=== PATIENT | male | born 1955 | race Caucasian/White ===

== ENCOUNTER 2017-07-19 10:11 | Inpatient (IN) | payer MEDICARE, SELFPAY ==
[2017-07-19] VITALS (19 sets, daily range): BP systolic 100–152; BP diastolic 58–98; PULSE 56–123; RESP 14–21; TEMP 36.7–37.7; O2SAT 82–99; BMI 34.6; BMI 34.5
--- NOTE | 2017-07-19 10:32 | RAD_ITS ---
STUDY: X-RAY CHEST REASON FOR EXAM: Male, 61 years old. Shortness of breath. TECHNIQUE: Single AP portable view of the chest. COMPARISON: Comparison is made with prior study dated January 08, 2018. FINDINGS: EKG electrodes are seen. There is now evidence of a [id number] right pleural effusion with underlying infiltration and/or atelectasis. This is superimposed on mild degree of CHF. Mild increased markings are also seen at the left lung base. There is moderate cardiac enlargement. Normal mediastinum and barry. Normal visualized pulmonary arteries. There is atherosclerotic calcification of the aortic arch with tortuosity. There are diffuse degenerative changes of the visualized thoracic spine. Cartilaginous type of calcification in the proximal left humerus. This is unchanged and most likely represents either chondroid calcification or healed bone infarct. There is no demonstrated abnormality of the visualized soft tissue structures of the upper abdomen. RAD/Chest 1 View (Portable) IMPRESSION: Findings in keeping with CHF with bibasilar infiltration and/or atelectasis and right pleural effusion. Electronically Signed: Hernan Lundberg MD at 11:38 EST Tel [phone], Service support ,
--- NOTE | 2017-07-19 10:32 | EKG12_ITS ---
Test Reason : SOB Blood Pressure : / mmHG Vent. Rate : 124 BPM Atrial Rate : 117 BPM P-R Int : 000 ms QRS Dur : 152 ms QT Int : 368 ms P-R-T Axes : 000 103 -28 degrees QTc Int : 528 ms Atrial fibrillation Right bundle branch block Septal infarct , age undetermined T wave abnormality, consider inferolateral ischemia Abnormal ECG Confirmed by ROSALIO ARIZA ([id number]), pictures editor LILLIAN HOUGH ([id number]) on 07/22/2017 1:18:08 PM Referred By: ELLIE Confirmed By:ROSALIO ARIZA
--- NOTE | 2017-07-19 10:43 | ED.DCSUM_ITS ---
- ER Visit Summary Date of Service: 07/19/17 Chief Complaint: Shortness of breath History of Present Illness: The patient is a 61 M with known history of atrial fibrillation, pulmonary hypertension, CHF, COPD, non-small cell lung cancer. He is currently on home oxygen at 6 L. Patient presents with a one-week history of progressive shortness of breath. He was admitted July 07 for COPD/CHF exacerbations. He states since his discharge has been progressively worsening. He reports a 20 pound weight gain in the past 1 week. He is currently on Lasix 40 mg twice a day but reports has not been any increased output of urine. Patient denies pain. Physical Examination: Blood pressure is 152/98, temperature 99.9, heart rate 56 , respiratory rate 17, pulse ox 82% on 6 L nasal cannula. The heart rate reading was obtained from the pulse ox meter. When hooked up to bus driver/monitor patient is tachycardic at 113 and has an oxygen saturation 91% on a nonrebreather. Head and neck examination is grossly unremarkable. Heart is irregular and tachycardic. Lung sounds are diminished throughout. Abdomen is soft nontender. She does have 3+ bilateral lower extremity edema that is symmetric. Test Results: CBC reveals a platelet count of 136,000, otherwise values normal. Chemistry studies normal. INR therapeutic at 2.0. Troponin 0 0.02. BNP is 531. EKG is atrial fibrillation at 124. Right bundle branch block is noted. Portable chest x-ray reveals CHF with bibasilar infiltrate and/or atelectasis and a right pleural effusion. Emergency Department Course and Treatment: Patient was started on BiPAP shortly after his arrival. He is on 55% with O2 sats in the low 90s. He is breathing comfortably at 18 times a minute. He does feel his breathing is improved. He was given 40 mg of IV Lasix. At this time patient will be admitted for further treatment and evaluation. Treatment Plan: [] Disposition: Admit Impression: 1. CHF 2. Respiratory failure This note was generated with [employer] dictation software. It may contain incorrect words, spelling, and punctuation that were not noted in review of the chart prior to signing ED Disposition - Plan for ED Patient: Chief Complaint: Shortness of Breath Referrals: Steven Brownlee MD [Primary Care Provider] -
[2017-07-19 11:03] LABS: Prothrombin Time (Protime)PT. 22.2 SECONDS (11.7-14.9)
[2017-07-19] MEDS: Furosemide 40 MG/4 ML Vial IV ×3 (11:03→22:31)
[2017-07-19 11:21] LABS: Anion Gap 5 (5-15); BUN 13 mg/dL (7-18); BUN/Creat Ratio 13.9 RATIO (10-20); Calcium,Total 8.8 mg/dL (8.5-10.1); Chloride 93 mmol/L (98-107); Creatinine, Serum 0.93 mg/dL (0.70-1.30); EST Glomerular Filtration Rate 87 mL/min (>60); Est Glom Filt Rate - Afr Amer 105 mL/min (>60); Estimated Creatinine Clearance 97.17 ml/min; Glucose 124 mg/dL (70-110); Potassium 4.1 mmol/L (3.5-5.1); Sodium Level 137 mmol/L (136-145)
[2017-07-19 11:34] LABS: Absolute Lymphocyte Count 0.87 X10^3/ul (0.83-4.51); Absolute Neutrophil Count 5.7 X10^3/uL (2.0-7.7); Basophil# 0.01 X10^3/uL; Basophil% 0.1 % (0-1); Eosinophil# 0.11 X10^3/uL; Eosinophils% 1.5 % (0-5); Hematocrit 44.7 % (40-54); Hemoglobin 13.5 g/dl (13.0-16.5); Lymphocyte # 0.87 X10^3/ul (4.0); Lymphocyte % 11.9 % (19-41); Mean Corp Hgb Conc 30.2 g/gl (32-36); Mean Corpuscular Hgb 28.7 pg (27.0-32.0); Mean Corpuscular Volume 95.1 fL (80-94); Mean Platelet Vol. 10.4 fl (6.2-12.0); Monocyte# 0.65 X10^3/uL; Monocyte% 8.9 % (0-10); Neutrophil # 5.67 X10^3/uL (2.7-7.7); Neutrophil % 77.6 % (47-70); Platelet Count 136 K/mm3 (150-450); RBC Distribution Width CV 19.5 % (11.6-14.6); RBC Distribution Width SD 66.1 fl (35.1-43.9); White Blood Count 7.3 K/mm3 (4.4-11.0)
[2017-07-19 11:36] LABS: Differential Indicated SCAN CRITERIA MET; POSITIVE COUNT NO; POSITIVE DIFFERENTIAL NO; POSITIVE MORPHOLOGY YES
[2017-07-19 12:02] LABS: BNP,B-Type NATRIURETIC PEPTIDE 531.2 pg/mL (0-100)
--- NOTE | 2017-07-19 12:51 | HP.PCM_ITS ---
Problem List (1) Hyperlipidemia Status: Chronic Qualifiers: Hyperlipidemia type: unspecified Qualified Code(s): E78.5 - Hyperlipidemia , unspecified (2) Hypertension Status: Chronic Qualifiers: Hypertension type: essential hypertension Qualified Code(s): I10 - Essential (primary) hypertension (3) Chronic airway obstruction Status: Chronic Qualifiers: Emphysema type: unspecified (4) Obstructive sleep apnea Status: Chronic (5) Acute on chronic diastolic (congestive) heart failure Status: Acute History of Present Illness Date of Admission: 07/19/17 Chief Complaint: Shortness of breath The patient is a 61 year old M who was recently discharged 1 week ago after being the hospital with acute on chronic diastolic heart failure, patient sees the patient had gained 20 pounds since discharge. Denies noncompliance with medication or salt or fluid restriction. Patient has been progressively short of breath, very sleepy, and complained of chest discomfort this morning with worsening shortness of breath and that prompted admission to the ED. In the ED, SPo2 was 82% and improved on Bipap. BNPep was >530. CXR showed vascular congestion Past Medical History Past Medical History (Chronic Problems): Chronic Problems Hyperlipidemia (Chronic) Hypertension (Chronic) Tobacco use disorder (Chronic) Chronic airway obstruction (Chronic) Obstructive sleep apnea (Chronic) Chronic pulmonary heart disease (Chronic) Allergies bee venom protein (honey bee) Allergy (Verified 07/19/17 10:12) Anaphylaxis latex Allergy (Verified 07/19/17 10:12) Rash Home Medications: Ambulatory Orders Medication Instructions Recorded Finasteride [Proscar] 5 mg PO DAILY 08/01/13 Metoprolol Tartrate [Lopressor 12.5 mg PO BID 08/01/13 (beta fito)] Pravastatin Sodium [Pravachol] 10 mg PO QHS 08/01/13 Gabapentin [Neurontin] 600 mg PO TID 01/31/17 Lorazepam [Ativan] 1 mg PO BID PRN PRN 01/31/17 Mirtazapine [Remeron] 30 mg PO QHS 01/31/17 Morphine Sulfate [Morphine Sulfate 30 mg PO BID PRN PRN 01/31/17 ER] Omeprazole 1 tab PO DAILY 01/31/17 Ondansetron [Zofran] 8 mg PO Q8H PRN PRN 01/31/17 Epinephrine [Epipen] 0.3 mg IM PRN PRN 07/07/17 Nitroglycerin [Nitrostat] 0.4 mg SL PRN PRN 07/07/17 Tamsulosin HCl [Flomax] 0.4 mg PO DAILY 07/07/17 Budesonide/Formoterol 80-4.5 2 puff INHALATION BID 07/09/17 [Symbicort 80-4.5 Mcg Inhaler] Albuterol IH (ProAir) [Proair Hfa] 2 puff INHALATION 4X/DAY #1 inhaler 07/12/17 Potassium Chloride 20 meq PO BID #120 tablet.er 07/12/17 Warfarin [Coumadin] 6 mg PO SuMoWeThFrSa@1700 tablet 07/12/17 Warfarin [Coumadin] 9 mg PO Tu@1700 tablet 07/12/17 Furosemide [Lasix] 40 mg PO BIDLX 07/19/17 Surgical History: noncontributory Psychiatric History: No pertinent psych hx Lives: Spouse/ Significant Other Smoking Status: Former smoker Tobacco Use: Non-smoker Alcohol: None Drugs: None - *Family History Maternal History Items: No pertinent history Paternal History Items: No pertinent history Review of Systems Constitutional: Reports: Weakness, Weight Change. Denies: Anorexia, Chills, Fever Eyes: Denies: Blurred vision, Cataracts, Conjunctivae Inflammation, Pain, Redness HEENT: Denies: Head Aches, Sinus Congestion, Sinus Drainage Cardiovascular: Reports: Chest Pain, Edema, Orthopnea, Paroxysmal Noc. Dyspnea. Denies: Claudication, Light Headedness, Palpitations Respiratory: Reports: Shortness of Breath, Shortness of breath at rest, Shortness of breath upon exertion. Denies: Cough, Hemoptysis, Pleuritic Pain, Sputum production Gastrointestinal: Reports: Constipation. Denies: Abdominal Pain, Hematemesis, Hematochezia, Nausea, Vomiting Genitourinary: Denies: Dysuria, Frequency, Hematuria, Incontinence Musculoskeletal: Denies: Joint Pain, Joint stiffness, Joint swelling, Joint Tenderness Skin: Denies: Dryness, Pruritis, Rash, Wounds Neurological: Denies: Difficulty swallowing, Focal weakness, Numbness, Tingling Psychiatric: Denies: Anxiety, Depression, Homicidal Ideations, Suicidal Ideations Endocrine: Denies: Change in Body Habitus Hematologic/ Lymphatic: Denies: Adenopathy, Easy Bruising, Easy Bleeding, Petechiae VTE Information - Inpt Only VTE Present on Admission: No VTE Pharm Prophylaxis ordered?: Yes - Physical Exam General: Alert, Oriented x3, Cooperative HEENT: Atraumatic, PERRLA, EOMI, Normocephalic Neck: Supple, No JVD, Negative Carotid Bruits Lungs: Clear to auscultation, Normal air movement Cardiovascular: Regular rate, No murmurs Abdomen: Bowel Sounds Present, Soft, Non Tender Extremities: No edema, Capillary Refill Less than 3 Seconds Skin: No rashes, No breakdown Musculoskeletal: No Tenderness to Palpation of Joints or Extremities Neurological: Cranial nerves II-XII grossly intact Psych/Mental Status: Normal Affect, Appropriate Vital Signs Temp Pulse Resp BP Pulse Ox 99.9 F H 59 L 18 100/70 94 07/19/17 10:12 07/19/17 12:09 07/19/17 12:09 07/19/17 12:09 07/19/17 12:09 Oxygen Flow Rate 6 Oxygen Delivery Method Bi-pap Weight: 125.736 kg Body Mass Index (BMI) 34.6 Laboratory Tests Past 24 Hrs 07/19/17 07/19/17 07/19/17 10:46 10:46 10:46 WBC 7.3 RBC 4.70 Hgb 13.5 Hct 44.7 MCV 95.1 H MCH 28.7 MCHC 30.2 L RDW 19.5 H RDW Differential 66.1 H Plt Count 136 L MPV 10.4 Immature Gran % (Auto) 0.000 Neut % (Auto) 77.6 H Lymph % (Auto) 11.9 L Briscoe % (Auto) 8.9 Eos % (Auto) 1.5 Baso % (Auto) 0.1 Absolute Neuts (auto) 5.7 Absolute Lymphs (auto) 0.87 Total Counted Not Reportable Differential Comment PT 22.2 H INR 2.0 Sodium 137 Potassium 4.1 Chloride 93 L Carbon Dioxide 39.0 H Anion Gap 5 BUN 13 Creatinine 0.93 Estim Creat Clear Calc 97.17 Est GFR (MDRD) Af Amer 105 Est GFR (MDRD) Non-Af 87 BUN/Creatinine Ratio 13.9 Glucose 124 H Calcium 8.8 Troponin I 0.02 B-Natriuretic Peptide 07/19/17 10:46 WBC RBC Hgb Hct MCV MCH MCHC RDW RDW Differential Plt Count MPV Immature Gran % (Auto) Neut % (Auto) Lymph % (Auto) Briscoe % (Auto) Eos % (Auto) Baso % (Auto) Absolute Neuts (auto) Absolute Lymphs (auto) Total Counted Differential Comment PT INR Sodium Potassium Chloride Carbon Dioxide Anion Gap BUN Creatinine Estim Creat Clear Calc Est GFR (MDRD) Af Amer Est GFR (MDRD) Non-Af BUN/Creatinine Ratio Glucose Calcium Troponin I B-Natriuretic Peptide 531.2 H
--- NOTE | 2017-07-19 13:16 | NURSING ---
127 ACUTE HYPOXIC RESP FAILURE PAINTSIL
[2017-07-19] MEDS: Albuterol 2.5 MG/3 ML VIAL.NEB. INHALATION ×2 (15:20→19:39)
[2017-07-19] MEDS: Budesonide Respules 0.5 MG/2 ML AMPUL.NEB. INHALATION (19:39)
--- NOTE | 2017-07-19 21:05 | NURSING ---
Spoke with at home. Updated on patient status.
[2017-07-19] MEDS: Metoprolol Tartrate 25 MG Tablet 12.5 MG PO (22:31)
[2017-07-19 22:34] LABS: Magnesium 2.1 mg/dL (1.6-2.6)
[2017-07-19] MEDS: Zolpidem Tartrate 5 MG Tablet PO (22:34)
[2017-07-19] MEDS: Pravastatin 20 MG Tablet 10 MG PO (22:34)
[2017-07-19] MEDS: Mirtazapine 30 MG Tablet PO (22:35)
[2017-07-20] VITALS (29 sets, daily range): BP systolic 85–112; BP diastolic 50–68; PULSE 60–152; RESP 14–20; TEMP 36.1–37.2; O2SAT 85–93
[2017-07-20 06:26] LABS: Hematocrit 40.6 % (40-54); Hemoglobin 12.4 g/dl (13.0-16.5); Mean Corp Hgb Conc 30.5 g/gl (32-36); Mean Corpuscular Hgb 29.1 pg (27.0-32.0); Mean Corpuscular Volume 95.3 fL (80-94); Mean Platelet Vol. 9.8 fl (6.2-12.0); Platelet Count 105 K/mm3 (150-450); RBC Distribution Width CV 19.2 % (11.6-14.6); RBC Distribution Width SD 65.1 fl (35.1-43.9); Red Blood Count 4.26 M/mm3 (4.6-6.2); White Blood Count 5.8 K/mm3 (4.4-11.0)
[2017-07-20 06:32] LABS: Scan Indicated on CBC? Y/N YES- FLAGS NOTED
[2017-07-20 06:33] LABS: International Normalized Ratio 2.4; Prothrombin Time (Protime)PT. 24.8 SECONDS (11.7-14.9)
[2017-07-20 06:36] LABS: Anion Gap 4 (5-15); BUN 12 mg/dL (7-18); BUN/Creat Ratio 14.7 RATIO (10-20); Calcium,Total 8.2 mg/dL (8.5-10.1); Chloride 94 mmol/L (98-107); Creatinine, Serum 0.82 mg/dL (0.70-1.30); EST Glomerular Filtration Rate 101 mL/min (>60); Est Glom Filt Rate - Afr Amer 122 mL/min (>60); Glucose 90 mg/dL (70-110); Potassium 3.4 mmol/L (3.5-5.1); Sodium Level 139 mmol/L (136-145)
[2017-07-20 06:42] LABS: Differential Comment SCANNED
[2017-07-20] MEDS: Albuterol 2.5 MG/3 ML VIAL.NEB. INHALATION ×3 (08:06→19:26)
[2017-07-20] MEDS: Budesonide Respules 0.5 MG/2 ML AMPUL.NEB. INHALATION ×2 (08:06→19:26)
--- NOTE | 2017-07-20 09:32 | EKG12_ITS ---
Test Reason : TACHYCARDIA Blood Pressure : / mmHG Vent. Rate : 112 BPM Atrial Rate : 119 BPM P-R Int : 000 ms QRS Dur : 150 ms QT Int : 316 ms P-R-T Axes : 000 127 -30 degrees QTc Int : 431 ms Atrial fibrillation Right bundle branch block Septal infarct , age undetermined T wave abnormality, consider inferolateral ischemia Abnormal ECG When compared with ECG of 19-JUL-2017 10:37, MANUAL COMPARISON REQUIRED, DATA IS UNCONFIRMED Confirmed by ROSALIO ARIZA ([id number]), avid editor LILLIAN HOUGH ([id number]) on 07/22/2017 2:13:14 PM Referred By: ARI Confirmed By:ROSALIO ARIZA
[2017-07-20] MEDS: Tamsulosin HCl 0.4 MG Capsule PO (10:00)
[2017-07-20] MEDS: Finasteride 5 MG Tablet PO (10:01)
[2017-07-20] MEDS: Pantoprazole Sodium 20 MG Tablet PO (10:02)
[2017-07-20] MEDS: Metoprolol Tartrate 25 MG Tablet 12.5 MG PO (10:18)
--- NOTE | 2017-07-20 12:18 | PN_ITS ---
Subjective: Current was seen and examined. No new complaints. Been diuresing adequately. Noted heart rate to be high, blood pressure remains relatively stable in the low 100s Objective: Physical Exam General: Alert, Oriented x3, Cooperative, on Ventimask 50%, saturating well HEENT: Atraumatic, PERRLA, EOMI, Normocephalic Neck: Supple, No JVD, Negative Carotid Bruits Lungs: Decreased air entry at the lung bases with coarse crackles heard Cardiovascular: Regular rate, No murmurs Abdomen: Bowel Sounds Present, Soft, Non Tender Extremities: Lateral leg edema, +2 with scattered petechiae on the lower extremity Skin: Petechiae of the lower extremities present since admission Musculoskeletal: No Tenderness to Palpation of Joints or Extremities Neurological: Cranial nerves II-XII grossly intact Psych/Mental Status: Normal Affect, Appropriate Vitals/I&O's: Vital Signs Temp Pulse Resp BP Pulse Ox 99 F 116 H 20 H 100/63 90 07/20/17 10:45 07/20/17 12:03 07/20/17 10:45 07/20/17 10:18 07/20/17 10:45 Oxygen Flow Rate 6 Oxygen Delivery Method Venturi Mask Weight: 124.8 kg Body Mass Index (BMI) 34.5 Intake and Output for Last 24 Hours 07/18/17 07/19/17 07/20/17 23:59 23:59 23:59 Intake Total 480 / 480 590 / 590 Output Total 1050 / 1050 Balance -570 / -570 590 / 590 Laboratory Results 07/19/17 15:10: Troponin I < 0.02 07/19/17 18:59: Troponin I < 0.02 07/19/17 18:59: Magnesium 2.1 07/20/17 01:10: Troponin I < 0.02 07/20/17 05:50: WBC 5.8, RBC 4.26 L, Hgb 12.4 L, Hct 40.6, MCV 95.3 H, MCH 29.1 , MCHC 30.5 L, RDW 19.2 H, RDW Differential 65.1 H, Plt Count 105 L, MPV 9.8, Differential Comment SCANNED 07/20/17 05:50: Sodium 139, Potassium 3.4 L, Chloride 94 L, Carbon Dioxide 41.0 H, Anion Gap 4 L, BUN 12, Creatinine 0.82, Estim Creat Clear Calc 110.20, Est GFR (MDRD) Af Amer 122, Est GFR (MDRD) Non-Af 101, BUN/Creatinine Ratio 14.7, Glucose 90, Calcium 8.2 L 07/20/17 05:50: PT 24.8 H, INR 2.4 Current Medications Albuterol Sulfate (Ventolin Aerosols) 2.5 mg INHALATION Q6HWA.RT [facility] Last Admin: 07/20/17 08:06 Dose: 2.5 mg Budesonide (Pulmicort Aerosol) 0.5 mg INHALATION Q12H.RT [facility] Last Admin: 07/20/17 08:06 Dose: 0.5 mg Finasteride (Proscar) 5 mg PO DAILY [facility] Last Admin: 07/20/17 10:01 Dose: 5 mg Furosemide (Lasix) 40 mg IV Q8 [facility] Last Admin: 07/20/17 05:10 Dose: Not Given Lorazepam (Ativan) 1 mg PO BID PRN PRN PRN Reason: ANXIETY Magnesium Hydroxide (Milk Of Magnesia) 30 ml PO DAILY PRN PRN Reason: Constipation Metoprolol Tartrate (Lopressor (Beta Shelly)) 12.5 mg PO BID [facility] Last Admin: 07/20/17 10:18 Dose: 12.5 mg Mirtazapine (Remeron) 30 mg PO QHS [facility] Last Admin: 07/19/17 22:35 Dose: 30 mg Morphine Sulfate (Ms Contin) 15 mg PO BID [facility] Nitroglycerin (Nitrostat) 0.4 mg SUBLINGUAL PRN PRN PRN Reason: CHEST PAIN Ondansetron HCl (Zofran) 8 mg PO Q8H PRN PRN PRN Reason: NAUSEA Pantoprazole Sodium (Protonix) 20 mg PO DAILY [facility] Last Admin: 07/20/17 10:02 Dose: 20 mg Potassium Chloride (K-Dur) 20 meq PO BID [facility] Last Admin: 07/20/17 10:00 Dose: 20 meq Pravastatin Sodium (Pravachol) 10 mg PO QHS [facility] Last Admin: 07/19/17 22:34 Dose: 10 mg Psyllium Hydrophilic Mucilloid (Metamucil) 1 packet PO DAILY PRN PRN PRN Reason: CONSTIPATION Senna/Docusate Sodium (Senokot-S, Irma-Colace) 2 tablet PO BID PRN PRN Reason: Constipation Sodium Chloride () 5 - 30 ml IV UD PRN PRN Reason: SALINE FLUSH Tamsulosin HCl (Flomax) 0.4 mg PO DAILY [facility] Last Admin: 07/20/17 10:00 Dose: 0.4 mg Warfarin Sodium (Coumadin (Pbkc)) 9 mg PO Tu@1700 D[place] Warfarin Sodium (Coumadin (Pbkc)) 6 mg PO SuMoWeThFrSa@1700 [facility] Last Admin: 07/19/17 18:54 Dose: 6 mg Zolpidem Tartrate (Ambien (Generic)) 5 mg PO QHS PRN PRN PRN Reason: INSOMNIA Last Admin: 07/19/17 22:34 Dose: 5 mg Assessment/Plan 61-year-old male recently discharged with acute hypoxic failure secondary to acute CHF exacerbation comes back with shortness of breath and chest discomfort 1. Acute on chronic hypoxic respiratory failure due to acute diastolic CHF, improved, off BiPAP, currently on Ventimask, patient is chronically on 6 L of oxygen, will continue to diurese and monitor for SPO2 more than 92% 2. acute on chronic diastolic congestive heart failure, likely secondary to dietary indiscretion and fluid restriction noncompliance, improved on Lasix IV, adequately diuresing, lost about 1 kg gram of fluid 3. Pulmonary hypertension/OPAL 4. A. fib with RVR, heart rate is fluctuating but goes up to 150s on exertion, would increase metoprolol to 25 mg p.o. twice daily, and give 1 dose of IV metoprolol, will continue to monitor blood pressures closely 5. non-small cell lung cancer 6. Hypertension, controlled, continue home meds 7. dementia 8. DVT PPx - on coumadin -INR is therapeutic at 2.4 Code Visit Inpatient E&M: 24152 Subs Hosp L2
[2017-07-20] MEDS: Furosemide 40 MG/4 ML Vial IV ×2 (14:38→21:22)
--- NOTE | 2017-07-20 14:58 | CASEMGMT ---
Chart review completed at this time. Please see CM assessment from 07/09/17 completed by this RN CM. Pt states no changes. Pt A/O x4 at this time and answers all questions appropriately at this time. Pt voices frustration over recent illness and hospital stays. Pt states has lung CA but is unsure of what next treatment options are. Pt provided brochure for palliative care at this time for symptom management as he is currently on 6 liters oxygen 18/01. Pt states has sleep study scheduled in August to get cpap set up at home. PLAN: Home [place] RN CM
--- NOTE | 2017-07-20 20:27 | NURSING ---
concerned about medication interactions/side effects. Gave me papers of written internet research and instructed to give to MD. Verbalized to her beneficial of speaking with MD when rounding in am but she stated she would not be able to. Will pass along to dayshift RN and place papers in chart.
[2017-07-20] MEDS: Metoprolol Tartrate 25 MG Tablet PO (21:22)
[2017-07-20] MEDS: Mirtazapine 30 MG Tablet PO (21:23)
[2017-07-20] MEDS: Pravastatin 20 MG Tablet 10 MG PO (21:23)
[2017-07-20] MEDS: 0.9% NaCl Peripheral Flush Adult/Peds IV (21:24)
[2017-07-20] MEDS: Magnesium Hydroxide 30 ML UDC PO (21:24)
[2017-07-20] MEDS: Zolpidem Tartrate 5 MG Tablet PO (21:24)
[2017-07-21] VITALS (22 sets, daily range): BP systolic 94–112; BP diastolic 57–72; PULSE 69–150; RESP 14–20; TEMP 36.1–36.9; O2SAT 91–96
[2017-07-21] MEDS: Albuterol 2.5 MG/3 ML VIAL.NEB. INHALATION ×4 (03:03→18:50)
[2017-07-21] MEDS: Furosemide 40 MG/4 ML Vial IV ×3 (05:08→21:31)
[2017-07-21] MEDS: 0.9% NaCl Peripheral Flush Adult/Peds IV (05:08)
[2017-07-21] MEDS: Budesonide Respules 0.5 MG/2 ML AMPUL.NEB. INHALATION ×2 (07:31→18:50)
[2017-07-21 08:28] LABS: International Normalized Ratio 2.1; Prothrombin Time (Protime)PT. 22.6 SECONDS (11.7-14.9)
[2017-07-21] MEDS: Finasteride 5 MG Tablet PO (09:31)
[2017-07-21] MEDS: Tamsulosin HCl 0.4 MG Capsule PO (09:31)
[2017-07-21] MEDS: Pantoprazole Sodium 20 MG Tablet PO (09:31)
[2017-07-21 11:58] LABS: Anion Gap 6 (5-15); BUN 12 mg/dL (7-18); BUN/Creat Ratio 13.8 RATIO (10-20); Calcium,Total 8.3 mg/dL (8.5-10.1); Chloride 93 mmol/L (98-107); Creatinine, Serum 0.87 mg/dL (0.70-1.30); EST Glomerular Filtration Rate 94 mL/min (>60); Est Glom Filt Rate - Afr Amer 114 mL/min (>60); Estimated Creatinine Clearance 103.87 ml/min; Glucose 136 mg/dL (70-110); Potassium 3.5 mmol/L (3.5-5.1); Sodium Level 140 mmol/L (136-145)
--- NOTE | 2017-07-21 18:51 | CPS ---
pt stated he does not want to wear bipap tonight but will call if he feels short of breath and needs it. pt is currently wearing 50% venti mask and comfortable.
[2017-07-21] MEDS: Metoprolol Tartrate 25 MG Tablet PO (21:31)
[2017-07-21] MEDS: Pravastatin 20 MG Tablet 10 MG PO (21:36)
[2017-07-21] MEDS: Mirtazapine 30 MG Tablet PO (21:36)
[2017-07-21] MEDS: Magnesium Hydroxide 30 ML UDC PO (21:37)
--- NOTE | 2017-07-21 23:33 | PN_ITS ---
Subjective: Patient seen and examined. Denies any new complaints. Diuresing very well. Denies shortness of breath. Complains of some mild sore throat and congestion, fever or chills. Objective: Physical Exam General: Alert, Oriented x3, Cooperative, on Ventimask 50%, saturating well HEENT: Atraumatic, PERRLA, EOMI, Normocephalic Neck: Supple, No JVD, Negative Carotid Bruits Lungs: Decreased air entry at the lung bases with coarse crackles heard Cardiovascular: Regular rate, No murmurs Abdomen: Bowel Sounds Present, Soft, Non Tender Extremities: Lateral leg edema, +2 with scattered petechiae on the lower extremity Skin: Petechiae of the lower extremities present since admission Musculoskeletal: No Tenderness to Palpation of Joints or Extremities Neurological: Cranial nerves II-XII grossly intact Psych/Mental Status: Normal Affect, Appropriate Vitals/I&O's: Vital Signs Temp Pulse Resp BP Pulse Ox 98.5 F 105 H 18 101/66 93 07/21/17 20:16 07/21/17 21:31 07/21/17 20:16 07/21/17 20:16 07/21/17 20:16 Oxygen Flow Rate 6 Oxygen Delivery Method Venturi Mask Weight: 123.4 kg Body Mass Index (BMI) 34.5 Intake and Output for Last 24 Hours 07/19/17 07/20/17 07/21/17 23:59 23:59 23:59 Intake Total 480 / 480 830 / 830 540 / 540 Output Total 1050 / 1050 Balance -570 / -570 830 / 830 540 / 540 Microbiology Past 72 Hours 07/21/17 13:10 Mucosa - Nose Respiratory Panel (PCR) - Final 07/21/17 13:10 Mucosa - Nose Influenza Types A,B Direct FA ([facility]) - Final Laboratory Results 07/21/17 06:10: PT 22.6 H, INR 2.1 07/21/17 11:32: Sodium 140, Potassium 3.5, Chloride 93 L, Carbon Dioxide 41.0 H , Anion Gap 6, BUN 12, Creatinine 0.87, Estim Creat Clear Calc 103.87, Est GFR ( MDRD) Af Amer 114, Est GFR (MDRD) Non-Af 94, BUN/Creatinine Ratio 13.8, Glucose 136 H, Calcium 8.3 L Current Medications Albuterol Sulfate (Ventolin Aerosols) 2.5 mg INHALATION Q6HWA.RT [facility] Last Admin: 07/21/17 18:50 Dose: 2.5 mg Budesonide (Pulmicort Aerosol) 0.5 mg INHALATION Q12H.RT [facility] Last Admin: 07/21/17 18:50 Dose: 0.5 mg Finasteride (Proscar) 5 mg PO DAILY [facility] Last Admin: 07/21/17 09:31 Dose: 5 mg Furosemide (Lasix) 40 mg IV Q8 [facility] Last Admin: 07/21/17 21:31 Dose: 40 mg Lorazepam (Ativan) 1 mg PO BID PRN PRN PRN Reason: ANXIETY Magnesium Hydroxide (Milk Of Magnesia) 30 ml PO DAILY PRN PRN Reason: Constipation Last Admin: 07/21/17 21:37 Dose: 30 ml Metoprolol Tartrate (Lopressor (Beta Shelly)) 25 mg PO BID [facility] Last Admin: 07/21/17 21:31 Dose: 25 mg Mirtazapine (Remeron) 30 mg PO QHS [facility] Last Admin: 07/21/17 21:36 Dose: 30 mg Morphine Sulfate (Ms Contin) 15 mg PO BID [facility] Last Admin: 07/21/17 21:36 Dose: 15 mg Nitroglycerin (Nitrostat) 0.4 mg SUBLINGUAL PRN PRN PRN Reason: CHEST PAIN Ondansetron HCl (Zofran) 8 mg PO Q8H PRN PRN PRN Reason: NAUSEA Pantoprazole Sodium (Protonix) 20 mg PO DAILY [facility] Last Admin: 07/21/17 09:31 Dose: 20 mg Potassium Chloride (K-Dur) 20 meq PO BID [facility] Last Admin: 07/21/17 21:31 Dose: 20 meq Pravastatin Sodium (Pravachol) 10 mg PO QHS [facility] Last Admin: 07/21/17 21:36 Dose: 10 mg Psyllium Hydrophilic Mucilloid (Metamucil) 1 packet PO DAILY PRN PRN PRN Reason: CONSTIPATION Senna/Docusate Sodium (Senokot-S, Irma-Colace) 2 tablet PO BID PRN PRN Reason: Constipation Sodium Chloride () 5 - 30 ml IV UD PRN PRN Reason: SALINE FLUSH Last Admin: 07/21/17 05:08 Dose: 5 ml Tamsulosin HCl (Flomax) 0.4 mg PO DAILY [facility] Last Admin: 07/21/17 09:31 Dose: 0.4 mg Warfarin Sodium (Coumadin (Pbkc)) 9 mg PO Tu@1700 [facility] Last Admin: 07/20/17 17:13 Dose: 9 mg Warfarin Sodium (Coumadin (Pbkc)) 6 mg PO SuMoWeThFrSa@1700 [facility] Last Admin: 07/21/17 18:23 Dose: 6 mg Zolpidem Tartrate (Ambien (Generic)) 5 mg PO QHS PRN PRN PRN Reason: INSOMNIA Last Admin: 07/20/17 21:24 Dose: 5 mg Assessment/Plan 61-year-old male recently discharged with acute hypoxic failure secondary to acute CHF exacerbation comes back with shortness of breath and chest discomfort 1. Acute on chronic hypoxic respiratory failure due to acute diastolic CHF, improved, off BiPAP, currently on Ventimask, patient is chronically on 6 L of oxygen, will continue to diurese and monitor for SPO2 more than 92%, will continue to monitor 2. acute on chronic diastolic congestive heart failure, likely secondary to dietary indiscretion and fluid restriction noncompliance, improved on Lasix IV, adequately diuresing, continue same 3. Pulmonary hypertension/OPAL 4. A. fib with RVR, heart rate is fluctuating but goes up to 150s on exertion, would increase metoprolol to 25 mg p.o. twice daily, and give 1 dose of IV metoprolol, will continue to monitor blood pressures closely 5. non-small cell lung cancer 6. Hypertension, controlled, continue home meds 7. dementia 8. DVT PPx - on coumadin -INR is therapeutic at 2.4 Code Visit Inpatient E&M: 48332 Subs Hosp L2
[2017-07-22] VITALS (19 sets, daily range): BP systolic 94–108; BP diastolic 56–71; PULSE 83–115; RESP 14–29; TEMP 36.4–37.1; O2SAT 87–95
[2017-07-22] MEDS: Furosemide 40 MG/4 ML Vial IV ×2 (06:18→14:53)
[2017-07-22 07:52] LABS: Anion Gap 5 (5-15); BUN 10 mg/dL (7-18); Calcium,Total 8.7 mg/dL (8.5-10.1); Chloride 95 mmol/L (98-107); Creatinine, Serum 0.83 mg/dL (0.70-1.30); EST Glomerular Filtration Rate 99 mL/min (>60); Est Glom Filt Rate - Afr Amer 119 mL/min (>60); Estimated Creatinine Clearance 108.88 ml/min; Glucose 103 mg/dL (70-110); Potassium 3.2 mmol/L (3.5-5.1); Sodium Level 140 mmol/L (136-145)
[2017-07-22] MEDS: Budesonide Respules 0.5 MG/2 ML AMPUL.NEB. INHALATION ×2 (07:53→21:32)
[2017-07-22] MEDS: Albuterol 2.5 MG/3 ML VIAL.NEB. INHALATION ×3 (07:53→21:32)
[2017-07-22 09:24] LABS: International Normalized Ratio 2.2; Prothrombin Time (Protime)PT. 23.4 SECONDS (11.7-14.9)
[2017-07-22] MEDS: Metoprolol Tartrate 25 MG Tablet PO ×2 (10:07→22:01)
[2017-07-22] MEDS: Tamsulosin HCl 0.4 MG Capsule PO (10:07)
[2017-07-22] MEDS: Finasteride 5 MG Tablet PO (10:09)
[2017-07-22] MEDS: Pantoprazole Sodium 20 MG Tablet PO (10:11)
[2017-07-22] MEDS: 0.9% NaCl Peripheral Flush Adult/Peds IV (14:54)
--- NOTE | 2017-07-22 18:03 | PCM.PN.HOSP ---
Subjective: Patient was seen and examined, much improved, able to tolerate his meals without oxygen, being on Ventimask for the most part except yesterday he was on a slightly liters of oxygen. Denies any chest pain or shortness of breath Objective: Physical Exam General: Alert, Oriented x3, Cooperative, on Ventimask 50%, saturating well HEENT: Atraumatic, PERRLA, EOMI, Normocephalic Neck: Supple, No JVD, Negative Carotid Bruits Lungs: Decreased air entry at the lung bases with no crackles heard today Cardiovascular: Regular rate, No murmurs Abdomen: Bowel Sounds Present, Soft, Non Tender Extremities: Lateral leg edema, +2 with scattered petechiae on the lower extremity Skin: Petechiae of the lower extremities present since admission Musculoskeletal: No Tenderness to Palpation of Joints or Extremities Neurological: Cranial nerves II-XII grossly intact Psych/Mental Status: Normal Affect, Appropriate Vitals/I&O's: Vital Signs Temp Pulse Resp BP Pulse Ox 98.2 F 95 18 102/69 93 07/22/17 16:20 07/22/17 16:20 07/22/17 16:20 07/22/17 16:20 07/22/17 16:20 Oxygen Flow Rate 6 Oxygen Delivery Method Nasal Cannula Weight: 121.7 kg Body Mass Index (BMI) 34.5 Intake and Output for Last 24 Hours 07/20/17 07/21/17 07/22/17 23:59 23:59 23:59 Intake Total 830 / 830 540 / 540 800 / 800 Output Total 875 / 875 950 / 950 Balance 830 / 830 -335 / -335 -150 / -150 Microbiology Past 72 Hours 07/21/17 13:10 Mucosa - Nose Respiratory Panel (PCR) - Final 07/21/17 13:10 Mucosa - Nose Influenza Types A,B Direct FA ([facility]) - Final Laboratory Results 07/22/17 07:10: PT 23.4 H, INR 2.2 07/22/17 07:10: Sodium 140, Potassium 3.2 L, Chloride 95 L, Carbon Dioxide 40.0 H, Anion Gap 5, BUN 10, Creatinine 0.83, Estim Creat Clear Calc 108.88, Est GFR (MDRD) Af Amer 119, Est GFR (MDRD) Non-Af 99, BUN/Creatinine Ratio 12.0, Glucose 103, Calcium 8.7 Current Medications Albuterol Sulfate (Ventolin Aerosols) 2.5 mg INHALATION Q6HWA.RT [facility] Last Admin: 07/22/17 13:41 Dose: 2.5 mg Budesonide (Pulmicort Aerosol) 0.5 mg INHALATION Q12H.RT [facility] Last Admin: 07/22/17 07:53 Dose: 0.5 mg Finasteride (Proscar) 5 mg PO DAILY [facility] Last Admin: 07/22/17 10:09 Dose: 5 mg Furosemide (Lasix) 40 mg IV Q8 [facility] Last Admin: 07/22/17 14:53 Dose: 40 mg Lorazepam (Ativan) 1 mg PO BID PRN PRN PRN Reason: ANXIETY Magnesium Hydroxide (Milk Of Magnesia) 30 ml PO DAILY PRN PRN Reason: Constipation Last Admin: 07/21/17 21:37 Dose: 30 ml Metoprolol Tartrate (Lopressor (Beta Shelly)) 25 mg PO BID [facility] Last Admin: 07/22/17 10:07 Dose: 25 mg Mirtazapine (Remeron) 30 mg PO QHS [facility] Last Admin: 07/21/17 21:36 Dose: 30 mg Morphine Sulfate (Ms Contin) 15 mg PO BID [facility] Last Admin: 07/22/17 10:08 Dose: 15 mg Nitroglycerin (Nitrostat) 0.4 mg SUBLINGUAL PRN PRN PRN Reason: CHEST PAIN Ondansetron HCl (Zofran) 8 mg PO Q8H PRN PRN PRN Reason: NAUSEA Pantoprazole Sodium (Protonix) 20 mg PO DAILY [facility] Last Admin: 07/22/17 10:11 Dose: 20 mg Potassium Chloride (K-Dur) 20 meq PO BID [facility] Last Admin: 07/22/17 10:07 Dose: Not Given Pravastatin Sodium (Pravachol) 10 mg PO QHS [facility] Last Admin: 07/21/17 21:36 Dose: 10 mg Psyllium Hydrophilic Mucilloid (Metamucil) 1 packet PO DAILY PRN PRN PRN Reason: CONSTIPATION Senna/Docusate Sodium (Senokot-S, Irma-Colace) 2 tablet PO BID PRN PRN Reason: Constipation Sodium Chloride () 5 - 30 ml IV UD PRN PRN Reason: SALINE FLUSH Last Admin: 01/25/18 14:54 Dose: 5 ml Tamsulosin HCl (Flomax) 0.4 mg PO DAILY [facility] Last Admin: 07/22/17 10:07 Dose: 0.4 mg Warfarin Sodium (Coumadin (Pbkc)) 9 mg PO Tu@1700 [facility] Last Admin: 07/20/17 17:13 Dose: 9 mg Warfarin Sodium (Coumadin (Pbkc)) 6 mg PO SuMoWeThFrSa@1700 [facility] Last Admin: 07/22/17 16:25 Dose: 6 mg Zolpidem Tartrate (Ambien (Generic)) 5 mg PO QHS PRN PRN PRN Reason: INSOMNIA Last Admin: 07/20/17 21:24 Dose: 5 mg Assessment/Plan 61-year-old male recently discharged with acute hypoxic failure secondary to acute CHF exacerbation comes back with shortness of breath and chest discomfort 1. Acute on chronic hypoxic respiratory failure due to acute diastolic CHF, improved, off BiPAP, currently on Ventimask, patient is chronically on 6 L of oxygen, will continue to diurese and monitor for SPO2 more than 92%, will continue to monitor 2. acute on chronic diastolic congestive heart failure, likely secondary to dietary indiscretion and fluid restriction noncompliance, improved on Lasix IV, adequately diuresing, continue same 3. Pulmonary hypertension/OPAL 4. A. fib with RVR, heart rate is fluctuating but goes up to 150s on exertion, would increase metoprolol to 25 mg p.o. twice daily, and give 1 dose of IV metoprolol, will continue to monitor blood pressures closely 5. non-small cell lung cancer 6. Hypertension, controlled, continue home meds 7. dementia 8. DVT PPx - on coumadin -INR is therapeutic at 2.2 Code Visit Inpatient E&M: 57103 Subs Hosp L2
[2017-07-22] MEDS: Pravastatin 20 MG Tablet 10 MG PO (22:02)
[2017-07-22] MEDS: Mirtazapine 30 MG Tablet PO (22:03)
[2017-07-23] VITALS (11 sets, daily range): BP systolic 93–99; BP diastolic 59–63; PULSE 65–94; RESP 14–27; TEMP 36.2–37.1; O2SAT 92–97
[2017-07-23] MEDS: Furosemide 40 MG/4 ML Vial IV (05:56)
[2017-07-23] MEDS: Budesonide Respules 0.5 MG/2 ML AMPUL.NEB. INHALATION (07:38)
[2017-07-23] MEDS: Albuterol 2.5 MG/3 ML VIAL.NEB. INHALATION (07:38)
[2017-07-23 08:33] LABS: Anion Gap 5 (5-15); BUN 10 mg/dL (7-18); BUN/Creat Ratio 12.5 RATIO (10-20); Calcium,Total 8.5 mg/dL (8.5-10.1); Chloride 98 mmol/L (98-107); EST Glomerular Filtration Rate 104 mL/min (>60); Est Glom Filt Rate - Afr Amer 126 mL/min (>60); Estimated Creatinine Clearance 112.96 ml/min; Glucose 85 mg/dL (70-110); Potassium 3.3 mmol/L (3.5-5.1); Sodium Level 142 mmol/L (136-145)
[2017-07-23 08:57] LABS: International Normalized Ratio 2.4; Prothrombin Time (Protime)PT. 24.8 SECONDS (11.7-14.9)
[2017-07-23] MEDS: Tamsulosin HCl 0.4 MG Capsule PO (09:43)
[2017-07-23] MEDS: Metoprolol Tartrate 25 MG Tablet PO (09:43)
[2017-07-23] MEDS: Pantoprazole Sodium 20 MG Tablet PO (09:44)
[2017-07-23] MEDS: Finasteride 5 MG Tablet PO (09:44)
--- NOTE | 2017-07-23 11:35 | PCM.DC ---
- Discharge Diagnoses Reason(s) for Visit for Discharge Instructions: Shortness of breath You will use the following diet at home:: Cardiac, Fluid restricted (specify 2000 mls, 1500 mls) - 1500 Your food should be the consistency of: Regular Your liquids should be the consistency of: Regular/Thin Discharge Activity: Return to Normal Activity Allergies/Adverse Reactions: Allergies bee venom protein (honey bee) Allergy (Verified 07/19/17 10:12) Anaphylaxis latex Allergy (Verified 07/19/17 10:12) Rash Medications to take at Discharge Finasteride [Proscar] 5 mg PO DAILY 08/01/13 Metoprolol Tartrate [Lopressor (beta fito)] 12.5 mg PO BID 08/01/13 Pravastatin Sodium [Pravachol] 10 mg PO QHS 08/01/13 Gabapentin [Neurontin] 600 mg PO TID 01/31/17 Lorazepam [Ativan] 1 mg PO BID PRN PRN 01/31/17 Mirtazapine [Remeron] 30 mg PO QHS 01/31/17 Morphine Sulfate [Morphine Sulfate ER] 30 mg PO BID PRN PRN 01/31/17 Omeprazole 1 tab PO DAILY 01/31/17 Ondansetron [Zofran] 8 mg PO Q8H PRN PRN 01/31/17 Epinephrine [Epipen] 0.3 mg IM PRN PRN 07/07/17 Nitroglycerin [Nitrostat] 0.4 mg SL PRN PRN 07/07/17 Tamsulosin HCl [Flomax] 0.4 mg PO DAILY 07/07/17 Budesonide/Formoterol 80-4.5 [Symbicort 80-4.5 Mcg Inhaler] 2 puff INHALATION BID 07/09/17 Albuterol IH (ProAir) [Proair Hfa] 2 puff INHALATION 4X/DAY #1 inhaler 07/12/17 Warfarin [Coumadin] 6 mg PO SuMoWeThFrSa@1700 tablet 07/12/17 Warfarin [Coumadin] 9 mg PO Tu@1700 tablet 07/12/17 Furosemide [Lasix] 80 mg PO BIDLX #100 tab 07/23/17 Potassium Chloride 20 meq PO BID #30 tablet.er 07/23/17 The following prescriptions were given: Furosemide [Lasix] 80 mg PO BIDLX #100 tab Orders to be completed after discharge: Basic Metabolic Profile (BMP) Time Frame: 3 Days, Location: Laboratory Primary Care Physician: Steven Brownlee MD [Primary Care Provider] - Please follow up with your Primary Care Physician in: within 2 weeks Please Follow Up With: Ebenezer Jin MD When: within 2 weeks Proposed Discharge Date: 07/23/17
--- NOTE | 2017-07-23 11:39 | PCM.DC.SUM ---
Discharge Date and Diagnosis Date of Admission: 07/19/17 Date of Discharge: 07/23/17 - Primary Discharge Diagnosis Acute on chronic hypoxic resp failure Acute on chronic CHF exacerbation - Secondary Discharge Diagnosis Chronic Problems Hyperlipidemia (Chronic) Hypertension (Chronic) Tobacco use disorder (Chronic) Chronic airway obstruction (Chronic) Obstructive sleep apnea (Chronic) Chronic pulmonary heart disease (Chronic) Hospital Course and Treatment Imaging Results: Clinical Impression(s) from Imaging Studies Chest X-Ray 07/19/17 10:32 IMPRESSION: Findings in keeping with CHF with bibasilar infiltration and/or atelectasis and right pleural effusion. Electronically Signed: Hernan Lundberg MD at 11:38 EST Tel [phone], Service support , None Operations: None Procedures: None Summary of Care Provided: 61-year-old male recently discharged with acute hypoxic failure secondary to acute CHF exacerbation comes back with shortness of breath and chest discomfort 1. Acute on chronic hypoxic respiratory failure due to acute diastolic CHF, improved, initially on BiPAP, maintained mainly on Ventimask during this admission, patient is chronically on 6 L of oxygen, improved and discharged home on home 6L oxygen. 2. acute on chronic diastolic congestive heart failure, likely secondary to dietary indiscretion and fluid restriction noncompliance, improved on Lasix IV, adequately diuresed, discharged on lasix 80mg po bid, educated on fluid restriction, low salt diet, will be followed by community care nurses with the hopes of preventing readmission. 3. Pulmonary hypertension/OPAL 4. A. fib with RVR, adjustments made to metoprolol; now 25 mg p.o. twice daily 5. non-small cell lung cancer 6. Hypertension, controlled, continue home meds 7. dementia Discharge Diet: No Restrictions Discharge Activity: Return to Normal Activity Home Medications: Medications to take at Discharge Finasteride [Proscar] 5 mg PO DAILY 08/01/13 Metoprolol Tartrate [Lopressor (beta fito)] 12.5 mg PO BID 08/01/13 Pravastatin Sodium [Pravachol] 10 mg PO QHS 08/01/13 Gabapentin [Neurontin] 600 mg PO TID 01/31/17 Lorazepam [Ativan] 1 mg PO BID PRN PRN 01/31/17 Mirtazapine [Remeron] 30 mg PO QHS 01/31/17 Morphine Sulfate [Morphine Sulfate ER] 30 mg PO BID PRN PRN 01/31/17 Omeprazole 1 tab PO DAILY 01/31/17 Ondansetron [Zofran] 8 mg PO Q8H PRN PRN 01/31/17 Epinephrine [Epipen] 0.3 mg IM PRN PRN 07/07/17 Nitroglycerin [Nitrostat] 0.4 mg SL PRN PRN 07/07/17 Tamsulosin HCl [Flomax] 0.4 mg PO DAILY 07/07/17 Budesonide/Formoterol 80-4.5 [Symbicort 80-4.5 Mcg Inhaler] 2 puff INHALATION BID 07/09/17 Albuterol IH (ProAir) [Proair Hfa] 2 puff INHALATION 4X/DAY #1 inhaler 07/12/17 Warfarin [Coumadin] 6 mg PO SuMoWeThFrSa@1700 tablet 07/12/17 Warfarin [Coumadin] 9 mg PO Tu@1700 tablet 07/12/17 Furosemide [Lasix] 80 mg PO BIDLX #100 tab 07/23/17 Potassium Chloride 20 meq PO BID #30 tablet.er 07/23/17 Following Prescrptions Were Given to Patient: Furosemide [Lasix] 80 mg PO BIDLX #100 tab Potassium Chloride 20 meq PO BID #30 tablet.er Primary Care Physician: Steven Brownlee MD [Primary Care Provider] - Please follow up with your Primary Care Physician in: within 2 weeks Please Follow Up With: Ebenezer Jin MD When: within 2 weeks Disposition: Home Minutes spent on discharge:: 25 Patient Condition:: Stable Meaningful Use Info Meaningful Use Diagnoses (Choose all that apply): CHF - CHF DEYANIRA/ARB ordered at discharge?: No Reason DEYANIRA/ARB not ordered?: Drug Interaction - not indicated Documented LVEF (%): 65 Code Visit Inpatient E&M: 17043 Disch Hosp
== END 2017-07-23 16:43 | disposition home or self-care (01) | DRG 291 ==
LOC: ED 12:48 → PCU 13:31
PROVIDERS: Family Medicine; Admitting Provider Internal Medicine; Emergency Provider Emergency Medicine; Family Provider Family Medicine; PCP Family Medicine; Visit Provider Internal Medicine
DX: I11.0 Hypertensive heart disease with heart failure (principal); J96.21 Acute and chronic respiratory failure with hypoxia; C34.90 Malignant neoplasm of unspecified part of unspecified bronchus or lung; I27.20 Pulmonary hypertension, unspecified; Z99.81 Dependence on supplemental oxygen; J43.9 Emphysema, unspecified; F03.90 Unspecified dementia, unspecified severity, without behavioral disturbance, psychotic disturbance, mood disturbance, and anxiety; I50.33 Acute on chronic diastolic (congestive) heart failure; G47.33 Obstructive sleep apnea (adult) (pediatric); E78.5 Hyperlipidemia, unspecified; I48.91 Unspecified atrial fibrillation; Z87.891 Personal history of nicotine dependence; Z79.01 Long term (current) use of anticoagulants
CPT/HCPCS: 36415; 71045; 80048; 83735; 83880; 84484; 85025; 85027; 85610; 87633; 87804; 93005; 94002; 94003; 94640; 97116; 97166; 97535; 97802; 99285; A4216; J1940

== ENCOUNTER 2017-07-28 16:40 | Inpatient (IN) | payer MEDICARE, SELFPAY ==
[2017-07-28] VITALS (17 sets, daily range): BP systolic 94–113; BP diastolic 68–88; PULSE 75–109; RESP 14–25; TEMP 36.6–36.8; O2SAT 78–100; BMI 34.1; BMI 34.2; BMI 32.7
--- NOTE | 2017-07-28 16:50 | RAD_ITS ---
STUDY: X-RAY CHEST REASON FOR EXAM: Male, 61 years old. Shortness of breath TECHNIQUE: Single AP portable view of the chest. COMPARISON: Prior portable chest radiograph of July 19, 2017, July 11, 2017 and March 06, 2015 FINDINGS: Persistent right pleural effusion not substantially changed from the prior exam. Underlying infiltrate versus compressive atelectasis of the right mid and lower lung zone. Stable chronic changes at the left lung base. Cardiomegaly Prominence of the right hilum. Normal visualized pulmonary arteries. There is atherosclerotic calcification of the aortic arch with tortuosity. Normal visualized ribs, clavicles, and shoulders. There is no demonstrated abnormality of the visualized soft tissue structures of the upper abdomen. RAD/Chest 1 View (Portable) IMPRESSION: No substantial changes from the prior exam of JuneJuly 19, 2017. Continued cardiomegaly, moderate-sized right pleural effusion with underlying compressive atelectasis/infiltrate of the right lung. Prominent right hilum. More recent films demonstrate enlargement of the cardiac silhouette since an earlier exam of 2014. Electronically Signed: Cande Shah MD at 17:14 EST , Service support ,
--- NOTE | 2017-07-28 16:52 | EKG12_ITS ---
Test Reason : SOB Blood Pressure : / mmHG Vent. Rate : 099 BPM Atrial Rate : 129 BPM P-R Int : 000 ms QRS Dur : 160 ms QT Int : 406 ms P-R-T Axes : 000 092 -53 degrees QTc Int : 521 ms Atrial fibrillation Right bundle branch block Septal infarct , age undetermined T wave abnormality, consider lateral ischemia Abnormal ECG Confirmed by NAKUL GREER, BHAVESH ([id number]), editor school photograph LILLIAN HOUGH ([id number]) on 08/02/2017 4:09:48 PM Referred By: JEN Confirmed By:BHAVESH MOTA MD
[2017-07-28 17:16] LABS: Allen Test POS; Base Excess 18 mmol/L (-2 to +2); Bicarbonate 42.2 mmol/L (22-26); Blood Gas Specimen Type ART; FI02 50; PO2 66 mmHG (75-100); SITE R Radial; SO2 93 % (95-99); Time Given 1705; Total Carbon Dioxide 44 mmol/L; pH 7.46 (7.35-7.45)
[2017-07-28] MEDS: Ipratropium/Albuterol Sulfate 3 ML AMPUL.NEB INHALATION ×2 (17:17→22:00)
--- NOTE | 2017-07-28 17:31 | ED.RN ---
PT PLACED ON BI-PAP. O2 SAT UP TO 94
[2017-07-28 17:55] LABS: Absolute Lymphocyte Count 1.22 X10^3/ul (0.83-4.51); Basophil# 0.02 X10^3/uL; Basophil% 0.3 % (0-1); Eosinophil# 0.12 X10^3/uL; Eosinophils% 1.7 % (0-5); Hematocrit 44.6 % (40-54); Hemoglobin 13.6 g/dl (13.0-16.5); Lymphocyte # 1.22 X10^3/ul (4.0); Lymphocyte % 17.5 % (19-41); Mean Corp Hgb Conc 30.5 g/gl (32-36); Mean Corpuscular Hgb 28.8 pg (27.0-32.0); Mean Corpuscular Volume 94.5 fL (80-94); Mean Platelet Vol. 11.3 fl (6.2-12.0); Monocyte# 0.63 X10^3/uL; Monocyte% 9.1 % (0-10); Neutrophil # 4.97 X10^3/uL (2.7-7.7); Neutrophil % 71.4 % (47-70); Platelet Count 155 K/mm3 (150-450); RBC Distribution Width CV 19.3 % (11.6-14.6); RBC Distribution Width SD 66.9 fl (35.1-43.9); Red Blood Count 4.72 M/mm3 (4.6-6.2)
[2017-07-28] MEDS: MethylPREDNISolone 125 MG/2 ML Vial 80 MG IV (17:58)
[2017-07-28 17:59] LABS: Differential Indicated SCAN CRITERIA MET; POSITIVE COUNT NO; POSITIVE DIFFERENTIAL NO; POSITIVE MORPHOLOGY YES
[2017-07-28 18:09] LABS: Prothrombin Time (Protime)PT. 50.5 SECONDS (11.7-14.9)
[2017-07-28 18:15] LABS: International Normalized Ratio 5.9
[2017-07-28 18:23] LABS: Platelet Estimate ADEQUATE (ADEQ)
[2017-07-28 18:24] LABS: Anisocytosis 3+; Differential Comment SCANNED
[2017-07-28 18:26] LABS: Anion Gap 9 (5-15); BUN 19 mg/dL (7-18); BUN/Creat Ratio 11.2 RATIO (10-20); Chloride 90 mmol/L (98-107); Creatinine, Serum 1.69 mg/dL (0.70-1.30); EST Glomerular Filtration Rate 44 mL/min (>60); Est Glom Filt Rate - Afr Amer 53 mL/min (>60); Estimated Creatinine Clearance 53.47 ml/min; Glucose 82 mg/dL (70-110); Potassium 4.3 mmol/L (3.5-5.1); Sodium Level 134 mmol/L (136-145)
--- NOTE | 2017-07-28 19:18 | ED.VISSUMM ---
- ER Visit Summary Date of Service: 07/28/17 Chief Complaint: [Shortness of breath] History of Present Illness: The patient is a 61 M [resents to the emergency department with increasing shortness of breath over last several days. Patient states that he has been short of breath for several weeks and is had at least 3 visits for admission within the last couple of weeks. Patient has a history of COPD, CHF, history of lung cancer, pulmonary hypertension, A. fib, coronary artery disease, cerebrovascular accident. Patient was seen in Dr. Brownlee's office today and referred to the emergency department. Patient's oxygen saturation on a 6 L has been in the 80s. Patient has been coughing however denies any fever. Denies any chest pain. Patient's been sleeping more.] Physical Examination: [HEENT-PERRLA, EOMI. Cranial nerves II through XII grossly intact. TMs clear. Mucous membranes moist. No adenopathy. Cardiovascular-irregularly irregular with a 2 out of 6 systolic ejection murmur noted Lungs-breath sounds in the bases. Patient has Rales in the right base and diffuse expiratory wheezes. Mild tachypnea. No accessory muscle use or retractions. Abdomen-normoactive bowel sounds, soft, nontender, no rebound or rigidity, no peritoneal signs. Extremities-intact ?4, normal range of motion, normal pulses, atraumatic]. Patient has +2 edema both lower extremities and symmetric. Test Results: [EKG obtained showed A. fib with a ventricular rate of [address] changes noted. Compared with prior EKG from July 20, 2017 no significant changes noted. CBC with differential obtained showed a white count of 7.0, hemoglobin 13.6, hematocrit 46, platelets 155. Chemistries unremarkable. BUN was 19 and creatinine was 1.69. INR was 5.9. Troponin was 0.65. Chest x-ray showed right-sided effusion is moderate no significant change from prior x-ray.] ABG obtained showed pH of 7.45 CO2 of 60 bicarb 42 PaO2 of 66 and O2 saturation of 93% on a 50% FiO2. Emergency Department Course and Treatment: [Patient was given a DuoNeb aerosol and was started on BiPAP. Was started on Solu-Medrol.] Treatment Plan: [Patient will be admitted for further workup and evaluation of his hypoxemia. And non-ST elevation CO.] Disposition: [Admit] Impression: [Hypoxia COPD exacerbation Non-ST elevation CO Coumadin coagulopathy] This note was generated with [employer] dictation software. It may contain incorrect words, spelling, and punctuation that were not noted in review of the chart prior to signing ED Disposition - Plan for ED Patient: Chief Complaint: Shortness of Breath Referrals: Steven Brownlee MD [Primary Care Provider] -
--- NOTE | 2017-07-28 19:23 | ED.DCSUM_ITS ---
- ER Visit Summary Date of Service: 07/28/17 Chief Complaint: [Shortness of breath] History of Present Illness: The patient is a 61 M [resents to the emergency department with increasing shortness of breath over last several days. Patient states that he has been short of breath for several weeks and is had at least 3 visits for admission within the last couple of weeks. Patient has a history of COPD, CHF, history of lung cancer, pulmonary hypertension, A. fib, coronary artery disease, cerebrovascular accident. Patient was seen in Dr. Brownlee's office today and referred to the emergency department. Patient's oxygen saturation on a 6 L has been in the 80s. Patient has been coughing however denies any fever. Denies any chest pain. Patient's been sleeping more.] Physical Examination: [HEENT-PERRLA, EOMI. Cranial nerves II through XII grossly intact. TMs clear. Mucous membranes moist. No adenopathy. Cardiovascular-irregularly irregular with a 2 out of 6 systolic ejection murmur noted Lungs-breath sounds in the bases. Patient has Rales in the right base and diffuse expiratory wheezes. Mild tachypnea. No accessory muscle use or retractions. Abdomen-normoactive bowel sounds, soft, nontender, no rebound or rigidity, no peritoneal signs. Extremities-intact ?4, normal range of motion, normal pulses, atraumatic]. Patient has +2 edema both lower extremities and symmetric. Test Results: [EKG obtained showed A. fib with a ventricular rate of [address] changes noted. Compared with prior EKG from July 20, 2017 no significant changes noted. CBC with differential obtained showed a white count of 7.0, hemoglobin 13.6, hematocrit 46, platelets 155. Chemistries unremarkable. BUN was 19 and creatinine was 1.69. INR was 5.9. Troponin was 0.65. Chest x-ray showed right-sided effusion is moderate no significant change from prior x-ray.] ABG obtained showed pH of 7.45 CO2 of 60 bicarb 42 PaO2 of 66 and O2 saturation of 93% on a 50% FiO2. Emergency Department Course and Treatment: [Patient was given a DuoNeb aerosol and was started on BiPAP. Was started on Solu-Medrol.] Treatment Plan: [Patient will be admitted for further workup and evaluation of his hypoxemia. And non-ST elevation OR.] Disposition: [Admit] Impression: [Hypoxia COPD exacerbation Non-ST elevation OR Coumadin coagulopathy] This note was generated with [employer] dictation software. It may contain incorrect words, spelling, and punctuation that were not noted in review of the chart prior to signing ED Disposition - Plan for ED Patient: Chief Complaint: Shortness of Breath Referrals: Steven Brownlee MD [Primary Care Provider] -
[2017-07-28 20:33] LABS: BNP,B-Type NATRIURETIC PEPTIDE 225.8 pg/mL (0-100)
--- NOTE | 2017-07-28 21:03 | CPS ---
pt transferred to pcu on 100% nrb-sat 90%-bipap in room on -
--- NOTE | 2017-07-28 21:05 | ECHOCS_ITS ---
Reason For Study: CAD/ASHD Procedure This was a 2D Doppler, Color Flow transthoracic echocardiogram. The study was technically difficult. Contrast injection was performed. Exam performed portable in patient room. Left Ventricle Moderately dilated left ventricle. D shaped septum in diastole. The estimated ejection fraction is 35 %. Septal motion consistent with IVCD. There is moderate to severe global hypokinesis of the left ventricle. Right Ventricle Severely dilated right ventricle. A moderator band is seen in the right ventricle. Moderately severe global right ventricular systolic dysfunction. Atria The left atrium is mildly enlarged. The right atrium is severely enlarged. Normal atrial septum. Mitral Valve The mitral valve is structurally normal. No prolapse or stenosis seen. Trivial mitral valve insufficiency. Tricuspid Valve Normal tricuspid valve. Mild to moderate (1-2+) tricuspid valve insufficiency. Right ventricular systolic pressure estimated to be 46 mmHg. Moderate pulmonary hypertension. Aortic Valve Normal aortic valve. Trisinus/trileaflet aortic valve. Pulmonic Valve Normal pulmonic valve. Great Vessels Normal aortic root. Normal arch. The inferior vena cava is dilated. No collapse of the inferior vena cava. Pericardium/Pleural No pericardial effusion. Medication Diluted definity 4.0ml given slow IV push to enhance endocardial definition. MMode/2D Measurements & Calculations LVIDd: 5.4 cm IVSd: 1.4 cm Ao root diam: 3.7 cm LVIDs: 4.7 cm LVPWd: 1.2 cm LA dimension: 4.6 cm RVDd: 7.2 cm FS: 14.4 % LAV(MOD-bp): 62.4 ml LAV(MOD-bp) Indexed: 25.3 ml/m2 LA A4 area: 20.3 cm2 RA A4 area: 30.2 cm2 LAV(MOD-sp2): 59.6 ml LAV(MOD-sp4): 58.9 ml Doppler Measurements & Calculations MV E max cristofer: 54.4 cm/sec Lat Peak E' Cristofer: 14.3 cm/sec Med Peak E' Cristofer: 13.4 cm/sec E/E' lat: 3.8 E/E' med: 4.1 Ao V2 max: 74.7 cm/sec LV V1 max: 60.9 cm/sec PA V2 max: 52.5 cm/sec Ao max P.2 mmHg LV V1 max P.5 mmHg PI end-d cristofer: 139.6 cm/sec TR max cristofer: 264.0 cm/sec PI dec slope: 130.2 cm/sec2 TR max P.9 mmHg Interpretation Summary Moderately dilated left ventricle. The estimated ejection fraction is 35 %. D shaped septum in diastole. There is moderate to severe global hypokinesis of the left ventricle. Severely dilated right ventricle. Moderately severe global right ventricular systolic dysfunction. The left atrium is mildly enlarged. The right atrium is severely enlarged. Mild to moderate (1-2+) tricuspid valve insufficiency. Right ventricular systolic pressure estimated to be 46 mmHg, but may be underestimated due to severe RVE and D shaped LV during diastole. Moderate pulmonary hypertension. The inferior vena cava is dilated Pt appears to be in atrial fibrillation. There is no comparison study available. The study was technically difficult. Contrast injection was performed. Ordering Physician: Bishnu Zhang Referring Physician: Steven Brownlee Performed By: Pilar Wisdom, MARY, RVT
--- NOTE | 2017-07-28 21:08 | HP.PCM_ITS ---
Problem List (1) Shortness of breath Status: Acute History of Present Illness Date of Admission: 07/28/17 Chief Complaint: SHORTNESS OF BREATH The patient is a 61 year old M who was seen in the emergency room at [facility] after being seen in his PCPs office and it was noticed to be short of breath and had a low pulse ox. Patient was discharged from the hospital last Wednesday for respiratory failure. Patient has had a long history of combined respiratory failure, pulmonary hypertension, atrial fibrillation, dementia, and small cell lung cancer. Review of systems was unable to be obtained from the patient due to dementia, patient's was here at the time of my examination. Workup in the emergency room included a chest x-ray which was not appreciably changed from his last admission a week ago, it showed a right pleural effusion with atelectasis or infiltrate of the right lung base. Patient's labs were remarkable for an INR of 5.9, troponin was elevated at 0.65, beta natruretic peptide was elevated at 225, creatinine was 1.69 and BUN was 19. Patient's white blood cell count was 7, blood gases were obtained on a Ventimask at 50%, pH was 7.46, PCO2 was 60 and PO2 was 66. Patient was given IV Solu-Medrol in the emergency room and aerosol treatments, I had a discussion with his concerning his medical care due to the fact that he has dementia. Patient is being treated for small cell lung cancer and is going to be receiving immunotherapy, I talked to the about how aggressive she wanted to get with his care, she wants him to continue to be treated for the lung cancer but she agrees that placing the patient on ventilator would be risky and that it would be hard to get him off the vent. She is agreed to a DNR comfort care arrest status for the patient. On examination in the ER, patient was alert, he was confused, did follow commands. Lung sounds were distant bilaterally particularly over the right lower lung, heart rate and rhythm is irregular, there was +2 mm pretibial and pedal edema noted. Patient will be admitted for combined respiratory failure, pulmonary medicine will be consulted, it may be possible for him to get a trilogy device at the time of discharge from the hospital. I will keep the patient on Bumex, patient's creatinine has risen over his baseline but I do not feel he needs fluid administration. Patient will be given vitamin K due to his elevated INR, it may be possible to perform a thoracentesis to remove some right pleural fluid and this may help his breathing, I discussed this with pulmonary medicine and they will evaluate the patient tomorrow. Patient will be admitted to PCU for combined respiratory failure, [id number] type II , and excessive coagulopathy secondary to Coumadin administration Past Medical History Past Medical History (Chronic Problems): Chronic Problems Hyperlipidemia (Chronic) Hypertension (Chronic) Tobacco use disorder (Chronic) Chronic airway obstruction (Chronic) Obstructive sleep apnea (Chronic) Chronic pulmonary heart disease (Chronic) Allergies bee venom protein (honey bee) Allergy (Verified 07/28/17 16:41) Anaphylaxis latex Allergy (Verified 07/28/17 16:41) Rash Home Medications: Ambulatory Orders Medication Instructions Recorded Finasteride [Proscar] 5 mg PO DAILY 08/01/13 Metoprolol Tartrate [Lopressor 12.5 mg PO BID 08/01/13 (beta fito)] Pravastatin Sodium [Pravachol] 10 mg PO QHS 08/01/13 Gabapentin [Neurontin] 600 mg PO QHS 01/31/17 Lorazepam [Ativan] 1 mg PO BID PRN PRN 01/31/17 Mirtazapine [Remeron] 30 mg PO QHS PRN 01/31/17 Morphine Sulfate [Morphine Sulfate 30 mg PO BID PRN PRN 01/31/17 ER] Omeprazole 1 tab PO DAILY 01/31/17 Ondansetron [Zofran] 8 mg PO Q8H PRN PRN 01/31/17 Epinephrine [Epipen] 0.3 mg IM PRN PRN 07/07/17 Nitroglycerin [Nitrostat] 0.4 mg SL PRN PRN 07/07/17 Tamsulosin HCl [Flomax] 0.4 mg PO DAILY 07/07/17 Budesonide/Formoterol 80-4.5 2 puff INHALATION BID 07/09/17 [Symbicort 80-4.5 Mcg Inhaler] Acetaminophen 1,000 mg PO Q8H PRN 07/28/17 Albuterol IH (ProAir) [Proair Hfa] 2 puff INHALATION 4X/DAY 07/28/17 Calcium Carbonate [Calcium] 500 mg PO DAILY 07/28/17 Fexofenadine HCl [Aller-Ease] 180 mg PO DAILY 07/28/17 Furosemide [Lasix] 80 mg PO BIDLX 07/28/17 Guaifenesin [Mucinex] 1,200 mg PO BID 07/28/17 Potassium Chloride 20 meq PO BID 07/28/17 Prochlorperazine Maleate 10 mg PO Q6H PRN 07/28/17 [Compazine] Warfarin [Coumadin] 6 mg PO SuMoWeThFrSa@1700 07/28/17 Warfarin [Coumadin] 9 mg PO Tu@1700 07/28/17 Surgical History: noncontributory Psychiatric History: - - Dementia Lives: Spouse/ Significant Other Smoking Status: Former smoker Tobacco Use: Non-smoker Alcohol: None - *Family History Maternal History Items: No pertinent history Paternal History Items: No pertinent history Review of Systems Comment: Review of systems was not able be obtained from the patient due to his dementia, information was obtained from the patient's VTE Information - Inpt Only VTE Present on Admission: No VTE Mechan Device Prophylaxis: None VTE Pharm Prophylaxis ordered?: No Reason prophylaxis not ordered:: Medical Contraindication - Elevated INR - Physical Exam General: Alert, Cooperative, No apparent distress, Well developed, Well nourished, Confused HEENT: Atraumatic, PERRLA, EOMI Oral: Moist Mucosa Neck: Supple, No JVD, Negative Carotid Bruits, No Nuchal Rigidity, Trachea Midline, Thyroid Normal Size and Texture Lungs: No rhonchi, No wheeze, No rales, Diminished Cardiovascular: PMI Normal, Irregular Rate, No rub noted Abdomen: Bowel Sounds Present, Soft, Non Tender, Non-Distended, Obese Extremities: No clubbing, No cyanosis, No edema, Capillary Refill Less than 3 Seconds Skin: No rashes, No breakdown Musculoskeletal: No Tenderness to Palpation of Joints or Extremities Neurological: Cranial nerves II-XII grossly intact, Neuro grossly intact, Sensory exam intact to light touch and pain, Coordination normal Psych/Mental Status: - - Patient is alert but confused Vital Signs Temp Pulse Resp BP Pulse Ox 97.8 F 102 H 22 H 100/88 H 94 07/28/17 16:43 07/28/17 20:46 07/28/17 20:46 07/28/17 20:46 07/28/17 20:46 Oxygen Delivery Method Bi-pap Laboratory Tests Past 24 Hrs 07/28/17 Unknown PT 50.5 H INR 5.9 H* Assessment/Plan #1 acute on chronic combined respiratory failure-patient will be admitted to PCU , he will require BiPAP, he will be monitored closely, pulmonary medicine will see the patient, patient will need BiPAP at home or a trilogy device if it is possible. #2 chronic obstructive pulmonary disease-I do not feel the patient has an exacerbation at this time, I will keep him on oral prednisone 40 mg daily and DuoNeb aerosol treatments #3 supratherapeutic INR-patient will be given vitamin K, INR will be monitored, if patient needs thoracentesis his INR will have to be below 1.8. 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 Adkins, patient has never had a positive stress test, his last stress test was 2 years ago and this was negative, he has no history of coronary artery disease. Patient's last echocardiogram was April 2017 and it showed a preserved EF at 65% with moderate pulmonary hypertension in the mid 60s range, echocardiogram will be repeated #6 chronic diastolic congestive heart failure-I placed the patient on Bumex, BMP will have to be monitored #7 elevated creatinine-patient's creatinine is currently higher than his usual reading, due to his chronic diastolic congestive heart failure, I am reluctant to keep him off diuretics at this time, his BMP will need to be followed carefully. #8 chronic atrial fibrillation-rate control will be the treatment #9 dementia-patient's states that she feels he is taking too many medicines that cause sedation, I have decreased the Neurontin that he is on at bedtime, I also took him off his MS Contin and placed him on immediate release morphine for pain #10 small cell lung cancer- states that oncology is considering immunotherapy but has not started it yet. #11 right pleural effusion-I suspect this is probably malignant in nature, I could not locate any thoracentesis done on the patient in this hospital, his small cell cancer was diagnosed on a CT-guided lung biopsy. Again, it is possible that this needs to be drained to help the patient's respiratory status. Pulmonary medicine will be seeing the patient and will make a determination concerning this. Code Visit Inpatient E&M: 91968 Init Hosp L3
[2017-07-28] MEDS: Gabapentin 300 MG Capsule PO (22:50)
[2017-07-28] MEDS: Pravastatin 20 MG Tablet 10 MG PO (22:50)
[2017-07-28] MEDS: Phytonadione (Vit K) 10 MG/ML Ampul PO (22:52)
[2017-07-28] MEDS: Bumetanide 2 MG Tablet PO (22:52)
[2017-07-28] MEDS: guaiFENesin 1,200 MG Tablet 1200 MG PO (22:52)
[2017-07-28] MEDS: Bumetanide 0.5 MG Tablet 1 MG PO (22:52)
[2017-07-28] MEDS: Metoprolol Tartrate 25 MG Tablet 12.5 MG PO (22:53)
[2017-07-28] MEDS: Magnesium Hydroxide 30 ML UDC PO (23:21)
[2017-07-28] MEDS: Mirtazapine 30 MG Tablet PO (23:23)
--- NOTE | 2017-07-28 23:53 | CPS ---
pt finished eating with nasal cannula in. Now being placed on Bipap
[2017-07-29] VITALS (26 sets, daily range): BP systolic 91–112; BP diastolic 56–77; PULSE 57–104; RESP 14–26; TEMP 36.1–36.8; O2SAT 84–96
--- NOTE | 2017-07-29 04:13 | CPS ---
Increased Bipap Pressures for pt's low saturations while sleeping
[2017-07-29] MEDS: Ipratropium/Albuterol Sulfate 3 ML AMPUL.NEB INHALATION ×4 (07:15→18:50)
[2017-07-29 07:22] LABS: Hematocrit 42.6 % (40-54); Hemoglobin 13.4 g/dl (13.0-16.5); Mean Corp Hgb Conc 31.5 g/gl (32-36); Mean Corpuscular Hgb 29.2 pg (27.0-32.0); Mean Corpuscular Volume 92.8 fL (80-94); Mean Platelet Vol. 10.7 fl (6.2-12.0); Platelet Count 142 K/mm3 (150-450); RBC Distribution Width CV 19.3 % (11.6-14.6); RBC Distribution Width SD 64.4 fl (35.1-43.9); Red Blood Count 4.59 M/mm3 (4.6-6.2); White Blood Count 4.4 K/mm3 (4.4-11.0)
[2017-07-29 07:23] LABS: Scan Indicated on CBC? Y/N NO
[2017-07-29 07:35] LABS: International Normalized Ratio 2.9; Prothrombin Time (Protime)PT. 29.3 SECONDS (11.7-14.9)
[2017-07-29 07:39] LABS: Anion Gap 5 (5-15); BUN 22 mg/dL (7-18); BUN/Creat Ratio 18.5 RATIO (10-20); Calcium,Total 8.5 mg/dL (8.5-10.1); Chloride 91 mmol/L (98-107); Creatinine, Serum 1.19 mg/dL (0.70-1.30); EST Glomerular Filtration Rate 66 mL/min (>60); Est Glom Filt Rate - Afr Amer 79 mL/min (>60); Estimated Creatinine Clearance 75.94 ml/min; Glucose 143 mg/dL (70-110); Potassium 4.3 mmol/L (3.5-5.1); Sodium Level 135 mmol/L (136-145)
--- NOTE | 2017-07-29 08:25 | PCM.CONS.GEN ---
Problem List (1) Acute and chronic respiratory failure with hypoxia Status: Acute (2) Acute on chronic diastolic (congestive) heart failure Status: Acute (3) Obstructive sleep apnea Status: Chronic (4) Chronic pulmonary heart disease Status: Chronic (5) Hyperlipidemia Status: Chronic Qualifiers: Hyperlipidemia type: unspecified Qualified Code(s): E78.5 - Hyperlipidemia, unspecified (6) Hypertension Status: Chronic Qualifiers: Hypertension type: essential hypertension Qualified Code(s): I10 - Essential (primary) hypertension (7) Tobacco use disorder Status: Chronic Reason for Consult Date of Consultation: 07/29/17 Reason for Consultation: respiratory failure, need for trilogy History of Present Illness: The patient is a 61 year old M with a past medical history as below who presented to the emergency room after going to his primary care physician's office secondary to shortness of breath and hypoxia. Patient has had multiple admissions, he was at [facility] from 07/07 through 07/12, then again 07/19 to 07/23/17 for shortness of breath and CHF exacerbation. He was discharged on Lasix 80 mg twice daily. He did not require any steroids at discharged. Patient has a history of non-small cell lung cancer and is on immunotherapy. He also has a history of pulmonary hypertension and chronic respiratory failure on 4 L of supplemental oxygen and follows with Dr. Crook at the [facility]. He has an extensive smoking history with [id number], he quit smoking in 2017. Patient also has a history of atrial fibrillation and is anticoagulated on Coumadin. He follows with Dr. Calvin Adkins, cardiology. His is his caregiver, as he has dementia. Blood work on arrival showed no leukocytosis with stable hemoglobin. INR elevated at 5.9. Chemistry remarkable for sodium of 134, chloride low at 90, serum bicarb at 35. This is chronically elevated. Patient also with acute kidney injury with a BUN of 19 and creatinine 1.69, which has improved today. Troponin elevated at 0.57, likely type II demand ischemia. BNP somewhat elevated at 225. Chest X ray showed no substantial changes from prior exam of 07/19/17. There is cardiomegaly, a moderate sized right pleural effusion with underlying compressive atelectasis/infiltrate of the right lung. Also prominent right hilum. EKG showed atrial fibrillation. Patient was given 10 mg of Aqua [place]phy[place] in the ER for reversal of INR, 80 mg ?1 of IV Solu-Medrol, 1 mg of Bumex p.o., and a DuoNeb aerosol. The patient was admitted to the progressive care unit for further management. His home dose of Bumex was continued, diuretics have not been escalated at this time. A repeat echocardiogram has been ordered. Last echo was done at [facility] in April 2017 which showed an EF 60%, moderate pulmonary hypertension, no valvular disease noted. It is unclear if the patient has been taking his increased dose of Lasix 80 mg twice daily at home that he was prescribed on the . The patient has responded well to BiPAP therapy and reports subjective improvement. Pressures had to be increased overnight secondary to hypoxia, current settings 08/02 with FiO2 of 60%. He does not like wearing the mask but is tolerating well at this time. He does have a history of obstructive sleep apnea but has been unable to tolerate Pap therapy in the past. Patient takes MS Contin at home for chronic pain and benzodiazepines, which clearly contributes to his hypoxia given already established sleep apnea. He currently complains of a cough, mainly nonproductive. Denies any fever or chills. No hemoptysis or purulent sputum production. States his does not really let him have salt anymore, however last admit he had a high salt diet. Patient notes that his lower extremity edema is chronic. He is unsure about some of his history as he has dementia. He would like to wait until his gets here. Past Medical History Past Medical History (Chronic Problems): Chronic Problems Hyperlipidemia (Chronic) Hypertension (Chronic) Tobacco use disorder (Chronic) Chronic airway obstruction (Chronic) Obstructive sleep apnea (Chronic) Chronic pulmonary heart disease (Chronic) Allergies bee venom protein (honey bee) Allergy (Verified 07/28/17 16:41) Anaphylaxis latex Allergy (Verified 07/28/17 16:41) Rash Home Medications: Ambulatory Orders Medication Instructions Recorded Finasteride [Proscar] 5 mg PO DAILY 08/01/13 Metoprolol Tartrate [Lopressor 12.5 mg PO BID 08/01/13 (beta fito)] Pravastatin Sodium [Pravachol] 10 mg PO QHS 08/01/13 Gabapentin [Neurontin] 600 mg PO QHS 01/31/17 Lorazepam [Ativan] 1 mg PO BID PRN PRN 01/31/17 Mirtazapine [Remeron] 30 mg PO QHS PRN 01/31/17 Morphine Sulfate [Morphine Sulfate 30 mg PO BID PRN PRN 01/31/17 ER] Omeprazole 1 tab PO DAILY 01/31/17 Ondansetron [Zofran] 8 mg PO Q8H PRN PRN 01/31/17 Epinephrine [Epipen] 0.3 mg IM PRN PRN 07/07/17 Nitroglycerin [Nitrostat] 0.4 mg SL PRN PRN 07/07/17 Tamsulosin HCl [Flomax] 0.4 mg PO DAILY 07/07/17 Budesonide/Formoterol 80-4.5 2 puff INHALATION BID 07/09/17 [Symbicort 80-4.5 Mcg Inhaler] Acetaminophen 1,000 mg PO Q8H PRN 07/28/17 Albuterol IH (ProAir) [Proair Hfa] 2 puff INHALATION 4X/DAY 07/28/17 Calcium Carbonate [Calcium] 500 mg PO DAILY 07/28/17 Fexofenadine HCl [Aller-Ease] 180 mg PO DAILY 07/28/17 Furosemide [Lasix] 80 mg PO BID 07/28/17 Guaifenesin [Mucinex] 1,200 mg PO BID 07/28/17 Potassium Chloride 20 meq PO BID 07/28/17 Prochlorperazine Maleate 10 mg PO Q6H PRN 07/28/17 [Compazine] Warfarin [Coumadin] 6 mg PO SuMoWeThFrSa@1700 07/28/17 Warfarin [Coumadin] 9 mg PO Tu@1700 07/28/17 Surgical History: noncontributory Psychiatric History: - - Dementia Lives: Spouse/ Significant Other Smoking Status: Former smoker Tobacco Use: Non-smoker Alcohol: None - *Family History Maternal History Items: No pertinent history Paternal History Items: No pertinent history Review of Systems Constitutional: Reports: Weakness, Fatigue. Denies: Anorexia, Chills, Fever, Night Sweats Eyes: Denies: Vision Change HEENT: Reports: Hard of Hearing - ., Post Nasal Drip. Denies: Difficulty Swallowing, Nasal Congestion, Sinus Congestion, Sinus Drainage, Sore Throat Cardiovascular: Reports: Orthopnea. Denies: Chest Pain, Chest Tightness, Light Headedness, Palpitations, Paroxysmal Noc. Dyspnea, Syncope Respiratory: Reports: Cough, Shortness of Breath, Sputum production, Wheezing. Denies: Hemoptysis Gastrointestinal: Denies: Abdominal Pain, Constipation, Diarrhea, Dyspepsia, Hematemesis, Hematochezia, Nausea, Melena, Vomiting Genitourinary: Reports: Frequency, Nocturia. Denies: Dysuria, Hematuria, Retention Musculoskeletal: Reports: Back Pain. Denies: Muscle pain Skin: Reports: Dryness. Denies: Rash, Wounds Neurological: Reports: Balance problems, Numbness, Tingling, - - forgetful. Denies: Change in Speech, Confusion, Focal weakness, Tremor, Seizures Psychiatric: Reports: Anxiety, Depression Endocrine: Denies: Change in Body Habitus, Polydipsia, Polyuria Hematologic/ Lymphatic: Reports: Easy Bruising, Easy Bleeding, Hx of blood clot. Denies: Adenopathy, Anemia Subjective: The patient was seen and examined. He is currently wearing BiPAP mask and [facility] here to perform echocardiogram at bedside. He is alert and able to answer some questions. He notes he is very forgetful and would like us to speak with his about his past medical history. Reports he course, occasionally productive cough. Complains of shortness of breath when the mask is off. Denies any chest pain, palpitations, or hemoptysis. Objective: Clinical Impression(s) from Imaging Studies Chest X-Ray 07/28/17 16:50 IMPRESSION: No substantial changes from the prior exam of JuneJuly 19, 2017. Continued cardiomegaly, moderate-sized right pleural effusion with underlying compressive atelectasis/infiltrate of the right lung. Prominent right hilum. More recent films demonstrate enlargement of the cardiac silhouette since an earlier exam of 2014. Electronically Signed: Cande Shah MD at 17:14 EST , Service support , - Physical Exam General: Alert, Cooperative, No apparent distress, - - oriented to self and place. forgetful. Wearing BiPAP HEENT: Atraumatic, Normocephalic Oral: - - BiPAP in place, did not remove Neck: Supple, No Nodes, Trachea Midline Lungs: Diminished, - - Rales throughout Cardiovascular: Normal S1, Normal S2, Murmur - ESAU, No rub noted, No Gallop, - - irregular rate and rhythm Abdomen: Bowel Sounds Present, Soft, Non Tender, Non-Distended, Obese Extremities: No clubbing, No cyanosis, Diminished Peripheral Pulses, Edema - 2-3+ bilat pitting Skin: No rashes, No breakdown Musculoskeletal: No Tenderness to Palpation of Joints or Extremities Lymphatic: No Cervical, Supraclavicular, or Inguinal Adenopathy Neurological: Cranial nerves II-XII grossly intact, Neuro grossly intact - strength equal t/o, - - currently nonambulatory Psych/Mental Status: Alert and oriented to time, place, person, mood and affect Vital Signs Temp Pulse Resp BP Pulse Ox 97.9 F 96 18 96/66 95 07/29/17 08:11 07/29/17 08:11 07/29/17 08:11 07/29/17 08:11 07/29/17 08:11 Oxygen Flow Rate 6 Oxygen Delivery Method Bi-pap Weight: 263 lb 3.711 oz Body Mass Index (BMI) 32.7 Intake and Output for Last 24 Hours 07/27/17 07/28/17 07/29/17 23:59 23:59 23:59 Intake Total 400 / 400 0 / 0 Output Total 150 / 150 0 / 0 Balance 250 / 250 0 / 0 Laboratory Tests Past 24 Hrs 07/28/17 07/28/17 07/29/17 21:23 Unknown 01:30 WBC RBC Hgb Hct MCV MCH MCHC RDW RDW Differential Plt Count MPV PT 50.5 H INR 5.9 H* Sodium Potassium Chloride Carbon Dioxide Anion Gap BUN Creatinine Estim Creat Clear Calc Est GFR (MDRD) Af Amer Est GFR (MDRD) Non-Af BUN/Creatinine Ratio Glucose Calcium Troponin I 0.57 H 0.39 H 07/29/17 07/29/17 07/29/17 07:05 07:05 07:05 WBC 4.4 RBC 4.59 L Hgb 13.4 Hct 42.6 MCV 92.8 MCH 29.2 MCHC 31.5 L RDW 19.3 H RDW Differential 64.4 H Plt Count 142 L MPV 10.7 PT 29.3 H INR 2.9 Sodium 135 L Potassium 4.3 Chloride 91 L Carbon Dioxide 39.0 H Anion Gap 5 BUN 22 H Creatinine 1.19 Estim Creat Clear Calc 75.94 Est GFR (MDRD) Af Amer 79 Est GFR (MDRD) Non-Af 66 BUN/Creatinine Ratio 18.5 Glucose 143 H Calcium 8.5 Troponin I 0.33 H Assessment/Plan RECOMMENDATIONS 1. Wean oxygen supplementation to keep saturations 88-92%. 2. Encourage incentive spirometer when off of BiPAP 3. Increase activity as tolerated 4. Continue aerosols 5. Continuous BiPAP for now, may have breaks 6. Would likely benefit from escalation of diuretics 7. Hold anticoagulation 8. Okay to discontinue steroids 9. Consider hospice/palliative care consult 10. Patient should follow-up closely with his primary forensic examiner upon discharge IMPRESSIONS 1. Acute on chronic hypoxic respiratory failure secondary to acute diastolic CHF exacerbation Chronic 4 L at home, currently requiring continuous BiPAP with occasional breaks on [address] Crook at [facility]. Patient DNR CCA with no intubation. Patient was discharged on 07/23 on 80 mg of p.o. Lasix twice daily. Unsure if this was continued as last admit he decreased the diuretics on his own secondary to going to the bathroom too much. There is a moderate pleural effusion on chest x-ray. Escalating diuresis will likely be helpful, but patient may require thoracentesis if does not improve. Contraindicated currently secondary to supratherapeutic INR. 2. History of COPD Does not appear to be having an acute exacerbation. There is no wheezing on exam. Sputum production is at baseline. Hypoxia likely secondary to fluid volume overload. He was placed on 20 mg of prednisone twice daily on admission, this is likely okay to discontinue. No indication for antibiotics, there is no leukocytosis or fevers. Increase activity as tolerated, consult PT. He should be encouraged to use incentive spirometer once off BiPAP. Patient should follow-up with his primary forensic examiner upon discharge. 3. Obstructive sleep apnea, untreated Patient intolerant to noninvasive positive pressure therapy in the past. Did stress to the patient that initiation of BiPAP at home would be beneficial, especially with concomitant heart failure. 4. Non-small cell lung cancer Currently undergoing immunotherapy at [facility]. Patient with right pleural effusion, likely related to malignancy and/or CHF. Chest x-ray on admission showed no substantial changes from the prior exam of 07/19/17. There was a moderate sized right pleural effusion with underlying compressive atelectasis/infiltrate in the right lung. There is a prominent right hilum. Atelectasis likely secondary to poor inspiratory effort, sedentary lifestyle. He is obese. Patient has multiple comorbidities with multiple readmissions recently. Would consider discussing with for potential hospice/palliative care consultation, as I feel he is appropriate. 5. Hypertension/hyperlipidemia/history of tobacco abuse/pulmonary fibrosis Complicates care, management, recovery, and prognosis. Management per Hospitalist. Thank you for this opportunity to participate in this patient's care, please do not hesitate to contact us with any further questions or concerns. This note was generated with [employer] dictation software. It may contain incorrect words, spelling, and punctuation that were not noted in checking the note before signing.
--- NOTE | 2017-07-29 08:29 | CON.PCM_ITS ---
Problem List (1) Acute and chronic respiratory failure with hypoxia Status: Acute (2) Acute on chronic diastolic (congestive) heart failure Status: Acute (3) Obstructive sleep apnea Status: Chronic (4) Chronic pulmonary heart disease Status: Chronic (5) Hyperlipidemia Status: Chronic Qualifiers: Hyperlipidemia type: unspecified Qualified Code(s): E78.5 - Hyperlipidemia , unspecified (6) Hypertension Status: Chronic Qualifiers: Hypertension type: essential hypertension Qualified Code(s): I10 - Essential (primary) hypertension (7) Tobacco use disorder Status: Chronic Reason for Consult Date of Consultation: 07/29/17 Reason for Consultation: respiratory failure, need for trilogy History of Present Illness: The patient is a 61 year old M with a past medical history as below who presented to the emergency room after going to his primary care physician's office secondary to shortness of breath and hypoxia. Patient has had multiple admissions, he was at [facility] from 07/07 through 07/12, then again 07/19 to 07/23/17 for shortness of breath and CHF exacerbation. He was discharged on Lasix 80 mg twice daily. He did not require any steroids at discharged. Patient has a history of non-small cell lung cancer and is on immunotherapy. He also has a history of pulmonary hypertension and chronic respiratory failure on 4 L of supplemental oxygen and follows with Dr. Crook at the [facility]. He has an extensive smoking history with [id number], he quit smoking in 2017. Patient also has a history of atrial fibrillation and is anticoagulated on Coumadin. He follows with Dr. Calvin Adkins, cardiology. His is his caregiver, as he has dementia. Blood work on arrival showed no leukocytosis with stable hemoglobin. INR elevated at 5.9. Chemistry remarkable for sodium of 134, chloride low at 90, serum bicarb at 35. This is chronically elevated. Patient also with acute kidney injury with a BUN of 19 and creatinine 1.69, which has improved today. Troponin elevated at 0.57, likely type II demand ischemia. BNP somewhat elevated at 225. Chest X ray showed no substantial changes from prior exam of . There is cardiomegaly, a moderate sized right pleural effusion with underlying compressive atelectasis/infiltrate of the right lung. Also prominent right hilum. EKG showed atrial fibrillation. Patient was given 10 mg of Aqua [place]phy[place] in the ER for reversal of INR, 80 mg ?1 of IV Solu-Medrol, 1 mg of Bumex p.o., and a DuoNeb aerosol. The patient was admitted to the progressive care unit for further management. His home dose of Bumex was continued, diuretics have not been escalated at this time. A repeat echocardiogram has been ordered. Last echo was done at [facility] in April 2017 which showed an EF 60%, moderate pulmonary hypertension, no valvular disease noted. It is unclear if the patient has been taking his increased dose of Lasix 80 mg twice daily at home that he was prescribed on the . The patient has responded well to BiPAP therapy and reports subjective improvement. Pressures had to be increased overnight secondary to hypoxia, current settings 08/02 with FiO2 of 60%. He does not like wearing the mask but is tolerating well at this time. He does have a history of obstructive sleep apnea but has been unable to tolerate Pap therapy in the past. Patient takes MS Contin at home for chronic pain and benzodiazepines, which clearly contributes to his hypoxia given already established sleep apnea. He currently complains of a cough, mainly nonproductive. Denies any fever or chills. No hemoptysis or purulent sputum production. States his does not really let him have salt anymore, however last admit he had a high salt diet. Patient notes that his lower extremity edema is chronic. He is unsure about some of his history as he has dementia. He would like to wait until his gets here. Past Medical History Past Medical History (Chronic Problems): Chronic Problems Hyperlipidemia (Chronic) Hypertension (Chronic) Tobacco use disorder (Chronic) Chronic airway obstruction (Chronic) Obstructive sleep apnea (Chronic) Chronic pulmonary heart disease (Chronic) Allergies bee venom protein (honey bee) Allergy (Verified 07/28/17 16:41) Anaphylaxis latex Allergy (Verified 07/28/17 16:41) Rash Home Medications: Ambulatory Orders Medication Instructions Recorded Finasteride [Proscar] 5 mg PO DAILY 08/01/13 Metoprolol Tartrate [Lopressor 12.5 mg PO BID 08/01/13 (beta fito)] Pravastatin Sodium [Pravachol] 10 mg PO QHS 08/01/13 Gabapentin [Neurontin] 600 mg PO QHS 01/31/17 Lorazepam [Ativan] 1 mg PO BID PRN PRN 01/31/17 Mirtazapine [Remeron] 30 mg PO QHS PRN 01/31/17 Morphine Sulfate [Morphine Sulfate 30 mg PO BID PRN PRN 01/31/17 ER] Omeprazole 1 tab PO DAILY 01/31/17 Ondansetron [Zofran] 8 mg PO Q8H PRN PRN 01/31/17 Epinephrine [Epipen] 0.3 mg IM PRN PRN 07/07/17 Nitroglycerin [Nitrostat] 0.4 mg SL PRN PRN 07/07/17 Tamsulosin HCl [Flomax] 0.4 mg PO DAILY 07/07/17 Budesonide/Formoterol 80-4.5 2 puff INHALATION BID 07/09/17 [Symbicort 80-4.5 Mcg Inhaler] Acetaminophen 1,000 mg PO Q8H PRN 07/28/17 Albuterol IH (ProAir) [Proair Hfa] 2 puff INHALATION 4X/DAY 07/28/17 Calcium Carbonate [Calcium] 500 mg PO DAILY 07/28/17 Fexofenadine HCl [Aller-Ease] 180 mg PO DAILY 07/28/17 Furosemide [Lasix] 80 mg PO BID 07/28/17 Guaifenesin [Mucinex] 1,200 mg PO BID 07/28/17 Potassium Chloride 20 meq PO BID 07/28/17 Prochlorperazine Maleate 10 mg PO Q6H PRN 07/28/17 [Compazine] Warfarin [Coumadin] 6 mg PO SuMoWeThFrSa@1700 07/28/17 Warfarin [Coumadin] 9 mg PO Tu@1700 07/28/17 Surgical History: noncontributory Psychiatric History: - - Dementia Lives: Spouse/ Significant Other Smoking Status: Former smoker Tobacco Use: Non-smoker Alcohol: None - *Family History Maternal History Items: No pertinent history Paternal History Items: No pertinent history Review of Systems Constitutional: Reports: Weakness, Fatigue. Denies: Anorexia, Chills, Fever, Night Sweats Eyes: Denies: Vision Change HEENT: Reports: Hard of Hearing - ., Post Nasal Drip. Denies: Difficulty Swallowing, Nasal Congestion, Sinus Congestion, Sinus Drainage, Sore Throat Cardiovascular: Reports: Orthopnea. Denies: Chest Pain, Chest Tightness, Light Headedness, Palpitations, Paroxysmal Noc. Dyspnea, Syncope Respiratory: Reports: Cough, Shortness of Breath, Sputum production, Wheezing. Denies: Hemoptysis Gastrointestinal: Denies: Abdominal Pain, Constipation, Diarrhea, Dyspepsia, Hematemesis, Hematochezia, Nausea, Melena, Vomiting Genitourinary: Reports: Frequency, Nocturia. Denies: Dysuria, Hematuria, Retention Musculoskeletal: Reports: Back Pain. Denies: Muscle pain Skin: Reports: Dryness. Denies: Rash, Wounds Neurological: Reports: Balance problems, Numbness, Tingling, - - forgetful. Denies: Change in Speech, Confusion, Focal weakness, Tremor, Seizures Psychiatric: Reports: Anxiety, Depression Endocrine: Denies: Change in Body Habitus, Polydipsia, Polyuria Hematologic/ Lymphatic: Reports: Easy Bruising, Easy Bleeding, Hx of blood clot. Denies: Adenopathy, Anemia Subjective: The patient was seen and examined. He is currently wearing BiPAP mask and [facility] here to perform echocardiogram at bedside. He is alert and able to answer some questions. He notes he is very forgetful and would like us to speak with his about his past medical history. Reports he course, occasionally productive cough. Complains of shortness of breath when the mask is off. Denies any chest pain, palpitations, or hemoptysis. Objective: Clinical Impression(s) from Imaging Studies Chest X-Ray 07/28/17 16:50 IMPRESSION: No substantial changes from the prior exam of JuneJuly 19, 2017. Continued cardiomegaly, moderate-sized right pleural effusion with underlying compressive atelectasis/infiltrate of the right lung. Prominent right hilum. More recent films demonstrate enlargement of the cardiac silhouette since an earlier exam of 2014. Electronically Signed: Cande Shah MD at 17:14 EST , Service support , - Physical Exam General: Alert, Cooperative, No apparent distress, - - oriented to self and place. forgetful. Wearing BiPAP HEENT: Atraumatic, Normocephalic Oral: - - BiPAP in place, did not remove Neck: Supple, No Nodes, Trachea Midline Lungs: Diminished, - - Rales throughout Cardiovascular: Normal S1, Normal S2, Murmur - ESAU, No rub noted, No Gallop, - - irregular rate and rhythm Abdomen: Bowel Sounds Present, Soft, Non Tender, Non-Distended, Obese Extremities: No clubbing, No cyanosis, Diminished Peripheral Pulses, Edema - 2-3 + bilat pitting Skin: No rashes, No breakdown Musculoskeletal: No Tenderness to Palpation of Joints or Extremities Lymphatic: No Cervical, Supraclavicular, or Inguinal Adenopathy Neurological: Cranial nerves II-XII grossly intact, Neuro grossly intact - strength equal t/o, - - currently nonambulatory Psych/Mental Status: Alert and oriented to time, place, person, mood and affect Vital Signs Temp Pulse Resp BP Pulse Ox 97.9 F 96 18 96/66 95 07/29/17 08:11 07/29/17 08:11 07/29/17 08:11 07/29/17 08:11 07/29/17 08:11 Oxygen Flow Rate 6 Oxygen Delivery Method Bi-pap Weight: 263 lb 3.711 oz Body Mass Index (BMI) 32.7 Intake and Output for Last 24 Hours 07/27/17 07/28/17 07/29/17 23:59 23:59 23:59 Intake Total 400 / 400 0 / 0 Output Total 150 / 150 0 / 0 Balance 250 / 250 0 / 0 Laboratory Tests Past 24 Hrs 07/28/17 07/28/17 07/29/17 21:23 Unknown 01:30 WBC RBC Hgb Hct MCV MCH MCHC RDW RDW Differential Plt Count MPV PT 50.5 H INR 5.9 H* Sodium Potassium Chloride Carbon Dioxide Anion Gap BUN Creatinine Estim Creat Clear Calc Est GFR (MDRD) Af Amer Est GFR (MDRD) Non-Af BUN/Creatinine Ratio Glucose Calcium Troponin I 0.57 H 0.39 H 07/29/17 07/29/17 07/29/17 07:05 07:05 07:05 WBC 4.4 RBC 4.59 L Hgb 13.4 Hct 42.6 MCV 92.8 MCH 29.2 MCHC 31.5 L RDW 19.3 H RDW Differential 64.4 H Plt Count 142 L MPV 10.7 PT 29.3 H INR 2.9 Sodium 135 L Potassium 4.3 Chloride 91 L Carbon Dioxide 39.0 H Anion Gap 5 BUN 22 H Creatinine 1.19 Estim Creat Clear Calc 75.94 Est GFR (MDRD) Af Amer 79 Est GFR (MDRD) Non-Af 66 BUN/Creatinine Ratio 18.5 Glucose 143 H Calcium 8.5 Troponin I 0.33 H Assessment/Plan RECOMMENDATIONS 1. Wean oxygen supplementation to keep saturations 88-92%. 2. Encourage incentive spirometer when off of BiPAP 3. Increase activity as tolerated 4. Continue aerosols 5. Continuous BiPAP for now, may have breaks 6. Would likely benefit from escalation of diuretics 7. Hold anticoagulation 8. Okay to discontinue steroids 9. Consider hospice/palliative care consult 10. 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 Acute on chronic hypoxic respiratory failure secondary to acute diastolic CHF exacerbation Chronic 4 L at home, currently requiring continuous BiPAP with occasional breaks on [address] Crook at [facility]. Patient DNR CCA with no intubation. Patient was discharged on 07/23 on 80 mg of p.o. Lasix twice daily. Unsure if this was continued as last admit he decreased the diuretics on his own secondary to going to the bathroom too much. There is a moderate pleural effusion on chest x-ray. Escalating diuresis will likely be helpful, but patient may require thoracentesis if does not improve. Contraindicated currently secondary to supratherapeutic INR. 2. History of COPD Does not appear to be having an acute exacerbation. There is no wheezing on exam. Sputum production is at baseline. Hypoxia likely secondary to fluid volume overload. He was placed on 20 mg of prednisone twice daily on admission , this is likely okay to discontinue. No indication for antibiotics, there is no leukocytosis or fevers. Increase activity as tolerated, consult PT. He should be encouraged to use incentive spirometer once off BiPAP. Patient should follow-up with his primary sheriff detective upon discharge. 3. Obstructive sleep apnea, untreated Patient intolerant to noninvasive positive pressure therapy in the past. Did stress to the patient that initiation of BiPAP at home would be beneficial, especially with concomitant heart failure. 4. Non-small cell lung cancer Currently undergoing immunotherapy at [facility]. Patient with right pleural effusion, likely related to malignancy and/or CHF. Chest x-ray on admission showed no substantial changes from the prior exam of 07/19/17. There was a moderate sized right pleural effusion with underlying compressive atelectasis/infiltrate in the right lung. There is a prominent right hilum. Atelectasis likely secondary to poor inspiratory effort, sedentary lifestyle. He is obese. Patient has multiple comorbidities with multiple readmissions recently. Would consider discussing with for potential hospice/palliative care consultation, as I feel he is appropriate. 5. Hypertension/hyperlipidemia/history of tobacco abuse/pulmonary fibrosis Complicates care, management, recovery, and prognosis. Management per Hospitalist. Thank you for this opportunity to participate in this patient's care, please do not hesitate to contact us with any further questions or concerns. This note was generated with App[employer] dictation software. It may contain incorrect words, spelling, and punctuation that were not noted in checking the note before signing.
[2017-07-29] MEDS: Finasteride 5 MG Tablet PO (10:00)
[2017-07-29] MEDS: Bumetanide 2 MG Tablet PO (10:00)
[2017-07-29] MEDS: guaiFENesin 1,200 MG Tablet 1200 MG PO ×2 (10:01→21:04)
[2017-07-29] MEDS: Metoprolol Tartrate 25 MG Tablet 12.5 MG PO (10:01)
[2017-07-29] MEDS: Pantoprazole Sodium 20 MG Tablet PO (10:01)
[2017-07-29] MEDS: Tamsulosin HCl 0.4 MG Capsule PO (10:03)
--- NOTE | 2017-07-29 11:18 | CASEMGMT ---
Chart review completed at this time. Please see CM assessment from 07/09/17 completed by this RN CM. Pt states no changes at this time. Per Naty MATTHEW, pt would be candidate for palliative care and advised her that this RN CM did speak with him regarding this last visit but pt does have hx of some dementia. This RN CM will speak with [facility]
--- NOTE | 2017-07-29 14:13 | PCM.PROGNOTE ---
Subjective: Patient seen and examined. Resting in bed in no acute distress, BiPAP in place. Patient denies fever, chills. Complains of nonproductive cough. Denies significant shortness of breath. Denies chest pain. Denies other complaints. - Physical Exam General: Alert, Oriented x3, Cooperative, No apparent distress HEENT: Atraumatic, PERRLA, EOMI, Normocephalic Oral: Dry Mucosa Neck: Supple, No JVD, Negative Carotid Bruits Lungs: Diminished, Rales Cardiovascular: Normal S1, Normal S2, Murmur, Tachycardic Abdomen: Bowel Sounds Present, Soft, Non Tender, Non-Distended, Obese Extremities: No clubbing, No cyanosis, Edema - BLLE Skin: No rashes, No breakdown Musculoskeletal: No Tenderness to Palpation of Joints or Extremities Neurological: Cranial nerves II-XII grossly intact, Neuro grossly intact Psych/Mental Status: Normal Affect, Appropriate Vital Signs Temp Pulse Resp BP Pulse Ox 98.1 F 57 L 20 H 101/77 93 07/29/17 10:07 07/29/17 13:05 07/29/17 13:05 07/29/17 10:07 07/29/17 13:05 Oxygen Flow Rate 6 Oxygen Delivery Method Nasal Cannula Weight: 119.4 kg Body Mass Index (BMI) 32.7 Intake and Output for Last 24 Hours 07/27/17 07/28/17 07/29/17 23:59 23:59 23:59 Intake Total 400 / 400 360 / 360 Output Total 150 / 150 600 / 600 Balance 250 / 250 -240 / -240 Laboratory Tests Past 24 Hrs 07/28/17 07/28/17 07/29/17 21:23 Unknown 01:30 WBC RBC Hgb Hct MCV MCH MCHC RDW RDW Differential Plt Count MPV PT 50.5 H INR 5.9 H* Sodium Potassium Chloride Carbon Dioxide Anion Gap BUN Creatinine Estim Creat Clear Calc Est GFR (MDRD) Af Amer Est GFR (MDRD) Non-Af BUN/Creatinine Ratio Glucose Calcium Troponin I 0.57 H 0.39 H 07/29/17 07/29/17 07/29/17 07:05 07:05 07:05 WBC 4.4 RBC 4.59 L Hgb 13.4 Hct 42.6 MCV 92.8 MCH 29.2 MCHC 31.5 L RDW 19.3 H RDW Differential 64.4 H Plt Count 142 L MPV 10.7 PT 29.3 H INR 2.9 Sodium 135 L Potassium 4.3 Chloride 91 L Carbon Dioxide 39.0 H Anion Gap 5 BUN 22 H Creatinine 1.19 Estim Creat Clear Calc 75.94 Est GFR (MDRD) Af Amer 79 Est GFR (MDRD) Non-Af 66 BUN/Creatinine Ratio 18.5 Glucose 143 H Calcium 8.5 Troponin I 0.33 H Assessment/Plan Patient is a 61-year-old male admitted 07/28/2017 due to shortness of breath. Patient has had 3 recent admissions in June 2017 due to shortness of breath as well. He has a past medical history of hypertension, hyperlipidemia, obstructive sleep apnea, chronic diastolic CHF, tobacco use, COPD, chronic respiratory failure, history of non-small cell lung cancer currently receiving immunotherapy, dementia. 1. Acute on chronic diastolic CHF-BNP on admission 225. Patient has symptoms of fluid overload. Patient takes Lasix 80 mg p.o. twice daily. He was started on Bumex on admission. Will discontinue Bumex and begin IV Lasix 40 mg q. 8. Chest x-ray shows moderate sized right pleural effusion with underlying compressive atelectasis/infiltrates of the right lung. Pulmonary consulted, patient may require thoracentesis if pleural effusion does not improve with diuresis. Cardiology consulted. Continue beta-fito. 2. Acute on chronic hypoxic respiratory failure- #1. Monitor for improvement with diuresis. Continue BiPAP. Wean as tolerated to maintain O2 at or above 90%. 3. Supratherapeutic INR-INR 5.9 on admission. Patient received vitamin K. INR today 2.9. Continue to hold Coumadin given possibility of thoracentesis. 4. NSTEMI II-suspect secondary to #1/#2. Denies chest pain. Patient follows with Dr. Adkins, [facility]. No history of coronary artery disease. Echocardiogram April 2017 showed an estimated ejection fraction of 65%. Repeat echocardiogram pending. No EKG changes. Consult cardiology given recurrent admissions for acute on chronic diastolic CHF as well as current Non-STEMI type II. 5. Chronic COPD-no acute exacerbation. Continue albuterol DuoNeb aerosols. Discontinue prednisone. No indication for antibiotics. Encourage IS. Follows with Dr. Crook at [facility]. Continue oxygen supplementation to maintain O2 at or above 90%. Patient wears 6 L nasal cannula at baseline. 6. Obstructive sleep apnea-patient noncompliant with BiPAP in the past. Encouraged compliance. 7. Non-small cell lung cancer-undergoing immunotherapy at [facility]. 8. Hypertension-stable, continue home regimen. 9. Hyperlipidemia-continue statin. 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 Does not appear to be on home medication regimen. 11. Chronic atrial fibrillation-rate controlled. Home Coumadin regimen on hold. Discharge planning-Meeting with family at 5pm to discuss palliative/hospice services. DVT prophylaxis-Coumadin held on admission given supratherapeutic INR. This patient was seen by IVANA Lopez under the supervision of Dr. Mancuso.
--- NOTE | 2017-07-29 14:45 | PN_ITS ---
Subjective: Patient seen and examined. Resting in bed in no acute distress, BiPAP in place. Patient denies fever, chills. Complains of nonproductive cough. Denies significant shortness of breath. Denies chest pain. Denies other complaints. - Physical Exam General: Alert, Oriented x3, Cooperative, No apparent distress HEENT: Atraumatic, PERRLA, EOMI, Normocephalic Oral: Dry Mucosa Neck: Supple, No JVD, Negative Carotid Bruits Lungs: Diminished, Rales Cardiovascular: Normal S1, Normal S2, Murmur, Tachycardic Abdomen: Bowel Sounds Present, Soft, Non Tender, Non-Distended, Obese Extremities: No clubbing, No cyanosis, Edema - BLLE Skin: No rashes, No breakdown Musculoskeletal: No Tenderness to Palpation of Joints or Extremities Neurological: Cranial nerves II-XII grossly intact, Neuro grossly intact Psych/Mental Status: Normal Affect, Appropriate Vital Signs Temp Pulse Resp BP Pulse Ox 98.1 F 57 L 20 H 101/77 93 07/29/17 10:07 07/29/17 13:05 07/29/17 13:05 07/29/17 10:07 07/29/17 13:05 Oxygen Flow Rate 6 Oxygen Delivery Method Nasal Cannula Weight: 119.4 kg Body Mass Index (BMI) 32.7 Intake and Output for Last 24 Hours 07/27/17 07/28/17 07/29/17 23:59 23:59 23:59 Intake Total 400 / 400 360 / 360 Output Total 150 / 150 600 / 600 Balance 250 / 250 -240 / -240 Laboratory Tests Past 24 Hrs 07/28/17 07/28/17 07/29/17 21:23 Unknown 01:30 WBC RBC Hgb Hct MCV MCH MCHC RDW RDW Differential Plt Count MPV PT 50.5 H INR 5.9 H* Sodium Potassium Chloride Carbon Dioxide Anion Gap BUN Creatinine Estim Creat Clear Calc Est GFR (MDRD) Af Amer Est GFR (MDRD) Non-Af BUN/Creatinine Ratio Glucose Calcium Troponin I 0.57 H 0.39 H 07/29/17 07/29/17 07/29/17 07:05 07:05 07:05 WBC 4.4 RBC 4.59 L Hgb 13.4 Hct 42.6 MCV 92.8 MCH 29.2 MCHC 31.5 L RDW 19.3 H RDW Differential 64.4 H Plt Count 142 L MPV 10.7 PT 29.3 H INR 2.9 Sodium 135 L Potassium 4.3 Chloride 91 L Carbon Dioxide 39.0 H Anion Gap 5 BUN 22 H Creatinine 1.19 Estim Creat Clear Calc 75.94 Est GFR (MDRD) Af Amer 79 Est GFR (MDRD) Non-Af 66 BUN/Creatinine Ratio 18.5 Glucose 143 H Calcium 8.5 Troponin I 0.33 H Assessment/Plan Patient is a 61-year-old male admitted 07/28/2017 due to shortness of breath. Patient has had 3 recent admissions in June 2017 due to shortness of breath as well. He has a past medical history of hypertension, hyperlipidemia, obstructive sleep apnea, chronic diastolic CHF, tobacco use, COPD, chronic respiratory failure, history of non-small cell lung cancer currently receiving immunotherapy, dementia. 1. Acute on chronic diastolic CHF-BNP on admission 225. Patient has symptoms of fluid overload. Patient takes Lasix 80 mg p.o. twice daily. He was started on Bumex on admission. Will discontinue Bumex and begin IV Lasix 40 mg q. 8. Chest x-ray shows moderate sized right pleural effusion with underlying compressive atelectasis/infiltrates of the right lung. Pulmonary consulted, patient may require thoracentesis if pleural effusion does not improve with diuresis. Cardiology consulted. Continue beta-fito. 2. Acute on chronic hypoxic respiratory failure- #1. Monitor for improvement with diuresis. Continue BiPAP. Wean as tolerated to maintain O2 at or above 90 %. 3. Supratherapeutic INR-INR 5.9 on admission. Patient received vitamin K. INR today 2.9. Continue to hold Coumadin given possibility of thoracentesis. 4. NSTEMI II-suspect secondary to #1/#2. Denies chest pain. Patient follows with Dr. Adkins, [facility]. No history of coronary artery disease. Echocardiogram April 2017 showed an estimated ejection fraction of 65%. Repeat echocardiogram pending. No EKG changes. Consult cardiology given recurrent admissions for acute on chronic diastolic CHF as well as current Non-STEMI type II. 5. Chronic COPD-no acute exacerbation. Continue albuterol DuoNeb aerosols. Discontinue prednisone. No indication for antibiotics. Encourage IS. Follows with Dr. Crook at [facility]. Continue oxygen supplementation to maintain O2 at or above 90%. Patient wears 6 L nasal cannula at baseline. 6. Obstructive sleep apnea-patient noncompliant with BiPAP in the past. Encouraged compliance. 7. Non-small cell lung cancer-undergoing immunotherapy at [facility]. 8. Hypertension-stable, continue home regimen. 9. Hyperlipidemia-continue statin. 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 Does not appear to be on home medication regimen. 11. Chronic atrial fibrillation-rate controlled. Home Coumadin regimen on hold. Discharge planning-Meeting with family at 5pm to discuss palliative/hospice services. DVT prophylaxis-Coumadin held on admission given supratherapeutic INR. This patient was seen by IVANA Lopez under the supervision of Dr. Mancuso.
--- NOTE | 2017-07-29 20:50 | PCM.CONS.C ---
Problem List (1) Systolic CHF, acute on chronic Status: Acute (2) Atrial fibrillation Status: Acute Qualifiers: Atrial fibrillation type: permanent Qualified Code(s): I48.2 - Chronic atrial fibrillation (3) Right heart failure Status: Chronic (4) Pulmonary hypertension Status: Chronic (5) Hyperlipidemia Status: Chronic Qualifiers: Hyperlipidemia type: unspecified Qualified Code(s): E78.5 - Hyperlipidemia, unspecified (6) Hypertension Status: Chronic Qualifiers: Hypertension type: essential hypertension Qualified Code(s): I10 - Essential (primary) hypertension (7) Carcinoma, lung Status: Chronic Reason for Consult Date of Consultation: 07/29/17 History of Present Illness: The patient is a 61 year old male who is previously followed with [facility] cardiology for concerns of underlying congestive heart failure thought to be non-CAD related, atrial fibrillation, hyperlipidemia, and hypertension superimposed upon a history of lung carcinoma. He states he is undergone evaluation in the past noninvasively and invasively and told that he had no underlying CAD. He has had multiple hospitalizations for recurrent concerns of shortness of breath/dyspnea and peripheral pitting edema. He states he has been compliant with his medications and his diet at home, however, based on the [facility] medical staff, there are concerns that he may not be as compliant as he should be with his medications and his diet at home. He states his main reason for his third return thus far this year is based upon recurrent shortness of breath and peripheral pitting edema. He has not been complaining of ongoing chest discomfort. He does not seem to sense his underlying atrial dysrhythmia. He denies any near-syncope or syncope. He has been evaluated. He has had indeterminate troponin I levels. His ECG is demonstrated atrial fibrillation with an underlying right bundle branch block pattern and a septal CA pattern of indeterminate age cannot be excluded. He has had a repeat transthoracic echocardiogram performed earlier this day. He had mildly dilated left ventricle with global hypokinesis of the left ventricle with an estimated LVEF of 35%; severely dilated right ventricle with moderate to severe global right ventricular systolic dysfunction; mild left atrial enlargement with severe right atrial enlargement; trivial MR; mild to moderate TR; and an estimated RV systolic pressure 46 mmHg. His other [facility] medical records, which she states has included stress test and diagnostic cardiac catheterizations, are unavailable for review. However he states his cardiac catheterization demonstrated no blockages . [] Past Medical History Allergies/Adverse Reactions: Allergies bee venom protein (honey bee) Allergy (Verified 07/28/17 16:41) Anaphylaxis latex Allergy (Verified 07/28/17 16:41) Rash Home Medications: Ambulatory Orders Medication Instructions Recorded Finasteride [Proscar] 5 mg PO DAILY 08/01/13 Metoprolol Tartrate [Lopressor 12.5 mg PO BID 08/01/13 (beta fito)] Pravastatin Sodium [Pravachol] 10 mg PO QHS 08/01/13 Gabapentin [Neurontin] 600 mg PO QHS 01/31/17 Lorazepam [Ativan] 1 mg PO BID PRN PRN 01/31/17 Mirtazapine [Remeron] 30 mg PO QHS PRN 01/31/17 Morphine Sulfate [Morphine Sulfate 30 mg PO BID PRN PRN 01/31/17 ER] Omeprazole 1 tab PO DAILY 01/31/17 Ondansetron [Zofran] 8 mg PO Q8H PRN PRN 01/31/17 Epinephrine [Epipen] 0.3 mg IM PRN PRN 07/07/17 Nitroglycerin [Nitrostat] 0.4 mg SL PRN PRN 07/07/17 Tamsulosin HCl [Flomax] 0.4 mg PO DAILY 07/07/17 Budesonide/Formoterol 80-4.5 2 puff INHALATION BID 07/09/17 [Symbicort 80-4.5 Mcg Inhaler] Acetaminophen 1,000 mg PO Q8H PRN 07/28/17 Albuterol IH (ProAir) [Proair Hfa] 2 puff INHALATION 4X/DAY 07/28/17 Calcium Carbonate [Calcium] 500 mg PO DAILY 07/28/17 Fexofenadine HCl [Aller-Ease] 180 mg PO DAILY 07/28/17 Furosemide [Lasix] 80 mg PO BID 07/28/17 Guaifenesin [Mucinex] 1,200 mg PO BID 07/28/17 Potassium Chloride 20 meq PO BID 07/28/17 Prochlorperazine Maleate 10 mg PO Q6H PRN 07/28/17 [Compazine] Warfarin [Coumadin] 6 mg PO SuMoWeThFrSa@1700 07/28/17 Warfarin [Coumadin] 9 mg PO Tu@0 07/28/17 Past Medical History (Chronic Problems): Chronic Problems Hyperlipidemia (Chronic) Hypertension (Chronic) Tobacco use disorder (Chronic) Chronic airway obstruction (Chronic) Obstructive sleep apnea (Chronic) Chronic pulmonary heart disease (Chronic) Atrial fibrillation (Chronic) Carcinoma, lung (Chronic) Right heart failure (Chronic) Pulmonary hypertension (Chronic) Surgical History: noncontributory Psychiatric History: - - Dementia - *Family History Maternal History Items: No pertinent history Paternal History Items: No pertinent history Lives: Spouse/ Significant Other Smoking Status: Former smoker Tobacco Use: Non-smoker Alcohol: None Drugs: None Review of Systems - Review of Systems General: Denies: Fever, Night Sweats, Fatigue Cardiovascular: Reports: Shortness of Breath, Shortness of Breath at Rest, Orthopnea, Peripheral Edema. Denies: Chest Discomfort, PND, Palpitations, Lightheadedness, Dizziness, Near Syncope, Syncope Respiratory: Reports: Shortness of Breath. Denies: Sputum Production, Hemoptysis Gastrointestinal: Denies: Hematemesis, Hematochezia, Melena Genitourinary: Denies: Dysuria, Hematuria Skin: Denies: Rash Subjectve: This is a 61-year-old white male who appears to be resting reasonably comfortably at the moment in no acute distress. Objective: Vital Signs Temp Pulse Resp BP Pulse Ox 97.8 F 83 18 112/69 94 07/29/17 16:07 07/29/17 16:07 07/29/17 16:07 07/29/17 16:07 07/29/17 16:07 Oxygen Flow Rate 6 Oxygen Delivery Method Bi-pap Weight: 263 lb 3.711 oz Body Mass Index (BMI) 32.7 Intake and Output for Last 24 Hours 07/27/17 07/28/17 07/29/17 23:59 23:59 23:59 Intake Total 400 / 400 600 / 600 Output Total 150 / 150 900 / 900 Balance 250 / 250 -300 / -300 General: Awake, Alert, Oriented x 3, Cooperative, No Acute Distress Neck: No JVD Lungs: Diminished Sekou Bases Cardiovascular: Irregular Rhythm, Normal S1, Normal S2 Vascular: No Carotid Bruits Abdomen: Bowel Sounds Present, Soft, Non Tender Extremities: Moderate RLE Edema, Moderate LLE Edema 07/28/17 21:23: Troponin I 0.57 H 07/29/17 01:30: Troponin I 0.39 H 07/29/17 07:05: WBC 4.4, RBC 4.59 L, Hgb 13.4, Hct 42.6, MCV 92.8, MCH 29.2, MCHC 31.5 L, RDW 19.3 H, RDW Differential 64.4 H, Plt Count 142 L, MPV 10.7 07/29/17 07:05: PT 29.3 H, INR 2.9 07/29/17 07:05: Sodium 135 L, Potassium 4.3, Chloride 91 L, Carbon Dioxide 39.0 H, Anion Gap 5, BUN 22 H, Creatinine 1.19, Est GFR (MDRD) Af Amer 79, Est GFR (MDRD) Non-Af 66, BUN/Creatinine Ratio 18.5, Glucose 143 H, Calcium 8.5, Troponin I 0.33 H Rhythm: Atrial fibrillation EKG: As noted above ECHO: As noted above CXR: Preliminary evaluation: Portable chest x-ray: Positive bilateral pleural effusions: Right greater than left; positive increased pulmonary vascularity; please see official report Assessment/Plan 1. Congestive heart failure: Acute on chronic systolic The patient presents back with his third episode this year appearing compatible with acute on chronic systolic mediated CHF. He is undergone noninvasive evaluation as noted above. His estimated LVEF was 35%. In the past he states this is been considered noncoronary related as his previous cardiac catheterization demonstrated no blockages . At the present time he will need continued medical management. This will include a combination, depending upon his blood pressure response and renal function response, of agents such as nitrates, beta-blockers, diuretics, and afterload reducing agents. Depending upon his overall LV systolic function, and whether or not it demonstrates any improvement over time, he may need to be considered for a future primary prevention ICD as well. In the interim an attempt will be made to locate his previous [facility] medical records for continuity of care purposes. 2. Atrial fibrillation The patient does have a history of atrial fibrillation. He will need continued rate control therapy. He has been on anticoagulant therapy. It is unclear whether he has ever had an attempt at antiarrhythmic therapy or DC cardioversion therapy. These therapies may need to be considered over time depending upon his clinical course and findings. 3. Right heart failure The patient is also noted to have a markedly dilated and dysfunctional right ventricle. This may be secondary to a combination of his left ventricular issues as well as his underlying primary pulmonary issues. This could lead to cor pulmonale and right heart failure. At the present time he will need continued treatment for his underlying LV systolic dysfunction. He will need continued treatment for his underlying pulmonary disease process. He will need continued medical management to support his right sided symptoms and objective findings, such as edema, with medical management. 4. Pulmonary hypertension He does have pulmonary hypertension. Again this may be a combination of his left ventricular systolic dysfunction as well as his underlying pulmonary disease process. He will need to continue cardiovascular evaluation care as well as pulmonary evaluation and care. 5. Hyperlipidemia He will continue medical management as deemed appropriate. 6. Hypertension He will need to continue evaluation of his blood pressure with adjustment of medications as tolerated. 7. Lung carcinoma He will need continued evaluation care by her pulmonology and oncology. This may impact his future cardiovascular evaluation and care as well. Comment: The above was discussed and reviewed with the patient and the [facility] staff. This note was generated with [employer]ict[employer] software. Every effort was made to ensure accuracy, however, computerized machine operator packaging mistakes may persist.
--- NOTE | 2017-07-29 21:02 | CON.PCM_ITS ---
Problem List (1) Systolic CHF, acute on chronic Status: Acute (2) Atrial fibrillation Status: Acute Qualifiers: Atrial fibrillation type: permanent Qualified Code(s): I48.2 - Chronic atrial fibrillation (3) Right heart failure Status: Chronic (4) Pulmonary hypertension Status: Chronic (5) Hyperlipidemia Status: Chronic Qualifiers: Hyperlipidemia type: unspecified Qualified Code(s): E78.5 - Hyperlipidemia , unspecified (6) Hypertension Status: Chronic Qualifiers: Hypertension type: essential hypertension Qualified Code(s): I10 - Essential (primary) hypertension (7) Carcinoma, lung Status: Chronic Reason for Consult Date of Consultation: 07/29/17 History of Present Illness: The patient is a 61 year old male who is previously followed with [facility] cardiology for concerns of underlying congestive heart failure thought to be non -CAD related, atrial fibrillation, hyperlipidemia, and hypertension superimposed upon a history of lung carcinoma. He states he is undergone evaluation in the past noninvasively and invasively and told that he had no underlying CAD. He has had multiple hospitalizations for recurrent concerns of shortness of breath/dyspnea and peripheral pitting edema. He states he has been compliant with his medications and his diet at home, however, based on the [facility] medical staff, there are concerns that he may not be as compliant as he should be with his medications and his diet at home. He states his main reason for his third return thus far this year is based upon recurrent shortness of breath and peripheral pitting edema. He has not been complaining of ongoing chest discomfort. He does not seem to sense his underlying atrial dysrhythmia. He denies any near-syncope or syncope. He has been evaluated. He has had indeterminate troponin I levels. His ECG is demonstrated atrial fibrillation with an underlying right bundle branch block pattern and a septal HI pattern of indeterminate age cannot be excluded. He has had a repeat transthoracic echocardiogram performed earlier this day. He had mildly dilated left ventricle with global hypokinesis of the left ventricle with an estimated LVEF of 35%; severely dilated right ventricle with moderate to severe global right ventricular systolic dysfunction; mild left atrial enlargement with severe right atrial enlargement; trivial MR; mild to moderate TR; and an estimated RV systolic pressure 46 mmHg. His other [facility] medical records, which she states has included stress test and diagnostic cardiac catheterizations, are unavailable for review. However he states his cardiac catheterization demonstrated no blockages . [] Past Medical History Allergies/Adverse Reactions: Allergies bee venom protein (honey bee) Allergy (Verified 07/28/17 16:41) Anaphylaxis latex Allergy (Verified 07/28/17 16:41) Rash Home Medications: Ambulatory Orders Medication Instructions Recorded Finasteride [Proscar] 5 mg PO DAILY 08/01/13 Metoprolol Tartrate [Lopressor 12.5 mg PO BID 08/01/13 (beta fito)] Pravastatin Sodium [Pravachol] 10 mg PO QHS 08/01/13 Gabapentin [Neurontin] 600 mg PO QHS 01/31/17 Lorazepam [Ativan] 1 mg PO BID PRN PRN 01/31/17 Mirtazapine [Remeron] 30 mg PO QHS PRN 01/31/17 Morphine Sulfate [Morphine Sulfate 30 mg PO BID PRN PRN 01/31/17 ER] Omeprazole 1 tab PO DAILY 01/31/17 Ondansetron [Zofran] 8 mg PO Q8H PRN PRN 01/31/17 Epinephrine [Epipen] 0.3 mg IM PRN PRN 07/07/17 Nitroglycerin [Nitrostat] 0.4 mg SL PRN PRN 07/07/17 Tamsulosin HCl [Flomax] 0.4 mg PO DAILY 07/07/17 Budesonide/Formoterol 80-4.5 2 puff INHALATION BID 07/09/17 [Symbicort 80-4.5 Mcg Inhaler] Acetaminophen 1,000 mg PO Q8H PRN 07/28/17 Albuterol IH (ProAir) [Proair Hfa] 2 puff INHALATION 4X/DAY 07/28/17 Calcium Carbonate [Calcium] 500 mg PO DAILY 07/28/17 Fexofenadine HCl [Aller-Ease] 180 mg PO DAILY 07/28/17 Furosemide [Lasix] 80 mg PO BID 07/28/17 Guaifenesin [Mucinex] 1,200 mg PO BID 07/28/17 Potassium Chloride 20 meq PO BID 07/28/17 Prochlorperazine Maleate 10 mg PO Q6H PRN 07/28/17 [Compazine] Warfarin [Coumadin] 6 mg PO SuMoWeThFrSa@1700 07/28/17 Warfarin [Coumadin] 9 mg PO Tu@0 07/28/17 Past Medical History (Chronic Problems): Chronic Problems Hyperlipidemia (Chronic) Hypertension (Chronic) Tobacco use disorder (Chronic) Chronic airway obstruction (Chronic) Obstructive sleep apnea (Chronic) Chronic pulmonary heart disease (Chronic) Atrial fibrillation (Chronic) Carcinoma, lung (Chronic) Right heart failure (Chronic) Pulmonary hypertension (Chronic) Surgical History: noncontributory Psychiatric History: - - Dementia - *Family History Maternal History Items: No pertinent history Paternal History Items: No pertinent history Lives: Spouse/ Significant Other Smoking Status: Former smoker Tobacco Use: Non-smoker Alcohol: None Drugs: None Review of Systems - Review of Systems General: Denies: Fever, Night Sweats, Fatigue Cardiovascular: Reports: Shortness of Breath, Shortness of Breath at Rest, Orthopnea, Peripheral Edema. Denies: Chest Discomfort, PND, Palpitations, Lightheadedness, Dizziness, Near Syncope, Syncope Respiratory: Reports: Shortness of Breath. Denies: Sputum Production, Hemoptysis Gastrointestinal: Denies: Hematemesis, Hematochezia, Melena Genitourinary: Denies: Dysuria, Hematuria Skin: Denies: Rash Subjectve: This is a 61-year-old white male who appears to be resting reasonably comfortably at the moment in no acute distress. Objective: Vital Signs Temp Pulse Resp BP Pulse Ox 97.8 F 83 18 112/69 94 07/29/17 16:07 07/29/17 16:07 07/29/17 16:07 07/29/17 16:07 07/29/17 16:07 Oxygen Flow Rate 6 Oxygen Delivery Method Bi-pap Weight: 263 lb 3.711 oz Body Mass Index (BMI) 32.7 Intake and Output for Last 24 Hours 07/27/17 07/28/17 07/29/17 23:59 23:59 23:59 Intake Total 400 / 400 600 / 600 Output Total 150 / 150 900 / 900 Balance 250 / 250 -300 / -300 General: Awake, Alert, Oriented x 3, Cooperative, No Acute Distress Neck: No JVD Lungs: Diminished Sekou Bases Cardiovascular: Irregular Rhythm, Normal S1, Normal S2 Vascular: No Carotid Bruits Abdomen: Bowel Sounds Present, Soft, Non Tender Extremities: Moderate RLE Edema, Moderate LLE Edema 07/28/17 21:23: Troponin I 0.57 H 07/29/17 01:30: Troponin I 0.39 H 07/29/17 07:05: WBC 4.4, RBC 4.59 L, Hgb 13.4, Hct 42.6, MCV 92.8, MCH 29.2, MCHC 31.5 L, RDW 19.3 H, RDW Differential 64.4 H, Plt Count 142 L, MPV 10.7 07/29/17 07:05: PT 29.3 H, INR 2.9 07/29/17 07:05: Sodium 135 L, Potassium 4.3, Chloride 91 L, Carbon Dioxide 39.0 H, Anion Gap 5, BUN 22 H, Creatinine 1.19, Est GFR (MDRD) Af Amer 79, Est GFR ( MDRD) Non-Af 66, BUN/Creatinine Ratio 18.5, Glucose 143 H, Calcium 8.5, Troponin I 0.33 H Rhythm: Atrial fibrillation EKG: As noted above ECHO: As noted above CXR: Preliminary evaluation: Portable chest x-ray: Positive bilateral pleural effusions: Right greater than left; positive increased pulmonary vascularity; please see official report Assessment/Plan 1. Congestive heart failure: Acute on chronic systolic The patient presents back with his third episode this year appearing compatible with acute on chronic systolic mediated CHF. He is undergone noninvasive evaluation as noted above. His estimated LVEF was 35%. In the past he states this is been considered noncoronary related as his previous cardiac catheterization demonstrated no blockages . At the present time he will need continued medical management. This will include a combination, depending upon his blood pressure response and renal function response, of agents such as nitrates, beta-blockers, diuretics, and afterload reducing agents. Depending upon his overall LV systolic function, and whether or not it demonstrates any improvement over time, he may need to be considered for a future primary prevention ICD as well. In the interim an attempt will be made to locate his previous [facility] medical records for continuity of care purposes. 2. Atrial fibrillation The patient does have a history of atrial fibrillation. He will need continued rate control therapy. He has been on anticoagulant therapy. It is unclear whether he has ever had an attempt at antiarrhythmic therapy or DC cardioversion therapy. These therapies may need to be considered over time depending upon his clinical course and findings. 3. Right heart failure The patient is also noted to have a markedly dilated and dysfunctional right ventricle. This may be secondary to a combination of his left ventricular issues as well as his underlying primary pulmonary issues. This could lead to cor pulmonale and right heart failure. At the present time he will need continued treatment for his underlying LV systolic dysfunction. He will need continued treatment for his underlying pulmonary disease process. He will need continued medical management to support his right sided symptoms and objective findings, such as edema, with medical management. 4. Pulmonary hypertension He does have pulmonary hypertension. Again this may be a combination of his left ventricular systolic dysfunction as well as his underlying pulmonary disease process. He will need to continue cardiovascular evaluation care as well as pulmonary evaluation and care. 5. Hyperlipidemia He will continue medical management as deemed appropriate. 6. Hypertension He will need to continue evaluation of his blood pressure with adjustment of medications as tolerated. 7. Lung carcinoma He will need continued evaluation care by her pulmonology and oncology. This may impact his future cardiovascular evaluation and care as well. Comment: The above was discussed and reviewed with the patient and the [facility] staff. This note was generated with [employer] Dictation software. Every effort was made to ensure accuracy, however, computerized direct care professional mistakes may persist.
[2017-07-29] MEDS: Metoprolol Tartrate 25 MG Tablet PO (21:04)
[2017-07-29] MEDS: Pravastatin 20 MG Tablet 10 MG PO (21:04)
[2017-07-29] MEDS: Gabapentin 300 MG Capsule PO (21:04)
[2017-07-29] MEDS: Furosemide 40 MG/4 ML Vial IV (21:05)
[2017-07-29] MEDS: 0.9% NaCl Peripheral Flush Adult/Peds IV (21:11)
--- NOTE | 2017-07-29 21:22 | CPS ---
pt placed on bipap
[2017-07-30] VITALS (26 sets, daily range): BP systolic 87–119; BP diastolic 57–73; PULSE 70–167; RESP 14–26; TEMP 36.4–36.7; O2SAT 89–96
[2017-07-30] MEDS: Magnesium Hydroxide 30 ML UDC PO (01:08)
[2017-07-30] MEDS: Furosemide 40 MG/4 ML Vial IV ×3 (05:20→21:14)
[2017-07-30] MEDS: 0.9% NaCl Peripheral Flush Adult/Peds IV ×4 (05:20→22:27)
[2017-07-30 06:13] LABS: Hematocrit 43.7 % (40-54); Hemoglobin 13.3 g/dl (13.0-16.5); International Normalized Ratio 1.4; Mean Corp Hgb Conc 30.4 g/gl (32-36); Mean Corpuscular Hgb 28.6 pg (27.0-32.0); Mean Platelet Vol. 10.9 fl (6.2-12.0); Platelet Count 160 K/mm3 (150-450); RBC Distribution Width CV 19.2 % (11.6-14.6); RBC Distribution Width SD 65.3 fl (35.1-43.9); Red Blood Count 4.65 M/mm3 (4.6-6.2); White Blood Count 10.1 K/mm3 (4.4-11.0)
[2017-07-30 06:15] LABS: Scan Indicated on CBC? Y/N YES- FLAGS NOTED
[2017-07-30 06:26] LABS: Anion Gap 7 (5-15); BUN 23 mg/dL (7-18); BUN/Creat Ratio 21.1 RATIO (10-20); Calcium,Total 8.7 mg/dL (8.5-10.1); Chloride 94 mmol/L (98-107); Creatinine, Serum 1.09 mg/dL (0.70-1.30); EST Glomerular Filtration Rate 73 mL/min (>60); Est Glom Filt Rate - Afr Amer 88 mL/min (>60); Estimated Creatinine Clearance 82.91 ml/min; Glucose 99 mg/dL (70-110); Potassium 4.2 mmol/L (3.5-5.1); Sodium Level 136 mmol/L (136-145)
[2017-07-30 06:54] LABS: Differential Comment SCAN
[2017-07-30] MEDS: Ipratropium/Albuterol Sulfate 3 ML AMPUL.NEB INHALATION ×4 (07:04→19:44)
--- NOTE | 2017-07-30 08:30 | PCM.PN.CARD ---
Subjectve: The patient continues with cough and shortness of breath. He denies ongoing chest discomfort at this time. Objective: Vital Signs Temp Pulse Resp BP Pulse Ox 79.9 F L 81 18 101/63 94 07/30/17 08:10 07/30/17 08:10 07/30/17 08:10 07/30/17 08:10 07/30/17 08:10 Oxygen Flow Rate 6 Oxygen Delivery Method Nasal Cannula Weight: 262 lb 5.601 oz Body Mass Index (BMI) 32.7 Intake and Output for Last 24 Hours 07/28/17 07/29/17 07/30/17 23:59 23:59 23:59 Intake Total 400 / 400 600 / 600 360 / 360 Output Total 150 / 150 900 / 900 575 / 575 Balance 250 / 250 -300 / -300 -215 / -215 General: Awake, Alert, Oriented x 3, Cooperative, No Acute Distress, Obese Neck: No JVD Lungs: Diminished [place] Bases Cardiovascular: Irregular Rhythm, Normal S1, Normal S2 Abdomen: Bowel Sounds Present, Soft, Non Tender Extremities: Moderate RLE Edema, Moderate LLE Edema 07/30/17 05:50: WBC 10.1, RBC 4.65, Hgb 13.3, Hct 43.7, MCV 94.0, MCH 28.6, MCHC 30.4 L, RDW 19.2 H, RDW Differential 65.3 H, Plt Count 160, MPV 10.9 07/30/17 05:50: PT 17.0 H, INR 1.4 07/30/17 05:50: Sodium 136, Potassium 4.2, Chloride 94 L, Carbon Dioxide 35.0 H, Anion Gap 7, BUN 23 H, Creatinine 1.09, Est GFR (MDRD) Af Amer 88, Est GFR (MDRD) Non-Af 73, BUN/Creatinine Ratio 21.1 H, Glucose 99, Calcium 8.7 Rhythm: Atrial fibrillation ECHO: [facility]: 05/24/2017: Left ventricle: Normal systolic function with reported LVEF of 62%; right ventricle dilated and mildly dysfunctional; right atrium dilated; mild TR; mild dilatation of the ascending aorta at 4.5 cm and descending aorta 4.5 cm; trivial pericardial effusion; estimated RV systolic pressure of 61 mmHg Stress Test: [facility]: 05/09/2015: Pharmacologic stress nuclear imaging study: Observation: Normal ST segment response to stress; no arrhythmias noted at rest or during stress; nuclear imaging portion unavailable for review Assessment/Plan 1. Congestive heart failure: Acute on chronic systolic The patient presents back with his third episode this year appearing compatible with acute on chronic systolic mediated CHF. He is undergone noninvasive evaluation as noted above. His estimated LVEF was 35%. According to his [facility] records, in April 2017, his overall LV wall motion and systolic function appeared to be normal. In the past he states this is been considered noncoronary related as his previous cardiac catheterization demonstrated no blockages . Based upon the above there appears to be a change in his overall LV systolic function from April 2017 to July 2017. This does raise a concern as to whether this could be related to underlying CAD with an ischemic mediated cardiomyopathy or based upon the global nature of his left ventricular systolic function a non-CAD related cardiomyopathy possibly related to concerns of hypoxemia, as the patient has been reported as being hypoxic in the past without his O2 support, etc. As his course of proceeds he may need to be considered for a repeat diagnostic cardiac catheterization in the future. At the present time he will need continued medical management. This will include a combination, depending upon his blood pressure response and renal function response, of agents such as nitrates, beta-blockers, diuretics, and afterload reducing agents. Depending upon his overall LV systolic function, and whether or not it demonstrates any improvement over time, he may need to be considered for a future primary prevention ICD as well. 2. Atrial fibrillation The patient does have a history of atrial fibrillation. He will need continued rate control therapy. He has been on anticoagulant therapy. It is unclear whether he has ever had an attempt at antiarrhythmic therapy or DC cardioversion therapy. These therapies may need to be considered over time depending upon his clinical course and findings. 3. Right heart failure The patient is also noted to have a markedly dilated and dysfunctional right ventricle. This may be secondary to a combination of his left ventricular issues as well as his underlying primary pulmonary issues, which according to conversation with his oncologist, Dr. Dobbins, includes his underlying pulmonary disease process of lung carcinoma as well as pulmonary fibrosis.. This could lead to cor pulmonale and right heart failure. At the present time he will need continued treatment for his underlying LV systolic dysfunction. He will need continued treatment for his underlying pulmonary disease process. He will need continued medical management to support his right sided symptoms and objective findings, such as edema, with medical management. 4. Pulmonary hypertension He does have pulmonary hypertension. Again this may be a combination of his left ventricular systolic dysfunction as well as his underlying pulmonary disease process. He will need to continue cardiovascular evaluation care as well as pulmonary evaluation and care. 5. Hyperlipidemia He will continue medical management as deemed appropriate. 6. Hypertension He will need to continue evaluation of his blood pressure with adjustment of medications as tolerated. 7. Lung carcinoma He will need continued evaluation care by her pulmonology and oncology. Again, his case was discussed with Dr. Dobbins. He believes the patient, status post chemotherapy, radiation care therapy, and immunotherapy, has demonstrated remission. However this could change depending upon his ongoing radiologic findings and his upcoming thoracentesis as to whether or not it demonstrates any evidence of malignancy. Comment: The above was discussed and reviewed with the patient and the [facility] staff. This note was generated with [employer]craft Dictation software. Every effort was made to ensure accuracy, however, computerized uniformer mistakes may persist.
--- NOTE | 2017-07-30 08:40 | PN.CARD_ITS ---
Subjectve: The patient continues with cough and shortness of breath. He denies ongoing chest discomfort at this time. Objective: Vital Signs Temp Pulse Resp BP Pulse Ox 79.9 F L 81 18 101/63 94 07/30/17 08:10 07/30/17 08:10 07/30/17 08:10 07/30/17 08:10 07/30/17 08:10 Oxygen Flow Rate 6 Oxygen Delivery Method Nasal Cannula Weight: 262 lb 5.601 oz Body Mass Index (BMI) 32.7 Intake and Output for Last 24 Hours 07/28/17 07/29/17 07/30/17 23:59 23:59 23:59 Intake Total 400 / 400 600 / 600 360 / 360 Output Total 150 / 150 900 / 900 575 / 575 Balance 250 / 250 -300 / -300 -215 / -215 General: Awake, Alert, Oriented x 3, Cooperative, No Acute Distress, Obese Neck: No JVD Lungs: Diminished [place] Bases Cardiovascular: Irregular Rhythm, Normal S1, Normal S2 Abdomen: Bowel Sounds Present, Soft, Non Tender Extremities: Moderate RLE Edema, Moderate LLE Edema 07/30/17 05:50: WBC 10.1, RBC 4.65, Hgb 13.3, Hct 43.7, MCV 94.0, MCH 28.6, MCHC 30.4 L, RDW 19.2 H, RDW Differential 65.3 H, Plt Count 160, MPV 10.9 07/30/17 05:50: PT 17.0 H, INR 1.4 07/30/17 05:50: Sodium 136, Potassium 4.2, Chloride 94 L, Carbon Dioxide 35.0 H , Anion Gap 7, BUN 23 H, Creatinine 1.09, Est GFR (MDRD) Af Amer 88, Est GFR ( MDRD) Non-Af 73, BUN/Creatinine Ratio 21.1 H, Glucose 99, Calcium 8.7 Rhythm: Atrial fibrillation ECHO: [facility]: 05/24/2017: Left ventricle: Normal systolic function with reported LVEF of 62%; right ventricle dilated and mildly dysfunctional; right atrium dilated; mild TR; mild dilatation of the ascending aorta at 4.5 cm and descending aorta 4.5 cm; trivial pericardial effusion; estimated RV systolic pressure of 61 mmHg Stress Test: [facility]: 05/09/2015: Pharmacologic stress nuclear imaging study: Observation: Normal ST segment response to stress; no arrhythmias noted at rest or during stress; nuclear imaging portion unavailable for review Assessment/Plan 1. Congestive heart failure: Acute on chronic systolic The patient presents back with his third episode this year appearing compatible with acute on chronic systolic mediated CHF. He is undergone noninvasive evaluation as noted above. His estimated LVEF was 35%. According to his [facility] records, in April 2017, his overall LV wall motion and systolic function appeared to be normal. In the past he states this is been considered noncoronary related as his previous cardiac catheterization demonstrated no blockages . Based upon the above there appears to be a change in his overall LV systolic function from April 2017 to July 2017. This does raise a concern as to whether this could be related to underlying CAD with an ischemic mediated cardiomyopathy or based upon the global nature of his left ventricular systolic function a non-CAD related cardiomyopathy possibly related to concerns of hypoxemia, as the patient has been reported as being hypoxic in the past without his O2 support, etc. As his course of proceeds he may need to be considered for a repeat diagnostic cardiac catheterization in the future. At the present time he will need continued medical management. This will include a combination, depending upon his blood pressure response and renal function response, of agents such as nitrates, beta-blockers, diuretics, and afterload reducing agents. Depending upon his overall LV systolic function, and whether or not it demonstrates any improvement over time, he may need to be considered for a future primary prevention ICD as well. 2. Atrial fibrillation The patient does have a history of atrial fibrillation. He will need continued rate control therapy. He has been on anticoagulant therapy. It is unclear whether he has ever had an attempt at antiarrhythmic therapy or DC cardioversion therapy. These therapies may need to be considered over time depending upon his clinical course and findings. 3. Right heart failure The patient is also noted to have a markedly dilated and dysfunctional right ventricle. This may be secondary to a combination of his left ventricular issues as well as his underlying primary pulmonary issues, which according to conversation with his oncologist, Dr. Dobbins, includes his underlying pulmonary disease process of lung carcinoma as well as pulmonary fibrosis.. This could lead to cor pulmonale and right heart failure. At the present time he will need continued treatment for his underlying LV systolic dysfunction. He will need continued treatment for his underlying pulmonary disease process. He will need continued medical management to support his right sided symptoms and objective findings, such as edema, with medical management. 4. Pulmonary hypertension He does have pulmonary hypertension. Again this may be a combination of his left ventricular systolic dysfunction as well as his underlying pulmonary disease process. He will need to continue cardiovascular evaluation care as well as pulmonary evaluation and care. 5. Hyperlipidemia He will continue medical management as deemed appropriate. 6. Hypertension He will need to continue evaluation of his blood pressure with adjustment of medications as tolerated. 7. Lung carcinoma He will need continued evaluation care by her pulmonology and oncology. Again, his case was discussed with Dr. Dobbins. He believes the patient, status post chemotherapy, radiation care therapy, and immunotherapy, has demonstrated remission. However this could change depending upon his ongoing radiologic findings and his upcoming thoracentesis as to whether or not it demonstrates any evidence of malignancy. Comment: The above was discussed and reviewed with the patient and the [facility] staff. This note was generated with [employer] Dictation software. Every effort was made to ensure accuracy, however, computerized manual control auger press operator mistakes may persist.
--- NOTE | 2017-07-30 08:57 | PCM.PROGNOTE ---
Patient Problems: Active and Suspected Problems Systolic CHF, acute on chronic (Acute) Subjective: Patient was seen and examined. He is sitting up in bed and saturating 90% on 6 L of oxygen. Wore BiPAP overnight, FiO2 was decreased to 35%. Reports he feels a little better. Patient remains afebrile and hemodynamically stable. He continues with a coarse cough and occasional sputum production. Objective: No new lab data to review. Patient remains hemodynamically stable. INR this morning is now subtherapeutic at 1.4. Chloride remains low at 94 and serum bicarb minimally improved to 35. Renal function remains stable. Blood cultures are pending. Patient is being diuresed with IV Lasix and Bumex was discontinued. Echocardiogram 07/29/17 showed an estimated EF of 35% with a moderately dilated left ventricle, D-shaped septum in diastole, moderate to severe global hypokinesis of left ventricle, severely dilated right ventricle, moderately severe global right ventricular systolic dysfunction, mildly enlarged left atrium, severely enlarged right atrium, mild to moderate TVI, RVSP estimated 46 mmHg but may be underestimated due to severe RV and D-shaped LV during diastole. Inferior vena cava is dilated, patient appears to be in atrial fibrillation. According to outside facility records scanned into the patient's medical record, his echo in April 2017 at [facility] showed normal left ventricular function, no gross wall motion abnormality, right ventricle was grossly dilated and hypokinetic, estimated RVSP was at 60 mmHg which had worsened from previous echo of 2014. There was mild tricuspid insufficiency. Patient appeared to be in atrial fibrillation. At that time, his atrial flutter/fibrillation was a new finding. - Physical Exam General: Alert, Cooperative, - - Oriented to self and place. Mild conversational dyspnea HEENT: Atraumatic, Normocephalic Oral: Moist Mucosa, No Gingival or Mucosal Lesions/ Ulcerations Neck: Supple, No Nodes, Trachea Midline Lungs: - - Diminished throughout with coarse rhonchi, no appreciable wheeze Cardiovascular: Normal S1, Normal S2, Irregular Rate, Murmur, No rub noted, No Gallop Abdomen: Bowel Sounds Present, Soft, Non Tender, Passing Flatus, Obese Extremities: No clubbing, No cyanosis, Edema - improved, still 2+ pitting Skin: No rashes, No breakdown Musculoskeletal: No Tenderness to Palpation of Joints or Extremities Lymphatic: No Cervical, Supraclavicular, or Inguinal Adenopathy Neurological: Neuro grossly intact Psych/Mental Status: Normal Affect, Appropriate Vital Signs Temp Pulse Resp BP Pulse Ox 79.9 F L 81 18 101/63 94 07/30/17 08:10 07/30/17 08:10 07/30/17 08:10 07/30/17 08:10 07/30/17 08:10 Oxygen Flow Rate 6 Oxygen Delivery Method Nasal Cannula Weight: 262 lb 5.601 oz Body Mass Index (BMI) 32.7 Intake and Output for Last 24 Hours 07/28/17 07/29/17 07/30/17 23:59 23:59 23:59 Intake Total 400 / 400 600 / 600 360 / 360 Output Total 150 / 150 900 / 900 575 / 575 Balance 250 / 250 -300 / -300 -215 / -215 Laboratory Tests Past 24 Hrs 07/30/17 07/30/17 07/30/17 05:50 05:50 05:50 WBC 10.1 RBC 4.65 Hgb 13.3 Hct 43.7 MCV 94.0 MCH 28.6 MCHC 30.4 L RDW 19.2 H RDW Differential 65.3 H Plt Count 160 MPV 10.9 Differential Comment SCAN PT 17.0 H INR 1.4 Sodium 136 Potassium 4.2 Chloride 94 L Carbon Dioxide 35.0 H Anion Gap 7 BUN 23 H Creatinine 1.09 Estim Creat Clear Calc 82.91 Est GFR (MDRD) Af Amer 88 Est GFR (MDRD) Non-Af 73 BUN/Creatinine Ratio 21.1 H Glucose 99 Calcium 8.7 Assessment/Plan Active and Suspected Problems Systolic CHF, acute on chronic (Acute) RECOMMENDATIONS 1. Wean oxygen supplementation to keep saturations 88-92%. 2. Encourage incentive spirometer when off of BiPAP 3. Increase activity as tolerated 4. Continue aerosols 5. Continue BiPAP at night and with naps, and rescue during the day 6. No indication for antibiotics or steroids 7. Palliative care consult 07/30/17 8. Restart anticoagulation 7. Patient should follow-up closely with his primary hadoop analyst upon discharge, if does not follow with hospice/palliative care IMPRESSIONS 1. Acute on chronic hypoxic respiratory failure secondary to acute diastolic CHF exacerbation Chronic 4 L at home, currently on 6 L and using BiPAP rescue. Follows with Dr. Crook at [facility]. Patient DNR CCA with no intubation. Patient was discharged on 07/23 on 80 mg of p.o. Lasix twice daily. Unsure if this was continued as last admit he decreased the diuretics on his own secondary to going to the bathroom too much. There is a moderate pleural effusion on chest x-ray. Echocardiogram shows worsening of ejection fraction to 35%, his records were obtained his last admission and his EF at that time from April 2017 was 65%. Escalation of diuretics have improved lower extremity edema and oxygen requirements, but patient may require thoracentesis if does not continue to improve. INR now subtherapeutic, would restart anticoagulation. 2. History of COPD, self-reported Does not appear to be having an acute exacerbation. There is no wheezing on exam. Sputum production is at baseline. Hypoxia likely secondary to fluid volume overload. No indication for steroids or antibiotics, there is no leukocytosis or fevers. Increase activity as tolerated, consult PT. He should be encouraged to use incentive spirometer once off BiPAP. Patient should follow-up with his primary hadoop analyst upon discharge. 3. Self-reported obstructive sleep apnea, untreated Patient intolerant to noninvasive positive pressure therapy in the past. Did stress to the patient that initiation of BiPAP at home would be beneficial, especially with concomitant heart failure. He does not utilize secondary to claustrophobia. Therefore, patient would not be a candidate for trilogy machine. While in the hospital, continue BiPAP at night and as rescue during the day. 4. Non-small cell lung cancer Currently undergoing immunotherapy at [facility]. Patient with right pleural effusion, likely related to malignancy and/or CHF. Chest x-ray on admission showed no substantial changes from the prior exam of 07/19/17. There was a moderate sized right pleural effusion with underlying compressive atelectasis/infiltrate in the right lung. There is a prominent right hilum. Atelectasis likely secondary to poor inspiratory effort, sedentary lifestyle, fluid accumulation. He is obese. Patient has multiple comorbidities with multiple readmissions recently. considering Palliative per Denise Felton NP and voiced not interested in Hospice, but willing to meet with them today. 5. Hypertension/hyperlipidemia/history of tobacco abuse/pulmonary fibrosis/atrial fibrillation Complicates care, management, recovery, and prognosis. His arrhythmia is likely complicating his heart function, he has a severely dilated right ventricle and right atrium is severely enlarged. He has a moderately dilated left ventricle as well. This note was generated with [employer] software. It may contain incorrect words, spelling, and punctuation that were not noted in checking the note before signing.
--- NOTE | 2017-07-30 09:06 | PN_ITS ---
Patient Problems: Active and Suspected Problems Systolic CHF, acute on chronic (Acute) Subjective: Patient was seen and examined. He is sitting up in bed and saturating 90% on 6 L of oxygen. Wore BiPAP overnight, FiO2 was decreased to 35%. Reports he feels a little better. Patient remains afebrile and hemodynamically stable. He continues with a coarse cough and occasional sputum production. Objective: No new lab data to review. Patient remains hemodynamically stable. INR this morning is now subtherapeutic at 1.4. Chloride remains low at 94 and serum bicarb minimally improved to 35. Renal function remains stable. Blood cultures are pending. Patient is being diuresed with IV Lasix and Bumex was discontinued. Echocardiogram 07/29/17 showed an estimated EF of 35% with a moderately dilated left ventricle, D-shaped septum in diastole, moderate to severe global hypokinesis of left ventricle, severely dilated right ventricle, moderately severe global right ventricular systolic dysfunction, mildly enlarged left atrium, severely enlarged right atrium, mild to moderate TVI, RVSP estimated 46 mmHg but may be underestimated due to severe RV and D-shaped LV during diastole. Inferior vena cava is dilated, patient appears to be in atrial fibrillation. According to outside facility records scanned into the patient's medical record , his echo in April 2017 at [facility] showed normal left ventricular function, no gross wall motion abnormality, right ventricle was grossly dilated and hypokinetic, estimated RVSP was at 60 mmHg which had worsened from previous echo of 2014. There was mild tricuspid insufficiency. Patient appeared to be in atrial fibrillation. At that time, his atrial flutter/fibrillation was a new finding. - Physical Exam General: Alert, Cooperative, - - Oriented to self and place. Mild conversational dyspnea HEENT: Atraumatic, Normocephalic Oral: Moist Mucosa, No Gingival or Mucosal Lesions/ Ulcerations Neck: Supple, No Nodes, Trachea Midline Lungs: - - Diminished throughout with coarse rhonchi, no appreciable wheeze Cardiovascular: Normal S1, Normal S2, Irregular Rate, Murmur, No rub noted, No Gallop Abdomen: Bowel Sounds Present, Soft, Non Tender, Passing Flatus, Obese Extremities: No clubbing, No cyanosis, Edema - improved, still 2+ pitting Skin: No rashes, No breakdown Musculoskeletal: No Tenderness to Palpation of Joints or Extremities Lymphatic: No Cervical, Supraclavicular, or Inguinal Adenopathy Neurological: Neuro grossly intact Psych/Mental Status: Normal Affect, Appropriate Vital Signs Temp Pulse Resp BP Pulse Ox 79.9 F L 81 18 101/63 94 07/30/17 08:10 07/30/17 08:10 07/30/17 08:10 07/30/17 08:10 07/30/17 08:10 Oxygen Flow Rate 6 Oxygen Delivery Method Nasal Cannula Weight: 262 lb 5.601 oz Body Mass Index (BMI) 32.7 Intake and Output for Last 24 Hours 07/28/17 07/29/17 07/30/17 23:59 23:59 23:59 Intake Total 400 / 400 600 / 600 360 / 360 Output Total 150 / 150 900 / 900 575 / 575 Balance 250 / 250 -300 / -300 -215 / -215 Laboratory Tests Past 24 Hrs 07/30/17 07/30/17 07/30/17 05:50 05:50 05:50 WBC 10.1 RBC 4.65 Hgb 13.3 Hct 43.7 MCV 94.0 MCH 28.6 MCHC 30.4 L RDW 19.2 H RDW Differential 65.3 H Plt Count 160 MPV 10.9 Differential Comment SCAN PT 17.0 H INR 1.4 Sodium 136 Potassium 4.2 Chloride 94 L Carbon Dioxide 35.0 H Anion Gap 7 BUN 23 H Creatinine 1.09 Estim Creat Clear Calc 82.91 Est GFR (MDRD) Af Amer 88 Est GFR (MDRD) Non-Af 73 BUN/Creatinine Ratio 21.1 H Glucose 99 Calcium 8.7 Assessment/Plan Active and Suspected Problems Systolic CHF, acute on chronic (Acute) RECOMMENDATIONS 1. Wean oxygen supplementation to keep saturations 88-92%. 2. Encourage incentive spirometer when off of BiPAP 3. Increase activity as tolerated 4. Continue aerosols 5. Continue BiPAP at night and with naps, and rescue during the day 6. No indication for antibiotics or steroids 7. Palliative care consult 07/30/17 8. Restart anticoagulation 7. Patient should follow-up closely with his primary animal control officer upon discharge, if does not follow with hospice/palliative care IMPRESSIONS 1. Acute on chronic hypoxic respiratory failure secondary to acute diastolic CHF exacerbation Chronic 4 L at home, currently on 6 L and using BiPAP rescue. Follows with Dr. Crook at [facility]. Patient DNR CCA with no intubation. Patient was discharged on 07/23 on 80 mg of p.o. Lasix twice daily. Unsure if this was continued as last admit he decreased the diuretics on his own secondary to going to the bathroom too much. There is a moderate pleural effusion on chest x-ray. Echocardiogram shows worsening of ejection fraction to 35%, his records were obtained his last admission and his EF at that time from April 2017 was 65%. Escalation of diuretics have improved lower extremity edema and oxygen requirements, but patient may require thoracentesis if does not continue to improve. INR now subtherapeutic, would restart anticoagulation. 2. History of COPD, self-reported Does not appear to be having an acute exacerbation. There is no wheezing on exam. Sputum production is at baseline. Hypoxia likely secondary to fluid volume overload. No indication for steroids or antibiotics, there is no leukocytosis or fevers. Increase activity as tolerated, consult PT. He should be encouraged to use incentive spirometer once off BiPAP. Patient should follow -up with his primary animal control officer upon discharge. 3. Self-reported obstructive sleep apnea, untreated Patient intolerant to noninvasive positive pressure therapy in the past. Did stress to the patient that initiation of BiPAP at home would be beneficial, especially with concomitant heart failure. He does not utilize secondary to claustrophobia. Therefore, patient would not be a candidate for trilogy machine. While in the hospital, continue BiPAP at night and as rescue during the day. 4. Non-small cell lung cancer Currently undergoing immunotherapy at [facility]. Patient with right pleural effusion, likely related to malignancy and/or CHF. Chest x-ray on admission showed no substantial changes from the prior exam of 07/19/17. There was a moderate sized right pleural effusion with underlying compressive atelectasis/infiltrate in the right lung. There is a prominent right hilum. Atelectasis likely secondary to poor inspiratory effort, sedentary lifestyle, fluid accumulation. He is obese. Patient has multiple comorbidities with multiple readmissions recently. considering Palliative per Denise Felton NP and voiced not interested in Hospice, but willing to meet with them today. 5. Hypertension/hyperlipidemia/history of tobacco abuse/pulmonary fibrosis/ atrial fibrillation Complicates care, management, recovery, and prognosis. His arrhythmia is likely complicating his heart function, he has a severely dilated right ventricle and right atrium is severely enlarged. He has a moderately dilated left ventricle as well. This note was generated with [employer] software. It may contain incorrect words, spelling, and punctuation that were not noted in checking the note before signing.
[2017-07-30] MEDS: Metoprolol Tartrate 25 MG Tablet PO ×2 (09:35→21:13)
[2017-07-30] MEDS: Finasteride 5 MG Tablet PO (09:35)
[2017-07-30] MEDS: Tamsulosin HCl 0.4 MG Capsule PO (09:35)
[2017-07-30] MEDS: guaiFENesin 1,200 MG Tablet 1200 MG PO ×2 (09:36→21:13)
[2017-07-30] MEDS: Pantoprazole Sodium 20 MG Tablet PO (09:36)
--- NOTE | 2017-07-30 09:55 | CASEMGMT ---
NAHED spoke with PHYSICIAN Dominique and she spoke with patient and family about Palliative Care yesterday and they agreed to talk with them. NAHED faxed referral and called Lelia at [facility] with referral. Jamila BRIGGS
--- NOTE | 2017-07-30 10:56 | US_ITS ---
STUDY: SUPERFICIAL ULTRASOUND - RIGHT PLEURAL SPACE. REASON FOR EXAM: Male, 61 years old. Assessment for possible right thoracentesis. TECHNIQUE: A superficial ultrasound was performed with real-time and static vega-scale imaging. COMPARISON: None. FINDINGS: The right pleural cavity was examined by ultrasound. There is a minimal right pleural effusion. This is too small for a safe thoracentesis. US/Chest IMPRESSION: Minimal right pleural effusion. Electronically Signed: Hernan Lundberg MD at 15:10 EST Tel [phone], Service support ,
--- NOTE | 2017-07-30 11:00 | NURSING ---
Left message on wifes cell phone to bring a few pairs of underwear per pt request.
--- NOTE | 2017-07-30 11:02 | NURSING ---
Spoke with Mirian in [place]- patient will have thoracentesis approx 1230. Will call back will definite time.
--- NOTE | 2017-07-30 12:13 | PCM.PROGNOTE ---
Patient Problems: Active and Suspected Problems Systolic CHF, acute on chronic (Acute) Subjective: Patient seen and examined. States his breathing has improved. Currently resting in bed in no acute distress. Tolerated BiPAP overnight without difficulty. Currently oxygen is 94% on 6 L nasal cannula. Cough is improved. Denies other complaints. - Physical Exam General: Alert, Oriented x3, Cooperative, No apparent distress HEENT: Atraumatic, PERRLA, EOMI, Normocephalic Oral: Dry Mucosa Neck: Supple, No JVD, Negative Carotid Bruits Lungs: Diminished, Rhonchi Cardiovascular: Regular rate, Regular Rhythm, Normal S1, Normal S2, No murmurs Abdomen: Bowel Sounds Present, Soft, Non Tender, Non-Distended, Obese Extremities: No clubbing, No cyanosis, Capillary Refill Less than 3 Seconds, Edema - +2 BLLE Skin: No rashes, No breakdown Musculoskeletal: No Tenderness to Palpation of Joints or Extremities Neurological: Cranial nerves II-XII grossly intact, Neuro grossly intact Psych/Mental Status: Normal Affect, Appropriate Vital Signs Temp Pulse Resp BP Pulse Ox 97.9 F 106 H 20 H 101/63 94 07/30/17 08:10 07/30/17 11:15 07/30/17 11:02 07/30/17 08:10 07/30/17 08:10 Oxygen Flow Rate 6 Oxygen Delivery Method Nasal Cannula Weight: 119 kg Body Mass Index (BMI) 32.7 Intake and Output for Last 24 Hours 07/28/17 07/29/17 07/30/17 23:59 23:59 23:59 Intake Total 400 / 400 600 / 600 720 / 720 Output Total 150 / 150 900 / 900 975 / 975 Balance 250 / 250 -300 / -300 -255 / -255 Laboratory Tests Past 24 Hrs 07/30/17 07/30/17 07/30/17 05:50 05:50 05:50 WBC 10.1 RBC 4.65 Hgb 13.3 Hct 43.7 MCV 94.0 MCH 28.6 MCHC 30.4 L RDW 19.2 H RDW Differential 65.3 H Plt Count 160 MPV 10.9 Differential Comment SCAN PT 17.0 H INR 1.4 Sodium 136 Potassium 4.2 Chloride 94 L Carbon Dioxide 35.0 H Anion Gap 7 BUN 23 H Creatinine 1.09 Estim Creat Clear Calc 82.91 Est GFR (MDRD) Af Amer 88 Est GFR (MDRD) Non-Af 73 BUN/Creatinine Ratio 21.1 H Glucose 99 Calcium 8.7 Lactate Dehydrogenase Total Protein Globulin Albumin/Globulin Ratio 07/30/17 05:50 WBC RBC Hgb Hct MCV MCH MCHC RDW RDW Differential Plt Count MPV Differential Comment PT INR Sodium Potassium Chloride Carbon Dioxide Anion Gap BUN Creatinine Estim Creat Clear Calc Est GFR (MDRD) Af Amer Est GFR (MDRD) Non-Af BUN/Creatinine Ratio Glucose Calcium Lactate Dehydrogenase 412 H Total Protein 7.1 Globulin 3.7 Albumin/Globulin Ratio 0.9 Assessment/Plan Active and Suspected Problems Systolic CHF, acute on chronic (Acute) Patient is a 61-year-old male admitted 07/28/2017 due to shortness of breath. Patient has had 3 recent admissions in June 2017 due to shortness of breath as well. He has a past medical history of hypertension, hyperlipidemia, obstructive sleep apnea, chronic diastolic CHF, tobacco use, COPD, chronic respiratory failure, history of non-small cell lung cancer currently receiving immunotherapy, dementia. 1. Acute on chronic combined systolic/diastolic CHF-BNP on admission 225. Patient has symptoms of fluid overload. Patient takes Lasix 80 mg p.o. twice daily. He was started on Bumex on admission. Continue IV Lasix 40 mg q. 8hr. Chest x-ray shows moderate sized right pleural effusion with underlying compressive atelectasis/infiltrates of the right lung. Pulmonary consulted, to undergo therapeutic and diagnostic thoracentesis today. Cardiology also consulted. Echocardiogram April 2017 showed an estimated ejection fraction of 65%. Repeat echo 07/29/17 shows an estimated ejection fraction of 35%, D-shaped septum and diastolic, moderate to severe global hypokinesis of the left ventricle, severely dilated right ventricle, moderately severe right ventricular systolic dysfunction, severely enlarged right atrium, mild to moderate tricuspid valve insufficiency, RVSP estimated to be 46. There is concern for underlying CAD. Patient may be considered for diagnostic cardiac catheterization in the future when pulmonary status stabilizes. 2. Acute on chronic hypoxic respiratory failure- #1. Mild improvement with diuresis. Continue BiPAP. Wean as tolerated to maintain O2 at or above 90%. 3. Supratherapeutic INR-INR 5.9 on admission. Patient received vitamin K. INR today 1.4. Resume Coumadin following thoracentesis. 4. NSTEMI II-suspect secondary to #1/#2. Denies chest pain. Patient follows with Dr. Adkins, [facility]. No history of coronary artery disease. Echocardiogram was significant changes from previous as noted above. No EKG changes. Cardiology following. 5. Chronic COPD-no acute exacerbation. Continue albuterol DuoNeb aerosols. Discontinue prednisone. No indication for antibiotics. Encourage IS. Follows with Dr. Crook at [facility]. Continue oxygen supplementation to maintain O2 at or above 90%. Patient wears 6 L nasal cannula at baseline. Patient wishes to switch to Dr. Geiger/ Dr. Jin as outpatient at [place]. 6. Obstructive sleep apnea-patient noncompliant with BiPAP in the past. Encouraged compliance. 7. Non-small cell lung cancer-undergoing immunotherapy at [facility]. Follows with Dr. Dobbins. Spoke with Dr. Dobbins this morning, states he would like to be notified if thoracentesis shows malignancy and pleural effusion. Otherwise, he is going to hold off on further immunotherapy at this time. 8. Hypertension-stable, continue home regimen. 9. Hyperlipidemia-continue statin. 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 Does not appear to be on home medication regimen. 11. Chronic atrial fibrillation-rate controlled. Resume home Coumadin regimen following thoracentesis. Cardioversion may be considered in the future per cardiology. Discharge planning-social work involved, palliative care to meet with family. Discussing home health. DVT prophylaxis-Continue coumadin. This patient was seen by IVANA Lopez under the supervision of Dr. Mancuso.
--- NOTE | 2017-07-30 12:23 | CASEMGMT ---
Per Dr. Mancuso and Amaury CITY DIRECTOR, they spoke with pt and last evening and they would like referral to palliative care and would like HHC at discharge for pt. Call placed to , Jesenia, at this time d/t pt hx of dementia. Per , she does not want HHC set up at this time but she states that they may need it in near future and would like to be able to call this RN CM to set it up at that time. Advised pt that this RN CM can set up HHC for pt for this disposition but if not done here and needed in the future, they would have to f/u with PCP to set up HHC. states that 'I just can't make any more decisions at this time.' When this RN CM tried to see who pt may want if they decide in the future, refused to answer or accept any information at this time. states that she has 'too much going on right now' and does not want to make any more decisions. Advised that there is a CM here tomorrow and that she can speak with her if needed, voices understanding. states she will not be in until after 5p today. Pallavi BARRIOS CM aware of pt at this time, voices understanding. Dr. Mancuso aware of all at this time and states that she will attempt to speak with pt/ again regarding resources/care. Roosevelt BARRIOS CM
--- NOTE | 2017-07-30 12:39 | PN_ITS ---
Patient Problems: Active and Suspected Problems Systolic CHF, acute on chronic (Acute) Subjective: Patient seen and examined. States his breathing has improved. Currently resting in bed in no acute distress. Tolerated BiPAP overnight without difficulty. Currently oxygen is 94% on 6 L nasal cannula. Cough is improved. Denies other complaints. - Physical Exam General: Alert, Oriented x3, Cooperative, No apparent distress HEENT: Atraumatic, PERRLA, EOMI, Normocephalic Oral: Dry Mucosa Neck: Supple, No JVD, Negative Carotid Bruits Lungs: Diminished, Rhonchi Cardiovascular: Regular rate, Regular Rhythm, Normal S1, Normal S2, No murmurs Abdomen: Bowel Sounds Present, Soft, Non Tender, Non-Distended, Obese Extremities: No clubbing, No cyanosis, Capillary Refill Less than 3 Seconds, Edema - +2 BLLE Skin: No rashes, No breakdown Musculoskeletal: No Tenderness to Palpation of Joints or Extremities Neurological: Cranial nerves II-XII grossly intact, Neuro grossly intact Psych/Mental Status: Normal Affect, Appropriate Vital Signs Temp Pulse Resp BP Pulse Ox 97.9 F 106 H 20 H 101/63 94 07/30/17 08:10 07/30/17 11:15 07/30/17 11:02 07/30/17 08:10 07/30/17 08:10 Oxygen Flow Rate 6 Oxygen Delivery Method Nasal Cannula Weight: 119 kg Body Mass Index (BMI) 32.7 Intake and Output for Last 24 Hours 07/28/17 07/29/17 07/30/17 23:59 23:59 23:59 Intake Total 400 / 400 600 / 600 720 / 720 Output Total 150 / 150 900 / 900 975 / 975 Balance 250 / 250 -300 / -300 -255 / -255 Laboratory Tests Past 24 Hrs 07/30/17 07/30/17 07/30/17 05:50 05:50 05:50 WBC 10.1 RBC 4.65 Hgb 13.3 Hct 43.7 MCV 94.0 MCH 28.6 MCHC 30.4 L RDW 19.2 H RDW Differential 65.3 H Plt Count 160 MPV 10.9 Differential Comment SCAN PT 17.0 H INR 1.4 Sodium 136 Potassium 4.2 Chloride 94 L Carbon Dioxide 35.0 H Anion Gap 7 BUN 23 H Creatinine 1.09 Estim Creat Clear Calc 82.91 Est GFR (MDRD) Af Amer 88 Est GFR (MDRD) Non-Af 73 BUN/Creatinine Ratio 21.1 H Glucose 99 Calcium 8.7 Lactate Dehydrogenase Total Protein Globulin Albumin/Globulin Ratio 07/30/17 05:50 WBC RBC Hgb Hct MCV MCH MCHC RDW RDW Differential Plt Count MPV Differential Comment PT INR Sodium Potassium Chloride Carbon Dioxide Anion Gap BUN Creatinine Estim Creat Clear Calc Est GFR (MDRD) Af Amer Est GFR (MDRD) Non-Af BUN/Creatinine Ratio Glucose Calcium Lactate Dehydrogenase 412 H Total Protein 7.1 Globulin 3.7 Albumin/Globulin Ratio 0.9 Assessment/Plan Active and Suspected Problems Systolic CHF, acute on chronic (Acute) Patient is a 61-year-old male admitted 07/28/2017 due to shortness of breath. Patient has had 3 recent admissions in June 2017 due to shortness of breath as well. He has a past medical history of hypertension, hyperlipidemia, obstructive sleep apnea, chronic diastolic CHF, tobacco use, COPD, chronic respiratory failure, history of non-small cell lung cancer currently receiving immunotherapy, dementia. 1. Acute on chronic combined systolic/diastolic CHF-BNP on admission 225. Patient has symptoms of fluid overload. Patient takes Lasix 80 mg p.o. twice daily. He was started on Bumex on admission. Continue IV Lasix 40 mg q. 8hr. Chest x-ray shows moderate sized right pleural effusion with underlying compressive atelectasis/infiltrates of the right lung. Pulmonary consulted, to undergo therapeutic and diagnostic thoracentesis today. Cardiology also consulted. Echocardiogram April 2017 showed an estimated ejection fraction of 65%. Repeat echo 07/29/17 shows an estimated ejection fraction of 35%, D- shaped septum and diastolic, moderate to severe global hypokinesis of the left ventricle, severely dilated right ventricle, moderately severe right ventricular systolic dysfunction, severely enlarged right atrium, mild to moderate tricuspid valve insufficiency, RVSP estimated to be 46. There is concern for underlying CAD. Patient may be considered for diagnostic cardiac catheterization in the future when pulmonary status stabilizes. 2. Acute on chronic hypoxic respiratory failure- #1. Mild improvement with diuresis. Continue BiPAP. Wean as tolerated to maintain O2 at or above 90%. 3. Supratherapeutic INR-INR 5.9 on admission. Patient received vitamin K. INR today 1.4. Resume Coumadin following thoracentesis. 4. NSTEMI II-suspect secondary to #1/#2. Denies chest pain. Patient follows with Dr. Adkins, [facility]. No history of coronary artery disease. Echocardiogram was significant changes from previous as noted above. No EKG changes. Cardiology following. 5. Chronic COPD-no acute exacerbation. Continue albuterol DuoNeb aerosols. Discontinue prednisone. No indication for antibiotics. Encourage IS. Follows with Dr. Crook at [facility]. Continue oxygen supplementation to maintain O2 at or above 90%. Patient wears 6 L nasal cannula at baseline. Patient wishes to switch to Dr. Geiger/ Dr. Jin as outpatient at [place]. 6. Obstructive sleep apnea-patient noncompliant with BiPAP in the past. Encouraged compliance. 7. Non-small cell lung cancer-undergoing immunotherapy at [facility]. Follows with Dr. Dobbins. Spoke with Dr. Dobbins this morning, states he would like to be notified if thoracentesis shows malignancy and pleural effusion. Otherwise, he is going to hold off on further immunotherapy at this time. 8. Hypertension-stable, continue home regimen. 9. Hyperlipidemia-continue statin. 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 Does not appear to be on home medication regimen. 11. Chronic atrial fibrillation-rate controlled. Resume home Coumadin regimen following thoracentesis. Cardioversion may be considered in the future per cardiology. Discharge planning-social work involved, palliative care to meet with family. Discussing home health. DVT prophylaxis-Continue coumadin. This patient was seen by IVANA Lopez under the supervision of Dr. Manucso.
--- NOTE | 2017-07-30 14:06 | CASEMGMT ---
Dr. Geiger put order in for pt to have outpt sleep study set up. Call to Shelly in Sleep lab and she is checking pt chart, order, and sleep study schedule at this time. Rooseevlt BARRIOS CM
--- NOTE | 2017-07-30 15:57 | CASEMGMT ---
Per Dr. Geiger, he would like pt set up with auto bipap to go home on. Pt has not had recent sleep study and is new pt with Dr. Geiger. Call placed to Shelly in Sleep Center after order placed by Dr. Geiger for sleep study. Per Shelly, pt has sleep study here in 2008 and at [facility] in 2011. Shelly was able to schedule pt for sleep study at [facility] Sleep center 08/03/17 at 2000. Amaury MATTHEW aware of all at this time and voices understanding. Appointment placed in pt's chart to appear on discharge instructions and copy of instructions for sleep study left on chart with note to give to pt's . Dr. Geiger updated on all at this time and voices understanding. Roosevelt BARRIOS CM
[2017-07-30] MEDS: Pravastatin 20 MG Tablet 10 MG PO (21:14)
[2017-07-30] MEDS: Gabapentin 300 MG Capsule PO (21:15)
[2017-07-30] MEDS: dilTIAZem 25 MG/5 ML Vial 20 MG IV BOLUS (22:27)
[2017-07-31] VITALS (24 sets, daily range): BP systolic 94–115; BP diastolic 52–77; PULSE 77–107; RESP 14–24; TEMP 35.9–36.9; O2SAT 92–99
[2017-07-31] MEDS: 0.9% NaCl Peripheral Flush Adult/Peds IV (05:38)
[2017-07-31] MEDS: Furosemide 40 MG/4 ML Vial IV (05:38)
[2017-07-31 06:38] LABS: International Normalized Ratio 1.3; Prothrombin Time (Protime)PT. 15.6 SECONDS (11.7-14.9)
[2017-07-31 06:48] LABS: Hematocrit 42.4 % (40-54); Hemoglobin 13.1 g/dl (13.0-16.5); Mean Corp Hgb Conc 30.9 g/gl (32-36); Mean Corpuscular Hgb 29.4 pg (27.0-32.0); Mean Corpuscular Volume 95.1 fL (80-94); Mean Platelet Vol. 11.2 fl (6.2-12.0); Platelet Count 169 K/mm3 (150-450); RBC Distribution Width CV 19.9 % (11.6-14.6); Red Blood Count 4.46 M/mm3 (4.6-6.2)
[2017-07-31 06:49] LABS: Scan Indicated on CBC? Y/N YES- FLAGS NOTED
[2017-07-31] MEDS: Ipratropium/Albuterol Sulfate 3 ML AMPUL.NEB INHALATION ×4 (06:50→18:50)
[2017-07-31 07:01] LABS: Anion Gap 8 (5-15); BUN 22 mg/dL (7-18); BUN/Creat Ratio 22.9 RATIO (10-20); Calcium,Total 8.3 mg/dL (8.5-10.1); Chloride 92 mmol/L (98-107); Creatinine, Serum 0.96 mg/dL (0.70-1.30); EST Glomerular Filtration Rate 84 mL/min (>60); Est Glom Filt Rate - Afr Amer 101 mL/min (>60); Estimated Creatinine Clearance 94.13 ml/min; Glucose 90 mg/dL (74-106); Potassium 3.5 mmol/L (3.5-5.1); Sodium Level 136 mmol/L (136-145)
[2017-07-31 07:15] LABS: Differential Comment SCAN
--- NOTE | 2017-07-31 07:27 | PCM.PROGNOTE ---
Patient Problems: Active and Suspected Problems Systolic CHF, acute on chronic (Acute) Subjective: The patient was seen and examined at the bedside this morning. Events from the last 24 hours have been reviewed. The patient is currently afebrile, hemodynamically stable and maintaining appropriate oxygen saturations on BiPAP. He has been maintained on bilevel therapy with a pressure setting of 14/18 cm of water with humidification. The patient intends to transfer his pulmonary care over to [facility] upon discharge. He was previously being seen by Dr. Crook at [facility]. The patient was previously prescribed a CPAP but was unable to tolerate the therapy and subsequently discontinued its use. He was reportedly scheduled to undergo a repeat polysomnogram at the beginning of August. He has been tolerant of noninvasive positive pressure ventilation to this point during his hospitalization. Orders were placed yesterday for a repeat polysomnogram. He is currently scheduled in our sleep lab for Wednesday evening, August 03. The patient denies shortness of breath and states that he is willing to wear nocturnal PAP therapy in his home environment. Thoracentesis was unable to be performed yesterday by radiology, as they reported that there was not enough fluid to be tapped. Objective: The patient's most recent lab work, culture data and imaging studies have all been personally reviewed. Blood cultures are currently pending. The patient was overall net -300 mL's yesterday. INR was noted to be 1.4 this morning. Bedside echocardiogram completed July 29 revealed a moderately dilated LV with an ejection fraction of 35%. There is also evidence of severe dilation of the RV with moderate to severe global RV systolic dysfunction. Pulmonary artery systolic pressure was estimated to be 46 mmHg. - Physical Exam General: Alert, Cooperative, No apparent distress HEENT: Atraumatic, PERRLA, Normocephalic Oral: Moist Mucosa, No Gingival or Mucosal Lesions/ Ulcerations Neck: Supple, No Nodes, Trachea Midline Lungs: No rhonchi, No wheeze, No rales, Diminished Cardiovascular: Normal S1, Normal S2, No murmurs, Irregular Rate Abdomen: Bowel Sounds Present, Soft, Non Tender Extremities: No clubbing, No cyanosis, Edema Skin: - - No significant change from previous Musculoskeletal: No Tenderness to Palpation of Joints or Extremities, No Muscle Wasting Lymphatic: No Cervical, Supraclavicular, or Inguinal Adenopathy Neurological: Neuro grossly intact Psych/Mental Status: Normal Affect, Appropriate Vital Signs Temp Pulse Resp BP Pulse Ox 96.7 F L 84 20 H 115/77 97 07/31/17 05:43 07/31/17 05:43 07/31/17 05:43 07/31/17 05:43 07/31/17 05:43 Oxygen Flow Rate 6 Oxygen Delivery Method Bi-pap Weight: 264 lb 8.875 oz Body Mass Index (BMI) 32.7 Intake and Output for Last 24 Hours 07/29/17 07/30/17 07/31/17 23:59 23:59 23:59 Intake Total 600 / 600 1200 / 1200 745 / 745 Output Total 900 / 900 1425 / 1425 250 / 250 Balance -300 / -300 -225 / -225 495 / 495 Laboratory Tests Past 24 Hrs 07/30/17 07/31/17 07/31/17 05:50 05:50 05:50 WBC 7.0 RBC 4.46 L Hgb 13.1 Hct 42.4 MCV 95.1 H MCH 29.4 MCHC 30.9 L RDW 19.9 H RDW Differential 68.0 H Plt Count 169 MPV 11.2 Differential Comment SCAN PT 15.6 H INR 1.3 Sodium Potassium Chloride Carbon Dioxide Anion Gap BUN Creatinine Estim Creat Clear Calc Est GFR (MDRD) Af Amer Est GFR (MDRD) Non-Af BUN/Creatinine Ratio Glucose Calcium Lactate Dehydrogenase 412 H Total Protein 7.1 Globulin 3.7 Albumin/Globulin Ratio 0.9 07/31/17 05:50 WBC RBC Hgb Hct MCV MCH MCHC RDW RDW Differential Plt Count MPV Differential Comment PT INR Sodium 136 Potassium 3.5 Chloride 92 L Carbon Dioxide 36.0 H Anion Gap 8 BUN 22 H Creatinine 0.96 Estim Creat Clear Calc 94.13 Est GFR (MDRD) Af Amer 101 Est GFR (MDRD) Non-Af 84 BUN/Creatinine Ratio 22.9 H Glucose 90 Calcium 8.3 L Lactate Dehydrogenase Total Protein Globulin Albumin/Globulin Ratio Clinical Impression(s) from Imaging Studies Chest X-Ray 07/28/17 16:50 IMPRESSION: No substantial changes from the prior exam of JuneJuly 19, 2017. Continued cardiomegaly, moderate-sized right pleural effusion with underlying compressive atelectasis/infiltrate of the right lung. Prominent right hilum. More recent films demonstrate enlargement of the cardiac silhouette since an earlier exam of 2014. Electronically Signed: Cande Shah MD at 17:14 EST , Service support , Chest Ultrasound 07/30/17 10:56 IMPRESSION: Minimal right pleural effusion. Electronically Signed: Hernan Lundberg MD at 15:10 EST Tel [phone], Service support , Assessment/Plan Active and Suspected Problems Systolic CHF, acute on chronic (Acute) RECOMMENDATIONS: 1. Continued attempts at volume optimization. Thoracentesis was unsuccessful yesterday as there was not enough fluid noted to be tapped. 2. Continue nocturnal PAP therapy as ordered. 3. The patient needs to undergo a repeat polysomnogram, which is currently scheduled in our sleep lab on the evening of August 03. 4. Wean supplemental oxygen as tolerated. The patient does have a baseline 6 L/min requirement. 5. Encourage incentive spirometer use and mobilize patient as tolerated. 6. The patient already has a scheduled follow-up appointment with me in the pulmonary medicine clinic later in July. IMPRESSIONS: 1. Acute on chronic respiratory failure due to decompensated heart failure and undifferentiated pleural effusion The patient was being followed by Dr. Crook at [facility]. However, there are plans for his care to be transition to our office. Surface echocardiogram revealed biventricular heart failure and pulmonary hypertension. Cardiology is following to assist with medical management. The patient does have a history of dietary indiscretions and does not routinely restrict sodium in his diet. Dietary counseling is to be undertaken. In addition to the aforementioned, the patient has a moderate-sized right-sided pleural effusion, for which thoracentesis was unsuccessful by radiology, as there was not enough fluid noted to be tapped. Would plan to continue volume optimization as tolerated along with the use of noninvasive positive pressure ventilation. The patient has a baseline 6 L/min supplemental oxygen requirement. Recommend physical therapy evaluation 2. Self-reported history of COPD of unknown severity/pulmonary hypertension Low suspicion for COPD exacerbation. Unfortunately, we do not have records from [facility] regarding the patient's underlying lung pathology and severity of his obstructive lung disease. Repeat PFTs can be obtained upon his follow-up with us in the pulmonary medicine clinic. 3. Self-reported OPAL, currently untreated The patient was previously prescribed CPAP but became noncompliant with its use due to intolerance. He was initially scheduled to undergo a repeat sleep study at the beginning of August. Given his frequent readmissions and plans to transition his care here to [facility], he has been tentatively set up for a repeat polysomnogram on the evening of August 03. 4. History of non-small cell lung cancer The patient was previously receiving immunotherapy at the [facility]. 5. Congestive heart failure/atrial fibrillation/hypertension/hyperlipidemia Cardiology is following to assist with medical management. This note was generated with [email or web address] dictation software. It may contain incorrect words, spelling, and punctuation that were not noted in checking the note before signing. Code Visit Inpatient E&M: 54622 Subs Hosp L2
--- NOTE | 2017-07-31 07:31 | PN_ITS ---
Patient Problems: Active and Suspected Problems Systolic CHF, acute on chronic (Acute) Subjective: The patient was seen and examined at the bedside this morning. Events from the last 24 hours have been reviewed. The patient is currently afebrile, hemodynamically stable and maintaining appropriate oxygen saturations on BiPAP. He has been maintained on bilevel therapy with a pressure setting of 14/18 cm of water with humidification. The patient intends to transfer his pulmonary care over to [place] upon discharge. He was previously being seen by Dr. Crook at [facility]. The patient was previously prescribed a CPAP but was unable to tolerate the therapy and subsequently discontinued its use. He was reportedly scheduled to undergo a repeat polysomnogram at the beginning of August. He has been tolerant of noninvasive positive pressure ventilation to this point during his hospitalization. Orders were placed yesterday for a repeat polysomnogram. He is currently scheduled in our sleep lab for Wednesday evening, August 03. The patient denies shortness of breath and states that he is willing to wear nocturnal PAP therapy in his home environment. Thoracentesis was unable to be performed yesterday by radiology, as they reported that there was not enough fluid to be tapped. Objective: The patient's most recent lab work, culture data and imaging studies have all been personally reviewed. Blood cultures are currently pending. The patient was overall net -300 mL's yesterday. INR was noted to be 1.4 this morning. Bedside echocardiogram completed July 29 revealed a moderately dilated LV with an ejection fraction of 35%. There is also evidence of severe dilation of the RV with moderate to severe global RV systolic dysfunction. Pulmonary artery systolic pressure was estimated to be 46 mmHg. - Physical Exam General: Alert, Cooperative, No apparent distress HEENT: Atraumatic, PERRLA, Normocephalic Oral: Moist Mucosa, No Gingival or Mucosal Lesions/ Ulcerations Neck: Supple, No Nodes, Trachea Midline Lungs: No rhonchi, No wheeze, No rales, Diminished Cardiovascular: Normal S1, Normal S2, No murmurs, Irregular Rate Abdomen: Bowel Sounds Present, Soft, Non Tender Extremities: No clubbing, No cyanosis, Edema Skin: - - No significant change from previous Musculoskeletal: No Tenderness to Palpation of Joints or Extremities, No Muscle Wasting Lymphatic: No Cervical, Supraclavicular, or Inguinal Adenopathy Neurological: Neuro grossly intact Psych/Mental Status: Normal Affect, Appropriate Vital Signs Temp Pulse Resp BP Pulse Ox 96.7 F L 84 20 H 115/77 97 07/31/17 05:43 07/31/17 05:43 07/31/17 05:43 07/31/17 05:43 07/31/17 05:43 Oxygen Flow Rate 6 Oxygen Delivery Method Bi-pap Weight: 264 lb 8.875 oz Body Mass Index (BMI) 32.7 Intake and Output for Last 24 Hours 07/29/17 07/30/17 07/31/17 23:59 23:59 23:59 Intake Total 600 / 600 1200 / 1200 745 / 745 Output Total 900 / 900 1425 / 1425 250 / 250 Balance -300 / -300 -225 / -225 495 / 495 Laboratory Tests Past 24 Hrs 07/30/17 07/31/17 07/31/17 05:50 05:50 05:50 WBC 7.0 RBC 4.46 L Hgb 13.1 Hct 42.4 MCV 95.1 H MCH 29.4 MCHC 30.9 L RDW 19.9 H RDW Differential 68.0 H Plt Count 169 MPV 11.2 Differential Comment SCAN PT 15.6 H INR 1.3 Sodium Potassium Chloride Carbon Dioxide Anion Gap BUN Creatinine Estim Creat Clear Calc Est GFR (MDRD) Af Amer Est GFR (MDRD) Non-Af BUN/Creatinine Ratio Glucose Calcium Lactate Dehydrogenase 412 H Total Protein 7.1 Globulin 3.7 Albumin/Globulin Ratio 0.9 07/31/17 05:50 WBC RBC Hgb Hct MCV MCH MCHC RDW RDW Differential Plt Count MPV Differential Comment PT INR Sodium 136 Potassium 3.5 Chloride 92 L Carbon Dioxide 36.0 H Anion Gap 8 BUN 22 H Creatinine 0.96 Estim Creat Clear Calc 94.13 Est GFR (MDRD) Af Amer 101 Est GFR (MDRD) Non-Af 84 BUN/Creatinine Ratio 22.9 H Glucose 90 Calcium 8.3 L Lactate Dehydrogenase Total Protein Globulin Albumin/Globulin Ratio Clinical Impression(s) from Imaging Studies Chest X-Ray 07/28/17 16:50 IMPRESSION: No substantial changes from the prior exam of JuneJuly 19, 2017. Continued cardiomegaly, moderate-sized right pleural effusion with underlying compressive atelectasis/infiltrate of the right lung. Prominent right hilum. More recent films demonstrate enlargement of the cardiac silhouette since an earlier exam of 2014. Electronically Signed: Cande Shah MD at 17:14 EST , Service support , Chest Ultrasound 07/30/17 10:56 IMPRESSION: Minimal right pleural effusion. Electronically Signed: Hernan Lundberg MD at 15:10 EST Tel [phone], Service support , Assessment/Plan Active and Suspected Problems Systolic CHF, acute on chronic (Acute) RECOMMENDATIONS: 1. Continued attempts at volume optimization. Thoracentesis was unsuccessful yesterday as there was not enough fluid noted to be tapped. 2. Continue nocturnal PAP therapy as ordered. 3. The patient needs to undergo a repeat polysomnogram, which is currently scheduled in our sleep lab on the evening of August 03. 4. Wean supplemental oxygen as tolerated. The patient does have a baseline 6 L /min requirement. 5. Encourage incentive spirometer use and mobilize patient as tolerated. 6. The patient already has a scheduled follow-up appointment with me in the pulmonary medicine clinic later in July. IMPRESSIONS: 1. Acute on chronic respiratory failure due to decompensated heart failure and undifferentiated pleural effusion The patient was being followed by Dr. Crook at [facility]. However, there are plans for his care to be transition to our office. Surface echocardiogram revealed biventricular heart failure and pulmonary hypertension. Cardiology is following to assist with medical management. The patient does have a history of dietary indiscretions and does not routinely restrict sodium in his diet. Dietary counseling is to be undertaken. In addition to the aforementioned, the patient has a moderate-sized right-sided pleural effusion, for which thoracentesis was unsuccessful by radiology, as there was not enough fluid noted to be tapped. Would plan to continue volume optimization as tolerated along with the use of noninvasive positive pressure ventilation. The patient has a baseline 6 L/min supplemental oxygen requirement. Recommend physical therapy evaluation 2. Self-reported history of COPD of unknown severity/pulmonary hypertension Low suspicion for COPD exacerbation. Unfortunately, we do not have records from [facility] regarding the patient's underlying lung pathology and severity of his obstructive lung disease. Repeat PFTs can be obtained upon his follow-up with us in the pulmonary medicine clinic. 3. Self-reported OPAL, currently untreated The patient was previously prescribed CPAP but became noncompliant with its use due to intolerance. He was initially scheduled to undergo a repeat sleep study at the beginning of August. Given his frequent readmissions and plans to transition his care here to [facility], he has been tentatively set up for a repeat polysomnogram on the evening of August 03. 4. History of non-small cell lung cancer The patient was previously receiving immunotherapy at the [facility]. 5. Congestive heart failure/atrial fibrillation/hypertension/hyperlipidemia Cardiology is following to assist with medical management. This note was generated with [employer] dictation software. It may contain incorrect words, spelling, and punctuation that were not noted in checking the note before signing. Code Visit Inpatient E&M: 58647 Subs Hosp L2
[2017-07-31] MEDS: Tamsulosin HCl 0.4 MG Capsule PO (09:32)
[2017-07-31] MEDS: Pantoprazole Sodium 20 MG Tablet PO (09:32)
[2017-07-31] MEDS: Finasteride 5 MG Tablet PO (09:32)
[2017-07-31] MEDS: guaiFENesin 1,200 MG Tablet 1200 MG PO ×2 (09:34→22:34)
--- NOTE | 2017-07-31 09:35 | PN.CARD_ITS ---
Subjectve: Patient seen and evaluated and appears to be doing well this morning and stable Objective: Vital Signs Temp Pulse Resp BP Pulse Ox 96.7 F L 79 20 H 115/77 97 07/31/17 05:43 07/31/17 07:00 07/31/17 05:43 07/31/17 05:43 07/31/17 05:43 Oxygen Flow Rate 6 Oxygen Delivery Method Nasal Cannula Weight: 264 lb 8.875 oz Body Mass Index (BMI) 32.7 Intake and Output for Last 24 Hours 07/29/17 07/30/17 07/31/17 23:59 23:59 23:59 Intake Total 600 / 600 1200 / 1200 745 / 745 Output Total 900 / 900 1425 / 1425 250 / 250 Balance -300 / -300 -225 / -225 495 / 495 General: Awake, Alert, Oriented x 3 HEENT: PERRL, EOMI, Sclera Non Icteric Neck: Supple, Good ROM, No Lymph Node Enlargement Lungs: Diminished [place] Bases Cardiovascular: Irregular Rhythm Vascular: No Carotid Bruits, Normal Femoral Pulses, Normal Radial Pulses, Normal Dorsalis Pedal Pulse, Normal Posterior Tibial Pulses Abdomen: Bowel Sounds Present, Soft, Non Tender, No HSM, No Organomegaly Extremities: No Cyanosis, No Clubbing, No edema Neurological: No Focal Motor or Sensory Deficit 07/31/17 05:50: PT 15.6 H, INR 1.3 07/31/17 05:50: WBC 7.0, RBC 4.46 L, Hgb 13.1, Hct 42.4, MCV 95.1 H, MCH 29.4, MCHC 30.9 L, RDW 19.9 H, RDW Differential 68.0 H, Plt Count 169, MPV 11.2 07/31/17 05:50: Sodium 136, Potassium 3.5, Chloride 92 L, Carbon Dioxide 36.0 H , Anion Gap 8, BUN 22 H, Creatinine 0.96, Est GFR (MDRD) Af Amer 101, Est GFR ( MDRD) Non-Af 84, BUN/Creatinine Ratio 22.9 H, Glucose 90, Calcium 8.3 L Assessment/Plan 1. Congestive heart failure: Acute on chronic systolic The patient presents back with his third episode this year appearing compatible with acute on chronic systolic mediated CHF.He is undergone noninvasive evaluation as noted above. His estimated LVEF was 35%. According to his [facility] records, in April 2017, his overall LV wall motion and systolic function appeared to be normal.In the past he states this is been considered noncoronary related as his previous cardiac catheterization demonstrated no blockages . There has been a decline in his left ventricular function and this may need to be investigated with a repeat cardiac catheterization. 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 2. Atrial fibrillation The patient does have a history of atrial fibrillation. He will need continued rate control therapy. He has been on anticoagulant therapy. It is unclear whether he has ever had an attempt at antiarrhythmic therapy or DC cardioversion therapy. These therapies may need to be considered over time depending upon his clinical course and findings. We will optimize his rate control with appropriate medication 3. Right heart failure The patient is also noted to have a markedly dilated and dysfunctional right ventricle. This may be secondary to a combination of his left ventricular issues as well as his underlying primary pulmonary issues, which according to conversation with his oncologist, Dr. Dobbins, includes his underlying pulmonary disease process of lung carcinoma as well as pulmonary fibrosis.. This could lead to cor pulmonale and right heart failure. I will suggest oral diuretics at this time. 4. Pulmonary hypertension He does have pulmonary hypertension. Again this may be a combination of his left ventricular systolic dysfunction as well as his underlying pulmonary disease process. He will need to continue cardiovascular evaluation care as well as pulmonary evaluation and care. 5. Hyperlipidemia He will continue medical management as deemed appropriate. 6. Hypertension He will need to continue evaluation of his blood pressure with adjustment of medications as tolerated. My suspicion is that he can have further cardiac workup as an outpatient after his atrial fibrillation is better controlled.
[2017-07-31] MEDS: Metoprolol Tartrate 50 MG Tablet PO ×2 (11:49→22:35)
[2017-07-31] MEDS: Furosemide 40 MG Tablet PO ×2 (11:49→17:13)
--- NOTE | 2017-07-31 15:18 | PCM.PROGNOTE ---
Patient Problems: Active and Suspected Problems Systolic CHF, acute on chronic (Acute) Subjective: Patient seen and examined. Feels his breathing has significantly improved. Oxygen 92% on 6 L nasal cannula. Tolerated BiPAP overnight. Discussed with patient plans for sleep study this coming 08/03/2017. Patient denies fever, chills. Denies other complaints. - Physical Exam General: Alert, Oriented x3, Cooperative, No apparent distress HEENT: Atraumatic, PERRLA, EOMI, Normocephalic Neck: Supple, No JVD, Negative Carotid Bruits Lungs: Clear to auscultation, Diminished Cardiovascular: Regular rate, Regular Rhythm, Normal S1, Normal S2, No murmurs Abdomen: Bowel Sounds Present, Soft, Non Tender, Non-Distended, Obese Extremities: No clubbing, No cyanosis, No edema, Capillary Refill Less than 3 Seconds Skin: No rashes, No breakdown Musculoskeletal: No Tenderness to Palpation of Joints or Extremities Neurological: Cranial nerves II-XII grossly intact, Neuro grossly intact Psych/Mental Status: Normal Affect, Appropriate Vital Signs Temp Pulse Resp BP Pulse Ox 97.7 F L 87 20 H 97/52 L 92 07/31/17 12:00 07/31/17 15:00 07/31/17 12:00 07/31/17 12:00 07/31/17 12:00 Oxygen Flow Rate 6 Oxygen Delivery Method Nasal Cannula Weight: 120 kg Body Mass Index (BMI) 32.7 Intake and Output for Last 24 Hours 07/29/17 07/30/17 07/31/17 23:59 23:59 23:59 Intake Total 600 / 600 1200 / 1200 1265 / 1265 Output Total 900 / 900 1425 / 1425 250 / 250 Balance -300 / -300 -225 / -225 1015 / 1015 Laboratory Tests Past 24 Hrs 07/30/17 07/31/17 07/31/17 05:50 05:50 05:50 WBC 7.0 RBC 4.46 L Hgb 13.1 Hct 42.4 MCV 95.1 H MCH 29.4 MCHC 30.9 L RDW 19.9 H RDW Differential 68.0 H Plt Count 169 MPV 11.2 Differential Comment SCAN PT 15.6 H INR 1.3 Sodium Potassium Chloride Carbon Dioxide Anion Gap BUN Creatinine Estim Creat Clear Calc Est GFR (MDRD) Af Amer Est GFR (MDRD) Non-Af BUN/Creatinine Ratio Glucose Calcium Lactate Dehydrogenase Cancelled Total Protein Cancelled Globulin Cancelled Albumin/Globulin Ratio Cancelled 07/31/17 05:50 WBC RBC Hgb Hct MCV MCH MCHC RDW RDW Differential Plt Count MPV Differential Comment PT INR Sodium 136 Potassium 3.5 Chloride 92 L Carbon Dioxide 36.0 H Anion Gap 8 BUN 22 H Creatinine 0.96 Estim Creat Clear Calc 94.13 Est GFR (MDRD) Af Amer 101 Est GFR (MDRD) Non-Af 84 BUN/Creatinine Ratio 22.9 H Glucose 90 Calcium 8.3 L Lactate Dehydrogenase Total Protein Globulin Albumin/Globulin Ratio Assessment/Plan Active and Suspected Problems Systolic CHF, acute on chronic (Acute) Patient is a 61-year-old male admitted 07/28/2017 due to shortness of breath. Patient has had 3 recent admissions in June 2017 due to shortness of breath as well. He has a past medical history of hypertension, hyperlipidemia, obstructive sleep apnea, chronic diastolic CHF, tobacco use, COPD, chronic respiratory failure, history of non-small cell lung cancer currently receiving immunotherapy, dementia. 1. Acute on chronic combined systolic/diastolic CHF-BNP on admission 225. Patient has symptoms of fluid overload. Patient takes Lasix 80 mg p.o. twice daily. He received IV Lasix and was transitioned to Lasix 40 mg twice daily by cardiology. Chest x-ray showed moderate sized right pleural effusion with underlying compressive atelectasis/infiltrates of the right lung. Pulmonary consulted, thoracentesis was attempted but unable to be performed as there was not enough fluid to be tapped. Cardiology on board as well. Echocardiogram April 2017 showed an estimated ejection fraction of 65%. Repeat echo 07/29/17 shows an estimated ejection fraction of 35%, D-shaped septum and diastolic, moderate to severe global hypokinesis of the left ventricle, severely dilated right ventricle, moderately severe right ventricular systolic dysfunction, severely enlarged right atrium, mild to moderate tricuspid valve insufficiency, RVSP estimated to be 46. There is concern for underlying CAD. Patient may be considered for diagnostic cardiac catheterization in the future when pulmonary status stabilizes. 2. Acute on chronic hypoxic respiratory failure- #1. Improvement with diuresis. Continue BiPAP HS/PRN. Wean as tolerated to maintain O2 at or above 90%. 3. Supratherapeutic INR-INR 5.9 on admission. Patient received vitamin K. INR today 1.3. Home Coumadin regimen resumed. Trend INR. 4. NSTEMI II-suspect secondary to #1/#2. Denies chest pain. Patient follows with Dr. Adkins, [facility]. No history of coronary artery disease. Echocardiogram with significant changes from previous as noted above. No EKG changes. Cardiology following. Possible cath in the future. 5. Chronic COPD-no acute exacerbation. Continue albuterol DuoNeb aerosols. Discontinue prednisone. No indication for antibiotics. Encourage IS. Follows with Dr. Crook at [facility]. Continue oxygen supplementation to maintain O2 at or above 90%. Patient wears 6 L nasal cannula at baseline. Patient wishes to switch to Dr. Geiger/ Dr. Jin as outpatient at [facility]. 6. Obstructive sleep apnea-patient noncompliant with BiPAP in the past. Encouraged compliance. Patient scheduled for polysomnogram 08/03/17. 7. Non-small cell lung cancer-undergoing immunotherapy at [facility]. Follows with Dr. Dobbins. Spoke with Dr. Dobbins this morning, states he would like to be notified if thoracentesis shows malignancy and pleural effusion. Otherwise, he is going to hold off on further immunotherapy at this time. 8. Hypertension-stable, continue home regimen. 9. Hyperlipidemia-continue statin. 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 Does not appear to be on home medication regimen. 11. Chronic atrial fibrillation-rate controlled. Continue Coumadin. Cardioversion may be considered in the future per cardiology. Discharge planning-social work involved, palliative care to meet with family. Discussing home health. DVT prophylaxis-Continue coumadin, bridged with Lovenox given subtherapeutic INR. This patient was seen by IVANA Lopez under the supervision of Dr. Mancuso.
--- NOTE | 2017-07-31 15:22 | PN_ITS ---
Patient Problems: Active and Suspected Problems Systolic CHF, acute on chronic (Acute) Subjective: Patient seen and examined. Feels his breathing has significantly improved. Oxygen 92% on 6 L nasal cannula. Tolerated BiPAP overnight. Discussed with patient plans for sleep study this coming 08/03/2017. Patient denies fever, chills. Denies other complaints. - Physical Exam General: Alert, Oriented x3, Cooperative, No apparent distress HEENT: Atraumatic, PERRLA, EOMI, Normocephalic Neck: Supple, No JVD, Negative Carotid Bruits Lungs: Clear to auscultation, Diminished Cardiovascular: Regular rate, Regular Rhythm, Normal S1, Normal S2, No murmurs Abdomen: Bowel Sounds Present, Soft, Non Tender, Non-Distended, Obese Extremities: No clubbing, No cyanosis, No edema, Capillary Refill Less than 3 Seconds Skin: No rashes, No breakdown Musculoskeletal: No Tenderness to Palpation of Joints or Extremities Neurological: Cranial nerves II-XII grossly intact, Neuro grossly intact Psych/Mental Status: Normal Affect, Appropriate Vital Signs Temp Pulse Resp BP Pulse Ox 97.7 F L 87 20 H 97/52 L 92 07/31/17 12:00 07/31/17 15:00 07/31/17 12:00 07/31/17 12:00 07/31/17 12:00 Oxygen Flow Rate 6 Oxygen Delivery Method Nasal Cannula Weight: 120 kg Body Mass Index (BMI) 32.7 Intake and Output for Last 24 Hours 07/29/17 07/30/17 07/31/17 23:59 23:59 23:59 Intake Total 600 / 600 1200 / 1200 1265 / 1265 Output Total 900 / 900 1425 / 1425 250 / 250 Balance -300 / -300 -225 / -225 1015 / 1015 Laboratory Tests Past 24 Hrs 07/30/17 07/31/17 07/31/17 05:50 05:50 05:50 WBC 7.0 RBC 4.46 L Hgb 13.1 Hct 42.4 MCV 95.1 H MCH 29.4 MCHC 30.9 L RDW 19.9 H RDW Differential 68.0 H Plt Count 169 MPV 11.2 Differential Comment SCAN PT 15.6 H INR 1.3 Sodium Potassium Chloride Carbon Dioxide Anion Gap BUN Creatinine Estim Creat Clear Calc Est GFR (MDRD) Af Amer Est GFR (MDRD) Non-Af BUN/Creatinine Ratio Glucose Calcium Lactate Dehydrogenase Cancelled Total Protein Cancelled Globulin Cancelled Albumin/Globulin Ratio Cancelled 07/31/17 05:50 WBC RBC Hgb Hct MCV MCH MCHC RDW RDW Differential Plt Count MPV Differential Comment PT INR Sodium 136 Potassium 3.5 Chloride 92 L Carbon Dioxide 36.0 H Anion Gap 8 BUN 22 H Creatinine 0.96 Estim Creat Clear Calc 94.13 Est GFR (MDRD) Af Amer 101 Est GFR (MDRD) Non-Af 84 BUN/Creatinine Ratio 22.9 H Glucose 90 Calcium 8.3 L Lactate Dehydrogenase Total Protein Globulin Albumin/Globulin Ratio Assessment/Plan Active and Suspected Problems Systolic CHF, acute on chronic (Acute) Patient is a 61-year-old male admitted 07/28/2017 due to shortness of breath. Patient has had 3 recent admissions in June 2017 due to shortness of breath as well. He has a past medical history of hypertension, hyperlipidemia, obstructive sleep apnea, chronic diastolic CHF, tobacco use, COPD, chronic respiratory failure, history of non-small cell lung cancer currently receiving immunotherapy, dementia. 1. Acute on chronic combined systolic/diastolic CHF-BNP on admission 225. Patient has symptoms of fluid overload. Patient takes Lasix 80 mg p.o. twice daily. He received IV Lasix and was transitioned to Lasix 40 mg twice daily by cardiology. Chest x-ray showed moderate sized right pleural effusion with underlying compressive atelectasis/infiltrates of the right lung. Pulmonary consulted, thoracentesis was attempted but unable to be performed as there was not enough fluid to be tapped. Cardiology on board as well. Echocardiogram April 2017 showed an estimated ejection fraction of 65%. Repeat echo 07/29/17 shows an estimated ejection fraction of 35%, D-shaped septum and diastolic, moderate to severe global hypokinesis of the left ventricle, severely dilated right ventricle, moderately severe right ventricular systolic dysfunction, severely enlarged right atrium, mild to moderate tricuspid valve insufficiency, RVSP estimated to be 46. There is concern for underlying CAD. Patient may be considered for diagnostic cardiac catheterization in the future when pulmonary status stabilizes. 2. Acute on chronic hypoxic respiratory failure- #1. Improvement with diuresis. Continue BiPAP HS/PRN. Wean as tolerated to maintain O2 at or above 90%. 3. Supratherapeutic INR-INR 5.9 on admission. Patient received vitamin K. INR today 1.3. Home Coumadin regimen resumed. Trend INR. 4. NSTEMI II-suspect secondary to #1/#2. Denies chest pain. Patient follows with Dr. Adkins, [facility]. No history of coronary artery disease. Echocardiogram with significant changes from previous as noted above. No EKG changes. Cardiology following. Possible cath in the future. 5. Chronic COPD-no acute exacerbation. Continue albuterol DuoNeb aerosols. Discontinue prednisone. No indication for antibiotics. Encourage IS. Follows with Dr. Crook at [facility]. Continue oxygen supplementation to maintain O2 at or above 90%. Patient wears 6 L nasal cannula at baseline. Patient wishes to switch to Dr. Geiger/ Dr. Jin as outpatient at [place]. 6. Obstructive sleep apnea-patient noncompliant with BiPAP in the past. Encouraged compliance. Patient scheduled for polysomnogram 08/03/17. 7. Non-small cell lung cancer-undergoing immunotherapy at [facility]. Follows with Dr. Dobbins. Spoke with Dr. Dobbins this morning, states he would like to be notified if thoracentesis shows malignancy and pleural effusion. Otherwise, he is going to hold off on further immunotherapy at this time. 8. Hypertension-stable, continue home regimen. 9. Hyperlipidemia-continue statin. 10. 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 Does not appear to be on home medication regimen. 11. Chronic atrial fibrillation-rate controlled. Continue Coumadin. Cardioversion may be considered in the future per cardiology. Discharge planning-social work involved, palliative care to meet with family. Discussing home health. DVT prophylaxis-Continue coumadin, bridged with Lovenox given subtherapeutic INR. This patient was seen by IVANA Lopez under the supervision of Dr. Mancuso.
[2017-07-31] MEDS: Pravastatin 20 MG Tablet 10 MG PO (22:34)
[2017-07-31] MEDS: Gabapentin 300 MG Capsule PO (22:36)
[2017-08-01] VITALS (18 sets, daily range): BP systolic 97–103; BP diastolic 64–74; PULSE 72–103; RESP 14–21; TEMP 36.3–36.8; O2SAT 93–97
[2017-08-01 05:39] LABS: Anion Gap 5 (5-15); BUN 18 mg/dL (7-18); BUN/Creat Ratio 21.7 RATIO (10-20); Calcium,Total 8.4 mg/dL (8.5-10.1); Chloride 94 mmol/L (98-107); Creatinine, Serum 0.83 mg/dL (0.70-1.30); EST Glomerular Filtration Rate 99 mL/min (>60); Est Glom Filt Rate - Afr Amer 120 mL/min (>60); Estimated Creatinine Clearance 108.88 ml/min; Glucose 85 mg/dL (74-106); Potassium 3.6 mmol/L (3.5-5.1); Sodium Level 137 mmol/L (136-145)
[2017-08-01 05:44] LABS: Hematocrit 43.5 % (40-54); Hemoglobin 13.1 g/dl (13.0-16.5); Mean Corp Hgb Conc 30.1 g/gl (32-36); Mean Corpuscular Hgb 28.4 pg (27.0-32.0); Mean Corpuscular Volume 94.4 fL (80-94); Mean Platelet Vol. 10.5 fl (6.2-12.0); Platelet Count 143 K/mm3 (150-450); RBC Distribution Width CV 19.4 % (11.6-14.6); RBC Distribution Width SD 67.3 fl (35.1-43.9); Red Blood Count 4.61 M/mm3 (4.6-6.2); White Blood Count 6.1 K/mm3 (4.4-11.0)
[2017-08-01] MEDS: Enoxaparin 40 MG/0.4 ML Syringe SC (05:47)
[2017-08-01 06:10] LABS: Scan Indicated on CBC? Y/N YES- FLAGS NOTED
[2017-08-01 06:15] LABS: International Normalized Ratio 1.3; Prothrombin Time (Protime)PT. 15.5 SECONDS (11.7-14.9)
[2017-08-01] MEDS: Ipratropium/Albuterol Sulfate 3 ML AMPUL.NEB INHALATION ×4 (07:07→19:52)
--- NOTE | 2017-08-01 07:58 | PN_ITS ---
Patient Problems: Active and Suspected Problems Systolic CHF, acute on chronic (Acute) Subjective: The patient was seen and examined at the bedside this morning. Events from the last 24 hours have been reviewed. The patient is currently afebrile, hemodynamically stable and maintaining appropriate oxygen saturations on 6 L/ min via nasal cannula, which is his baseline requirement. He has been maintained on bilevel therapy with a pressure setting of 14/18 cm of water with humidification. The patient intends to transfer his pulmonary care over to co upon discharge. He was previously being seen by Dr. Crook at [facility]. The patient was previously prescribed a CPAP but was unable to tolerate the therapy and subsequently discontinued its use. He was reportedly scheduled to undergo a repeat polysomnogram at the beginning of August. He has been tolerant of noninvasive positive pressure ventilation to this point during his hospitalization. Orders were placed yesterday for a repeat polysomnogram. He is currently scheduled in our sleep lab for Wednesday evening, August 03. Objective: The patient's most recent lab work, culture data and imaging studies have all been personally reviewed. Blood cultures are currently pending. The patient was overall net -300 mL's yesterday. INR was noted to be 1.4 this morning. Bedside echocardiogram completed July 29 revealed a moderately dilated LV with an ejection fraction of 35%. There is also evidence of severe dilation of the RV with moderate to severe global RV systolic dysfunction. Pulmonary artery systolic pressure was estimated to be 46 mmHg. - Physical Exam General: Alert, Cooperative, No apparent distress HEENT: Atraumatic, PERRLA, Normocephalic Oral: Moist Mucosa, No Gingival or Mucosal Lesions/ Ulcerations Neck: Supple, No Nodes, Trachea Midline Lungs: No rhonchi, No wheeze, No rales, Diminished Cardiovascular: Normal S1, Normal S2, No murmurs, Irregular Rate Abdomen: Bowel Sounds Present, Soft, Non Tender Extremities: No clubbing, No cyanosis, Edema Skin: - - No significant change from previous Musculoskeletal: No Tenderness to Palpation of Joints or Extremities, No Muscle Wasting Lymphatic: No Cervical, Supraclavicular, or Inguinal Adenopathy Neurological: Neuro grossly intact Psych/Mental Status: Normal Affect, Appropriate Vital Signs Temp Pulse Resp BP Pulse Ox 97.4 F L 77 21 H 102/67 95 08/01/17 04:23 08/01/17 07:10 08/01/17 07:10 08/01/17 04:23 08/01/17 07:27 Oxygen Flow Rate 6 Oxygen Delivery Method Nasal Cannula Weight: 263 lb 3.711 oz Body Mass Index (BMI) 32.7 Intake and Output for Last 24 Hours 07/30/17 07/31/17 08/01/17 23:59 23:59 23:59 Intake Total 1200 / 1200 1845 / 1845 120 / 120 Output Total 1425 / 1425 1225 / 1225 300 / 300 Balance -225 / -225 620 / 620 -180 / -180 Laboratory Tests Past 24 Hrs 07/30/17 08/01/17 08/01/17 05:50 04:16 04:16 WBC 6.1 RBC 4.61 Hgb 13.1 Hct 43.5 MCV 94.4 H MCH 28.4 MCHC 30.1 L RDW 19.4 H RDW Differential 67.3 H Plt Count 143 L MPV 10.5 Differential Comment 1+ ANISO PT 15.5 H INR 1.3 Sodium Potassium Chloride Carbon Dioxide Anion Gap BUN Creatinine Estim Creat Clear Calc Est GFR (MDRD) Af Amer Est GFR (MDRD) Non-Af BUN/Creatinine Ratio Glucose Calcium Lactate Dehydrogenase Cancelled Total Protein Cancelled Globulin Cancelled Albumin/Globulin Ratio Cancelled 08/01/17 04:16 WBC RBC Hgb Hct MCV MCH MCHC RDW RDW Differential Plt Count MPV Differential Comment PT INR Sodium 137 Potassium 3.6 Chloride 94 L Carbon Dioxide 38.0 H Anion Gap 5 BUN 18 Creatinine 0.83 Estim Creat Clear Calc 108.88 Est GFR (MDRD) Af Amer 120 Est GFR (MDRD) Non-Af 99 BUN/Creatinine Ratio 21.7 H Glucose 85 Calcium 8.4 L Lactate Dehydrogenase Total Protein Globulin Albumin/Globulin Ratio Clinical Impression(s) from Imaging Studies Chest X-Ray 07/28/17 16:50 IMPRESSION: No substantial changes from the prior exam of JuneJuly 19, 2017. Continued cardiomegaly, moderate-sized right pleural effusion with underlying compressive atelectasis/infiltrate of the right lung. Prominent right hilum. More recent films demonstrate enlargement of the cardiac silhouette since an earlier exam of 2014. Electronically Signed: Cande Shah MD at 17:14 EST , Service support , Chest Ultrasound 07/30/17 10:56 IMPRESSION: Minimal right pleural effusion. Electronically Signed: Hernan Lundberg MD at 15:10 EST Tel [phone], Service support , Assessment/Plan Active and Suspected Problems Systolic CHF, acute on chronic (Acute) RECOMMENDATIONS: 1. Continued attempts at volume optimization. Thoracentesis was unsuccessful as there was not enough fluid noted to be tapped. 2. Continue nocturnal PAP therapy as ordered. 3. The patient needs to undergo a repeat polysomnogram, which is currently scheduled in our sleep lab on the evening of August 03. 4. Wean supplemental oxygen as tolerated. The patient does have a baseline 6 L /min requirement. 5. Encourage incentive spirometer use and mobilize patient as tolerated. 6. The patient already has a scheduled follow-up appointment with me in the pulmonary medicine clinic later in July. IMPRESSIONS: 1. Acute on chronic respiratory failure due to decompensated heart failure and undifferentiated pleural effusion The patient was being followed by Dr. Crook at [facility]. However, there are plans for his care to be transition to our office. Surface echocardiogram revealed biventricular heart failure and pulmonary hypertension. Cardiology is following to assist with medical management. The patient does have a history of dietary indiscretions and does not routinely restrict sodium in his diet. Dietary counseling is to be undertaken. In addition to the aforementioned, the patient has a moderate-sized right-sided pleural effusion, for which thoracentesis was unsuccessful by radiology, as there was not enough fluid noted to be tapped. Would plan to continue volume optimization as tolerated along with the use of noninvasive positive pressure ventilation. The patient has a baseline 6 L/min supplemental oxygen requirement. Recommend physical therapy evaluation 2. Self-reported history of COPD of unknown severity/pulmonary hypertension Low suspicion for COPD exacerbation. Unfortunately, we do not have records from [facility] regarding the patient's underlying lung pathology and severity of his obstructive lung disease. Repeat PFTs can be obtained upon his follow-up with us in the pulmonary medicine clinic. 3. Self-reported OPAL, currently untreated The patient was previously prescribed CPAP but became noncompliant with its use due to intolerance. He was initially scheduled to undergo a repeat sleep study at the beginning of August. Given his frequent readmissions and plans to transition his care here to [facility], he has been tentatively set up for a repeat polysomnogram on the evening of August 03. 4. History of non-small cell lung cancer The patient was previously receiving immunotherapy at the [facility]. 5. Congestive heart failure/atrial fibrillation/hypertension/hyperlipidemia Cardiology is following to assist with medical management. This note was generated with [employer] dictation software. It may contain incorrect words, spelling, and punctuation that were not noted in checking the note before signing. Code Visit Inpatient E&M: 76618 Subs Hosp L2
[2017-08-01] MEDS: Tamsulosin HCl 0.4 MG Capsule PO (09:47)
[2017-08-01] MEDS: Furosemide 40 MG Tablet PO ×2 (09:47→17:44)
[2017-08-01] MEDS: guaiFENesin 1,200 MG Tablet 1200 MG PO ×2 (09:48→21:21)
[2017-08-01] MEDS: Metoprolol Tartrate 50 MG Tablet PO ×2 (09:48→21:20)
[2017-08-01] MEDS: Finasteride 5 MG Tablet PO (09:49)
[2017-08-01] MEDS: Pantoprazole Sodium 20 MG Tablet PO (09:49)
--- NOTE | 2017-08-01 09:58 | PN.CARD_ITS ---
Subjectve: Seen and evaluated and appears to be doing quite well from the cardiovascular standpoint his heart rate is better controlled. Objective: Vital Signs Temp Pulse Resp BP Pulse Ox 97.8 F 74 14 101/64 95 08/01/17 09:45 08/01/17 09:48 08/01/17 09:45 08/01/17 09:45 08/01/17 09:45 Oxygen Flow Rate 6 Oxygen Delivery Method Nasal Cannula Weight: 263 lb 3.711 oz Body Mass Index (BMI) 32.7 Intake and Output for Last 24 Hours 07/30/17 07/31/17 08/01/17 23:59 23:59 23:59 Intake Total 1200 / 1200 1845 / 1845 120 / 120 Output Total 1425 / 1425 1225 / 1225 300 / 300 Balance -225 / -225 620 / 620 -180 / -180 General: Awake, Alert, Oriented x 3 HEENT: PERRL, EOMI, Sclera Non Icteric Neck: Supple, Good ROM, No Lymph Node Enlargement Lungs: Diminished [place] Bases Cardiovascular: Irregular Rhythm, Normal S1, Normal S2, No Murmurs, No Rubs, No Gallops Vascular: No Carotid Bruits, Normal Femoral Pulses, Normal Radial Pulses, Normal Dorsalis Pedal Pulse, Normal Posterior Tibial Pulses Abdomen: Bowel Sounds Present, Soft, Non Tender, No HSM, No Organomegaly Extremities: No Cyanosis, No Clubbing, No edema Neurological: No Focal Motor or Sensory Deficit 08/01/17 04:16: PT 15.5 H, INR 1.3 08/01/17 04:16: WBC 6.1, RBC 4.61, Hgb 13.1, Hct 43.5, MCV 94.4 H, MCH 28.4, MCHC 30.1 L, RDW 19.4 H, RDW Differential 67.3 H, Plt Count 143 L, MPV 10.5 08/01/17 04:16: Sodium 137, Potassium 3.6, Chloride 94 L, Carbon Dioxide 38.0 H , Anion Gap 5, BUN 18, Creatinine 0.83, Est GFR (MDRD) Af Amer 120, Est GFR ( MDRD) Non-Af 99, BUN/Creatinine Ratio 21.7 H, Glucose 85, Calcium 8.4 L Assessment/Plan 1. Congestive heart failure: Acute on chronic systolic The patient presents back with his third episode this year appearing compatible with acute on chronic systolic mediated CHF.He is undergone noninvasive evaluation as noted above. His estimated LVEF was 35%. According to his [facility] records, in April 2017, his overall LV wall motion and systolic function appeared to be normal.In the past he states this is been considered noncoronary related as his previous cardiac catheterization demonstrated no blockages . There has been a decline in his left ventricular function and this may need to be investigated with a repeat cardiac catheterization. 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 2. Atrial fibrillation The patient does have a history of atrial fibrillation. Ventricular response rate appears to be much better today. He will need continued rate control therapy. He has been on anticoagulant therapy. It is unclear whether he has ever had an attempt at antiarrhythmic therapy or DC cardioversion therapy. These therapies may need to be considered over time depending upon his clinical course and findings. We will optimize his rate control with appropriate medication 3. Right heart failure The patient is also noted to have a markedly dilated and dysfunctional right ventricle. This may be secondary to a combination of his left ventricular issues as well as his underlying primary pulmonary issues, which according to conversation with his oncologist, Dr. Dobbins, includes his underlying pulmonary disease process of lung carcinoma as well as pulmonary fibrosis.. This could lead to cor pulmonale and right heart failure. I will suggest oral diuretics at this time. 4. Pulmonary hypertension He does have pulmonary hypertension. Again this may be a combination of his left ventricular systolic dysfunction as well as his underlying pulmonary disease process. He will need to continue cardiovascular evaluation care as well as pulmonary evaluation and care. 5. Hyperlipidemia He will continue medical management as deemed appropriate. 6. Hypertension He will need to continue evaluation of his blood pressure with adjustment of medications as tolerated. My suspicion is that he can have further cardiac workup as an outpatient No new recommendations from the cardiac standpoint.
--- NOTE | 2017-08-01 11:52 | PCM.PROGNOTE ---
Patient Problems: Active and Suspected Problems Systolic CHF, acute on chronic (Acute) Subjective: Patient seen and examined. States he feels overall improved. Continues to tolerate BiPAP at night and with naps. Remains on 6 L nasal cannula, oxygen saturation 95%. Complains of hoarseness. Denies fever, chills. Denies productive cough. Denies other complaints. - Physical Exam General: Alert, Oriented x3, Cooperative, No apparent distress HEENT: Atraumatic, PERRLA, EOMI, Normocephalic Neck: Supple, No JVD, Negative Carotid Bruits Lungs: Clear to auscultation, Diminished Cardiovascular: Regular rate, Regular Rhythm, Normal S1, Normal S2, No murmurs Abdomen: Bowel Sounds Present, Soft, Non Tender, Non-Distended, Obese Extremities: No clubbing, No cyanosis, Capillary Refill Less than 3 Seconds, Edema - +2 bilateral lower extremities Skin: No rashes, No breakdown Musculoskeletal: No Tenderness to Palpation of Joints or Extremities Neurological: Cranial nerves II-XII grossly intact, Neuro grossly intact Psych/Mental Status: Normal Affect, Appropriate Vital Signs Temp Pulse Resp BP Pulse Ox 97.8 F 82 18 101/64 95 08/01/17 09:45 08/01/17 11:06 08/01/17 11:06 08/01/17 09:45 08/01/17 09:45 Oxygen Flow Rate 6 Oxygen Delivery Method Nasal Cannula Weight: 119.4 kg Body Mass Index (BMI) 32.7 Intake and Output for Last 24 Hours 07/30/17 07/31/17 08/01/17 23:59 23:59 23:59 Intake Total 1200 / 1200 1845 / 1845 120 / 120 Output Total 1425 / 1425 1225 / 1225 300 / 300 Balance -225 / -225 620 / 620 -180 / -180 Laboratory Tests Past 24 Hrs 07/30/17 08/01/17 08/01/17 05:50 04:16 04:16 WBC 6.1 RBC 4.61 Hgb 13.1 Hct 43.5 MCV 94.4 H MCH 28.4 MCHC 30.1 L RDW 19.4 H RDW Differential 67.3 H Plt Count 143 L MPV 10.5 Differential Comment 1+ ANISO PT 15.5 H INR 1.3 Sodium Potassium Chloride Carbon Dioxide Anion Gap BUN Creatinine Estim Creat Clear Calc Est GFR (MDRD) Af Amer Est GFR (MDRD) Non-Af BUN/Creatinine Ratio Glucose Calcium Lactate Dehydrogenase Cancelled Total Protein Cancelled Globulin Cancelled Albumin/Globulin Ratio Cancelled 08/01/17 04:16 WBC RBC Hgb Hct MCV MCH MCHC RDW RDW Differential Plt Count MPV Differential Comment PT INR Sodium 137 Potassium 3.6 Chloride 94 L Carbon Dioxide 38.0 H Anion Gap 5 BUN 18 Creatinine 0.83 Estim Creat Clear Calc 108.88 Est GFR (MDRD) Af Amer 120 Est GFR (MDRD) Non-Af 99 BUN/Creatinine Ratio 21.7 H Glucose 85 Calcium 8.4 L Lactate Dehydrogenase Total Protein Globulin Albumin/Globulin Ratio Assessment/Plan Active and Suspected Problems Systolic CHF, acute on chronic (Acute) Patient is a 61-year-old male admitted 07/28/2017 due to shortness of breath. Patient has had 3 recent admissions in June 2017 due to shortness of breath as well. He has a past medical history of hypertension, hyperlipidemia, obstructive sleep apnea, chronic diastolic CHF, tobacco use, COPD, chronic respiratory failure, history of non-small cell lung cancer currently receiving immunotherapy, dementia. 1. Acute on chronic combined systolic/diastolic CHF-BNP on admission 225. Patient has symptoms of fluid overload. Patient takes Lasix 80 mg p.o. twice daily. He received IV Lasix and was transitioned to Lasix 40 mg twice daily by cardiology. Chest x-ray showed moderate sized right pleural effusion with underlying compressive atelectasis/infiltrates of the right lung. Pulmonary consulted, thoracentesis was attempted but unable to be performed as there was not enough fluid to be tapped. Cardiology on board as well. Echocardiogram April 2017 showed an estimated ejection fraction of 65%. Repeat echo 07/29/17 shows an estimated ejection fraction of 35%, D-shaped septum and diastolic, moderate to severe global hypokinesis of the left ventricle, severely dilated right ventricle, moderately severe right ventricular systolic dysfunction, severely enlarged right atrium, mild to moderate tricuspid valve insufficiency, RVSP estimated to be 46. There is concern for underlying CAD. Patient may be considered for diagnostic cardiac catheterization in the future when pulmonary status stabilizes. 2. Acute on chronic hypoxic respiratory failure- #1. Improvement with diuresis. Continue BiPAP HS/PRN. Wean as tolerated to maintain O2 at or above 90%. 3. Supratherapeutic INR-INR 5.9 on admission. Patient received vitamin K. INR today 1.3. Home Coumadin regimen resumed. Trend INR. 4. NSTEMI II-suspect secondary to #1/#2. Denies chest pain. Patient follows with Dr. Adkins, [facility]. No history of coronary artery disease. Echocardiogram with significant changes from previous as noted above. No EKG changes. Cardiology following. Possible cath in the future. 5. Chronic COPD-no acute exacerbation. Continue albuterol DuoNeb aerosols. Discontinue prednisone. No indication for antibiotics. Encourage IS. Follows with Dr. Crook at [facility]. Continue oxygen supplementation to maintain O2 at or above 90%. Patient wears 6 L nasal cannula at baseline. Patient wishes to switch to Dr. Geiger/ Dr. Jin as outpatient at [place]. 6. Obstructive sleep apnea-patient noncompliant with BiPAP in the past. Encouraged compliance. Patient scheduled for polysomnogram 08/03/17. 7. Non-small cell lung cancer-undergoing immunotherapy at [facility]. Follows with Dr. Dobbins. Spoke with Dr. Dobbins this morning, states he would like to be notified if thoracentesis shows malignancy and pleural effusion. Otherwise, he is going to hold off on further immunotherapy at this time. 8. Hypertension-stable, continue home regimen. 9. Hyperlipidemia-continue statin. 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 Does not appear to be on home medication regimen. 11. Chronic atrial fibrillation-rate controlled. Continue Coumadin. Cardioversion may be considered in the future per cardiology. Discharge planning-social work involved, palliative care to meet with family. Plan for discharge to sleep study lab on 08/03/2017. DVT prophylaxis-Continue coumadin, bridged with Lovenox given subtherapeutic INR. This patient was seen by IVANA Lopez under the supervision of Dr. Mancuso.
--- NOTE | 2017-08-01 11:56 | PN_ITS ---
Patient Problems: Active and Suspected Problems Systolic CHF, acute on chronic (Acute) Subjective: Patient seen and examined. States he feels overall improved. Continues to tolerate BiPAP at night and with naps. Remains on 6 L nasal cannula, oxygen saturation 95%. Complains of hoarseness. Denies fever, chills. Denies productive cough. Denies other complaints. - Physical Exam General: Alert, Oriented x3, Cooperative, No apparent distress HEENT: Atraumatic, PERRLA, EOMI, Normocephalic Neck: Supple, No JVD, Negative Carotid Bruits Lungs: Clear to auscultation, Diminished Cardiovascular: Regular rate, Regular Rhythm, Normal S1, Normal S2, No murmurs Abdomen: Bowel Sounds Present, Soft, Non Tender, Non-Distended, Obese Extremities: No clubbing, No cyanosis, Capillary Refill Less than 3 Seconds, Edema - +2 bilateral lower extremities Skin: No rashes, No breakdown Musculoskeletal: No Tenderness to Palpation of Joints or Extremities Neurological: Cranial nerves II-XII grossly intact, Neuro grossly intact Psych/Mental Status: Normal Affect, Appropriate Vital Signs Temp Pulse Resp BP Pulse Ox 97.8 F 82 18 101/64 95 08/01/17 09:45 08/01/17 11:06 08/01/17 11:06 08/01/17 09:45 08/01/17 09:45 Oxygen Flow Rate 6 Oxygen Delivery Method Nasal Cannula Weight: 119.4 kg Body Mass Index (BMI) 32.7 Intake and Output for Last 24 Hours 07/30/17 07/31/17 08/01/17 23:59 23:59 23:59 Intake Total 1200 / 1200 1845 / 1845 120 / 120 Output Total 1425 / 1425 1225 / 1225 300 / 300 Balance -225 / -225 620 / 620 -180 / -180 Laboratory Tests Past 24 Hrs 07/30/17 08/01/17 08/01/17 05:50 04:16 04:16 WBC 6.1 RBC 4.61 Hgb 13.1 Hct 43.5 MCV 94.4 H MCH 28.4 MCHC 30.1 L RDW 19.4 H RDW Differential 67.3 H Plt Count 143 L MPV 10.5 Differential Comment 1+ ANISO PT 15.5 H INR 1.3 Sodium Potassium Chloride Carbon Dioxide Anion Gap BUN Creatinine Estim Creat Clear Calc Est GFR (MDRD) Af Amer Est GFR (MDRD) Non-Af BUN/Creatinine Ratio Glucose Calcium Lactate Dehydrogenase Cancelled Total Protein Cancelled Globulin Cancelled Albumin/Globulin Ratio Cancelled 08/01/17 04:16 WBC RBC Hgb Hct MCV MCH MCHC RDW RDW Differential Plt Count MPV Differential Comment PT INR Sodium 137 Potassium 3.6 Chloride 94 L Carbon Dioxide 38.0 H Anion Gap 5 BUN 18 Creatinine 0.83 Estim Creat Clear Calc 108.88 Est GFR (MDRD) Af Amer 120 Est GFR (MDRD) Non-Af 99 BUN/Creatinine Ratio 21.7 H Glucose 85 Calcium 8.4 L Lactate Dehydrogenase Total Protein Globulin Albumin/Globulin Ratio Assessment/Plan Active and Suspected Problems Systolic CHF, acute on chronic (Acute) Patient is a 61-year-old male admitted 07/28/2017 due to shortness of breath. Patient has had 3 recent admissions in June 2017 due to shortness of breath as well. He has a past medical history of hypertension, hyperlipidemia, obstructive sleep apnea, chronic diastolic CHF, tobacco use, COPD, chronic respiratory failure, history of non-small cell lung cancer currently receiving immunotherapy, dementia. 1. Acute on chronic combined systolic/diastolic CHF-BNP on admission 225. Patient has symptoms of fluid overload. Patient takes Lasix 80 mg p.o. twice daily. He received IV Lasix and was transitioned to Lasix 40 mg twice daily by cardiology. Chest x-ray showed moderate sized right pleural effusion with underlying compressive atelectasis/infiltrates of the right lung. Pulmonary consulted, thoracentesis was attempted but unable to be performed as there was not enough fluid to be tapped. Cardiology on board as well. Echocardiogram April 2017 showed an estimated ejection fraction of 65%. Repeat echo 07/29/17 shows an estimated ejection fraction of 35%, D-shaped septum and diastolic, moderate to severe global hypokinesis of the left ventricle, severely dilated right ventricle, moderately severe right ventricular systolic dysfunction, severely enlarged right atrium, mild to moderate tricuspid valve insufficiency, RVSP estimated to be 46. There is concern for underlying CAD. Patient may be considered for diagnostic cardiac catheterization in the future when pulmonary status stabilizes. 2. Acute on chronic hypoxic respiratory failure- #1. Improvement with diuresis. Continue BiPAP HS/PRN. Wean as tolerated to maintain O2 at or above 90%. 3. Supratherapeutic INR-INR 5.9 on admission. Patient received vitamin K. INR today 1.3. Home Coumadin regimen resumed. Trend INR. 4. NSTEMI II-suspect secondary to #1/#2. Denies chest pain. Patient follows with Dr. Adkins, [facility]. No history of coronary artery disease. Echocardiogram with significant changes from previous as noted above. No EKG changes. Cardiology following. Possible cath in the future. 5. Chronic COPD-no acute exacerbation. Continue albuterol DuoNeb aerosols. Discontinue prednisone. No indication for antibiotics. Encourage IS. Follows with Dr. Crook at [facility]. Continue oxygen supplementation to maintain O2 at or above 90%. Patient wears 6 L nasal cannula at baseline. Patient wishes to switch to Dr. Geiger/ Dr. Jin as outpatient at [place]. 6. Obstructive sleep apnea-patient noncompliant with BiPAP in the past. Encouraged compliance. Patient scheduled for polysomnogram 08/03/17. 7. Non-small cell lung cancer-undergoing immunotherapy at [facility]. Follows with Dr. Dobbins. Spoke with Dr. Dobbins this morning, states he would like to be notified if thoracentesis shows malignancy and pleural effusion. Otherwise, he is going to hold off on further immunotherapy at this time. 8. Hypertension-stable, continue home regimen. 9. Hyperlipidemia-continue statin. 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 Does not appear to be on home medication regimen. 11. Chronic atrial fibrillation-rate controlled. Continue Coumadin. Cardioversion may be considered in the future per cardiology. Discharge planning-social work involved, palliative care to meet with family. Plan for discharge to sleep study lab on 08/03/2017. DVT prophylaxis-Continue coumadin, bridged with Lovenox given subtherapeutic INR. This patient was seen by IVANA Lopez under the supervision of Dr. Mancuso.
[2017-08-01] MEDS: Gabapentin 300 MG Capsule PO (21:21)
[2017-08-01] MEDS: Pravastatin 20 MG Tablet 10 MG PO (21:21)
[2017-08-01] MEDS: Magnesium Hydroxide 30 ML UDC PO (21:24)
[2017-08-02] VITALS (25 sets, daily range): BP systolic 89–108; BP diastolic 53–75; PULSE 66–105; RESP 14–26; TEMP 36.2–36.8; O2SAT 92–100
[2017-08-02 05:41] LABS: Hematocrit 40.8 % (40-54); Hemoglobin 12.5 g/dl (13.0-16.5); Mean Corp Hgb Conc 30.6 g/gl (32-36); Mean Corpuscular Hgb 28.7 pg (27.0-32.0); Mean Corpuscular Volume 93.6 fL (80-94); Mean Platelet Vol. 10.1 fl (6.2-12.0); Platelet Count 125 K/mm3 (150-450); RBC Distribution Width CV 19.1 % (11.6-14.6); RBC Distribution Width SD 64.5 fl (35.1-43.9); Red Blood Count 4.36 M/mm3 (4.6-6.2); White Blood Count 6.1 K/mm3 (4.4-11.0)
[2017-08-02 05:49] LABS: International Normalized Ratio 1.6; Prothrombin Time (Protime)PT. 18.7 SECONDS (11.7-14.9)
[2017-08-02 05:58] LABS: Anion Gap 6 (5-15); BUN 13 mg/dL (7-18); BUN/Creat Ratio 19.1 RATIO (10-20); Calcium,Total 8.3 mg/dL (8.5-10.1); Chloride 96 mmol/L (98-107); Creatinine, Serum 0.68 mg/dL (0.70-1.30); EST Glomerular Filtration Rate 125 mL/min (>60); Est Glom Filt Rate - Afr Amer 151 mL/min (>60); Estimated Creatinine Clearance 132.89 ml/min; Glucose 81 mg/dL (74-106); Sodium Level 137 mmol/L (136-145)
[2017-08-02] MEDS: Enoxaparin 40 MG/0.4 ML Syringe SC (06:00)
[2017-08-02 06:07] LABS: Scan Indicated on CBC? Y/N NO
--- NOTE | 2017-08-02 08:26 | PCM.PN.CARD ---
Subjectve: The patient remains in at [facility]. He is awake and alert. He denies ongoing chest discomfort. He continues to have issues regarding his shortness of breath and dyspnea and undergoes evaluation by internal medicine and pulmonology. Objective: Vital Signs Temp Pulse Resp BP Pulse Ox 97.4 F L 91 18 92/70 95 08/02/17 05:50 08/02/17 07:21 08/02/17 05:50 08/02/17 05:50 08/02/17 07:48 Oxygen Flow Rate 6 Oxygen Delivery Method Nasal Cannula Weight: 264 lb 8.875 oz Body Mass Index (BMI) 32.7 Intake and Output for Last 24 Hours 07/31/17 08/01/17 08/02/17 23:59 23:59 23:59 Intake Total 1845 / 1845 960 / 960 Output Total 1225 / 1225 1820 / 1820 250 / 250 Balance 620 / 620 -860 / -860 -250 / -250 General: Awake, Alert, Oriented x 3, Cooperative, No Acute Distress Neck: No JVD Lungs: Diminished [place] Bases Cardiovascular: Irregular Rhythm, Normal S1, Normal S2 Abdomen: Bowel Sounds Present, Soft, Non Tender Extremities: Mild RLE Edema, Mild LLE Edema 08/02/17 05:25: WBC 6.1, RBC 4.36 L, Hgb 12.5 L, Hct 40.8, MCV 93.6, MCH 28.7, MCHC 30.6 L, RDW 19.1 H, RDW Differential 64.5 H, Plt Count 125 L, MPV 10.1 08/02/17 05:25: Sodium 137, Potassium 4.0, Chloride 96 L, Carbon Dioxide 35.0 H, Anion Gap 6, BUN 13, Creatinine 0.68 L, Est GFR (MDRD) Af Amer 151, Est GFR (MDRD) Non-Af 125, BUN/Creatinine Ratio 19.1, Glucose 81, Calcium 8.3 L 08/02/17 05:25: PT 18.7 H, INR 1.6 Rhythm: Atrial fibrillation Assessment/Plan 1. Congestive heart failure: Acute on chronic systolic The patient presents back with his third episode this year appearing compatible with acute on chronic systolic mediated CHF. He is undergone noninvasive evaluation as noted above. His estimated LVEF was 35%. According to his [facility] records, in April 2017, his overall LV wall motion and systolic function appeared to be normal. In the past he states this is been considered noncoronary related as his previous cardiac catheterization demonstrated no blockages . Based upon the above there appears to be a change in his overall LV systolic function from April 2017 to July 2017. This does raise a concern as to whether this could be related to underlying CAD with an ischemic mediated cardiomyopathy or based upon the global nature of his left ventricular systolic function a non-CAD related cardiomyopathy possibly related to concerns of hypoxemia, as the patient has been reported as being hypoxic in the past without his O2 support, a tachycardic induced cardiomyopathy, however, the development and/or progression of underlying CAD contributing to this has not yet been excluded etc. At the present time he will need continued medical management. This will include a combination, depending upon his blood pressure response and renal function response, of agents such as nitrates, beta-blockers, diuretics, and afterload reducing agents. The patient will be considered for further evaluation with diagnostic cardiac catheterization. This may depend upon his clinical status, vital signs, as well as his anticoagulation status. 2. Atrial fibrillation The patient does have a history of atrial fibrillation. He will need continued rate control therapy. He has been on anticoagulant therapy. It is unclear whether he has ever had an attempt at antiarrhythmic therapy or DC cardioversion therapy. These therapies may need to be considered over time depending upon his clinical course and findings. 3. Right heart failure The patient is also noted to have a markedly dilated and dysfunctional right ventricle. This may be secondary to a combination of his left ventricular issues as well as his underlying primary pulmonary issues, which according to conversation with his oncologist, Dr. Dobbins, includes his underlying pulmonary disease process of lung carcinoma as well as pulmonary fibrosis. This could lead to cor pulmonale and right heart failure. At the present time he will need continued treatment for his underlying LV systolic dysfunction. He will need continued treatment for his underlying pulmonary disease process. He will need continued medical management to support his right sided symptoms and objective findings, such as edema, with medical management. It may not be unreasonable, with respect to diagnostic cardiac catheterization, that the patient be considered for a right heart catheterization as well based upon his pulmonary issues and his echocardiographic findings. 4. Pulmonary hypertension He does have pulmonary hypertension. Again this may be a combination of his left ventricular systolic dysfunction as well as his underlying pulmonary disease process. He will need to continue cardiovascular evaluation care as well as pulmonary evaluation and care. 5. Hyperlipidemia He will continue medical management as deemed appropriate. 6. Hypertension He will need to continue evaluation of his blood pressure with adjustment of medications as tolerated. 7. Lung carcinoma He will need continued evaluation care by her pulmonology and oncology. Again, his case was discussed with Dr. Dobbins. He believes the patient, status post chemotherapy, radiation care therapy, and immunotherapy, has demonstrated remission. However this could change depending upon his ongoing radiologic findings and his upcoming thoracentesis as to whether or not it demonstrates any evidence of malignancy. Comment: The above was discussed and reviewed with the patient and the [facility] staff. This note was generated with [employer] Dictation software. Every effort was made to ensure accuracy, however, computerized clearing tub worker mistakes may persist.
--- NOTE | 2017-08-02 08:30 | PN.CARD_ITS ---
Subjectve: The patient remains in at [facility]. He is awake and alert. He denies ongoing chest discomfort. He continues to have issues regarding his shortness of breath and dyspnea and undergoes evaluation by internal medicine and pulmonology. Objective: Vital Signs Temp Pulse Resp BP Pulse Ox 97.4 F L 91 18 92/70 95 08/02/17 05:50 08/02/17 07:21 08/02/17 05:50 08/02/17 05:50 08/02/17 07:48 Oxygen Flow Rate 6 Oxygen Delivery Method Nasal Cannula Weight: 264 lb 8.875 oz Body Mass Index (BMI) 32.7 Intake and Output for Last 24 Hours 07/31/17 08/01/17 08/02/17 23:59 23:59 23:59 Intake Total 1845 / 1845 960 / 960 Output Total 1225 / 1225 1820 / 1820 250 / 250 Balance 620 / 620 -860 / -860 -250 / -250 General: Awake, Alert, Oriented x 3, Cooperative, No Acute Distress Neck: No JVD Lungs: Diminished Sekou Bases Cardiovascular: Irregular Rhythm, Normal S1, Normal S2 Abdomen: Bowel Sounds Present, Soft, Non Tender Extremities: Mild RLE Edema, Mild LLE Edema 08/02/17 05:25: WBC 6.1, RBC 4.36 L, Hgb 12.5 L, Hct 40.8, MCV 93.6, MCH 28.7, MCHC 30.6 L, RDW 19.1 H, RDW Differential 64.5 H, Plt Count 125 L, MPV 10.1 08/02/17 05:25: Sodium 137, Potassium 4.0, Chloride 96 L, Carbon Dioxide 35.0 H , Anion Gap 6, BUN 13, Creatinine 0.68 L, Est GFR (MDRD) Af Amer 151, Est GFR ( MDRD) Non-Af 125, BUN/Creatinine Ratio 19.1, Glucose 81, Calcium 8.3 L 08/02/17 05:25: PT 18.7 H, INR 1.6 Rhythm: Atrial fibrillation Assessment/Plan 1. Congestive heart failure: Acute on chronic systolic The patient presents back with his third episode this year appearing compatible with acute on chronic systolic mediated CHF. He is undergone noninvasive evaluation as noted above. His estimated LVEF was 35%. According to his [facility] records, in April 2017, his overall LV wall motion and systolic function appeared to be normal. In the past he states this is been considered noncoronary related as his previous cardiac catheterization demonstrated no blockages . Based upon the above there appears to be a change in his overall LV systolic function from April 2017 to July 2017. This does raise a concern as to whether this could be related to underlying CAD with an ischemic mediated cardiomyopathy or based upon the global nature of his left ventricular systolic function a non-CAD related cardiomyopathy possibly related to concerns of hypoxemia, as the patient has been reported as being hypoxic in the past without his O2 support, a tachycardic induced cardiomyopathy, however, the development and/or progression of underlying CAD contributing to this has not yet been excluded etc. At the present time he will need continued medical management. This will include a combination, depending upon his blood pressure response and renal function response, of agents such as nitrates, beta-blockers, diuretics, and afterload reducing agents. The patient will be considered for further evaluation with diagnostic cardiac catheterization. This may depend upon his clinical status, vital signs, as well as his anticoagulation status. 2. Atrial fibrillation The patient does have a history of atrial fibrillation. He will need continued rate control therapy. He has been on anticoagulant therapy. It is unclear whether he has ever had an attempt at antiarrhythmic therapy or DC cardioversion therapy. These therapies may need to be considered over time depending upon his clinical course and findings. 3. Right heart failure The patient is also noted to have a markedly dilated and dysfunctional right ventricle. This may be secondary to a combination of his left ventricular issues as well as his underlying primary pulmonary issues, which according to conversation with his oncologist, Dr. Dobbins, includes his underlying pulmonary disease process of lung carcinoma as well as pulmonary fibrosis. This could lead to cor pulmonale and right heart failure. At the present time he will need continued treatment for his underlying LV systolic dysfunction. He will need continued treatment for his underlying pulmonary disease process. He will need continued medical management to support his right sided symptoms and objective findings, such as edema, with medical management. It may not be unreasonable, with respect to diagnostic cardiac catheterization, that the patient be considered for a right heart catheterization as well based upon his pulmonary issues and his echocardiographic findings. 4. Pulmonary hypertension He does have pulmonary hypertension. Again this may be a combination of his left ventricular systolic dysfunction as well as his underlying pulmonary disease process. He will need to continue cardiovascular evaluation care as well as pulmonary evaluation and care. 5. Hyperlipidemia He will continue medical management as deemed appropriate. 6. Hypertension He will need to continue evaluation of his blood pressure with adjustment of medications as tolerated. 7. Lung carcinoma He will need continued evaluation care by her pulmonology and oncology. Again, his case was discussed with Dr. Dobbins. He believes the patient, status post chemotherapy, radiation care therapy, and immunotherapy, has demonstrated remission. However this could change depending upon his ongoing radiologic findings and his upcoming thoracentesis as to whether or not it demonstrates any evidence of malignancy. Comment: The above was discussed and reviewed with the patient and the [facility] staff. This note was generated with [employer] Dictation software. Every effort was made to ensure accuracy, however, computerized electrical electronics engineers mistakes may persist.
[2017-08-02] MEDS: Pantoprazole Sodium 20 MG Tablet PO (09:23)
[2017-08-02] MEDS: guaiFENesin 1,200 MG Tablet 1200 MG PO ×2 (09:23→20:59)
[2017-08-02] MEDS: Tamsulosin HCl 0.4 MG Capsule PO (09:23)
[2017-08-02] MEDS: Finasteride 5 MG Tablet PO (09:23)
[2017-08-02] MEDS: Furosemide 40 MG Tablet PO ×2 (09:23→18:32)
--- NOTE | 2017-08-02 09:51 | CASEMGMT ---
According to [facility] MyCare website, the following are in-network tertiary facilities: [place], [facility], [place], and . [facility]RI[facility]
--- NOTE | 2017-08-02 10:26 | PCM.PROGNOTE ---
Patient Problems: Active and Suspected Problems Systolic CHF, acute on chronic (Acute) Subjective: The patient was seen and examined. He remains afebrile and hemodynamically stable. Patient maintaining oxygen saturations on his baseline requirement of 6 L per nasal cannula. He is alert and oriented at this time, but does have history of dementia and forgetfulness. Denies any sputum production or wheezing. He does have a nonproductive cough. Denies any current shortness of breath or chest pain. Awaiting heart catheterization on 08/03/17. Patient has been volume optimized and his cumulative fluid balance is -765 mL. Objective: Clinical Impression(s) from Imaging Studies Chest X-Ray 07/28/17 16:50 IMPRESSION: No substantial changes from the prior exam of JuneJuly 19, 2017. Continued cardiomegaly, moderate-sized right pleural effusion with underlying compressive atelectasis/infiltrate of the right lung. Prominent right hilum. More recent films demonstrate enlargement of the cardiac silhouette since an earlier exam of 2014. Electronically Signed: Cande Shah MD at 17:14 EST , Service support , Chest Ultrasound 07/30/17 10:56 IMPRESSION: Minimal right pleural effusion. Electronically Signed: Hernan Lundberg MD at 15:10 EST Tel [phone], Service support , - Physical Exam General: Alert, Oriented x3, Cooperative, No apparent distress, Well developed, Well nourished HEENT: Atraumatic, Normocephalic Oral: Moist Mucosa, No Gingival or Mucosal Lesions/ Ulcerations Neck: Supple, No Nodes, Trachea Midline Lungs: No wheeze, No rales, Diminished, Rhonchi Cardiovascular: Normal S1, Normal S2, No murmurs Abdomen: Bowel Sounds Present, Soft, Non Tender, Non-Distended, Obese Extremities: No clubbing, No cyanosis, Edema Skin: No rashes Musculoskeletal: No Tenderness to Palpation of Joints or Extremities Lymphatic: No Cervical, Supraclavicular, or Inguinal Adenopathy Neurological: Cranial nerves II-XII grossly intact, Neuro grossly intact Psych/Mental Status: Alert and oriented to time, place, person, mood and affect Vital Signs Temp Pulse Resp BP Pulse Ox 97.5 F L 91 18 97/67 92 08/02/17 09:20 08/02/17 09:20 08/02/17 09:20 08/02/17 09:20 08/02/17 09:20 Oxygen Flow Rate 6 Oxygen Delivery Method Nasal Cannula Weight: 264 lb 8.875 oz Body Mass Index (BMI) 32.7 Intake and Output for Last 24 Hours 07/31/17 08/01/17 08/02/17 23:59 23:59 23:59 Intake Total 1845 / 1845 960 / 960 Output Total 1225 / 1225 1820 / 1820 250 / 250 Balance 620 / 620 -860 / -860 -250 / -250 Laboratory Tests Past 24 Hrs 08/02/17 08/02/17 08/02/17 05:25 05:25 05:25 WBC 6.1 RBC 4.36 L Hgb 12.5 L Hct 40.8 MCV 93.6 MCH 28.7 MCHC 30.6 L RDW 19.1 H RDW Differential 64.5 H Plt Count 125 L MPV 10.1 PT 18.7 H INR 1.6 Sodium 137 Potassium 4.0 Chloride 96 L Carbon Dioxide 35.0 H Anion Gap 6 BUN 13 Creatinine 0.68 L Estim Creat Clear Calc 132.89 Est GFR (MDRD) Af Amer 151 Est GFR (MDRD) Non-Af 125 BUN/Creatinine Ratio 19.1 Glucose 81 Calcium 8.3 L Assessment/Plan Active and Suspected Problems Systolic CHF, acute on chronic (Acute) RECOMMENDATIONS 1. Wean oxygen supplementation to keep saturations 88-92%, has baseline requirement of 6L. 2. Encourage incentive spirometer 3. Increase activity as tolerated 4. Continue aerosols 5. Continue BiPAP at night and with naps, rescue during the day as needed 6. PT/OT evaluation 7. Patient should follow-up closely with his primary office secretary upon discharge IMPRESSIONS 1. Acute on chronic hypoxic respiratory failure secondary to acute diastolic CHF exacerbation Chronic 4-6 L at home, currently on 6 L and using BiPAP rescue. Follows with Dr. Crook at [facility], but patient plans to transition to our office. There was a moderate pleural effusion on chest x-ray, for which thoracentesis was unsuccessful by radiology as there was not enough fluid noted to be tapped. Echocardiogram shows worsening of ejection fraction to 35%, his records were obtained his last admission and his EF at that time from April 2017 was 65%. Also showed pulmonary hypertension. Plan to continue volume optimization as tolerated and BiPAP at night and with naps. Cardiology is following. Patient has not yet had a physical therapy evaluation, recommended PT/OT to prevent deterioration in his functional status. 2. History of COPD, self-reported Does not appear to be having an acute exacerbation. There is no wheezing on exam. Sputum production is at baseline. Hypoxia likely secondary to fluid volume overload. Continue volume optimization. No indication for steroids or antibiotics, there is no leukocytosis or fevers. Increase activity as tolerated, consult PT. Encourage incentive spirometer. Patient will follow-up in pulmonary clinic upon discharge. 3. Self-reported obstructive sleep apnea, untreated Patient intolerant to noninvasive positive pressure therapy in the past. He does not utilize secondary to claustrophobia. Continue BiPAP at night while in the hospital. Patient has been set up for a repeat polysomnogram tentatively on August 03. He will follow up in the pulmonary clinic after discharge. 4. Non-small cell lung cancer Currently undergoing immunotherapy at [facility]. Patient with right pleural effusion, likely related to malignancy and/or CHF. Chest x-ray on admission showed no substantial changes from the prior exam of 07/19/17. There was a moderate sized right pleural effusion with underlying compressive atelectasis/infiltrate in the right lung. There is a prominent right hilum. Atelectasis likely secondary to poor inspiratory effort, sedentary lifestyle, fluid accumulation. He is obese. Patient has multiple comorbidities with multiple readmissions recently. Palliative care has been discussed with patient and his , however she reports she is very overwhelmed and does not wish to make any decisions right now. 5. Hypertension/hyperlipidemia/history of tobacco abuse/pulmonary fibrosis/atrial fibrillation Complicates care, management, recovery, and prognosis. Patient has a severely dilated right ventricle and right atrium is severely enlarged. He has a moderately dilated left ventricle as well. This note was generated with [employer] software. It may contain incorrect words, spelling, and punctuation that were not noted in checking the note before signing.
[2017-08-02] MEDS: Metoprolol Tartrate 50 MG Tablet PO (10:39)
--- NOTE | 2017-08-02 10:48 | PN_ITS ---
Patient Problems: Active and Suspected Problems Systolic CHF, acute on chronic (Acute) Subjective: The patient was seen and examined. He remains afebrile and hemodynamically stable. Patient maintaining oxygen saturations on his baseline requirement of 6 L per nasal cannula. He is alert and oriented at this time, but does have history of dementia and forgetfulness. Denies any sputum production or wheezing. He does have a nonproductive cough. Denies any current shortness of breath or chest pain. Awaiting heart catheterization on 08/03/17. Patient has been volume optimized and his cumulative fluid balance is -765 mL. Objective: Clinical Impression(s) from Imaging Studies Chest X-Ray 07/28/17 16:50 IMPRESSION: No substantial changes from the prior exam of JuneJuly 19, 2017. Continued cardiomegaly, moderate-sized right pleural effusion with underlying compressive atelectasis/infiltrate of the right lung. Prominent right hilum. More recent films demonstrate enlargement of the cardiac silhouette since an earlier exam of 2014. Electronically Signed: Cande Shah MD at 17:14 EST , Service support , Chest Ultrasound 07/30/17 10:56 IMPRESSION: Minimal right pleural effusion. Electronically Signed: Hernan Lundberg MD at 15:10 EST Tel [phone], Service support , - Physical Exam General: Alert, Oriented x3, Cooperative, No apparent distress, Well developed, Well nourished HEENT: Atraumatic, Normocephalic Oral: Moist Mucosa, No Gingival or Mucosal Lesions/ Ulcerations Neck: Supple, No Nodes, Trachea Midline Lungs: No wheeze, No rales, Diminished, Rhonchi Cardiovascular: Normal S1, Normal S2, No murmurs Abdomen: Bowel Sounds Present, Soft, Non Tender, Non-Distended, Obese Extremities: No clubbing, No cyanosis, Edema Skin: No rashes Musculoskeletal: No Tenderness to Palpation of Joints or Extremities Lymphatic: No Cervical, Supraclavicular, or Inguinal Adenopathy Neurological: Cranial nerves II-XII grossly intact, Neuro grossly intact Psych/Mental Status: Alert and oriented to time, place, person, mood and affect Vital Signs Temp Pulse Resp BP Pulse Ox 97.5 F L 91 18 97/67 92 08/02/17 09:20 08/02/17 09:20 08/02/17 09:20 08/02/17 09:20 08/02/17 09:20 Oxygen Flow Rate 6 Oxygen Delivery Method Nasal Cannula Weight: 264 lb 8.875 oz Body Mass Index (BMI) 32.7 Intake and Output for Last 24 Hours 07/31/17 08/01/17 08/02/17 23:59 23:59 23:59 Intake Total 1845 / 1845 960 / 960 Output Total 1225 / 1225 1820 / 1820 250 / 250 Balance 620 / 620 -860 / -860 -250 / -250 Laboratory Tests Past 24 Hrs 08/02/17 08/02/17 08/02/17 05:25 05:25 05:25 WBC 6.1 RBC 4.36 L Hgb 12.5 L Hct 40.8 MCV 93.6 MCH 28.7 MCHC 30.6 L RDW 19.1 H RDW Differential 64.5 H Plt Count 125 L MPV 10.1 PT 18.7 H INR 1.6 Sodium 137 Potassium 4.0 Chloride 96 L Carbon Dioxide 35.0 H Anion Gap 6 BUN 13 Creatinine 0.68 L Estim Creat Clear Calc 132.89 Est GFR (MDRD) Af Amer 151 Est GFR (MDRD) Non-Af 125 BUN/Creatinine Ratio 19.1 Glucose 81 Calcium 8.3 L Assessment/Plan Active and Suspected Problems Systolic CHF, acute on chronic (Acute) RECOMMENDATIONS 1. Wean oxygen supplementation to keep saturations 88-92%, has baseline requirement of 6L. 2. Encourage incentive spirometer 3. Increase activity as tolerated 4. Continue aerosols 5. Continue BiPAP at night and with naps, rescue during the day as needed 6. PT/OT evaluation 7. Patient should follow-up closely with his primary sagger soak upon discharge IMPRESSIONS 1. Acute on chronic hypoxic respiratory failure secondary to acute diastolic CHF exacerbation Chronic 4-6 L at home, currently on 6 L and using BiPAP rescue. Follows with Dr. Crook at [facility], but patient plans to transition to our office. There was a moderate pleural effusion on chest x-ray, for which thoracentesis was unsuccessful by radiology as there was not enough fluid noted to be tapped. Echocardiogram shows worsening of ejection fraction to 35%, his records were obtained his last admission and his EF at that time from April 2017 was 65%. Also showed pulmonary hypertension. Plan to continue volume optimization as tolerated and BiPAP at night and with naps. Cardiology is following. Patient has not yet had a physical therapy evaluation, recommended PT/OT to prevent deterioration in his functional status. 2. History of COPD, self-reported Does not appear to be having an acute exacerbation. There is no wheezing on exam. Sputum production is at baseline. Hypoxia likely secondary to fluid volume overload. Continue volume optimization. No indication for steroids or antibiotics, there is no leukocytosis or fevers. Increase activity as tolerated , consult PT. Encourage incentive spirometer. Patient will follow-up in pulmonary clinic upon discharge. 3. Self-reported obstructive sleep apnea, untreated Patient intolerant to noninvasive positive pressure therapy in the past. He does not utilize secondary to claustrophobia. Continue BiPAP at night while in the hospital. Patient has been set up for a repeat polysomnogram tentatively on August 03. He will follow up in the pulmonary clinic after discharge. 4. Non-small cell lung cancer Currently undergoing immunotherapy at [facility]. Patient with right pleural effusion, likely related to malignancy and/or CHF. Chest x-ray on admission showed no substantial changes from the prior exam of 07/19/17. There was a moderate sized right pleural effusion with underlying compressive atelectasis/infiltrate in the right lung. There is a prominent right hilum. Atelectasis likely secondary to poor inspiratory effort, sedentary lifestyle, fluid accumulation. He is obese. Patient has multiple comorbidities with multiple readmissions recently. Palliative care has been discussed with patient and his , however she reports she is very overwhelmed and does not wish to make any decisions right now. 5. Hypertension/hyperlipidemia/history of tobacco abuse/pulmonary fibrosis/ atrial fibrillation Complicates care, management, recovery, and prognosis. Patient has a severely dilated right ventricle and right atrium is severely enlarged. He has a moderately dilated left ventricle as well. This note was generated with [employer] software. It may contain incorrect words, spelling, and punctuation that were not noted in checking the note before signing.
--- NOTE | 2017-08-02 12:19 | PN_ITS ---
Patient Problems: Active and Suspected Problems Systolic CHF, acute on chronic (Acute) Subjective: CC: Shortness of breath Patient reports improved dyspnea, chest pain, shortness of breath fever or chills. No acute events reported overnight. Vitals/I&O's: Vital Signs Temp Pulse Resp BP Pulse Ox 97.5 F L 88 18 108/75 94 08/02/17 10:37 08/02/17 11:10 08/02/17 10:37 08/02/17 10:37 08/02/17 10:37 Oxygen Flow Rate 6 Oxygen Delivery Method Nasal Cannula Weight: 120 kg Body Mass Index (BMI) 32.7 Intake and Output for Last 24 Hours 07/31/17 08/01/17 08/02/17 23:59 23:59 23:59 Intake Total 1845 / 1845 960 / 960 Output Total 1225 / 1225 1820 / 1820 250 / 250 Balance 620 / 620 -860 / -860 -250 / -250 General: Alert, Oriented x3 HEENT: Atraumatic Neck: Supple, No JVD Lungs: Clear to auscultation Cardiovascular: Normal S1, Normal S2 Abdomen: Bowel Sounds Present, Non Tender Extremities: Edema Laboratory Results 08/02/17 05:25: WBC 6.1, RBC 4.36 L, Hgb 12.5 L, Hct 40.8, MCV 93.6, MCH 28.7, MCHC 30.6 L, RDW 19.1 H, RDW Differential 64.5 H, Plt Count 125 L, MPV 10.1 08/02/17 05:25: Sodium 137, Potassium 4.0, Chloride 96 L, Carbon Dioxide 35.0 H , Anion Gap 6, BUN 13, Creatinine 0.68 L, Estim Creat Clear Calc 132.89, Est GFR (MDRD) Af Amer 151, Est GFR (MDRD) Non-Af 125, BUN/Creatinine Ratio 19.1, Glucose 81, Calcium 8.3 L 08/02/17 05:25: PT 18.7 H, INR 1.6 Current Medications Acetaminophen (Tylenol) 650 mg PO Q6H PRN PRN PRN Reason: Mild Pain (1-3)/Temp > 100.7 F Albuterol Sulfate (Ventolin Aerosols) 2.5 mg INHALATION Q2H PRN PRN PRN Reason: SHORTNESS OF BREATH Albuterol/Ipratropium (Duoneb) 3 ml INHALATION Q4HWA.RT [facility] Last Admin: 08/02/17 10:45 Dose: Not Given Enoxaparin Sodium (Lovenox) 40 mg SC DAILY@0600 [facility] Last Admin: 08/02/17 06:00 Dose: 40 mg Finasteride (Proscar) 5 mg PO DAILY [facility] Last Admin: 08/02/17 09:23 Dose: 5 mg Furosemide (Lasix) 40 mg PO BID@1000,1800 [facility] Last Admin: 08/02/17 09:23 Dose: 40 mg Gabapentin (Neurontin) 300 mg PO HS [facility] Last Admin: 08/01/17 21:21 Dose: 300 mg Guaifenesin (Mucinex) 1,200 mg PO BID [facility] Last Admin: 08/02/17 09:23 Dose: 1,200 mg Sodium Chloride () 1,000 mls @ 15 mls/hr IV .Q48H [facility] PRN Reason: KVO Magnesium Hydroxide (Milk Of Magnesia) 30 ml PO DAILY PRN PRN Reason: Constipation Last Admin: 08/01/17 21:24 Dose: 30 ml Metoprolol Tartrate (Lopressor (Beta Shelly)) 50 mg PO BID [facility] Last Admin: 08/02/17 10:39 Dose: 50 mg Mirtazapine (Remeron) 30 mg PO QHS PRN PRN Reason: ANXIETY Last Admin: 07/28/17 23:23 Dose: 30 mg Morphine Sulfate (Ms Contin) 30 mg PO Q6H PRN PRN PRN Reason: PAIN Last Admin: 08/01/17 21:25 Dose: 30 mg Ondansetron HCl (Zofran) 8 mg PO Q8H PRN PRN PRN Reason: NAUSEA/VOMITING Pantoprazole Sodium (Protonix) 20 mg PO DAILY [facility] Last Admin: 08/02/17 09:23 Dose: 20 mg Potassium Chloride (K-Dur) 20 meq PO BID [facility] Last Admin: 08/02/17 09:23 Dose: 20 meq Pravastatin Sodium (Pravachol) 10 mg PO QHS [facility] Last Admin: 08/01/17 21:21 Dose: 10 mg Sodium Chloride () 5 - 30 ml IV UD PRN PRN Reason: SALINE FLUSH Last Admin: 07/31/17 05:38 Dose: 10 ml Tamsulosin HCl (Flomax) 0.4 mg PO DAILY [facility] Last Admin: 08/02/17 09:23 Dose: 0.4 mg Assessment/Plan Active and Suspected Problems Systolic CHF, acute on chronic (Acute) 1. Acute on chronic combined systolic/diastolic CHF; continue on current diuretic therapy. 2. Acute on chronic respiratory failure with hypoxia; will continue on supplemental oxygen, at bedtime BiPAP 3. Elevated troponin due to type II NSTEMI 4. Acute COPD exacerbation; continue on bronchodilator therapy 5. chronic Atrial fibrillation; he is on Coumadin patient had supratherapeutic INR and was given vitamin K, is now 1.6 6. Non-small cell lung cancer; follow-up with clinic lung clinic oncology after discharge. 7. Dementia; active measures. 8. Care consulted for goals of care discussions. 9. Disposition;
[2017-08-02] MEDS: Ipratropium/Albuterol Sulfate 3 ML AMPUL.NEB INHALATION ×2 (15:06→19:17)
--- NOTE | 2017-08-02 15:59 | CASEMGMT ---
This SOPHIE MCLEOD placed call to pt's regarding HHC and she states that they have not decided on HHC yet at this time. Advised that as long as pt's heart cath ok, he should be discharged tomorrow so that he can have sleep study tomorrow pm and that she would need to make a decision by tomorrow, voices understanding. Roosevelt BARRIOS CM
[2017-08-02] MEDS: 0.9% NaCl Peripheral Flush Adult/Peds IV ×3 (16:41→23:03)
[2017-08-02] MEDS: Gabapentin 300 MG Capsule PO (20:59)
[2017-08-02] MEDS: Pravastatin 20 MG Tablet 10 MG PO (20:59)
[2017-08-03] VITALS (23 sets, daily range): BP systolic 96–156; BP diastolic 53–80; PULSE 80–110; RESP 16–20; TEMP 36.6–36.8; O2SAT 88–96
[2017-08-03 05:18] LABS: Hematocrit 40.8 % (40-54); Hemoglobin 12.9 g/dl (13.0-16.5); Mean Corp Hgb Conc 31.6 g/gl (32-36); Mean Corpuscular Hgb 29.4 pg (27.0-32.0); Mean Corpuscular Volume 92.9 fL (80-94); Mean Platelet Vol. 10.6 fl (6.2-12.0); Platelet Count 140 K/mm3 (150-450); RBC Distribution Width CV 19.2 % (11.6-14.6); Red Blood Count 4.39 M/mm3 (4.6-6.2); White Blood Count 6.9 K/mm3 (4.4-11.0)
[2017-08-03] MEDS: 0.9% NaCl Peripheral Flush Adult/Peds IV (05:21)
[2017-08-03] MEDS: 0.9% Normal Saline 1,000 ML 15 ML IV (05:21)
[2017-08-03 05:25] LABS: Scan Indicated on CBC? Y/N NO
[2017-08-03 05:27] LABS: International Normalized Ratio 1.8; Prothrombin Time (Protime)PT. 20.1 SECONDS (11.7-14.9)
[2017-08-03 05:31] LABS: Anion Gap 7 (5-15); BUN 11 mg/dL (7-18); BUN/Creat Ratio 16.3 RATIO (10-20); Calcium,Total 8.2 mg/dL (8.5-10.1); Chloride 98 mmol/L (98-107); Creatinine, Serum 0.68 mg/dL (0.70-1.30); EST Glomerular Filtration Rate 126 mL/min (>60); Est Glom Filt Rate - Afr Amer 152 mL/min (>60); Estimated Creatinine Clearance 132.89 ml/min; Glucose 86 mg/dL (74-106); Potassium 3.5 mmol/L (3.5-5.1); Sodium Level 139 mmol/L (136-145)
[2017-08-03 05:37] LABS: Partial Thromboplast Time 35.4 Seconds (24.1-36.2)
--- NOTE | 2017-08-03 05:55 | EKG12_ITS ---
Test Reason : AM EKG Blood Pressure : / mmHG Vent. Rate : 091 BPM Atrial Rate : 097 BPM P-R Int : 000 ms QRS Dur : 158 ms QT Int : 408 ms P-R-T Axes : 000 079 -37 degrees QTc Int : 501 ms Atrial fibrillation with premature ventricular or aberrantly conducted complexes Right bundle branch block Septal infarct , age undetermined T wave abnormality, consider inferolateral ischemia Abnormal ECG Confirmed by MALGORZATA GREER, ARMOND ([id number]), online content editor LILLIAN HOUGH ([id number]) on 08/04/2017 2:56:36 PM Referred By: BROCK Confirmed By:ARMOND MCGARRY MD
[2017-08-03] MEDS: Ipratropium/Albuterol Sulfate 3 ML AMPUL.NEB INHALATION ×2 (07:42→15:12)
[2017-08-03] MEDS: Metoprolol Tartrate 50 MG Tablet PO ×2 (09:16→18:55)
[2017-08-03] MEDS: Aspirin 325 MG Tablet PO (09:19)
[2017-08-03 09:26] LABS: International Normalized Ratio 1.7; Prothrombin Time (Protime)PT. 19.3 SECONDS (11.7-14.9)
--- NOTE | 2017-08-03 11:35 | PCM.PROGNOTE ---
Patient Problems: Active and Suspected Problems Systolic CHF, acute on chronic (Acute) Subjective: Patient was seen and examined. He is sitting up in bed in no acute distress. Did well overnight on BiPAP. Heart cath today around 1030. Reports his breathing remains the same, no current shortness of breath. No significant cough or sputum production. Denies fever or chills. Objective: Repeat INR this morning 1.7. Renal function is stable. Remains afebrile and hemodynamically stable. Cumulative fluid balance +42 mL. His diuretics have been discontinued. - Physical Exam General: Alert, Cooperative, No apparent distress, - - Oriented to self and place. No conversational dyspnea HEENT: Atraumatic, Normocephalic Oral: Moist Mucosa Neck: Supple, No Nodes, Trachea Midline Lungs: - - Diminished with rhonchi throughout, mild bibasilar Rales. No dullness to percussion. No tachypnea Cardiovascular: Regular rate, Regular Rhythm, Normal S1, Normal S2, No murmurs, No rub noted, No Gallop Abdomen: Bowel Sounds Present, Soft, Non Tender, Non-Distended, Obese Extremities: No clubbing, No cyanosis, Edema, - - venous stasis changes Skin: No rashes, No breakdown Musculoskeletal: No Tenderness to Palpation of Joints or Extremities Lymphatic: No Cervical, Supraclavicular, or Inguinal Adenopathy Neurological: Neuro grossly intact Psych/Mental Status: Flat Affect, - - cooperative Vital Signs Temp Pulse Resp BP Pulse Ox 98.1 F 91 18 105/73 95 08/03/17 09:57 08/03/17 09:57 08/03/17 09:57 08/03/17 09:57 08/03/17 09:57 Oxygen Flow Rate 6 Oxygen Delivery Method Nasal Cannula Weight: 261 lb 3.964 oz Body Mass Index (BMI) 32.7 Intake and Output for Last 24 Hours 08/01/17 08/02/17 08/03/17 23:59 23:59 23:59 Intake Total 960 / 960 720 / 720 337.1 / 337.1 Output Total 1820 / 1820 500 / 500 Balance -860 / -860 220 / 220 337.1 / 337.1 Laboratory Tests Past 24 Hrs 08/03/17 08/03/17 08/03/17 05:05 05:05 05:05 WBC 6.9 RBC 4.39 L Hgb 12.9 L Hct 40.8 MCV 92.9 MCH 29.4 MCHC 31.6 L RDW 19.2 H RDW Differential 64.0 H Plt Count 140 L MPV 10.6 PT 20.1 H INR 1.8 APTT Sodium 139 Potassium 3.5 Chloride 98 Carbon Dioxide 34.0 H Anion Gap 7 BUN 11 Creatinine 0.68 L Estim Creat Clear Calc 132.89 Est GFR (MDRD) Af Amer 152 Est GFR (MDRD) Non-Af 126 BUN/Creatinine Ratio 16.3 Glucose 86 Calcium 8.2 L 08/03/17 08/03/17 05:05 09:05 WBC RBC Hgb Hct MCV MCH MCHC RDW RDW Differential Plt Count MPV PT 19.3 H INR 1.7 APTT 35.4 Sodium Potassium Chloride Carbon Dioxide Anion Gap BUN Creatinine Estim Creat Clear Calc Est GFR (MDRD) Af Amer Est GFR (MDRD) Non-Af BUN/Creatinine Ratio Glucose Calcium Assessment/Plan Active and Suspected Problems Systolic CHF, acute on chronic (Acute) RECOMMENDATIONS 1. Wean oxygen supplementation to keep saturations 88-92%, has baseline requirement of 5-6L. 2. Encourage incentive spirometer 3. Increase activity as tolerated and continue PT/OT 4. Continue aerosols. No indication for antibiotics or steroids. 5. Continue BiPAP at night and with naps, rescue during the day as needed 6. Ambulatory pulse oximetry prior to discharge, has high baseline requirement 7. Patient should follow-up closely in the pulmonary clinic within 2 weeks of discharge, he has requested transfer of his care to our clinic. 8. Okay to discharge today from pulmonary standpoint directly to the sleep lab pending cardiac catheterization. IMPRESSIONS 1. Acute on chronic hypoxic respiratory failure secondary to acute diastolic CHF exacerbation Chronic 4-6 L at home, currently on 6 L and using BiPAP rescue. Follows with Dr. Crook at [facility], but patient plans to transition to our office. There was a moderate pleural effusion on chest x-ray, for which thoracentesis was unsuccessful by radiology as there was not enough fluid noted to be tapped. Echocardiogram shows worsening of ejection fraction to 35%, his records were obtained his last admission and his EF at that time from April 2017 was 65%. Also showed pulmonary hypertension. Patient has been volume optimizated and is tolerating BiPAP at night and with naps. Cardiology is following. Continue PT. 2. History of COPD, self-reported Does not appear to be having an acute exacerbation. There is no wheezing on exam. Sputum production is at baseline. Hypoxia likely secondary to fluid volume overload. Continue volume optimization. No indication for steroids or antibiotics, there is no leukocytosis or fevers. Increase activity as tolerated, continue PT. Encourage incentive spirometer. Patient will follow-up in pulmonary clinic upon discharge, at which time official pulmonary function tests can be completed. 3. Self-reported obstructive sleep apnea, untreated Patient intolerant to noninvasive positive pressure therapy in the past. He does not utilize secondary to claustrophobia, however has been tolerating here in the hospital. Continue BiPAP at night and with naps. Patient has been set up for a repeat polysomnogram tentatively on August 03. He will follow up in the pulmonary clinic after discharge. 4. Non-small cell lung cancer Currently undergoing immunotherapy at [facility]. Patient with right pleural effusion, likely related to malignancy and/or CHF. Chest x-ray on admission showed no substantial changes from the prior exam of 07/19/17. There was a moderate sized right pleural effusion with underlying compressive atelectasis/infiltrate in the right lung. There is a prominent right hilum. Atelectasis likely secondary to poor inspiratory effort, sedentary lifestyle, fluid accumulation. He is obese. Patient has multiple comorbidities with multiple readmissions recently. Palliative care has been discussed with patient and his , however she reports she is very overwhelmed and does not wish to make any decisions right now. 5. Hypertension/hyperlipidemia/history of tobacco abuse/pulmonary fibrosis/atrial fibrillation Complicates care, management, recovery, and prognosis. Patient has a severely dilated right ventricle and right atrium is severely enlarged. He has a moderately dilated left ventricle as well. This note was generated with [employer] software. It may contain incorrect words, spelling, and punctuation that were not noted in checking the note before signing.
[2017-08-03 11:46] LABS: Base Excess 8 mmol/L (-2 to +2); Bicarbonate 31.3 mmol/L (22-26); Blood Gas Specimen Type ART; PO2 65 mmHG (75-100); SO2 94 % (95-99); Total Carbon Dioxide 33 mmol/L; pH 7.51 (7.35-7.45)
[2017-08-03 11:46] LABS: Blood Gas Specimen Type VEN; VBG BASE EXCESS 12 mmol/L (-1.0-3.5); VBG Bicarbonate 36 mmol/L (22-26); VBG Oxygen Content 37 mmol/L (23-33); VBG PO2 30 mmHg (25-40); VBG SO2 62 % (50-70); VBG pCO2 46.2 mmHg (41-51)
[2017-08-03 11:46] LABS: Blood Gas Specimen Type VEN; VBG BASE EXCESS 10 mmol/L (-1.0-3.5); VBG Bicarbonate 33 mmol/L (22-26); VBG Oxygen Content 34 mmol/L (23-33); VBG PO2 33 mmHg (25-40); VBG SO2 68 % (50-70); VBG pCO2 44.4 mmHg (41-51); VBG pH 7.48 (7.32-7.42)
[2017-08-03 11:46] LABS: Blood Gas Specimen Type VEN; VBG BASE EXCESS 11 mmol/L (-1.0-3.5); VBG Bicarbonate 35 mmol/L (22-26); VBG Oxygen Content 36 mmol/L (23-33); VBG PO2 30 mmHg (25-40); VBG SO2 61 % (50-70); VBG pCO2 48.2 mmHg (41-51); VBG pH 7.47 (7.32-7.42)
[2017-08-03] MEDS: 0.9% Normal Saline 1,000 ML 50 ML IV (12:21)
--- NOTE | 2017-08-03 12:50 | PCM.DC ---
- Discharge Diagnoses Current Active Problems: Current Active and Chronic Problems Atrial fibrillation (Chronic) Carcinoma, lung (Chronic) Systolic CHF, acute on chronic (Acute) Right heart failure (Chronic) Pulmonary hypertension (Chronic) You will use the following diet at home:: Regular Discharge Activity: Return to Normal Activity Allergies/Adverse Reactions: Allergies bee venom protein (honey bee) Allergy (Verified 07/28/17 16:41) Anaphylaxis latex Allergy (Verified 07/28/17 16:41) Rash Medications to take at Discharge Finasteride [Proscar] 5 mg PO DAILY 08/01/13 Metoprolol Tartrate [Lopressor (beta fito)] 12.5 mg PO BID 08/01/13 Pravastatin Sodium [Pravachol] 10 mg PO QHS 08/01/13 Gabapentin [Neurontin] 600 mg PO QHS 01/31/17 Lorazepam [Ativan] 1 mg PO BID PRN PRN 01/31/17 Mirtazapine [Remeron] 30 mg PO QHS PRN 01/31/17 Morphine Sulfate [Morphine Sulfate ER] 30 mg PO BID PRN PRN 01/31/17 Omeprazole 1 tab PO DAILY 01/31/17 Ondansetron [Zofran] 8 mg PO Q8H PRN PRN 01/31/17 Epinephrine [Epipen] 0.3 mg IM PRN PRN 07/07/17 Nitroglycerin [Nitrostat] 0.4 mg SL PRN PRN 07/07/17 Tamsulosin HCl [Flomax] 0.4 mg PO DAILY 07/07/17 Budesonide/Formoterol 80-4.5 [Symbicort 80-4.5 Mcg Inhaler] 2 puff INHALATION BID 07/09/17 Acetaminophen 1,000 mg PO Q8H PRN 07/28/17 Albuterol IH (ProAir) [Proair Hfa] 2 puff INHALATION 4X/DAY 07/28/17 Calcium Carbonate [Calcium] 500 mg PO DAILY 07/28/17 Fexofenadine HCl [Aller-Ease] 180 mg PO DAILY 07/28/17 Furosemide [Lasix] 80 mg PO BID 07/28/17 Guaifenesin [Mucinex] 1,200 mg PO BID 07/28/17 Potassium Chloride 20 meq PO BID 07/28/17 Prochlorperazine Maleate [Compazine] 10 mg PO Q6H PRN 07/28/17 Warfarin [Coumadin] 6 mg PO SuMoWeThFrSa@1700 07/28/17 Warfarin [Coumadin] 9 mg PO Tu@169907/28/17 Primary Care Physician: Steven Brownlee MD [Primary Care Provider] - In 1 Week Please Follow Up With: [facility] - proceed to slep center after discharge today Proposed Discharge Date: 08/03/17
--- NOTE | 2017-08-03 12:55 | DS.PCM_ITS ---
Discharge Date and Diagnosis - Problem List Patient Problems: Active and Suspected Problems Systolic CHF, acute on chronic (Acute) Date of Admission: 07/28/17 Date of Discharge: 08/03/17 - Primary Discharge Diagnosis Active and Suspected Problems Systolic CHF, acute on chronic (Acute) - Secondary Discharge Diagnosis Chronic Problems Hyperlipidemia (Chronic) Hypertension (Chronic) Tobacco use disorder (Chronic) Chronic airway obstruction (Chronic) Obstructive sleep apnea (Chronic) Chronic pulmonary heart disease (Chronic) Atrial fibrillation (Chronic) Carcinoma, lung (Chronic) Right heart failure (Chronic) Pulmonary hypertension (Chronic) Hospital Course and Treatment Operations: None Summary of Care Provided: 1. Acute on chronic combined systolic/diastolic CHF; Lasix 40 mg p.o. twice daily 2. Acute on chronic respiratory failure with hypoxia; will continue on supplemental oxygen, at bedtime BiPAP 3. Elevated troponin ; he underwent left heart catheterization today and found to have non-CAD related cardiomyopathy with an estimated LVEF of 30%. He will follow up With cardiology for further management. 4. Acute COPD exacerbation; continue on bronchodilator therapy 5. chronic Atrial fibrillation; he is on Coumadin patient had supratherapeutic INR and was given vitamin K, is now 1.6 6. Non-small cell lung cancer; follow-up with [facility] oncology after discharge. 7. OPAL; patient to go to the sleep lab right after discharge. 8. Dementia; supportive measures. The patient is a 61 year old M who was seen in the emergency room at [facility] after being seen in his PCPs office and it was noticed to be short of breath and was found to be hypoxic patient was discharged from the hospital 3 days prior due to respiratory failure.His workup in the emergency room included a chest x-ray which was not appreciably changed from his last admission a week prior, it showed a right pleural effusion with atelectasis or infiltrate of the right lung base. Patient's labs were remarkable for an INR of 5.9, troponin was elevated at 0.65, beta natruretic peptide was elevated at 225, creatinine was 1.69 and BUN was 19. Patient's white blood cell count was 7 , blood gases were obtained on a Ventimask at 50%, pH was 7.46, PCO2 was 60 and PO2 was 66. Patient was given IV Solu-Medrol in the emergency room and aerosol treatments admitted to the intensive care unit. He was seen on consultation by pulmonary medicine and cardiology. Improved with treatment and was then transferred to progressive care unit. Has now reached his baseline, he has derived maximal benefit from this hospitalization and further stay in the hospital would rather be detrimental to his clinical course. He was discharged home in a stable condition with home health care. Physical exam at the time of discharge; vital signs were stable. He was alert and oriented to time place and person. He did not appear to be any form of distress. S1 and S2 heard no murmur or gallop Lung exam was clear to auscultation with no adventitious sounds. Abdomen was soft nontender with normal bowel sounds. extremity exam did not reveal any edema, palpable pulses bilaterally. Neurologic exam was grossly intact. Discharge Activity: Return to Normal Activity Home Medications: Medications to take at Discharge Finasteride [Proscar] 5 mg PO DAILY 08/01/13 Metoprolol Tartrate [Lopressor (beta fito)] 12.5 mg PO BID 08/01/13 Pravastatin Sodium [Pravachol] 10 mg PO QHS 08/01/13 Gabapentin [Neurontin] 600 mg PO QHS 01/31/17 Lorazepam [Ativan] 1 mg PO BID PRN PRN 01/31/17 Mirtazapine [Remeron] 30 mg PO QHS PRN 01/31/17 Morphine Sulfate [Morphine Sulfate ER] 30 mg PO BID PRN PRN 01/31/17 Omeprazole 1 tab PO DAILY 01/31/17 Ondansetron [Zofran] 8 mg PO Q8H PRN PRN 01/31/17 Epinephrine [Epipen] 0.3 mg IM PRN PRN 07/07/17 Nitroglycerin [Nitrostat] 0.4 mg SL PRN PRN 07/07/17 Tamsulosin HCl [Flomax] 0.4 mg PO DAILY 07/07/17 Budesonide/Formoterol 80-4.5 [Symbicort 80-4.5 Mcg Inhaler] 2 puff INHALATION BID 07/09/17 Acetaminophen 1,000 mg PO Q8H PRN 07/28/17 Albuterol IH (ProAir) [Proair Hfa] 2 puff INHALATION 4X/DAY 07/28/17 Calcium Carbonate [Calcium] 500 mg PO DAILY 07/28/17 Fexofenadine HCl [Aller-Ease] 180 mg PO DAILY 07/28/17 Furosemide [Lasix] 80 mg PO BID 07/28/17 Guaifenesin [Mucinex] 1,200 mg PO BID 07/28/17 Potassium Chloride 20 meq PO BID 07/28/17 Prochlorperazine Maleate [Compazine] 10 mg PO Q6H PRN 07/28/17 Warfarin [Coumadin] 6 mg PO [id number]@169907/28/17 Warfarin [Coumadin] 9 mg PO Tu@169907/28/17 Primary Care Physician: Steven Brownlee MD [Primary Care Provider] - In 1 Week Please Follow Up With: [facility] - proceed to slep center after discharge today Meaningful Use Info Meaningful Use Diagnoses (Choose all that apply): None applicable Code Visit Inpatient E&M: 94713 Disch Hosp
--- NOTE | 2017-08-03 14:45 | CASEMGMT ---
Addendum entered by Carolyn Tolentino 08/03/17 16:39: Received call from pt's and she states no need for HHC at this time. Pt's also doesn't feel that they will need the wheelchair that was sent to [facility] for pt. Advised pt's that script is at [facility], if they decide they need in the near future, voices understanding. Advised that pt will be discharged this evening and taken in a wheelchair to the sleep lab, voices understanding and she states that she will be here in the am to pick pt up. Roosevelt BARRIOS CM Original Note: This RN CM to room to speak with pt/ in regards to HHC. is not at bedside at this time. Pt states no need for HHC but would like this RN CM to speak with . Message left with at this time to return call to this RN CM. Roosevelt BARRIOS CM
[2017-08-03] MEDS: Furosemide 40 MG Tablet PO (15:01)
[2017-08-03] MEDS: Finasteride 5 MG Tablet PO (15:01)
[2017-08-03] MEDS: Pantoprazole Sodium 20 MG Tablet PO (15:01)
[2017-08-03] MEDS: Tamsulosin HCl 0.4 MG Capsule PO (15:01)
[2017-08-03] MEDS: guaiFENesin 1,200 MG Tablet 1200 MG PO (15:02)
--- NOTE | 2017-08-03 18:01 | PCM.PN.CARD ---
Subjectve: The patient is status post diagnostic cardiac catheterization. He has no new acute complaints. Objective: Vital Signs Temp Pulse Resp BP Pulse Ox 98.1 F 95 18 102/69 88 08/03/17 12:15 08/03/17 16:00 08/03/17 16:00 08/03/17 16:00 08/03/17 16:13 Oxygen Flow Rate [AMBULATION 6 with Oxygen] Oxygen Flow Rate 6 Oxygen Delivery Method Nasal Cannula Weight: 261 lb 3.964 oz Body Mass Index (BMI) 32.7 Intake and Output for Last 24 Hours 08/01/17 08/02/17 08/03/17 23:59 23:59 23:59 Intake Total 960 / 960 720 / 720 337.1 / 337.1 Output Total 1820 / 1820 500 / 500 Balance -860 / -860 220 / 220 337.1 / 337.1 General: Awake, Alert, Oriented x 3, Cooperative, No Acute Distress Neck: No JVD Lungs: Diminished [place] Bases Cardiovascular: Irregular Rhythm, Normal S1, Normal S2 Abdomen: Bowel Sounds Present, Soft, Non Tender Extremities: Mild RLE Edema, Mild LLE Edema 08/03/17 05:05: WBC 6.9, RBC 4.39 L, Hgb 12.9 L, Hct 40.8, MCV 92.9, MCH 29.4, MCHC 31.6 L, RDW 19.2 H, RDW Differential 64.0 H, Plt Count 140 L, MPV 10.6 08/03/17 05:05: PT 20.1 H, INR 1.8 08/03/17 05:05: Sodium 139, Potassium 3.5, Chloride 98, Carbon Dioxide 34.0 H, Anion Gap 7, BUN 11, Creatinine 0.68 L, Est GFR (MDRD) Af Amer 152, Est GFR (MDRD) Non-Af 126, BUN/Creatinine Ratio 16.3, Glucose 86, Calcium 8.2 L 08/03/17 05:05: APTT 35.4 08/03/17 09:05: PT 19.3 H, INR 1.7 08/03/17 10:54: VBG pH 7.48 H, VBG pO2 33, VBG O2 Sat (Calc) 68, VBG O2 Content 34 H, VBG Base Excess 10 H 08/03/17 10:57: VBG pH 7.47 H, VBG pO2 30, VBG O2 Sat (Calc) 61, VBG O2 Content 36 H, VBG Base Excess 11 H 08/03/17 11:01: pH 7.51 H, Bicarbonate Actual 31.3 H, POC Total CO2 33, Base Excess 8 H, O2 Saturation 94 L, ABG pCO2 39.0, ABG pO2 65 L 08/03/17 11:04: VBG pH 7.50 H, VBG pO2 30, VBG O2 Sat (Calc) 62, VBG O2 Content 37 H, VBG Base Excess 12 H Rhythm: Atrial fibrillation Assessment/Plan 1. Congestive heart failure: Acute on chronic systolic The patient presents back with his third episode this year appearing compatible with acute on chronic systolic mediated CHF. He is undergone noninvasive evaluation as noted above. His estimated LVEF was 35%. According to his [facility] records, in April 2017, his overall LV wall motion and systolic function appeared to be normal. In the past he states this is been considered noncoronary related as his previous cardiac catheterization demonstrated no blockages . He has now undergone repeat diagnostic cardiac catheterization. He does appear to have a non-CAD related cardiomyopathy with an estimated LVEF of 30%. Again there are concerns this may be related to other etiologies including a possible rate related cardiomyopathy. At the present time he will need continued medical management. His medical regimen will include beta blockers, diuretics, afterload reducing agents, etc. as he is able to tolerate. 2. Atrial fibrillation The patient does have a history of atrial fibrillation. He will need continued rate control therapy. He has been on anticoagulant therapy. It is unclear whether he has ever had an attempt at antiarrhythmic therapy or DC cardioversion therapy. These therapies may need to be considered over time depending upon his clinical course and findings. 3. Right heart failure The patient is also noted to have a markedly dilated and dysfunctional right ventricle. This may be secondary to a combination of his left ventricular issues as well as his underlying primary pulmonary issues, which according to conversation with his oncologist, Dr. Dobbins, includes his underlying pulmonary disease process of lung carcinoma as well as pulmonary fibrosis. This could lead to cor pulmonale and right heart failure. At the present time he will need continued treatment for his underlying LV systolic dysfunction. He will need continued treatment for his underlying pulmonary disease process. He will need continued medical management to support his right sided symptoms and objective findings, such as edema, with medical management. 4. Pulmonary hypertension He does have pulmonary hypertension. Again this may be a combination of his left ventricular systolic dysfunction as well as his underlying pulmonary disease process. His pulmonary pressures were reassessed during the cardiac catheterization laboratory evaluation. They were noted to be moderately severely elevated. They appear to be somewhat out of proportion to his left ventricular end-diastolic pressure which appear to be within normal range and his pulmonary capillary wedge pressure which appeared to be only mildly elevated. Thus they may represent an etiology that is more pulmonary related than cardiovascular related. 5. Hyperlipidemia He will continue medical management as deemed appropriate. 6. Hypertension He will need to continue evaluation of his blood pressure with adjustment of medications as tolerated. 7. Lung carcinoma He will need continued evaluation care by her pulmonology and oncology. Again, his case was discussed with Dr. Dobbins. He believes the patient, status post chemotherapy, radiation care therapy, and immunotherapy, has demonstrated remission. However this could change depending upon his ongoing radiologic findings and his upcoming thoracentesis as to whether or not it demonstrates any evidence of malignancy. All, from a cardiac standpoint, he will continue medical management. He will require future outpatient cardiovascular follow-up as well as pulmonology follow-up. Comment: The above was discussed and reviewed with the patient. This note was generated with [email or web address] Dictation software. Every effort was made to ensure accuracy, however, computerized style advisor mistakes may persist.
--- NOTE | 2017-08-03 18:04 | PN.CARD_ITS ---
Subjectve: The patient is status post diagnostic cardiac catheterization. He has no new acute complaints. Objective: Vital Signs Temp Pulse Resp BP Pulse Ox 98.1 F 95 18 102/69 88 08/03/17 12:15 08/03/17 16:00 08/03/17 16:00 08/03/17 16:00 08/03/17 16:13 Oxygen Flow Rate [AMBULATION 6 with Oxygen] Oxygen Flow Rate 6 Oxygen Delivery Method Nasal Cannula Weight: 261 lb 3.964 oz Body Mass Index (BMI) 32.7 Intake and Output for Last 24 Hours 08/01/17 08/02/17 08/03/17 23:59 23:59 23:59 Intake Total 960 / 960 720 / 720 337.1 / 337.1 Output Total 1820 / 1820 500 / 500 Balance -860 / -860 220 / 220 337.1 / 337.1 General: Awake, Alert, Oriented x 3, Cooperative, No Acute Distress Neck: No JVD Lungs: Diminished Sekou Bases Cardiovascular: Irregular Rhythm, Normal S1, Normal S2 Abdomen: Bowel Sounds Present, Soft, Non Tender Extremities: Mild RLE Edema, Mild LLE Edema 08/03/17 05:05: WBC 6.9, RBC 4.39 L, Hgb 12.9 L, Hct 40.8, MCV 92.9, MCH 29.4, MCHC 31.6 L, RDW 19.2 H, RDW Differential 64.0 H, Plt Count 140 L, MPV 10.6 08/03/17 05:05: PT 20.1 H, INR 1.8 08/03/17 05:05: Sodium 139, Potassium 3.5, Chloride 98, Carbon Dioxide 34.0 H, Anion Gap 7, BUN 11, Creatinine 0.68 L, Est GFR (MDRD) Af Amer 152, Est GFR ( MDRD) Non-Af 126, BUN/Creatinine Ratio 16.3, Glucose 86, Calcium 8.2 L 08/03/17 05:05: APTT 35.4 08/03/17 09:05: PT 19.3 H, INR 1.7 08/03/17 10:54: VBG pH 7.48 H, VBG pO2 33, VBG O2 Sat (Calc) 68, VBG O2 Content 34 H, VBG Base Excess 10 H 08/03/17 10:57: VBG pH 7.47 H, VBG pO2 30, VBG O2 Sat (Calc) 61, VBG O2 Content 36 H, VBG Base Excess 11 H 08/03/17 11:01: pH 7.51 H, Bicarbonate Actual 31.3 H, POC Total CO2 33, Base Excess 8 H, O2 Saturation 94 L, ABG pCO2 39.0, ABG pO2 65 L 08/03/17 11:04: VBG pH 7.50 H, VBG pO2 30, VBG O2 Sat (Calc) 62, VBG O2 Content 37 H, VBG Base Excess 12 H Rhythm: Atrial fibrillation Assessment/Plan 1. Congestive heart failure: Acute on chronic systolic The patient presents back with his third episode this year appearing compatible with acute on chronic systolic mediated CHF. He is undergone noninvasive evaluation as noted above. His estimated LVEF was 35%. According to his [facility] records, in April 2017, his overall LV wall motion and systolic function appeared to be normal. In the past he states this is been considered noncoronary related as his previous cardiac catheterization demonstrated no blockages . He has now undergone repeat diagnostic cardiac catheterization. He does appear to have a non-CAD related cardiomyopathy with an estimated LVEF of 30%. Again there are concerns this may be related to other etiologies including a possible rate related cardiomyopathy. At the present time he will need continued medical management. His medical regimen will include beta blockers, diuretics, afterload reducing agents, etc. as he is able to tolerate. 2. Atrial fibrillation The patient does have a history of atrial fibrillation. He will need continued rate control therapy. He has been on anticoagulant therapy. It is unclear whether he has ever had an attempt at antiarrhythmic therapy or DC cardioversion therapy. These therapies may need to be considered over time depending upon his clinical course and findings. 3. Right heart failure The patient is also noted to have a markedly dilated and dysfunctional right ventricle. This may be secondary to a combination of his left ventricular issues as well as his underlying primary pulmonary issues, which according to conversation with his oncologist, Dr. Dobbins, includes his underlying pulmonary disease process of lung carcinoma as well as pulmonary fibrosis. This could lead to cor pulmonale and right heart failure. At the present time he will need continued treatment for his underlying LV systolic dysfunction. He will need continued treatment for his underlying pulmonary disease process. He will need continued medical management to support his right sided symptoms and objective findings, such as edema, with medical management. 4. Pulmonary hypertension He does have pulmonary hypertension. Again this may be a combination of his left ventricular systolic dysfunction as well as his underlying pulmonary disease process. His pulmonary pressures were reassessed during the cardiac catheterization laboratory evaluation. They were noted to be moderately severely elevated. They appear to be somewhat out of proportion to his left ventricular end- diastolic pressure which appear to be within normal range and his pulmonary capillary wedge pressure which appeared to be only mildly elevated. Thus they may represent an etiology that is more pulmonary related than cardiovascular related. 5. Hyperlipidemia He will continue medical management as deemed appropriate. 6. Hypertension He will need to continue evaluation of his blood pressure with adjustment of medications as tolerated. 7. Lung carcinoma He will need continued evaluation care by her pulmonology and oncology. Again, his case was discussed with Dr. Dobbins. He believes the patient, status post chemotherapy, radiation care therapy, and immunotherapy, has demonstrated remission. However this could change depending upon his ongoing radiologic findings and his upcoming thoracentesis as to whether or not it demonstrates any evidence of malignancy. All, from a cardiac standpoint, he will continue medical management. He will require future outpatient cardiovascular follow-up as well as pulmonology follow -up. Comment: The above was discussed and reviewed with the patient. This note was generated with [employer] Dictation software. Every effort was made to ensure accuracy, however, computerized radial drill press operator for plastic mistakes may persist.
[2017-08-03] MEDS: Pravastatin 20 MG Tablet 10 MG PO (18:54)
[2017-08-03] MEDS: Gabapentin 300 MG Capsule PO (18:55)
--- NOTE | 2017-08-04 10:47 | CL.D_ITS ---
Patient Name: SHYAM ENNIS Study Date: 08/03/2017 Performing: Ric Williamson MD Ht: 75 inches 191 cm : 1955 Wt: 264.9 lbs 120 kg Age: 61 Gender: male BSA: 2.48 PROCEDURE(S) PERFORMED CT01-CTD/LHC/COR/LV CLINICAL PROFILE AND INDICATIONS INDICATIONS: Shortness of Breath, Congestive Heart Failure, New onset, Cardiomyopathy Stress/Imaging Stress/Image Study Performed: No Angina Classification Anginal Classification w/in 2 Weeks: No symptoms CAD Presentations: Other: Shortness of Breath CONCLUSIONS Normal Left Ventricular End Diastolic Pressure Right heart pressures - moderately to severely elevated The patient has pulmonary hypertension which is moderate to severe. Intracardiac shunting: None Global LV systolic dysfunction- Moderate LVEF: by LV gram 30 % Mitral Valve Stenosis Moderate (Comment: The accuracy of the Mitral Valve gradients and area are in q uestion secondary to a combination of the underlying atrial fibrillation and the respiratory variatio n effects on the hemodynamic pressure recordings despite attempts at avoiding respiratory variation a nd rebalancing the left and right heart pressure tracings.) RECOMMENDATIONS Risk factor modification Medical therapy DESCRIPTION OF PROCEDURE The patient arrived to the procedure lab. The risks and benefits of the procedure as well as a full d escription of our services here and current unavailability of surgical backup were fully explained to the patient and/or their significant other prior to the catheterization. The Timeout was completed, verifying the correct patient and procedure. The patient's procedural site was prepped and draped in the usual fashion. Local anesthetic was given subcutaneously to right groin region with Lidocaine 2%. Using a modified Seldinger technique, arterial access was obtained via the right femoral artery, a 4 Fr sheath was inserted Venous access was obtained via the right femoral vein, a 7Fr sheath was insert ed. A 7Fr thermal dilution catheter was inserted and right heart pressures were recorded, it was then advanced to PA position for cardiac outputs. Thermal dilution cardiac outputs were then recorded. Th ermal dilution cardiac outputs were then recorded. O2 saturations were then obtained. The Thermal dil ution catheter was then removed. Left Ventriculography was performed in DE ANDA projection using a 4 Fr. Pigtail catheter. Left Coronary Artery selective angiography was performed in multiple views using a 4 Fr. JL5 catheter. Right Coronary Artery selective angiography was then performed in multiple views using a 4 Fr. 3DRC catheter.The arterial sheath was pulled and manual compression applied until hemos tasis is achieved.. The venous sheath was then pulled and manual compression applied until hemostasis achieved CORONARY ANGIOGRAPHY DOMINANCE: Right Dominant LEFT HEART ASSESSMENT Left Ventricular Ejection Fraction: by LV Gram 30 % Global Hypokinesis - Moderate Normal Left Ventricular End Diastolic Pressure RIGHT HEART ASSESSMENT Thermal CO: 4.17 Thermal CI: 1.68 Anita CO: 7.23 Anita CI: 2.92 PW: /14 14 PA: 57/28 37 RV: 52/3 12 RA: / 16 PVR: 441 SVR: 1228 Aortic Valve Area: 3.43 Aortic Valve Index: 1.38 Aortic Valve Mean Gradient: 10 Mitral Valve Area: 1.27 Mitral Valve index: 0.51 Mitral Valve Mean Gradient: 14.5 Right Heart pressures - elevated Pulmonary Hypertension Intracardiac shunting: None LEFT MAIN: Mild calcification, Angiographically normal LEFT ANTERIOR DECENDING ARTERY: Angiographically normal PROX LAD: Mild calcification CIRCUMFLEX ARTERY: Angiographically normal RIGHT CORONARY ARTERY: Mild luminal irregularities VALVE FINDINGS: Normal Aortic Valve function Mitral Valve Stenosis - moderate AORTIC ROOT: Angiographically normal COMPLICATIONS No Complications PROCEDURE MEDICATIONS Oxygen: 6 L/min via nasal cannula SUMMARY OF HEMODYNAMIC DATA Time AIR REST ECG 10:28:17 RA /20 (16) SV 10:53:22 RV 52/3, 12 10:53:48 PW /14 (14) PV 10:57:50 PA 57/28 (37) PA 10:58:38 LV 88/0, 4 11:05:45 PW / (14) 11:05:45 LV 90/0, 7 11:05:52 PW /17 (16) 11:05:52 LV 103/-7, 7 11:08:04 PW / (18) 11:08:04 LVp 98/-7, 10 11:08:34 AOp 101/66 (80) 11:08:39 PA 58/31 (39) 11:09:12 RV 52/4, 15 11:09:53 RA / (17) 11:10:05 AO 90/70 (80) SA 11:13:44 Valve Area (c P-P/ms Time AIR REST Mitral 1.27 14.5 mn/251 ms 11.0 pk/251 ms 11:08:04 Aortic 3.44 10.0 mn/102 ms 11:08:34 Type SV CO (l/m) CI (l/m/ HR Time AIR REST Thermal 42.60 4.17 1.68 98 10:28:17 Anita 73.80 7.23 2.92 98 10:28:17 Label % O2 Pres/Loc Time AIR REST IVC 68 SV 11:20:21 SVC 61 11:20:32 PA 62 PA 11:20:52 AO 94 PV 11:21:03 Signed By Ric Williamson MD On 08/03/2017 14:27:18 Ric Williamson MD
--- NOTE | 2017-08-04 11:27 | CASEMGMT ---
Received call from pt's and she states that they are definitely going to need a wheelchair for pt but she would like the script sent to [facility] at this time and she would like to have pt's oxygen transferred from [facility] as she is not happy with their service at this time. Call to Olivia at [facility] and updated on all at this time, voices understanding. Wheelchair script with F2F and face sheet faxed to [facility] at this time. Roosevelt BARRIOS CM
== END 2017-08-03 19:40 | disposition home health service (06) | DRG 280 ==
LOC: ED 16:54 → PCU 20:41
PROVIDERS: Internal Medicine Cardiovascular Disease; Nurse Practitioner Family; Admitting Provider Internal Medicine; Emergency Provider Emergency Medicine; Family Provider Family Medicine; PCP Family Medicine; Visit Provider Internal Medicine
DX: I11.0 Hypertensive heart disease with heart failure (principal); J96.22 Acute and chronic respiratory failure with hypercapnia; I21.A1 Myocardial infarction type 2; J96.21 Acute and chronic respiratory failure with hypoxia; J91.0 Malignant pleural effusion; I27.20 Pulmonary hypertension, unspecified; C34.90 Malignant neoplasm of unspecified part of unspecified bronchus or lung; I42.9 Cardiomyopathy, unspecified; J44.1 Chronic obstructive pulmonary disease with (acute) exacerbation; J98.11 Atelectasis; I50.43 Acute on chronic combined systolic (congestive) and diastolic (congestive) heart failure; F03.90 Unspecified dementia, unspecified severity, without behavioral disturbance, psychotic disturbance, mood disturbance, and anxiety; I48.2 Chronic atrial fibrillation; G47.33 Obstructive sleep apnea (adult) (pediatric); I50.82 Biventricular heart failure; E78.5 Hyperlipidemia, unspecified; Z79.01 Long term (current) use of anticoagulants; Z87.891 Personal history of nicotine dependence; Z92.3 Personal history of irradiation; Z92.21 Personal history of antineoplastic chemotherapy; Z66 Do not resuscitate; Z91.19 Patient's noncompliance with other medical treatment and regimen; F40.240 Claustrophobia
CPT/HCPCS: 36415; 36600; 71045; 76604; 80048; 82803; 83615; 83880; 84156; 84484; 85025; 85027; 85610; 85730; 87040; 93005; 93306; 93460; 94002; 94003; 94640; 95811; 97116; 97161; 97165; 99251; 99285; 99406; J7030; Q9957; Q9967; A4216; C1751; C1769; C1894; C8929; G0463; J1940

== ENCOUNTER → 2017-08-03 20:31 | Outpatient (CLI) | payer MEDICARE, SELFPAY ==
[2017-07-28 21:19] VITALS: BP 108/77
[2017-07-28 22:20] VITALS: BMI 32.7
[2017-07-30 13:58] VITALS: BP 103/65
== END ==
PROVIDERS: Family Provider Family Medicine; PCP Family Medicine; Visit Provider Internal Medicine Critical Care Medicine
DX: G47.33 Obstructive sleep apnea (adult) (pediatric) (principal)
CPT/HCPCS: 95811

== ENCOUNTER → 2018-05-16 15:10 | Outpatient (CLI) | payer MEDICARE, SELFPAY ==
[2018-05-16 15:09] VITALS: BMI 32.7
[2018-05-16 15:17] LABS: Absolute Lymphocyte Count 1.15 X10^3/ul (0.83-4.51); Absolute Neutrophil Count 5.4 X10^3/uL (2.0-7.7); Basophil# 0.03 X10^3/uL; Basophil% 0.4 % (0-1); Eosinophil# 0.44 X10^3/uL; Eosinophils% 5.7 % (0-5); Hematocrit 48.3 % (40-54); Lymphocyte # 1.15 X10^3/ul (4.0); Lymphocyte % 14.8 % (19-41); Mean Corp Hgb Conc 31.1 g/gl (32-36); Mean Corpuscular Hgb 27.9 pg (27.0-32.0); Mean Corpuscular Volume 89.9 fL (80-94); Mean Platelet Vol. 9.9 fl (6.2-12.0); Monocyte# 0.71 X10^3/uL; Monocyte% 9.2 % (0-10); Neutrophil # 5.41 X10^3/uL (2.7-7.7); Neutrophil % 69.8 % (47-70); POSITIVE COUNT NO; POSITIVE DIFFERENTIAL NO; POSITIVE MORPHOLOGY NO; Platelet Count 227 K/mm3 (150-450); RBC Distribution Width CV 16.3 % (11.6-14.6); RBC Distribution Width SD 53.5 fl (35.1-43.9); Red Blood Count 5.37 M/mm3 (4.6-6.2); White Blood Count 7.8 K/mm3 (4.4-11.0)
== END ==
PROVIDERS: Family Provider Family Medicine; PCP Family Medicine; Referring Provider Nurse Practitioner; Visit Provider Nurse Practitioner
DX: C34.31 Malignant neoplasm of lower lobe, right bronchus or lung (principal)
CPT/HCPCS: 85025

== ENCOUNTER 2018-08-07 17:18 | Emergency (ER) | payer MEDICARE, SELFPAY ==
[2018-05-16 15:09] VITALS: BMI 32.7
[2018-08-07 17:19] VITALS: BP 99/69; PULSE 95; RESP 13; TEMP 36.7; O2SAT 93; BMI 30.4
[2018-08-07] MEDS: Acetaminophen 500 MG Tablet 1000 MG PO (18:24)
[2018-08-07] MEDS: Lidocaine Jelly 2% 20 ML Syringe (URO-JET) 2 APPLIC TOPICAL (18:24)
[2018-08-07] MEDS: BACITRACIN 15 GM Tube 1 APPLIC TOPICAL (18:25)
--- NOTE | 2018-08-07 18:52 | ED.VISSUMM ---
- ER Visit Summary Date of Service: 08/07/18 Chief Complaint: Chavez to face History of Present Illness: The patient is a 62 M who smoked a cigarette yesterday with his oxygen on causing chavez to his upper lip and nose. He is complaining of pain primarily in his nose. He wears 4-5 L nasal cannula chronically. Patient has a history of lung cancer, A. fib, sleep apnea. He also has hypertension, high cholesterol, and CHF. Physical Examination: Vital signs grossly unremarkable. Patient sitting upright in bed no acute distress. Head neck examination does reveal singed eyebrows. TMs are clear bilaterally. He has mild erythema and edema noted to the bilateral nares. Posterior pharynx exam is normal. He does have first-degree chavez along the upper lip up to the base of his nose. Heart is irregular. Lungs sounds clear. Test Results: [] Emergency Department Course and Treatment: Lidocaine jelly was applied with a cotton swab to his nostrils to help with pain. He is given bacitracin ointment to his lip. He is written a prescription for bacitracin ointment advised to use this to the skin chavez as well as to align his nose with this. Treatment Plan: [] Disposition: Discharge Impression: First-degree chavez to face and nares This note was generated with [employer] dictation software. It may contain incorrect words, spelling, and punctuation that were not noted in review of the chart prior to signing ED Disposition - Plan for ED Patient: Disposition: Home or Assisted Living Instructions: ED Burn Thermal D 1st 2nd Dressing Prescriptions: Bacitracin 1 applicatio TP BID #1 tube Referrals: Steven Brownlee MD [Primary Care Provider] - 1 Week
== END 2018-08-07 19:05 | disposition home or self-care (01) ==
PROVIDERS: Emergency Provider Emergency Medicine; Family Provider Family Medicine; PCP Family Medicine
DX: T20.14XA Burn of first degree of nose (septum), initial encounter (principal); X08.8XXA Exposure to other specified smoke, fire and flames, initial encounter; Y93.9 Activity, unspecified; Y92.89 Other specified places as the place of occurrence of the external cause; Y99.9 Unspecified external cause status; I48.91 Unspecified atrial fibrillation; I10 Essential (primary) hypertension; E78.00 Pure hypercholesterolemia, unspecified; Z85.118 Personal history of other malignant neoplasm of bronchus and lung; G47.33 Obstructive sleep apnea (adult) (pediatric); Z87.891 Personal history of nicotine dependence; Z79.01 Long term (current) use of anticoagulants
CPT/HCPCS: 99282

== ENCOUNTER 2018-09-07 20:17 | Inpatient (IN) | payer MEDICARE, SELFPAY ==
[2018-09-07] VITALS (7 sets, daily range): BP systolic 94–101; BP diastolic 54–73; PULSE 78–96; RESP 20–26; TEMP 36.9; O2SAT 87–97; BMI 31.2
[2018-09-07 20:55] LABS: Bedside Glucose 125 mg/dL (70-110)
--- NOTE | 2018-09-07 21:27 | EKG12_ITS ---
Test Reason : CONFUSION Blood Pressure : / mmHG Vent. Rate : 096 BPM Atrial Rate : 101 BPM P-R Int : 000 ms QRS Dur : 174 ms QT Int : 376 ms P-R-T Axes : 000 090 -84 degrees QTc Int : 475 ms Atrial fibrillation Right bundle branch block Septal infarct , age undetermined T wave abnormality, consider inferolateral ischemia Abnormal ECG Confirmed by NAKUL GREER, BHAVESH ([id number]), food editor LILLIAN HOUGH ([id number]) on 09/09/2018 8:24:03 AM Referred By: Maryan Phillips Confirmed By:BHAVESH MOTA MD
--- NOTE | 2018-09-07 21:30 | RAD_ITS ---
STUDY: X-RAY CHEST REASON FOR EXAM: Male, 62 years old. CHF. Confusion. TECHNIQUE: Portable chest. COMPARISON: 07/28/2017. 07/07/2017. FINDINGS: There is no pleural effusion. Hazy opacities in the right lower lobe are suspicious for pneumonia. Mild increased markings are noted on the left. Normal size heart. Normal mediastinum and barry. Normal visualized pulmonary arteries. Normal visualized aortic arch and descending thoracic aorta. Normal visualized thoracic spine. Normal visualized ribs, clavicles, and shoulders. There is no demonstrated abnormality of the visualized soft tissue structures of the upper abdomen. RAD/Chest 1 View (Portable) IMPRESSION: 1. Right lower lobe pneumonia. Recurrent pneumonia in the same segmental distribution raises concern for possible underlying endobronchial lesion. Consider nonemergent CT of the chest after treatment and resolution of current symptoms. 2. Early pneumonic infiltrate on the left. Electronically Signed: Rosemarie Loo MD at 22:14 EDT Tel , Service support ,
[2018-09-07 21:44] LABS: Absolute Lymphocyte Count 1.08 X10^3/ul (0.83-4.51); Absolute Neutrophil Count 4.4 X10^3/uL (2.0-7.7); Basophil# 0.03 X10^3/uL; Basophil% 0.5 % (0-1); Eosinophil# 0.28 X10^3/uL; Eosinophils% 4.4 % (0-5); Hematocrit 43.2 % (40-54); Hemoglobin 13.2 g/dl (13.0-16.5); Lymphocyte # 1.08 X10^3/ul (4.0); Lymphocyte % 16.8 % (19-41); Mean Corp Hgb Conc 30.6 g/gl (32-36); Mean Corpuscular Hgb 28.9 pg (27.0-32.0); Mean Corpuscular Volume 94.7 fL (80-94); Mean Platelet Vol. 10.1 fl (6.2-12.0); Monocyte# 0.67 X10^3/uL; Monocyte% 10.4 % (0-10); Neutrophil # 4.35 X10^3/uL (2.7-7.7); Neutrophil % 67.7 % (47-70); Platelet Count 182 K/mm3 (150-450); RBC Distribution Width CV 16.5 % (11.6-14.6); RBC Distribution Width SD 57.6 fl (35.1-43.9); Red Blood Count 4.56 M/mm3 (4.6-6.2); White Blood Count 6.4 K/mm3 (4.4-11.0)
[2018-09-07 21:45] LABS: POSITIVE COUNT NO; POSITIVE DIFFERENTIAL NO; POSITIVE MORPHOLOGY NO
[2018-09-07 21:48] LABS: International Normalized Ratio 2.1; Prothrombin Time (Protime)PT. 23.4 SECONDS (11.7-14.9)
[2018-09-07 21:49] LABS: Partial Thromboplast Time 37.8 Seconds (24.1-36.2)
[2018-09-07 21:55] LABS: Lactic Acid 1.2 mmol/L (0.4-2.0)
--- NOTE | 2018-09-07 22:06 | NURSING ---
ZAHIRA FROM LAB CALLED WITH POTASSIUM 2.7, DR. NAVARRO INFORMED OF SAME.
[2018-09-07 22:07] LABS: ALB/GLOB Ratio 0.8 RATIO (0.9-2.4); AST(SGOT) 18 U/L (15-37); Alanine Aminotransfer ALT/SGPT 14 U/L (16-61); Albumin, Serum 3.3 g/dL (3.2-5.0); Alkaline Phosphatase 116 U/L (45-117); Anion Gap 7 (5-15); BUN 11 mg/dL (7-18); BUN/Creat Ratio 8.1 RATIO (10-20); Calcium,Total 8.9 mg/dL (8.5-10.1); Chloride 84 mmol/L (98-107); Creatinine, Serum 1.35 mg/dL (0.70-1.30); EST Glomerular Filtration Rate 56 mL/min (>60); Est Glom Filt Rate - Afr Amer 68 mL/min (>60); Estimated Creatinine Clearance 66.07 ml/min; Globulin 4.3 g/dL (2.2-4.2); Glucose 111 mg/dL (74-106); Protein, Total 7.6 g/dL (6.4-8.2)
--- NOTE | 2018-09-07 22:11 | ED.RN ---
CRISTIANO MILLS,RN, PRIMARY NURSE INFORMED OF PT'S LAB VALUE OF LOW POTASSIUM 2.7.
[2018-09-07 22:20] LABS: Bacteria 0 SEEN /hpf (None Seen); Mucous, Urine 0 SEEN /hpf (<or=2+); Red Blood Cells-Urine 0 SEEN /hpf (0-5); White Blood Cells 0 SEEN /hpf (0-5)
[2018-09-07 22:22] LABS: Color, Urine Yellow (Yellow); Glucose, Dipstick Normal (Normal); Ketone-Dipstick Negative (Negative); Leukocyte Esterase-Dipstick Negative /ul (Negative); Nitrite-Dipstick Negative (Negative); Occult Blood-Urine Negative /ul (Negative); Protein-Dipstick Negative (Negative); Urine Bilirubin Dipstick Negative (Negative); Urine Clarity Clear (Clear); Urine Urobilinogen Normal (Normal)
[2018-09-07 22:28] LABS: Squamous Epithelial Cells - UA 0-5 SEEN /hpf (0-5)
--- NOTE | 2018-09-07 22:44 | CT_ITS ---
STUDY: CTA CHEST REASON FOR EXAM: Male, 62 years old. Shortness of breath, bilateral lower extremity edema and weakness. RADIATION DOSAGE (If Supplied By Facility): CTDIvol = ( 8.39 ) mGy, DLP = ( 575.47 ) mGycm TECHNIQUE: The examination was performed with the intravenous administration of Isovue 370 100 ml. Post-processing of the angiographic images was performed, with multiplanar reformation and 3D reconstruction. Individualized dose optimization techniques were used for this CT. COMPARISON: None. FINDINGS: Cardiac monitoring leads are present. Normal enhancement of the main pulmonary artery and right and left pulmonary arteries. Normal enhancement of the bilateral peripheral pulmonary arteries. There is no demonstrated pulmonary embolism. There is prominence of the main pulmonary arteries and peripheral pulmonary arteries, consistent with congestive heart failure (CHF). There is atherosclerotic calcification of the aortic arch with tortuosity. Transverse dimension of the ascending thoracic aorta measures approximately 4.2 cm in greatest transverse dimension. There is no demonstrated aortic dissection. There is cardiomegaly. There are calcifications of the coronary arteries. There is subcarinal renny mass measuring approximately 4.4 x 2.7 x 4.1 cm in size. The subcarinal lymphadenopathy appears to be contiguous with a right-sided hilar renny mass and lymphadenopathy. There appears to be right-sided hilar infiltrative renny mass is contiguous with airspace disease within the right lower lobe where there are air bronchograms. This extends to the inferior posterior right chest wall.. Normal visualized trachea and bronchi. The lungs are well expanded. There are lucencies visible within the upper lobes with interstitial thickening consistent with centrilobular emphysema and possible pulmonary fibrosis respectively. There is a left lower lobe pulmonary nodule best seen on axial image #143 and coronal image #187. This nodule measures approximately 8.1 mm in greatest dimension. There appears to be a right lower lobe pulmonary nodule best seen on axial image #72 and coronal image #192 and measures approximately 1.3 cm in size there is a left lower lobe pulmonary nodule best seen on axial image #95 and coronal image #118 measuring up to 1.3 cm in greatest dimension.. Incidental note is made of bilateral gynecomastia. There is increased thoracic kyphosis. There is multilevel thoracic spondylosis. Normal visualized upper abdomen. CT/CTA Chest W/WO Contrast IMPRESSION: 1. No CTA demonstrated pulmonary embolism or arterial dissection. 2. There is infiltrative mediastinal and right-sided hilar renny mass with probable postobstructive atelectasis within the right lower lobe. There may also be neoplastic process involving the right lower lobe. 3. Multiple bilateral pulmonary nodules as described may represent metastases. 4. Cardiomegaly, sequelae of coronary artery vascular disease and mild pulmonary edema. Electronically Signed: Radha Perez MD at 1:09 EDT , Service support ,
[2018-09-07 22:57] LABS: BNP,B-Type NATRIURETIC PEPTIDE 343.9 pg/mL (0-100)
[2018-09-08] VITALS (29 sets, daily range): BP systolic 81–107; BP diastolic 46–73; PULSE 24–123; RESP 12–24; TEMP 36.2–36.6; O2SAT 88–100; BMI 30.4; BMI 30.5
[2018-09-08] MEDS: Potassium Chloride 10mEq/100mL 10 MEQ/100 ML IV.SOLN. 100 MEQ IV BOLUS ×5 (00:06→15:48)
--- NOTE | 2018-09-08 01:17 | CT_ITS ---
STUDY: CT BRAIN WITHOUT CONTRAST REASON FOR EXAM: Male, 62 years old. Confusion. Weakness. Shortness of breath. Lung cancer RADIATION DOSAGE (If Supplied By Facility): CTDIvol = ( 44.99 ) mGy, DLP = ( 846.73 ) mGycm TECHNIQUE: Transaxial CT imaging of the brain was performed without administration of intravenous contrast material. Individualized dose optimization techniques were used for this CT. COMPARISON: None. FINDINGS: Normal soft tissue structures. Normal calvarium. Normal size ventricles and extra-axial spaces for the patient's age. Normal white matter tracts of the cerebral hemispheres. Normal basal ganglia and thalami. Normal brainstem. Normal cerebellum. There is no intracranial hemorrhage. There are no findings of an acute ischemic infarction. Normal visualized paranasal sinuses. CT/Brain/Head without Contrast IMPRESSION: Normal unenhanced CT scan of the brain. No acute findings in the brain. No metastatic disease. Electronically Signed: Mark Hernandez MD at 3:06 EDT Tel , Service support ,
--- NOTE | 2018-09-08 01:20 | ED.DCSUM_ITS ---
- ER Visit Summary Date of Service: 09/08/18 Chief Complaint: Leg swelling weakness History of Present Illness: The patient is a 62 M who is brought in by family. They tell me that for the past several days his legs are becoming increasingly swollen and red. They note that he has been increasingly short of breath and having increased oxygen requirements. Today son states that he was confused and seemed to have a facial droop. This seems to have resolved about 1-2 hours later per the son. She is on Coumadin for A. fib. He has a history of lung cancer which he sees Dr. Helton is on immunotherapy for. Also noted history of CHF and pulmonary hypertension. He continues to smoke. Patient has been wearing 6 L of home O2 recently. He is a mouth breather and nursing informs me that when he falls asleep his oxygen saturation drops. That is why they have him on nonrebreather. Apparently the patient has been sporadically taking his medications. believes he has been taking more Lasix than normal recently Physical Examination: 94/54 temperature 98.5 heart rate 96 respirations are 16 pulse ox 94% on nonrebreather. Gen: Well-nourished well-developed Head: Normocephalic atraumatic Eyes: Perrl EOMI ENT: TMs clear no rhinorrhea moist mucous membranes Neck: Supple no lymphadenopathy no JVD nontender CVS: Regularly irregular rhythm no murmurs normal S1-S2 Respiratory: No distress clear to auscultation bilaterally chest nontender Abdomen: Soft nontender nondistended normal bowel sounds no masses Back: Nontender Extremity: Bilateral lower extremity edema 3+ bilateral erythema Skin: Normal color no rash Neuro: alert orientated ?3 CN II-XII intact normal strength sensation reflexes Psych: Normal affect normal mood Test Results: EKG demonstrates A. fib at a rate of 96. Chest x-ray shows possible infiltrate bilaterally. White count 6.4. Potassium 2.7. Creatinine 1.35. Troponin 0 0.019. BNP 343.9. Lactic acid 1.2. CTA of the chest was obtained. Please see radiologist read. INR is therapeutic at 2.1. CT brain was obtained. Emergency Department Course and Treatment: Patient received Lasix and Ancef. Blood cultures were obtained. And is admission. Patient received 40 mEq of potassium p.o. and 10 mEq IV. Impression: 1. Acute exacerbation of diastolic CHF 2. Hypokalemia 3. Lung cancer This note was generated with [employer] dictation software. It may contain incorrect words, spelling, and punctuation that were not noted in review of the chart prior to signing ED Disposition - Plan for ED Patient: Referrals: Steven Brownlee MD [Primary Care Provider] -
--- NOTE | 2018-09-08 01:21 | PCM.HP.STD ---
Problem List (1) Acute and chronic respiratory failure with hypoxia Status: Acute (2) Systolic CHF, acute on chronic Status: Acute (3) Acute on chronic diastolic (congestive) heart failure Status: Acute (4) Hyperlipidemia Status: Chronic Qualifiers: Hyperlipidemia type: unspecified Qualified Code(s): E78.5 - Hyperlipidemia, unspecified (5) Hypertension Status: Chronic Qualifiers: Hypertension type: essential hypertension Qualified Code(s): I10 - Essential (primary) hypertension (6) Tobacco use disorder Status: Chronic (7) Obstructive sleep apnea Status: Chronic (8) Chronic pulmonary heart disease Status: Chronic (9) Atrial fibrillation Status: Chronic Qualifiers: Atrial fibrillation type: permanent Qualified Code(s): I48.2 - Chronic atrial fibrillation (10) Carcinoma, lung Status: Chronic Qualifiers: Laterality: right Qualified Code(s): C34.91 - Malignant neoplasm of unspecified part of right bronchus or lung History of Present Illness Date of Admission: 09/08/18 Chief Complaint: Dyspnea The patient is a 62 y/o M w/ PMHx: Dementia unclear type without behavioral disturbance history, Chronic Hypoxic Respiratory Failure, Chronic COPD, History of Lung Carcinoma (NSC lung CA) following w/ Dr. Dobbins s/p chemotherapy, radiation and currently on immunotherapy, Chronic Systolic and Diastolic CHF, OPAL on BIPAP, HTN, HLD, Tobacco use, Chronic AF, Pulmonary HTN, OPAL who presents to the [facility] ED on 09/08/18 with history of increasing BL LE edema, worsened redness w/ concurrently increasingly worsening dyspnea with increase of his home O2 4L-->6L NC with onset confusion from prior recent pulmonary records patient had been on 6 L at that time. Patient's son had mentioned possibly patient having facial droop however per discussion with the ED staff with there was no mention and this was resolved upon presentation to the ED. Work-up in the ED included T 98.5, heart rate 96, BP initially 94/54, respiratory rate 26, 90% on 6 L nasal cannula eventually transition to a nonrebreather and then transition to BiPAP with most recent vital signs heart rate 89, BP 99/65, respiratory rate 23, 100% on BiPAP, CBC with WBC 6.4, hemoglobin 13.2, platelet 182 without left shift, INR 2.1, PT 23.4, PTT 37.8, CMP with sodium 134, potassium 2.7, chloride 84, carbon dioxide 43, BUN/Cr 11/1.35, glucose 111, lactic acid 1.2, BNP 343.9, urinalysis unremarkable, blood culture x2 and urine culture pending per ED, chest x-ray with right lower lobe pneumonia with recurrent pneumonia in the same segmental distribution with concern for underlying endobronchial lesion, early pneumonic infiltrate on the left, follow-up CTPA with no evidence of acute pulmonary embolism or arterial dissection with an infiltrative mediastinal and right sided hilar renny mass with probable postobstructive atelectasis within the right lower lobe and possible neoplastic process involving the right lower lobe, multiple bilateral pulmonary nodules suspicious for metastases, cardiomegaly, sequelae of coronary artery vascular disease and mild pulmonary edema. In the ED patient administered potassium IV and oral supplementation, Lasix 80 mg IV x1 in addition to cefazolin for possible cellulitis, CT head pending. Past Medical History Past Medical History (Chronic Problems): Chronic Problems (Last Reviewed 08/19/17 @ 08:37 by Kelley Villagomez, MANAGER [employer]) Hyperlipidemia (Chronic) Hypertension (Chronic) Tobacco use disorder (Chronic) Chronic airway obstruction (Chronic) Obstructive sleep apnea (Chronic) Chronic pulmonary heart disease (Chronic) Atrial fibrillation (Chronic) Carcinoma, lung (Chronic) Right heart failure (Chronic) Pulmonary hypertension (Chronic) Medical History: Medical History (Last Reviewed 08/19/17 @ 08:37 by Kelley Villagomez, MANAGER [employer]) Hyperlipidemia (Chronic) E78.5 Hypertension (Chronic) I10 Tobacco use disorder (Chronic) F17.200 Chronic airway obstruction (Chronic) J44.9 Obstructive sleep apnea (Chronic) G47.33 Chronic pulmonary heart disease (Chronic) I27.9 Shortness of breath (Acute) R06.02 Acute on chronic diastolic (congestive) heart failure (Acute) I50.33 Acute and chronic respiratory failure with hypoxia (Acute) J96.21 Atrial fibrillation (Chronic) I48.91 Carcinoma, lung (Chronic) C34.90 Systolic CHF, acute on chronic (Acute) I50.23 Right heart failure (Chronic) I50.810 Pulmonary hypertension (Chronic) I27.20 Allergies bee venom protein (honey bee) Allergy (Verified 09/07/18 20:18) Anaphylaxis latex Allergy (Verified 09/07/18 20:18) Rash Home Medications: Ambulatory Orders Medication Instructions Recorded Finasteride [Proscar] 5 mg PO DAILY 08/01/13 Metoprolol Tartrate [Lopressor 12.5 mg PO BID 08/01/13 (beta fito)] Gabapentin [Neurontin] 600 mg PO TID 01/31/17 Mirtazapine [Remeron] 30 mg PO QHS PRN 01/31/17 Morphine Sulfate [Morphine Sulfate 30 mg PO BID PRN PRN 01/31/17 ER] Ondansetron [Zofran] 8 mg PO Q8H PRN PRN 01/31/17 Epinephrine [Epipen] 0.3 mg IM PRN PRN 07/07/17 Nitroglycerin [Nitrostat] 0.4 mg SL PRN PRN 07/07/17 Tamsulosin HCl [Flomax] 0.4 mg PO DAILY 07/07/17 Budesonide/Formoterol 80-4.5 2 puff INHALATION BID 07/09/17 [Symbicort 80-4.5 Mcg Inhaler] Albuterol IH (ProAir) [Proair Hfa] 2 puff INHALATION 4X/DAY 07/28/17 Calcium Carbonate [Calcium] 500 mg PO DAILY 07/28/17 Furosemide [Lasix] 40 mg PO BID 07/28/17 Guaifenesin [Mucinex] 1,200 mg PO BID 07/28/17 Potassium Chloride 20 meq PO TID 07/28/17 Warfarin [Coumadin] 6 mg PO SUMOTUWETHFRSA@1700 07/28/17 albuterol sulfate HFA 90 2 puff INHALATION Q4H PRN #18 g 08/18/17 mcg/actuation aerosol inhaler ipratropium-albuterol 0.5 mg-3 3 ml INHALATION Q4H PRN PRN #180 ml 08/18/17 mg(2.5 mg base)/3 mL nebulization soln Bacitracin 1 applicatio TP BID #1 tube 08/07/18 Hydrocodone/Acetaminophen 1 tab PO Q6H PRN PRN 09/08/18 [Hydrocodone-Acetamin 5-325 mg] Metolazone [Zaroxolyn] 1 tab PO DAILY 09/08/18 Naloxone HCl [Narcan] 4 mg NASAL PRN PRN 09/08/18 Omeprazole 20 mg PO DAILY 09/08/18 Sennosides [Senna] 1 tab PO BID 09/08/18 Spironolactone 25 mg PO DAILY 09/08/18 proCHLORPERazine tablet [Compazine 10 mg PO Q6H PRN PRN 09/08/18 tablet] Surgical History: tonsillectomy Psychiatric History: - - Dementia Lives: Spouse/ Significant Other Smoking Status: Current every day smoker - 1 pack/day cigarette tobacco smoker, ongoing tobacco use. Tobacco Use: Cigarettes Alcohol: None Drugs: None - *Family History Maternal History Items: - - Patient denies any market maternal or paternal family history including heart disease, diabetes or cancer. Paternal History Items: - - Patient denies any market maternal or paternal family history including heart disease, diabetes or cancer. Review of Systems Constitutional: Reports: Malaise, Weakness, Fatigue. Denies: Chills, Fever, Weight Change HEENT: Denies: Head Aches, Sinus Congestion, Sinus Drainage Cardiovascular: Reports: Edema, Orthopnea. Denies: Chest Pain, Palpitations Respiratory: Reports: Cough, Shortness of Breath, Shortness of breath at rest, Shortness of breath upon exertion. Denies: Sputum production, Wheezing Gastrointestinal: Denies: Abdominal Pain, Nausea, Vomiting Genitourinary: Denies: Dysuria Musculoskeletal: Reports: Back Pain, Joint Pain. Denies: Joint Tenderness Skin: Reports: Skin Changes. Denies: Rash, Wounds Neurological: Reports: Confusion. Denies: Focal weakness, Numbness, Tingling Psychiatric: Denies: Anxiety, Depression, Homicidal Ideations, Suicidal Ideations Hematologic/ Lymphatic: Reports: Easy Bruising, Easy Bleeding VTE Information - Inpt Only VTE Present on Admission: No VTE Mechan Device Prophylaxis: SCD's VTE Pharm Prophylaxis ordered?: No Reason prophylaxis not ordered:: Treatment Not Indicated - Therapeutic on his Coumadin. Subjective: Seated upright in the ED bed, fatigued appearance, currently answering questions appropriately, oriented to self, place, recent events. Objective: Physical Examination: General: awake, alert, oriented x 3 including to self, place and recent events and cooperative, seated upright in bed in the ED, BiPAP in place, respiratory rate has improved, respiratory effort has improved as well. Skin: normal color, turgor, no icterus, cyanosis aside bilateral lower extremity chronic venous stasis skin changes, does not appear consistent with cellulitis. HEENT: AT/NC, EOMI, PERRLA, mildly dry MM, BiPAP in place, no carotid bruits or JVD noted; however habitus makes examination difficult with thickened neck. Lungs: Diffusely diminished breath sounds, greater right than left, greater bases, effort has improved and respiratory rate has decreased with BiPAP currently in place, evident respiratory distress upon initial ED presentation, mild rales bases, no wheezing. Heart: Rate controlled, irregular; no gallop, rub audible. Abdomen: soft, obese, NTTP, ND, normal BS, no HSM. Extremities: no cyanosis, clubbing, bilateral lower extremity pedal to knee 3+ pitting edema, see skin. Neurological: patient awake, alert, oriented as noted; cognitive function suspect currently baseline intact, improved from prior; pupils equally reactive to light and accomodation; cranial nerves II-XII grossly normal, moving all 4 extremities, no focal deficits, strength severely globally decreased secondary to acute presentation. Psychiatric: affect appears fatigued, no acute evidence of depressive or anxiety feelings. - Physical Exam Vital Signs Temp Pulse Resp BP Pulse Ox 98.5 F 89 23 H 99/65 100 09/07/18 20:19 09/08/18 01:07 09/08/18 01:07 09/08/18 01:07 09/08/18 01:07 Oxygen Flow Rate (L/min) 12 Oxygen Delivery Method Bi-pap Weight: 250 lb 2.49 oz Body Mass Index (BMI) 31.2 Laboratory Tests Past 24 Hrs 09/07/18 09/07/18 09/07/18 20:48 20:48 20:48 WBC 6.4 RBC 4.56 L Hgb 13.2 Hct 43.2 MCV 94.7 H MCH 28.9 MCHC 30.6 L RDW 16.5 H RDW Differential 57.6 H Plt Count 182 MPV 10.1 Immature Gran % (Auto) 0.200 Neut % (Auto) 67.7 Lymph % (Auto) 16.8 L [place] % (Auto) 10.4 H Eos % (Auto) 4.4 Baso % (Auto) 0.5 Absolute Neuts (auto) 4.4 Absolute Lymphs (auto) 1.08 Total Counted Not Reportable PT 23.4 H INR 2.1 APTT 37.8 H Sodium 134 L Potassium 2.7 L* Chloride 84 L Carbon Dioxide 43.0 H Anion Gap 7 BUN 11 Creatinine 1.35 H Estim Creat Clear Calc 66.07 Est GFR (MDRD) Af Amer 68 Est GFR (MDRD) Non-Af 56 L BUN/Creatinine Ratio 8.1 L Glucose 111 H Lactic Acid Calcium 8.9 Total Bilirubin 1.10 H AST 18 ALT 14 L Alkaline Phosphatase 116 Troponin I 0.019 B-Natriuretic Peptide Total Protein 7.6 Albumin 3.3 Globulin 4.3 H Albumin/Globulin Ratio 0.8 L Urine Color Urine Clarity Urine pH Ur Specific [place] Urine Protein Urine Glucose (UA) Urine Ketones Urine Occult Blood Urine Nitrite Urine Bilirubin Urine Urobilinogen Ur Leukocyte Esterase Urine RBC Urine WBC Ur Squamous Epith Cells Urine Bacteria Urine Mucus 09/07/18 09/07/18 09/07/18 20:48 20:48 20:48 WBC RBC Hgb Hct MCV MCH MCHC RDW RDW Differential Plt Count MPV Immature Gran % (Auto) Neut % (Auto) Lymph % (Auto) [place] % (Auto) Eos % (Auto) Baso % (Auto) Absolute Neuts (auto) Absolute Lymphs (auto) Total Counted PT INR APTT Sodium Potassium Chloride Carbon Dioxide Anion Gap BUN Creatinine Estim Creat Clear Calc Est GFR (MDRD) Af Amer Est GFR (MDRD) Non-Af BUN/Creatinine Ratio Glucose Lactic Acid 1.2 Calcium Total Bilirubin AST ALT Alkaline Phosphatase Troponin I B-Natriuretic Peptide 343.9 H Total Protein Albumin Globulin Albumin/Globulin Ratio Urine Color Yellow Urine Clarity Clear Urine pH 6.0 Ur Specific [place] 1.010 Urine Protein Negative Urine Glucose (UA) Normal Urine Ketones Negative Urine Occult Blood Negative Urine Nitrite Negative Urine Bilirubin Negative Urine Urobilinogen Normal Ur Leukocyte Esterase Negative Urine RBC 0 SEEN Urine WBC 0 SEEN Ur Squamous Epith Cells 0-5 SEEN Urine Bacteria 0 SEEN Urine Mucus 0 SEEN POC Glucose 09/07/18 20:42 POC Glucose 125 H Assessment/Plan All Active Problems (Last Reviewed 08/19/17 @ 08:37 by Kelley Villagomez, TIFF-C) Shortness of breath (Acute) Acute on chronic diastolic (congestive) heart failure (Acute) Acute and chronic respiratory failure with hypoxia (Acute) Systolic CHF, acute on chronic (Acute) The patient is a 62 y/o M w/ PMHx: Chronic Hypoxic Respiratory Failure, Chronic COPD, History of Lung Carcinoma (NSC lung CA) following jamey/ Dr. Dobbins s/p chemotherapy, radiation and currently on immunotherapy, Chronic Systolic and Diastolic CHF, OPAL on BIPAP, HTN, HLD, Tobacco use, Chronic AF, Pulmonary HTN, OPAL who presents to the [facility] ED on 09/08/18 with history of increasing BL LE edema, worsened redness w/ concurrently increasingly worsening dyspnea with increase of his home O2 4L-->6L NC with onset confusion from prior recent pulmonary records patient had been on 6 L at that time. Patient's son had mentioned possibly patient having facial droop however per discussion with the ED staff with there was no mention and this was resolved upon presentation to the ED. (1) Acute Hypoxic and Hypercarbic Respiratory Failure secondary to Acute Decompensated Systolic/Diastolic CHF, Complicated by #5 (Lung CA): ED evaluation w/ noted BNP 343.9, chest x-ray with right lower lobe pneumonia with recurrent pneumonia in the same segmental distribution with concern for underlying endobronchial lesion, early pneumonic infiltrate on the left, follow-up CTPA with no evidence of acute pulmonary embolism or arterial dissection with an infiltrative mediastinal and right sided hilar renny mass with probable postobstructive atelectasis within the right lower lobe and possible neoplastic process involving the right lower lobe, multiple bilateral pulmonary nodules suspicious for metastases, cardiomegaly, sequelae of coronary artery vascular disease and mild pulmonary edema, Trop 0.019, EKG without acute evidence of ischemia w/ rate controlled atrial fibrillation. Patient administered IV lasix in the ED, will admit to PCU, will continue BiPAP, maintain on cardiac telemetry obtain cardiac enzyme series, obtain serial EKGs, continue IV lasix diuresis, monitor I/Os, maintain on intake restriction, continue medical therapy w/ coumadin w/ INR trending, add statin, BB, not on ACEI, aldosterone antagonists. Will obtain TSH and magnesium level. Requested ECHO. Initially treated with IV Ancef in the ED for possible bilateral lower extremity cellulitis; however, secondary to worsened recent edema and stasis disease, do not suspect any acute infection, will place snug Kam wraps and elevate addition to treatment as noted above. Cardiology consulted, pending. (2) Transient Family Reported Facial Droop, Confusion concerning for TIA/CVA: Work-up in the ED included T 98.5, heart rate 96, BP initially 94/54, respiratory rate 26, 90% on 6 L nasal cannula eventually transition to a nonrebreather and then transition to BiPAP with most recent vital signs heart rate 89, BP 99/65, respiratory rate 23, 100% on BiPAP, CBC with WBC 6.4, hemoglobin 13.2, platelet 182 without left shift, INR 2.1, PT 23.4, PTT 37.8, CMP with sodium 134, potassium 2.7, chloride 84, carbon dioxide 43, BUN/Cr 11/1.35, glucose 111, lactic acid 1.2, BNP 343.9, urinalysis unremarkable, blood culture x2 and urine culture pending per ED, chest x-ray with right lower lobe pneumonia with recurrent pneumonia in the same segmental distribution with concern for underlying endobronchial lesion, early pneumonic infiltrate on the left, follow-up CTPA with no evidence of acute pulmonary embolism or arterial dissection with an infiltrative mediastinal and right sided hilar renny mass with probable postobstructive atelectasis within the right lower lobe and possible neoplastic process involving the right lower lobe, multiple bilateral pulmonary nodules suspicious for metastases, cardiomegaly, sequelae of coronary artery vascular disease and mild pulmonary edema. CT head pending upon requested evaluation of patient. Will obtain MRI Brain, MRA Head and Neck, ECHO, PT/OT/Speech/Nutrition evaluation per protocol. Will consult Neurology for evaluation. Given resolution will continue patient BP regimen, therapeutic on his coumadin, hold on asa/plavix addition pending Neurology assessment as lower suspicion and fall risk notable, add statin w/ AM FLP, fall precautions. Mag, TSH pending. (3) Hypokalemia: Admission K+ 2.7, supplementation IV and oral given, repeat level in AM. Magnesium level pending. (4) Acute kidney injury: Secondary to possibly incorrect medication intake per report; however, unclear. Admission BUN/Cr 11/1.35, prior baseline creatinine noted to be 0.6-1 maximum. Given acute presentation will defer hydration, continued lasix diuresis, repeat chemistry in AM. (5) Lung Carcinoma: Non-small cell lung CA, following w/ Dr. Dobbins s/p chemotherapy, radiation and currently on immunotherapy, from prior notes palliative therapy ongoing. Chest x-ray with right lower lobe pneumonia with recurrent pneumonia in the same segmental distribution with concern for underlying endobronchial lesion, early pneumonic infiltrate on the left, follow-up CTPA with no evidence of acute pulmonary embolism or arterial dissection with an infiltrative mediastinal and right sided hilar renny mass with probable postobstructive atelectasis within the right lower lobe and possible neoplastic process involving the right lower lobe, multiple bilateral pulmonary nodules suspicious for metastases, cardiomegaly, sequelae of coronary artery vascular disease and mild pulmonary edema. Comp case patient presentation, #1, likely contributing to worsening dyspnea. Pulmonary and Oncology consulted, pending. (6) Chronic COPD with chronic hypoxic respiratory failure: Currently as noted above #1 on BiPAP therapy, transition to home oxygen supplementation once appropriate, continue ATC duonebs, PRN albuterol, HOB, IS parameters. (7) Hypertension: Continue home regimen including IV Lasix as noted, metolazone, metoprolol, spironolactone, PRN hydralazine. (8) Hyperlipidemia: Adding high-dose statin, FLP in AM. (9) OPAL: Normal regimen BiPAP nightly, will maintain on continuous usage given acute presentation #1. (10) Tobacco Abuse: Encouraged cessation, inpatient consultation per RT, NR if desired. (11) DVT prophylaxis SCDs, snug kam wraps,: Coumadin continuation with INR trending. (12) CODE status: Discussed CODE status at length including difference between FULL code, DNR-CCA and DNR-CC status. Following discussions about the differences in these status, requested DNR-CCA, no intubation status. Advanced Care Planning Face to Face Time: 16 minutes. Code Visit Inpatient E&M: 31827 Init Hosp L3 Procedures: 41314 Advncd Care Plan 30 Min
[2018-09-08] MEDS: Furosemide 100 MG/10 ML Vial 80 MG IV (02:03)
[2018-09-08] MEDS: Cefazolin 2 GM in 0.9% Normal Saline 100 ML IV (02:09)
--- NOTE | 2018-09-08 02:53 | ED.RN ---
called ct for brain ct results as they have not been posted yet. answered call light.
--- NOTE | 2018-09-08 03:34 | ECHOD_ITS ---
Reason For Study: CHF Procedure This was a 2D Doppler, Color Flow transthoracic echocardiogram. Pt on BiPAP. Exam performed portable in patient room. Left Ventricle Normal LV size. D shaped septum in diastole. The estimated ejection fraction is 50 %. Right Ventricle Severely dilated right ventricle. Moderately severe global right ventricular systolic dysfunction. Atria The left atrium is mildly enlarged. The right atrium is severely enlarged. Mitral Valve Normal mitral valve. Mild (1+) eccentric mitral valve insufficiency. Tricuspid Valve Normal tricuspid valve. Moderate (2+) tricuspid valve insufficiency. Pulmonary artery systolic pressure is 51 mmHg. Moderate pulmonary hypertension. Aortic Valve Normal aortic valve. Pulmonic Valve Normal pulmonic valve. Great Vessels Normal aortic root. The pulmonary artery is normal size. Normal inferior vena cava. Pericardium/Pleural No pericardial effusion. MMode/2D Measurements & Calculations LVIDd: 4.6 cm IVSd: 1.1 cm LVOT diam: 4.4 cm LVIDs: 2.8 cm LVPWd: 1.0 cm LVOT area: 15.3 cm2 RVDd: 6.5 cm FS: 38.9 % Ao root diam: 4.4 cm LAV(MOD-bp): 73.1 ml LA A4 area: 23.0 cm2 LAV(MOD-bp) Indexed: 30.3 ml/m2 LAV(MOD-sp2): 76.5 ml LAV(MOD-sp4): 66.3 ml LA dimension(2D): 5.1 cm RA A4 area: 33.7 cm2 Time Measurements MV dec time: 0.29 sec Doppler Measurements & Calculations MV E max jacky: 77.1 cm/sec Ao V2 max: 100.2 cm/sec LV V1 max: 92.2 cm/sec MV A max jacky: 60.5 cm/sec Ao max P.1 mmHg LV V1 max P.5 mmHg MV E/A: 1.3 YOLANDA(V,D): 14.1 cm2 PA V2 max: 80.7 cm/sec TR max jacky: 333.4 cm/sec TR max P.1 mmHg Interpretation Summary Normal LV size. The estimated ejection fraction is 50 %. D shaped septum in diastole. Mild (1+) eccentric mitral valve insufficiency. Pulmonary artery systolic pressure is 51 mmHg. Moderate pulmonary hypertension. Moderately severe global right ventricular systolic dysfunction. Ordering Physician: Maryan Phillips Referring Physician: JEFFREY DURANT Performed By: Sydney Henderson, MARY, RVT
[2018-09-08 04:44] LABS: Magnesium 2.3 mg/dL (1.6-2.6); Thyroid Stim Hormone (TSH) 1.84 uIU/mL (0.358-3.74)
--- NOTE | 2018-09-08 05:55 | EKG12_ITS ---
Test Reason : AM EKG Blood Pressure : / mmHG Vent. Rate : 096 BPM Atrial Rate : 094 BPM P-R Int : 000 ms QRS Dur : 178 ms QT Int : 378 ms P-R-T Axes : 000 085 269 degrees QTc Int : 477 ms Atrial fibrillation Right bundle branch block Septal infarct , age undetermined T wave abnormality, consider inferolateral ischemia Abnormal ECG When compared with ECG of 07-SEP-2018 21:43, MANUAL COMPARISON REQUIRED, DATA IS UNCONFIRMED Confirmed by ROSALIO ARIZA ([id number]), editor in chief EDWINA CHAN ([id number]) on 09/12/2018 5:15:12 PM Referred By: Maryan Phillips Confirmed By:ROSALIO ARIZA
[2018-09-08] MEDS: Gabapentin 600 MG Tablet PO ×3 (06:19→22:23)
[2018-09-08 06:59] LABS: Absolute Lymphocyte Count 0.85 X10^3/ul (0.83-4.51); Absolute Neutrophil Count 4.2 X10^3/uL (2.0-7.7); Basophil# 0.02 X10^3/uL; Basophil% 0.3 % (0-1); Eosinophil# 0.38 X10^3/uL; Eosinophils% 6.2 % (0-5); Hematocrit 40.5 % (40-54); Hemoglobin 12.8 g/dl (13.0-16.5); Lymphocyte # 0.85 X10^3/ul (4.0); Lymphocyte % 13.9 % (19-41); Mean Corp Hgb Conc 31.6 g/gl (32-36); Mean Corpuscular Hgb 29.7 pg (27.0-32.0); Mean Platelet Vol. 9.2 fl (6.2-12.0); Monocyte# 0.66 X10^3/uL; Monocyte% 10.8 % (0-10); Neutrophil % 68.8 % (47-70); Platelet Count 160 K/mm3 (150-450); RBC Distribution Width CV 16.3 % (11.6-14.6); RBC Distribution Width SD 55.9 fl (35.1-43.9); Red Blood Count 4.31 M/mm3 (4.6-6.2); White Blood Count 6.1 K/mm3 (4.4-11.0)
[2018-09-08 07:01] LABS: POSITIVE COUNT NO; POSITIVE DIFFERENTIAL NO; POSITIVE MORPHOLOGY NO
[2018-09-08 07:10] LABS: International Normalized Ratio 2.3; Prothrombin Time (Protime)PT. 25.1 SECONDS (11.7-14.9)
[2018-09-08] MEDS: Ipratropium/Albuterol Sulfate 3 ML AMPUL.NEB INHALATION ×3 (07:32→19:50)
[2018-09-08 07:49] LABS: BUN 9 mg/dL (7-18); Calcium,Total 8.9 mg/dL (8.5-10.1); Carbon Dioxide > 45.0 mmol/L (21.0-32.0); Chloride 82 mmol/L (98-107); Cholesterol 116 mg/dL (200); Creatinine, Serum 1.12 mg/dL (0.70-1.30); EST Glomerular Filtration Rate 70 mL/min (>60); Est Glom Filt Rate - Afr Amer 85 mL/min (>60); Estimated Creatinine Clearance 81.81 ml/min; Glucose 95 mg/dL (74-106); High Density Lipoprotein 36 mg/dL; Potassium 2.7 mmol/L (3.5-5.1); Sodium Level 136 mmol/L (136-145); Triglycerides 85 mg/dL; Very Low Density Lipoprotein 17 mg/dL (5-40)
--- NOTE | 2018-09-08 08:35 | PCM.CONS.GEN ---
Reason for Consult Date of Consultation: 09/08/18 Reason for Consultation: Lung cancer, acute on chronic respiratory failure, CHF History of Present Illness: Patient is a 62-year-old male, with a history as outlined below, who presented to the emergency department on September 08 with complaints of lower externally edema and erythema, along with worsening shortness of breath and hypoxemia. The patient was previously being followed by Dr. Crook at [facility]. The patient subsequently transferred his pulmonary care to our office in July 2017. At that time, the patient was referred to palliative care to assist with symptom management. The patient was supposed to follow-up with me, but failed to do so. He has not been seen in our pulmonary office since that time. The patient is quite drowsy this morning. When questioned, he reports that he initially came to the hospital because he felt out of it. He denies the presence of resting shortness of breath, but does report a nonproductive cough. He states that he is currently receiving treatment for his underlying lung cancer. The patient did complete a titration polysomnogram in July 2017, for which it was recommended that the patient be placed on nocturnal BiPAP therapy with a pressure support of 26/20 centimeters of water with a 5 L/min supplemental oxygen bleeding. Surface echocardiogram dated July 2017 revealed evidence of a moderately dilated LV with an ejection fraction of 35%. There was also evidence of a severely dilated RV with moderately severe global RV systolic dysfunction and a right ventricular systolic pressure estimated to be 46 mmHg. On presentation to the emergency department, the patient was noted to be afebrile. The patient eventually required the initiation of a nonrebreather to to maintain appropriate oxygen saturations. Laboratory evaluation revealed no evidence of a leukocytosis. INR was noted to be 2.1. Chemistry profile was significant for potassium of 2.7, chloride of 84 and bicarbonate of 43. Creatinine was increased to 1.35. Serum lactate was within normal limits. BNP was elevated to 344. Troponin was negative. Urinalysis was negative. A CTA chest was subsequently obtained which revealed no evidence for pulmonary embolism. Cardiomegaly was noted along with a subcarinal renny mass measuring 4 x 4 cm in size. There also appeared to be a right hilar mass and associated lymphadenopathy along with associated airspace disease in the right lower lobe. Several other pulmonary nodules were identified bilaterally. The patient received both IV Lasix and Ancef in the emergency department. Blood cultures were obtained. He was subsequently admitted to the progressive care unit for treatment of a CHF exacerbation. Past Medical History Past Medical History (Chronic Problems): Chronic Problems (Last Reviewed 08/19/17 @ 08:37 by IVANA Silva) Hyperlipidemia (Chronic) Hypertension (Chronic) Tobacco use disorder (Chronic) Chronic airway obstruction (Chronic) Obstructive sleep apnea (Chronic) Chronic pulmonary heart disease (Chronic) Atrial fibrillation (Chronic) Carcinoma, lung (Chronic) Right heart failure (Chronic) Pulmonary hypertension (Chronic) Medical History: Medical History (Last Reviewed 08/19/17 @ 08:37 by FATOU SilvaC) Hyperlipidemia (Chronic) E78.5 Hypertension (Chronic) I10 Tobacco use disorder (Chronic) F17.200 Chronic airway obstruction (Chronic) J44.9 Obstructive sleep apnea (Chronic) G47.33 Chronic pulmonary heart disease (Chronic) I27.9 Shortness of breath (Acute) R06.02 Acute on chronic diastolic (congestive) heart failure (Acute) I50.33 Acute and chronic respiratory failure with hypoxia (Acute) J96.21 Atrial fibrillation (Chronic) I48.91 Carcinoma, lung (Chronic) C34.90 Systolic CHF, acute on chronic (Acute) I50.23 Right heart failure (Chronic) I50.810 Pulmonary hypertension (Chronic) I27.20 Allergies bee venom protein (honey bee) Allergy (Verified 09/07/18 20:18) Anaphylaxis latex Allergy (Verified 09/07/18 20:18) Rash Home Medications: Ambulatory Orders Medication Instructions Recorded Finasteride [Proscar] 5 mg PO DAILY 08/01/13 Metoprolol Tartrate [Lopressor 12.5 mg PO BID 08/01/13 (beta fito)] Gabapentin [Neurontin] 600 mg PO TID 01/31/17 Mirtazapine [Remeron] 30 mg PO QHS PRN 01/31/17 Morphine Sulfate [Morphine Sulfate 30 mg PO BID PRN PRN 01/31/17 ER] Ondansetron [Zofran] 8 mg PO Q8H PRN PRN 01/31/17 Epinephrine [Epipen] 0.3 mg IM PRN PRN 07/07/17 Nitroglycerin [Nitrostat] 0.4 mg SL PRN PRN 07/07/17 Tamsulosin HCl [Flomax] 0.4 mg PO DAILY 07/07/17 Budesonide/Formoterol 80-4.5 2 puff INHALATION BID 07/09/17 [Symbicort 80-4.5 Mcg Inhaler] Albuterol IH (ProAir) [Proair Hfa] 2 puff INHALATION 4X/DAY 07/28/17 Calcium Carbonate [Calcium] 500 mg PO DAILY 07/28/17 Furosemide [Lasix] 40 mg PO BID 07/28/17 Guaifenesin [Mucinex] 1,200 mg PO BID 07/28/17 Potassium Chloride 20 meq PO TID 07/28/17 Warfarin [Coumadin] 6 mg PO SUMOTUWETHFRSA@1700 07/28/17 albuterol sulfate HFA 90 2 puff INHALATION Q4H PRN #18 g 08/18/17 mcg/actuation aerosol inhaler ipratropium-albuterol 0.5 mg-3 3 ml INHALATION Q4H PRN PRN #180 ml 08/18/17 mg(2.5 mg base)/3 mL nebulization soln Bacitracin 1 applicatio TP BID #1 tube 08/07/18 Hydrocodone/Acetaminophen 1 tab PO Q6H PRN PRN 09/08/18 [Hydrocodone-Acetamin 5-325 mg] Metolazone [Zaroxolyn] 1 tab PO DAILY 09/08/18 Naloxone HCl [Narcan] 4 mg NASAL PRN PRN 09/08/18 Omeprazole 20 mg PO DAILY 09/08/18 Sennosides [Senna] 1 tab PO BID 09/08/18 Spironolactone 25 mg PO DAILY 09/08/18 proCHLORPERazine tablet [Compazine 10 mg PO Q6H PRN PRN 09/08/18 tablet] Surgical History: tonsillectomy Psychiatric History: - - Dementia Lives: Spouse/ Significant Other Smoking Status: Current every day smoker Tobacco Use: Cigarettes Alcohol: None Drugs: None - *Family History Maternal History Items: - - Patient denies any market maternal or paternal family history including heart disease, diabetes or cancer. Paternal History Items: - - Patient denies any market maternal or paternal family history including heart disease, diabetes or cancer. Review of Systems Constitutional: Denies: Chills, Fever Eyes: Denies: Blurred vision, Double vision HEENT: Denies: Head Aches, Sinus Congestion, Sinus Drainage Cardiovascular: Reports: Edema. Denies: Chest Pain, Palpitations Respiratory: Reports: Cough. Denies: Sputum production Gastrointestinal: Denies: Abdominal Pain, Nausea, Vomiting Genitourinary: Denies: Dysuria Musculoskeletal: Denies: Joint Pain, Joint Tenderness Skin: Denies: Rash, Wounds Neurological: Reports: Confusion Psychiatric: Denies: Anxiety, Depression, Homicidal Ideations, Suicidal Ideations Hematologic/ Lymphatic: Reports: Hx of blood clot Objective: The patient's most recent lab work, culture data and imaging studies have all been personally reviewed. Blood and urine cultures are pending. - Physical Exam General: - - While the patient is arousable to verbal stimulation, he does appear a bit confused. HEENT: Atraumatic, PERRLA, Normocephalic Oral: No Gingival or Mucosal Lesions/ Ulcerations Neck: Supple, No Nodes, Trachea Midline Lungs: - - Globally diminished air movement bilaterally. Cardiovascular: Normal S1, Normal S2, Irregular Rate, Murmur Abdomen: Bowel Sounds Present, Soft, Non Tender, Obese Extremities: No clubbing, No cyanosis, Edema Skin: - - Chronic lower extremity venous stasis dermatitis Musculoskeletal: No Muscle Wasting Lymphatic: No Cervical, Supraclavicular, or Inguinal Adenopathy Neurological: Neuro grossly intact Psych/Mental Status: Flat Affect Vital Signs Temp Pulse Resp BP Pulse Ox 36.6 C 83 16 102/47 L 94 09/08/18 08:00 09/08/18 08:23 09/08/18 08:23 09/08/18 08:00 09/08/18 08:23 Oxygen Flow Rate (L/min) 6 Oxygen Delivery Method Bi-pap Weight: 250 lb 3.594 oz Body Mass Index (BMI) 30.4 Intake and Output for Last 24 Hours 09/06/18 09/07/18 09/08/18 23:59 23:59 23:59 Intake Total 120 / 120 Output Total 425 / 425 Balance -305 / -305 Laboratory Tests Past 24 Hrs 09/07/18 09/07/18 09/07/18 20:48 20:48 20:48 WBC 6.4 RBC 4.56 L Hgb 13.2 Hct 43.2 MCV 94.7 H MCH 28.9 MCHC 30.6 L RDW 16.5 H RDW Differential 57.6 H Plt Count 182 MPV 10.1 Immature Gran % (Auto) 0.200 Neut % (Auto) 67.7 Lymph % (Auto) 16.8 L Ashley % (Auto) 10.4 H Eos % (Auto) 4.4 Baso % (Auto) 0.5 Absolute Neuts (auto) 4.4 Absolute Lymphs (auto) 1.08 Total Counted Not Reportable PT 23.4 H INR 2.1 APTT 37.8 H Sodium 134 L Potassium 2.7 L* Chloride 84 L Carbon Dioxide 43.0 H Anion Gap 7 BUN 11 Creatinine 1.35 H Estim Creat Clear Calc 66.07 Est GFR (MDRD) Af Amer 68 Est GFR (MDRD) Non-Af 56 L BUN/Creatinine Ratio 8.1 L Glucose 111 H Lactic Acid Calcium 8.9 Magnesium Total Bilirubin 1.10 H AST 18 ALT 14 L Alkaline Phosphatase 116 Troponin I 0.019 B-Natriuretic Peptide Total Protein 7.6 Albumin 3.3 Globulin 4.3 H Albumin/Globulin Ratio 0.8 L Triglycerides Cholesterol LDL Cholesterol VLDL Cholesterol HDL Cholesterol TSH Urine Color Urine Clarity Urine pH Ur Specific [place] Urine Protein Urine Glucose (UA) Urine Ketones Urine Occult Blood Urine Nitrite Urine Bilirubin Urine Urobilinogen Ur Leukocyte Esterase Urine RBC Urine WBC Ur Squamous Epith Cells Urine Bacteria Urine Mucus 09/07/18 09/07/18 09/07/18 20:48 20:48 20:48 WBC RBC Hgb Hct MCV MCH MCHC RDW RDW Differential Plt Count MPV Immature Gran % (Auto) Neut % (Auto) Lymph % (Auto) Ashley % (Auto) Eos % (Auto) Baso % (Auto) Absolute Neuts (auto) Absolute Lymphs (auto) Total Counted PT INR APTT Sodium Potassium Chloride Carbon Dioxide Anion Gap BUN Creatinine Estim Creat Clear Calc Est GFR (MDRD) Af Amer Est GFR (MDRD) Non-Af BUN/Creatinine Ratio Glucose Lactic Acid 1.2 Calcium Magnesium Total Bilirubin AST ALT Alkaline Phosphatase Troponin I B-Natriuretic Peptide 343.9 H Total Protein Albumin Globulin Albumin/Globulin Ratio Triglycerides Cholesterol LDL Cholesterol VLDL Cholesterol HDL Cholesterol TSH Urine Color Yellow Urine Clarity Clear Urine pH 6.0 Ur Specific [place] 1.010 Urine Protein Negative Urine Glucose (UA) Normal Urine Ketones Negative Urine Occult Blood Negative Urine Nitrite Negative Urine Bilirubin Negative Urine Urobilinogen Normal Ur Leukocyte Esterase Negative Urine RBC 0 SEEN Urine WBC 0 SEEN Ur Squamous Epith Cells 0-5 SEEN Urine Bacteria 0 SEEN Urine Mucus 0 SEEN 09/08/18 09/08/18 09/08/18 03:54 06:45 06:45 WBC 6.1 RBC 4.31 L Hgb 12.8 L Hct 40.5 MCV 94.0 MCH 29.7 MCHC 31.6 L RDW 16.3 H RDW Differential 55.9 H Plt Count 160 MPV 9.2 Immature Gran % (Auto) 0.000 Neut % (Auto) 68.8 Lymph % (Auto) 13.9 L Ashley % (Auto) 10.8 H Eos % (Auto) 6.2 H Baso % (Auto) 0.3 Absolute Neuts (auto) 4.2 Absolute Lymphs (auto) 0.85 Total Counted Not Reportable PT 25.1 H INR 2.3 APTT Sodium Potassium Chloride Carbon Dioxide Anion Gap BUN Creatinine Estim Creat Clear Calc Est GFR (MDRD) Af Amer Est GFR (MDRD) Non-Af BUN/Creatinine Ratio Glucose Lactic Acid Calcium Magnesium 2.3 Total Bilirubin AST ALT Alkaline Phosphatase Troponin I 0.022 B-Natriuretic Peptide Total Protein Albumin Globulin Albumin/Globulin Ratio Triglycerides Cholesterol LDL Cholesterol VLDL Cholesterol HDL Cholesterol TSH 1.84 Urine Color Urine Clarity Urine pH Ur Specific [place] Urine Protein Urine Glucose (UA) Urine Ketones Urine Occult Blood Urine Nitrite Urine Bilirubin Urine Urobilinogen Ur Leukocyte Esterase Urine RBC Urine WBC Ur Squamous Epith Cells Urine Bacteria Urine Mucus 09/08/18 06:45 WBC RBC Hgb Hct MCV MCH MCHC RDW RDW Differential Plt Count MPV Immature Gran % (Auto) Neut % (Auto) Lymph % (Auto) Ashley % (Auto) Eos % (Auto) Baso % (Auto) Absolute Neuts (auto) Absolute Lymphs (auto) Total Counted PT INR APTT Sodium 136 Potassium 2.7 L* Chloride 82 L Carbon Dioxide > 45.0 H* Anion Gap TNP BUN 9 Creatinine 1.12 Estim Creat Clear Calc 81.81 Est GFR (MDRD) Af Amer 85 Est GFR (MDRD) Non-Af 70 BUN/Creatinine Ratio 8.0 L Glucose 95 Lactic Acid Calcium 8.9 Magnesium Total Bilirubin AST ALT Alkaline Phosphatase Troponin I 0.027 B-Natriuretic Peptide Total Protein Albumin Globulin Albumin/Globulin Ratio Triglycerides 85 Cholesterol 116 LDL Cholesterol 63 VLDL Cholesterol 17 HDL Cholesterol 36 L TSH Urine Color Urine Clarity Urine pH Ur Specific [place] Urine Protein Urine Glucose (UA) Urine Ketones Urine Occult Blood Urine Nitrite Urine Bilirubin Urine Urobilinogen Ur Leukocyte Esterase Urine RBC Urine WBC Ur Squamous Epith Cells Urine Bacteria Urine Mucus POC Glucose 09/07/18 20:42 POC Glucose 125 H Clinical Impression(s) from Imaging Studies Chest X-Ray 09/07/18 21:30 IMPRESSION: 1. Right lower lobe pneumonia. Recurrent pneumonia in the same segmental distribution raises concern for possible underlying endobronchial lesion. Consider nonemergent CT of the chest after treatment and resolution of current symptoms. 2. Early pneumonic infiltrate on the left. Electronically Signed: Rosemarie Loo MD at 22:14 EDT Tel , Service support , Chest CTA 09/07/18 22:44 IMPRESSION: 1. No CTA demonstrated pulmonary embolism or arterial dissection. 2. There is infiltrative mediastinal and right-sided hilar renny mass with probable postobstructive atelectasis within the right lower lobe. There may also be neoplastic process involving the right lower lobe. 3. Multiple bilateral pulmonary nodules as described may represent metastases. 4. Cardiomegaly, sequelae of coronary artery vascular disease and mild pulmonary edema. Electronically Signed: Radha Perez MD at 1:09 EDT , Service support , Brain CT 09/08/18 01:17 IMPRESSION: Normal unenhanced CT scan of the brain. No acute findings in the brain. No metastatic disease. Electronically Signed: Mark Hernandez MD at 3:06 EDT Tel , Service support , Assessment/Plan All Active Problems (Last Reviewed 08/19/17 @ 08:37 by Kelley Villagomez NP-Teagan) Shortness of breath (Acute) Acute on chronic diastolic (congestive) heart failure (Acute) Acute and chronic respiratory failure with hypoxia (Acute) Systolic CHF, acute on chronic (Acute) RECOMMENDATIONS: 1. Obtain arterial blood gas. 2. The patient is currently only on a CPAP of 6 cm of water. Based upon his polysomnogram from 2018, he requires significant pressure support. 3. Change from current CPAP settings to BiPAP 23/17 centimeters of water. 4. Discontinue sedating medications 5. Check strep and urine Legionella antigens along with MRSA screen. 6. Start empiric Zosyn therapy, pending infectious workup. 7. Discontinue morphine given renal insufficiency noted on presentation. 8. Aggressive potassium repletion IMPRESSIONS: 1. Acute on chronic combined respiratory failure This is likely multifactorial in etiology and related to a component of decompensated heart failure, underlying lung malignancy and possible postobstructive pneumonia. The patient is currently on a CPAP, which will not provide any form of ventilatory support. I recommended we obtain an arterial blood gas and then transition him to BiPAP therapy. He did complete a sleep study in 2018 and it was clear at that time that he needed to be on significant amount of pressure support. In addition, the patient presented to the hospital with renal insufficiency and is prescribed long-acting morphine sulfate as an outpatient. Orders for the patient's morphine have been placed on hold for now. I agree with obtaining oncology consultation to evaluate if the current radiographic findings represent cancer progression from their perspective. For now, we will place the patient on empiric Zosyn, pending infectious workup. Will defer management of the patient's underlying cardiac manifestations to the heart group, who is currently following. 2. Metabolic encephalopathy Concern for underlying hypercarbia and buildup of morphine metabolites, given the patient's renal insufficiency on presentation. Will obtain arterial blood gas, after which time, the patient will be transition to BiPAP therapy. Unclear why he was placed on CPAP with such a low pressure support. All morphine products have been discontinued at this time. 3. Hypokalemia/metabolic alkalosis Agree with aggressive electrolyte repletion. My concern is that the patient's metabolic alkalosis may be compensatory to chronic CO2 retention. I am uncertain as to the patient's compliance in his home environment with the use of BiPAP therapy. 4. Underlying cardiomyopathy/atrial fibrillation/valvular heart disease Will defer management to cardiology. Repeat echocardiogram is currently pending. 5. History of non-small cell lung cancer/self-reported COPD of unknown severity/hypertension/hyperlipidemia/ongoing tobacco dependence Complicates care, management, recovery and prognosis. Continue aerosol treatments as ordered. Await evaluation by oncology. This note was generated with [employer] dictation software. It may contain incorrect words, spelling, and punctuation that were not noted in checking the note before signing. Code Visit Inpatient E&M: 36895 Init Hosp L3
--- NOTE | 2018-09-08 08:41 | CON.PCM_ITS ---
Reason for Consult Date of Consultation: 09/08/18 Reason for Consultation: Lung cancer, acute on chronic respiratory failure, CHF History of Present Illness: Patient is a 62-year-old male, with a history as outlined below, who presented to the emergency department on September 08 with complaints of lower externally edema and erythema, along with worsening shortness of breath and hypoxemia. The patient was previously being followed by Dr. Crook at [facility]. The patient subsequently transferred his pulmonary care to our office in July 2017. At that time, the patient was referred to palliative care to assist with symptom management. The patient was supposed to follow-up with me, but failed to do so. He has not been seen in our pulmonary office since that time. The patient is quite drowsy this morning. When questioned, he reports that he initially came to the hospital because he felt out of it. He denies the presence of resting shortness of breath, but does report a nonproductive cough. He states that he is currently receiving treatment for his underlying lung cancer. The patient did complete a titration polysomnogram in July 2017, for which it was recommended that the patient be placed on nocturnal BiPAP therapy with a pressure support of 26/20 centimeters of water with a 5 L/min supplemental oxygen bleeding. Surface echocardiogram dated July 2017 revealed evidence of a moderately dilated LV with an ejection fraction of 35%. There was also evidence of a severely dilated RV with moderately severe global RV systolic dysfunction and a right ventricular systolic pressure estimated to be 46 mmHg. On presentation to the emergency department, the patient was noted to be afebrile. The patient eventually required the initiation of a nonrebreather to to maintain appropriate oxygen saturations. Laboratory evaluation revealed no evidence of a leukocytosis. INR was noted to be 2.1. Chemistry profile was significant for potassium of 2.7, chloride of 84 and bicarbonate of 43. Creatinine was increased to 1.35. Serum lactate was within normal limits. BNP was elevated to 344. Troponin was negative. Urinalysis was negative. A CTA chest was subsequently obtained which revealed no evidence for pulmonary embolism. Cardiomegaly was noted along with a subcarinal renny mass measuring 4 x 4 cm in size. There also appeared to be a right hilar mass and associated lymphadenopathy along with associated airspace disease in the right lower lobe. Several other pulmonary nodules were identified bilaterally. The patient received both IV Lasix and Ancef in the emergency department. Blood cultures were obtained. He was subsequently admitted to the progressive care unit for treatment of a CHF exacerbation. Past Medical History Past Medical History (Chronic Problems): Chronic Problems (Last Reviewed 08/19/17 @ 08:37 by IVANA Silva) Hyperlipidemia (Chronic) Hypertension (Chronic) Tobacco use disorder (Chronic) Chronic airway obstruction (Chronic) Obstructive sleep apnea (Chronic) Chronic pulmonary heart disease (Chronic) Atrial fibrillation (Chronic) Carcinoma, lung (Chronic) Right heart failure (Chronic) Pulmonary hypertension (Chronic) Medical History: Medical History (Last Reviewed 08/19/17 @ 08:37 by FATOU SilvaC) Hyperlipidemia (Chronic) E78.5 Hypertension (Chronic) I10 Tobacco use disorder (Chronic) F17.200 Chronic airway obstruction (Chronic) J44.9 Obstructive sleep apnea (Chronic) G47.33 Chronic pulmonary heart disease (Chronic) I27.9 Shortness of breath (Acute) R06.02 Acute on chronic diastolic (congestive) heart failure (Acute) I50.33 Acute and chronic respiratory failure with hypoxia (Acute) J96.21 Atrial fibrillation (Chronic) I48.91 Carcinoma, lung (Chronic) C34.90 Systolic CHF, acute on chronic (Acute) I50.23 Right heart failure (Chronic) I50.810 Pulmonary hypertension (Chronic) I27.20 Allergies bee venom protein (honey bee) Allergy (Verified 09/07/18 20:18) Anaphylaxis latex Allergy (Verified 09/07/18 20:18) Rash Home Medications: Ambulatory Orders Medication Instructions Recorded Finasteride [Proscar] 5 mg PO DAILY 08/01/13 Metoprolol Tartrate [Lopressor 12.5 mg PO BID 08/01/13 (beta fito)] Gabapentin [Neurontin] 600 mg PO TID 01/31/17 Mirtazapine [Remeron] 30 mg PO QHS PRN 01/31/17 Morphine Sulfate [Morphine Sulfate 30 mg PO BID PRN PRN 01/31/17 ER] Ondansetron [Zofran] 8 mg PO Q8H PRN PRN 01/31/17 Epinephrine [Epipen] 0.3 mg IM PRN PRN 07/07/17 Nitroglycerin [Nitrostat] 0.4 mg SL PRN PRN 07/07/17 Tamsulosin HCl [Flomax] 0.4 mg PO DAILY 07/07/17 Budesonide/Formoterol 80-4.5 2 puff INHALATION BID 07/09/17 [Symbicort 80-4.5 Mcg Inhaler] Albuterol IH (ProAir) [Proair Hfa] 2 puff INHALATION 4X/DAY 07/28/17 Calcium Carbonate [Calcium] 500 mg PO DAILY 07/28/17 Furosemide [Lasix] 40 mg PO BID 07/28/17 Guaifenesin [Mucinex] 1,200 mg PO BID 07/28/17 Potassium Chloride 20 meq PO TID 07/28/17 Warfarin [Coumadin] 6 mg PO SUMOTUWETHFRSA@1700 07/28/17 albuterol sulfate HFA 90 2 puff INHALATION Q4H PRN #18 g 08/18/17 mcg/actuation aerosol inhaler ipratropium-albuterol 0.5 mg-3 3 ml INHALATION Q4H PRN PRN #180 ml 08/18/17 mg(2.5 mg base)/3 mL nebulization soln Bacitracin 1 applicatio TP BID #1 tube 08/07/18 Hydrocodone/Acetaminophen 1 tab PO Q6H PRN PRN 09/08/18 [Hydrocodone-Acetamin 5-325 mg] Metolazone [Zaroxolyn] 1 tab PO DAILY 09/08/18 Naloxone HCl [Narcan] 4 mg NASAL PRN PRN 09/08/18 Omeprazole 20 mg PO DAILY 09/08/18 Sennosides [Senna] 1 tab PO BID 09/08/18 Spironolactone 25 mg PO DAILY 09/08/18 proCHLORPERazine tablet [Compazine 10 mg PO Q6H PRN PRN 09/08/18 tablet] Surgical History: tonsillectomy Psychiatric History: - - Dementia Lives: Spouse/ Significant Other Smoking Status: Current every day smoker Tobacco Use: Cigarettes Alcohol: None Drugs: None - *Family History Maternal History Items: - - Patient denies any market maternal or paternal family history including heart disease, diabetes or cancer. Paternal History Items: - - Patient denies any market maternal or paternal family history including heart disease, diabetes or cancer. Review of Systems Constitutional: Denies: Chills, Fever Eyes: Denies: Blurred vision, Double vision HEENT: Denies: Head Aches, Sinus Congestion, Sinus Drainage Cardiovascular: Reports: Edema. Denies: Chest Pain, Palpitations Respiratory: Reports: Cough. Denies: Sputum production Gastrointestinal: Denies: Abdominal Pain, Nausea, Vomiting Genitourinary: Denies: Dysuria Musculoskeletal: Denies: Joint Pain, Joint Tenderness Skin: Denies: Rash, Wounds Neurological: Reports: Confusion Psychiatric: Denies: Anxiety, Depression, Homicidal Ideations, Suicidal Ideations Hematologic/ Lymphatic: Reports: Hx of blood clot Objective: The patient's most recent lab work, culture data and imaging studies have all been personally reviewed. Blood and urine cultures are pending. - Physical Exam General: - - While the patient is arousable to verbal stimulation, he does appear a bit confused. HEENT: Atraumatic, PERRLA, Normocephalic Oral: No Gingival or Mucosal Lesions/ Ulcerations Neck: Supple, No Nodes, Trachea Midline Lungs: - - Globally diminished air movement bilaterally. Cardiovascular: Normal S1, Normal S2, Irregular Rate, Murmur Abdomen: Bowel Sounds Present, Soft, Non Tender, Obese Extremities: No clubbing, No cyanosis, Edema Skin: - - Chronic lower extremity venous stasis dermatitis Musculoskeletal: No Muscle Wasting Lymphatic: No Cervical, Supraclavicular, or Inguinal Adenopathy Neurological: Neuro grossly intact Psych/Mental Status: Flat Affect Vital Signs Temp Pulse Resp BP Pulse Ox 36.6 C 83 16 102/47 L 94 09/08/18 08:00 09/08/18 08:23 09/08/18 08:23 09/08/18 08:00 09/08/18 08:23 Oxygen Flow Rate (L/min) 6 Oxygen Delivery Method Bi-pap Weight: 250 lb 3.594 oz Body Mass Index (BMI) 30.4 Intake and Output for Last 24 Hours 09/06/18 09/07/18 09/08/18 23:59 23:59 23:59 Intake Total 120 / 120 Output Total 425 / 425 Balance -305 / -305 Laboratory Tests Past 24 Hrs 09/07/18 09/07/18 09/07/18 20:48 20:48 20:48 WBC 6.4 RBC 4.56 L Hgb 13.2 Hct 43.2 MCV 94.7 H MCH 28.9 MCHC 30.6 L RDW 16.5 H RDW Differential 57.6 H Plt Count 182 MPV 10.1 Immature Gran % (Auto) 0.200 Neut % (Auto) 67.7 Lymph % (Auto) 16.8 L [place] % (Auto) 10.4 H Eos % (Auto) 4.4 Baso % (Auto) 0.5 Absolute Neuts (auto) 4.4 Absolute Lymphs (auto) 1.08 Total Counted Not Reportable PT 23.4 H INR 2.1 APTT 37.8 H Sodium 134 L Potassium 2.7 L* Chloride 84 L Carbon Dioxide 43.0 H Anion Gap 7 BUN 11 Creatinine 1.35 H Estim Creat Clear Calc 66.07 Est GFR (MDRD) Af Amer 68 Est GFR (MDRD) Non-Af 56 L BUN/Creatinine Ratio 8.1 L Glucose 111 H Lactic Acid Calcium 8.9 Magnesium Total Bilirubin 1.10 H AST 18 ALT 14 L Alkaline Phosphatase 116 Troponin I 0.019 B-Natriuretic Peptide Total Protein 7.6 Albumin 3.3 Globulin 4.3 H Albumin/Globulin Ratio 0.8 L Triglycerides Cholesterol LDL Cholesterol VLDL Cholesterol HDL Cholesterol TSH Urine Color Urine Clarity Urine pH Ur Specific [place] Urine Protein Urine Glucose (UA) Urine Ketones Urine Occult Blood Urine Nitrite Urine Bilirubin Urine Urobilinogen Ur Leukocyte Esterase Urine RBC Urine WBC Ur Squamous Epith Cells Urine Bacteria Urine Mucus 09/07/18 09/07/18 09/07/18 20:48 20:48 20:48 WBC RBC Hgb Hct MCV MCH MCHC RDW RDW Differential Plt Count MPV Immature Gran % (Auto) Neut % (Auto) Lymph % (Auto) [place] % (Auto) Eos % (Auto) Baso % (Auto) Absolute Neuts (auto) Absolute Lymphs (auto) Total Counted PT INR APTT Sodium Potassium Chloride Carbon Dioxide Anion Gap BUN Creatinine Estim Creat Clear Calc Est GFR (MDRD) Af Amer Est GFR (MDRD) Non-Af BUN/Creatinine Ratio Glucose Lactic Acid 1.2 Calcium Magnesium Total Bilirubin AST ALT Alkaline Phosphatase Troponin I B-Natriuretic Peptide 343.9 H Total Protein Albumin Globulin Albumin/Globulin Ratio Triglycerides Cholesterol LDL Cholesterol VLDL Cholesterol HDL Cholesterol TSH Urine Color Yellow Urine Clarity Clear Urine pH 6.0 Ur Specific [place] 1.010 Urine Protein Negative Urine Glucose (UA) Normal Urine Ketones Negative Urine Occult Blood Negative Urine Nitrite Negative Urine Bilirubin Negative Urine Urobilinogen Normal Ur Leukocyte Esterase Negative Urine RBC 0 SEEN Urine WBC 0 SEEN Ur Squamous Epith Cells 0-5 SEEN Urine Bacteria 0 SEEN Urine Mucus 0 SEEN 09/08/18 09/08/18 09/08/18 03:54 06:45 06:45 WBC 6.1 RBC 4.31 L Hgb 12.8 L Hct 40.5 MCV 94.0 MCH 29.7 MCHC 31.6 L RDW 16.3 H RDW Differential 55.9 H Plt Count 160 MPV 9.2 Immature Gran % (Auto) 0.000 Neut % (Auto) 68.8 Lymph % (Auto) 13.9 L [place] % (Auto) 10.8 H Eos % (Auto) 6.2 H Baso % (Auto) 0.3 Absolute Neuts (auto) 4.2 Absolute Lymphs (auto) 0.85 Total Counted Not Reportable PT 25.1 H INR 2.3 APTT Sodium Potassium Chloride Carbon Dioxide Anion Gap BUN Creatinine Estim Creat Clear Calc Est GFR (MDRD) Af Amer Est GFR (MDRD) Non-Af BUN/Creatinine Ratio Glucose Lactic Acid Calcium Magnesium 2.3 Total Bilirubin AST ALT Alkaline Phosphatase Troponin I 0.022 B-Natriuretic Peptide Total Protein Albumin Globulin Albumin/Globulin Ratio Triglycerides Cholesterol LDL Cholesterol VLDL Cholesterol HDL Cholesterol TSH 1.84 Urine Color Urine Clarity Urine pH Ur Specific [place] Urine Protein Urine Glucose (UA) Urine Ketones Urine Occult Blood Urine Nitrite Urine Bilirubin Urine Urobilinogen Ur Leukocyte Esterase Urine RBC Urine WBC Ur Squamous Epith Cells Urine Bacteria Urine Mucus 09/08/18 06:45 WBC RBC Hgb Hct MCV MCH MCHC RDW RDW Differential Plt Count MPV Immature Gran % (Auto) Neut % (Auto) Lymph % (Auto) [place] % (Auto) Eos % (Auto) Baso % (Auto) Absolute Neuts (auto) Absolute Lymphs (auto) Total Counted PT INR APTT Sodium 136 Potassium 2.7 L* Chloride 82 L Carbon Dioxide > 45.0 H* Anion Gap TNP BUN 9 Creatinine 1.12 Estim Creat Clear Calc 81.81 Est GFR (MDRD) Af Amer 85 Est GFR (MDRD) Non-Af 70 BUN/Creatinine Ratio 8.0 L Glucose 95 Lactic Acid Calcium 8.9 Magnesium Total Bilirubin AST ALT Alkaline Phosphatase Troponin I 0.027 B-Natriuretic Peptide Total Protein Albumin Globulin Albumin/Globulin Ratio Triglycerides 85 Cholesterol 116 LDL Cholesterol 63 VLDL Cholesterol 17 HDL Cholesterol 36 L TSH Urine Color Urine Clarity Urine pH Ur Specific [place] Urine Protein Urine Glucose (UA) Urine Ketones Urine Occult Blood Urine Nitrite Urine Bilirubin Urine Urobilinogen Ur Leukocyte Esterase Urine RBC Urine WBC Ur Squamous Epith Cells Urine Bacteria Urine Mucus POC Glucose 09/07/18 20:42 POC Glucose 125 H Clinical Impression(s) from Imaging Studies Chest X-Ray 09/07/18 21:30 IMPRESSION: 1. Right lower lobe pneumonia. Recurrent pneumonia in the same segmental distribution raises concern for possible underlying endobronchial lesion. Consider nonemergent CT of the chest after treatment and resolution of current symptoms. 2. Early pneumonic infiltrate on the left. Electronically Signed: Rosemarie Loo MD at 22:14 EDT Tel , Service support , Chest CTA 09/07/18 22:44 IMPRESSION: 1. No CTA demonstrated pulmonary embolism or arterial dissection. 2. There is infiltrative mediastinal and right-sided hilar renny mass with probable postobstructive atelectasis within the right lower lobe. There may also be neoplastic process involving the right lower lobe. 3. Multiple bilateral pulmonary nodules as described may represent metastases. 4. Cardiomegaly, sequelae of coronary artery vascular disease and mild pulmonary edema. Electronically Signed: Radha Perez MD at 1:09 EDT , Service support , Brain CT 09/08/18 01:17 IMPRESSION: Normal unenhanced CT scan of the brain. No acute findings in the brain. No metastatic disease. Electronically Signed: Mark Hernandez MD at 3:06 EDT Tel , Service support , Assessment/Plan All Active Problems (Last Reviewed 08/19/17 @ 08:37 by Kelley Villagomez NP-Teagan) Shortness of breath (Acute) Acute on chronic diastolic (congestive) heart failure (Acute) Acute and chronic respiratory failure with hypoxia (Acute) Systolic CHF, acute on chronic (Acute) RECOMMENDATIONS: 1. Obtain arterial blood gas. 2. The patient is currently only on a CPAP of 6 cm of water. Based upon his polysomnogram from 2018, he requires significant pressure support. 3. Change from current CPAP settings to BiPAP 23/17 centimeters of water. 4. Discontinue sedating medications 5. Check strep and urine Legionella antigens along with MRSA screen. 6. Start empiric Zosyn therapy, pending infectious workup. 7. Discontinue morphine given renal insufficiency noted on presentation. 8. Aggressive potassium repletion IMPRESSIONS: 1. Acute on chronic combined respiratory failure This is likely multifactorial in etiology and related to a component of decompensated heart failure, underlying lung malignancy and possible postob structive pneumonia. The patient is currently on a CPAP, which will not provide any form of ventilatory support. I recommended we obtain an arterial blood gas and then transition him to BiPAP therapy. He did complete a sleep study in 2018 and it was clear at that time that he needed to be on significant amount of pressure support. In addition, the patient presented to the hospital with renal insufficiency and is prescribed long-acting morphine sulfate as an outpatient. Orders for the patient's morphine have been placed on hold for now. I agree with obtaining oncology consultation to evaluate if the current radiographic findings represent cancer progression from their perspective. For now, we will place the patient on empiric Zosyn, pending infectious workup. Will defer management of the patient's underlying cardiac manifestations to the heart group, who is currently following. 2. Metabolic encephalopathy Concern for underlying hypercarbia and buildup of morphine metabolites, given the patient's renal insufficiency on presentation. Will obtain arterial blood gas, after which time, the patient will be transition to BiPAP therapy. Unclear why he was placed on CPAP with such a low pressure support. All morphine products have been discontinued at this time. 3. Hypokalemia/metabolic alkalosis Agree with aggressive electrolyte repletion. My concern is that the patient's metabolic alkalosis may be compensatory to chronic CO2 retention. I am uncertain as to the patient's compliance in his home environment with the use of BiPAP therapy. 4. Underlying cardiomyopathy/atrial fibrillation/valvular heart disease Will defer management to cardiology. Repeat echocardiogram is currently pendi ng. 5. History of non-small cell lung cancer/self-reported COPD of unknown severity/hypertension/hyperlipidemia/ongoing tobacco dependence Complicates care, management, recovery and prognosis. Continue aerosol treatments as ordered. Await evaluation by oncology. This note was generated with 5by dictation software. It may contain incorrect words, spelling, and punctuation that were not noted in checking the note before signing. Code Visit Inpatient E&M: 94109 Init Hosp L3
--- NOTE | 2018-09-08 09:51 | CON.PCM_ITS ---
Problem List (1) Hyperlipidemia Status: Chronic Qualifiers: Hyperlipidemia type: unspecified Qualified Code(s): E78.5 - Hyperlipidemia, unspecified (2) Hypertension Status: Chronic Qualifiers: Hypertension type: essential hypertension Qualified Code(s): I10 - Essential (primary) hypertension (3) Tobacco use disorder Status: Chronic (4) Shortness of breath Status: Acute (5) Acute on chronic diastolic (congestive) heart failure Status: Acute (6) Atrial fibrillation Status: Chronic Qualifiers: Atrial fibrillation type: permanent Qualified Code(s): I48.2 - Chronic atrial fibrillation (7) Systolic CHF, acute on chronic Status: Acute (8) Pulmonary hypertension Status: Chronic Reason for Consult Date of Consultation: 09/08/18 Reason for Consultation: Severe pulmonary hypertension, atrial fibrillation, LV dysfunction, possible mitral stenosis, lung cancer History of Present Illness: The patient is a 62 year old M, patient of Dr. Ko, recently cathed by Dr. Williamson in June 2017 after an abnormal echo demonstrated an EF of 30%, and at least moderate pulmonary hypertension with severe right ventricular enlargement. He also has a history of chronic atrial fibrillation and is on chronic Coumadin therapy for both pulmonary hypertension and atrial fibrillation. His catheterization showed minimal nonobstructive coronary disease, moderate LV dysfunction with an EF around 30%, moderate to severe pulmonary hypertension, and possible severe mitral stenosis although not defined on echocardiogram. In addition the patient has been diagnosed with right-sided lung cancer with possible metastases to both lungs. He is undergone chemotherapy, and radiation therapy but has no plans for lung resection. Patient was doing well up into the last few days when he developed worsening shortness of breath, PND, orthopnea and difficulty breathing. Upon presentation he was found to have a possible infiltrate in his right lung versus sequelae from his right-sided lung cancer, and was treated with antibiotics. His initial EKG showed atrial fibrillation with rapid ventricular response and known right bundle branch block. No acute changes were noted. Patient is a history of obstructive sleep apnea, and occasionally uses CPAP therapy. He was placed on CPAP for hypoxia, which has improved. In addition the patient has evidence of lower extremity edema, and worsening right-sided heart failure. The patient admits to dietary indiscretion, but does report compliance with his Coumadin therapy. He was found to be hypokalemic, and this was replaced. The patient received Lasix 80 mg x1 IV, and is now on 40 mg IV twice daily. In addition he is on chronic metolazone, and spironolactone as well. He does not appear to be on pulmonary vasodilators or long-acting nitrates. Currently the patient is resting comfortably, on BiPAP, no acute distress. He denies any chest pain or anginal symptoms. Unfortunately, the patient continues to smoke cigarettes despite his lung cancer and CHF. Past Medical History Allergies/Adverse Reactions: Allergies bee venom protein (honey bee) Allergy (Verified 09/07/18 20:18) Anaphylaxis latex Allergy (Verified 09/07/18 20:18) Rash Home Medications: Ambulatory Orders Medication Instructions Recorded Finasteride [Proscar] 5 mg PO DAILY 08/01/13 Metoprolol Tartrate [Lopressor 12.5 mg PO BID 08/01/13 (beta fito)] Gabapentin [Neurontin] 600 mg PO TID 01/31/17 Mirtazapine [Remeron] 30 mg PO QHS PRN 01/31/17 Morphine Sulfate [Morphine Sulfate 30 mg PO BID PRN PRN 01/31/17 ER] Ondansetron [Zofran] 8 mg PO Q8H PRN PRN 01/31/17 Epinephrine [Epipen] 0.3 mg IM PRN PRN 07/07/17 Nitroglycerin [Nitrostat] 0.4 mg SL PRN PRN 07/07/17 Tamsulosin HCl [Flomax] 0.4 mg PO DAILY 07/07/17 Budesonide/Formoterol 80-4.5 2 puff INHALATION BID 07/09/17 [Symbicort 80-4.5 Mcg Inhaler] Albuterol IH (ProAir) [Proair Hfa] 2 puff INHALATION 4X/DAY 07/28/17 Calcium Carbonate [Calcium] 500 mg PO DAILY 07/28/17 Furosemide [Lasix] 40 mg PO BID 07/28/17 Guaifenesin [Mucinex] 1,200 mg PO BID 07/28/17 Potassium Chloride 20 meq PO TID 07/28/17 Warfarin [Coumadin] 6 mg PO SUMOTUWETHFRSA@1700 07/28/17 albuterol sulfate HFA 90 2 puff INHALATION Q4H PRN #18 g 08/18/17 mcg/actuation aerosol inhaler ipratropium-albuterol 0.5 mg-3 3 ml INHALATION Q4H PRN PRN #180 ml 08/18/17 mg(2.5 mg base)/3 mL nebulization soln Bacitracin 1 applicatio TP BID #1 tube 08/07/18 Hydrocodone/Acetaminophen 1 tab PO Q6H PRN PRN 09/08/18 [Hydrocodone-Acetamin 5-325 mg] Metolazone [Zaroxolyn] 1 tab PO DAILY 09/08/18 Naloxone HCl [Narcan] 4 mg NASAL PRN PRN 09/08/18 Omeprazole 20 mg PO DAILY 09/08/18 Sennosides [Senna] 1 tab PO BID 09/08/18 Spironolactone 25 mg PO DAILY 09/08/18 proCHLORPERazine tablet [Compazine 10 mg PO Q6H PRN PRN 09/08/18 tablet] Past Medical History (Chronic Problems): Chronic Problems (Last Reviewed 08/19/17 @ 08:37 by Kelley Villagomez NP-C) Hyperlipidemia (Chronic) Hypertension (Chronic) Tobacco use disorder (Chronic) Chronic airway obstruction (Chronic) Obstructive sleep apnea (Chronic) Chronic pulmonary heart disease (Chronic) Atrial fibrillation (Chronic) Carcinoma, lung (Chronic) Right heart failure (Chronic) Pulmonary hypertension (Chronic) Surgical History: tonsillectomy Psychiatric History: - - Dementia - *Family History Maternal History Items: - - Patient denies any market maternal or paternal family history including heart disease, diabetes or cancer. Paternal History Items: - - Patient denies any market maternal or paternal family history including heart disease, diabetes or cancer. Lives: Spouse/ Significant Other Smoking Status: Current every day smoker Tobacco Use: Cigarettes Alcohol: None Drugs: None Review of Systems - Review of Systems General: Denies: Fever, Night Sweats, Fatigue Cardiovascular: Reports: Shortness of Breath, Shortness of Breath at Rest, Peripheral Edema. Denies: Chest Discomfort, Orthopnea, PND, Palpitations, Lightheadedness, Dizziness, Near Syncope, Syncope Respiratory: Denies: Cough, Sputum Production, Hemoptysis Gastrointestinal: Denies: Hematemesis, Hematochezia, Melena Genitourinary: Denies: Dysuria, Hematuria Skin: Denies: Rash Subjectve: Patient resting comfortably at about a 45 degree angle, on BiPAP therapy. Does have some respiratory distress without oxygen or BiPAP. Objective: Vital Signs Temp Pulse Resp BP Pulse Ox 97.8 F 65 16 102/47 L 95 09/08/18 08:00 09/08/18 09:10 09/08/18 09:10 09/08/18 08:00 09/08/18 09:10 Oxygen Flow Rate (L/min) 6 Oxygen Delivery Method Bi-pap Weight: 250 lb 3.594 oz Body Mass Index (BMI) 30.4 Intake and Output for Last 24 Hours 09/06/18 09/07/18 09/08/18 23:59 23:59 23:59 Intake Total 120 / 120 Output Total 425 / 425 Balance -305 / -305 General: Awake, Alert, Oriented x 3 HEENT: PERRL, EOMI, Sclera Non Icteric Neck: Supple, Good ROM, No Lymph Node Enlargement Lungs: Rales - Right Base Cardiovascular: Irregular Rhythm, Normal S2, No Rubs, No Gallops Murmur Murmur: Grade 2/6, Holosystolic Vascular: No Carotid Bruits, Normal Femoral Pulses, Normal Radial Pulses, Normal Dorsalis Pedal Pulse, Normal Posterior Tibial Pulses Abdomen: Bowel Sounds Present, Soft, Non Tender, No HSM, No Organomegaly Extremities: No Cyanosis, No Clubbing, No edema Neurological: No Focal Motor or Sensory Deficit 09/07/18 20:48: WBC 6.4, RBC 4.56 L, Hgb 13.2, Hct 43.2, MCV 94.7 H, MCH 28.9, MCHC 30.6 L, RDW 16.5 H, RDW Differential 57.6 H, Plt Count 182, MPV 10.1, Immature Gran % (Auto) 0.200, Neut % (Auto) 67.7, Lymph % (Auto) 16.8 L, [place] % (Auto) 10.4 H, Eos % (Auto) 4.4, Baso % (Auto) 0.5, Absolute Neuts (auto) 4.4, Total Counted Not Reportable 09/07/18 20:48: PT 23.4 H, INR 2.1, APTT 37.8 H 09/07/18 20:48: Sodium 134 L, Potassium 2.7 L*, Chloride 84 L, Carbon Dioxide 43.0 H, Anion Gap 7, BUN 11, Creatinine 1.35 H, Est GFR (MDRD) Af Amer 68, Est GFR (MDRD) Non-Af 56 L, BUN/Creatinine Ratio 8.1 L, Glucose 111 H, Calcium 8.9, Total Bilirubin 1.10 H, Troponin I 0.019 09/07/18 20:48: Lactic Acid 1.2 09/07/18 20:48: Urine Color Yellow, Urine Clarity Clear, Urine pH 6.0, Ur Specific [place] 1.010, Urine Protein Negative, Urine Glucose (UA) Normal, Urine Ketones Negative, Urine Occult Blood Negative, Urine Nitrite Negative, Urine Bilirubin Negative, Urine Urobilinogen Normal, Ur Leukocyte Esterase Negative, Urine RBC 0 SEEN, Urine WBC 0 SEEN 09/07/18 20:48: B-Natriuretic Peptide 343.9 H 09/08/18 03:54: Magnesium 2.3, Troponin I 0.022 09/08/18 06:45: WBC 6.1, RBC 4.31 L, Hgb 12.8 L, Hct 40.5, MCV 94.0, MCH 29.7, MCHC 31.6 L, RDW 16.3 H, RDW Differential 55.9 H, Plt Count 160, MPV 9.2, Immature Gran % (Auto) 0.000, Neut % (Auto) 68.8, Lymph % (Auto) 13.9 L, [place] % (Auto) 10.8 H, Eos % (Auto) 6.2 H, Baso % (Auto) 0.3, Absolute Neuts (auto) 4.2, Total Counted Not Reportable 09/08/18 06:45: PT 25.1 H, INR 2.3 09/08/18 06:45: Sodium 136, Potassium 2.7 L*, Chloride 82 L, Carbon Dioxide > 45.0 H*, Anion Gap TNP, BUN 9, Creatinine 1.12, Est GFR (MDRD) Af Amer 85, Est GFR (MDRD) Non-Af 70, BUN/Creatinine Ratio 8.0 L, Glucose 95, Calcium 8.9, Troponin I 0.027, Triglycerides 85, Cholesterol 116, LDL Cholesterol 63, VLDL Cholesterol 17, HDL Cholesterol 36 L Rhythm: Atrial fibrillation with controlled ventricular response EKG: As above ECHO: Pending Stress Test: Cardiac Cath: PCI: CT Surgery: Holter monitor: EPS: PPM: CXR: Chest CT Scan: Reviewed Assessment/Plan 1. Cardia myopathy: The patient has evidence of moderate to severe LV dysfunction, possibly as a result of chronic atrial fibrillation with an EF around 30% by catheterization in June 2017. In addition there is some suspi cion as to whether the patient has severe mitral stenosis to explain his severe pulmonary hypertension. Patient has engaged in dietary noncompliance but apparently has been compliant with his medical therapy. Unfortunately he continues to smoke. I recommended holding his beta-fito therapy until he has clinically improved to his dry weight. I agree with Lasix 40 mg IV twice daily, and continuing his spironolactone and metolazone going forward. I recommended a repeat echocardiogram to try and delineate the degree of mitral stenosis. His right heart catheterization in June 2017 demonstrated a mean mitral gradient of approximately 14.5 mm, which be consistent with severe mitral stenosis. Either way, patient is not a candidate for mitral valve replacement given his current condition and lung cancer. I think her only option is for heart rate control to improve diastolic filling, anticoagulation for his atrial fibrillation and severe pulmonary hypertension, and IV diuretic therapy to assist with unloading his lungs. Once he reaches his dry weight, would recommend switching him from metoprolol to Coreg 3.125 mg p.o. twice daily to assist with afterload reduction. For some r randy he is not on DEYANIRA inhibitors or ARBs. I would not recommend repeat catheterization and is been just over a year since his last one, and he had minimal nonobstructive coronary disease. He denied any chest pain symptoms. 2. Atrial fibrillation: The patient states he has never had a DC cardioversion and has been on Coumadin therapy for some time. Recommend keeping him on Coumadin lifelong or anticoagulant equivalent. Recommend an INR between 2.5 and 3.0. 3. Mitral stenosis: There was some evidence by right heart catheterization the patient may have severe mitral stenosis which may explain his severe pulmonary hypertension and severe RV enlargement. Repeat echo is pending with specific attention to the mitral valve. 4. Thank you very much for the opportunity to participate in the cardiac care of your patient. Consultation time took place between 830 and 9:05 AM. Code Visit Inpatient E&M: 30755 Init Hosp L2
[2018-09-08] MEDS: guaiFENesin 1,200 MG Tablet 1200 MG PO ×2 (11:01→22:24)
[2018-09-08] MEDS: Finasteride 5 MG Tablet PO (11:01)
[2018-09-08] MEDS: Pantoprazole Sodium 20 MG Tablet PO (11:01)
[2018-09-08] MEDS: Tamsulosin HCl 0.4 MG Capsule PO (11:01)
[2018-09-08] MEDS: Spironolactone 25 MG Tablet PO (11:02)
[2018-09-08] MEDS: Furosemide 40 MG/4 ML Vial IV (11:02)
[2018-09-08] MEDS: Senna Tablet 1 TABLET PO ×2 (11:13→22:25)
[2018-09-08 11:53] LABS: Allen Test POS; Blood Gas Specimen Type ART; SITE R RADIAL
[2018-09-08 11:54] LABS: EPAP 6; FI02 50; Time Given 1129; pCO2 67.1 mmHg (35-45)
[2018-09-08 11:55] LABS: Base Excess > 30 mmol/L (-2 to +2); Bicarbonate 53.2 mmol/L (22-26); PO2 75 mmHG (75-100); SO2 95 % (95-99); Total Carbon Dioxide > 50 mmol/L
--- NOTE | 2018-09-08 11:58 | CPS ---
Critical Blood Gas Results verbally read to at 1145. Denise Tiwari [employer] ATTENDANT-SDS
[2018-09-08] MEDS: Cefepime HCl 2 GM in 0.9% NS 100 ML Minibag Q12 IV ×2 (12:06→22:24)
--- NOTE | 2018-09-08 12:29 | CASEMGMT ---
This RN CM to room to complete CM assessment and pt constantly falls to sleep even when stimulated verbally. This RN CM will attempt to complete at a later time when pt is more alert or family is present. SStaten RN CM
--- NOTE | 2018-09-08 16:01 | CPS ---
FIO2 DECREASED FROM 50% TO 40% ON BIPAP....NURSE AWARE OF CHANGE
--- NOTE | 2018-09-08 17:09 | CON.PCM_ITS ---
Problem List (1) Carcinoma, lung Status: Chronic Qualifiers: Laterality: right Qualified Code(s): C34.91 - Malignant neoplasm of unspecified part of right bronchus or lung (2) Pulmonary hypertension Status: Chronic (3) Acute on chronic diastolic (congestive) heart failure Status: Acute - Consult Date of Consult: 09/08/[address] Bruce patient known to me with metastatic non- small cell lung cancer on OPDIVO, status post chemoradiation therapy for lung cancer, early in remission. Patient presented with acute respiratory failure secondary to congestive heart failure and pulmonary hypertension & severe COPD. My final recommendation will be communicated by electronic medical records - Reason for Consult Patient Name: SHYAM ENNIS Date of : 1955 Patient Status: Inpatient Attending Provider: Bishnu Zhang Date: 09/08/18 08:35 Initialization Date: 09/08/18 08:35 Reason for Consult Date of Consultation: 09/08/18 Reason for Consultation: Lung cancer and respiratory failure History of Present Illness: Patient is a 62-year-old male, with history of non-small cell lung cancer status post chemotherapy and radiation therapy, developed metastasis on maintenance immunotherapy with OPDIVO. He has his last treatment on Wednesday, and presented to the ED on September 08 with complaints of lower externally edema and erythema, along with worsening shortness of breath and hypoxemia. The patient is quite drowsy this morning on morphine and Neurontin for chronic pain. When questioned, he reports that he initially came to the hospital because he felt out of it. He denies the presence of fever, chills, or shortness of breath resting. But does report a nonproductive cough since this week. The patient did complete a titration polysomnogram in July 2017, for which it was recommended that the patient be placed on nocturnal BiPAP therapy with a pressure support of 26/20 centimeters of water with a 5 L/min supplemental oxygen bleeding. echocardiogram dated July 2017 revealed evidence of a moderately dilated LV with an ejection fraction of 35%. There was also evidence of a severely dilated RV with moderately severe global RV systolic dysfunction and a right ventricular systolic pressure estimated to be 46 mmHg. On presentation to the emergency department, the patient was noted to be af ebrile. The patient eventually required the initiation of a nonrebreather to to maintain appropriate oxygen saturations. Laboratory evaluation revealed no evidence of a leukocytosis. INR was noted to be 2.1. Chemistry profile was significant for potassium of 2.7, chloride of 84 and bicarbonate of 43. Creatinine was increased to 1.35. Serum lactate was within normal limits. BNP was elevated to 344. Troponin was negative. CTA chest was subsequently obtained which revealed no evidence for pulmonary embolism. Cardiomegaly was noted along with a subcarinal renny mass measuring 4 x 4 cm in size (unchanged). There also appeared to be a right hilar mass and associated lymphadenopathy along with associated airspace disease in the right lower lobe. Several other pulmonary nodules were identified bilaterally. He was subsequently admitted to the progressive care unit for treatment of a CHF exacerbation and acute respiratory failure with encephalopathy. Past Medical History Past Medical History (Chronic Problems): Chronic Problems (Last Reviewed 08/19/17 @ 08:37 by Kelley Villagomez, TIFF-C) Hyperlipidemia (Chronic) Hypertension (Chronic) Tobacco use disorder (Chronic) Chronic airway obstruction (Chronic) Obstructive sleep apnea (Chronic) Chronic pulmonary heart disease (Chronic) Atrial fibrillation (Chronic) Carcinoma, lung (Chronic) Right heart failure (Chronic) Pulmonary hypertension (Chronic) Medical History: Medical History (Last Reviewed 08/19/17 @ 08:37 by Kelley Villagomez, [employer]-C) Hyperlipidemia (Chronic) E78.5 Hypertension (Chronic) I10 Tobacco use disorder (Chronic) F17.200 Chronic airway obstruction (Chronic) J44.9 Obstructive sleep apnea (Chronic) G47.33 Chronic pulmonary heart disease (Chronic) I27.9 Shortness of breath (Acute) R06.02 Acute on chronic diastolic (congestive) heart failure (Acute) I50.33 Acute and chronic respiratory failure with hypoxia (Acute) J96.21 Atrial fibrillation (Chronic) I48.91 Carcinoma, lung (Chronic) C34.90 Systolic CHF, acute on chronic (Acute) I50.23 Right heart failure (Chronic) I50.810 Pulmonary hypertension (Chronic) I27.20 Allergies bee venom protein (honey bee) Allergy (Verified 09/07/18 20:18) Anaphylaxis latex Allergy (Verified 09/07/18 20:18) Rash Home Medications: Ambulatory Orders Medication Instructions Recorded Finasteride [Proscar] 5 mg PO DAILY 08/01/13 Metoprolol Tartrate [Lopressor 12.5 mg PO BID 08/01/13 (beta fito)] Gabapentin [Neurontin] 600 mg PO TID 01/31/17 Mirtazapine [Remeron] 30 mg PO QHS PRN 01/31/17 Morphine Sulfate [Morphine Sulfate 30 mg PO BID PRN PRN 01/31/17 ER] Ondansetron [Zofran] 8 mg PO Q8H PRN PRN 01/31/17 Epinephrine [Epipen] 0.3 mg IM PRN PRN 07/07/17 Nitroglycerin [Nitrostat] 0.4 mg SL PRN PRN 07/07/17 Tamsulosin HCl [Flomax] 0.4 mg PO DAILY 07/07/17 Budesonide/Formoterol 80-4.5 2 puff INHALATION BID 07/09/17 [Symbicort 80-4.5 Mcg Inhaler] Albuterol IH (ProAir) [Proair Hfa] 2 puff INHALATION 4X/DAY 07/28/17 Calcium Carbonate [Calcium] 500 mg PO DAILY 07/28/17 Furosemide [Lasix] 40 mg PO BID 07/28/17 Guaifenesin [Mucinex] 1,200 mg PO BID 07/28/17 Potassium Chloride 20 meq PO TID 07/28/17 Warfarin [Coumadin] 6 mg PO SUMOTUWETHFRSA@1700 07/28/17 albuterol sulfate HFA 90 2 puff INHALATION Q4H PRN #18 g 08/18/17 mcg/actuation aerosol inhaler ipratropium-albuterol 0.5 mg-3 3 ml INHALATION Q4H PRN PRN #180 ml 08/18/17 mg(2.5 mg base)/3 mL nebulization soln Bacitracin 1 applicatio TP BID #1 tube 08/07/18 Hydrocodone/Acetaminophen 1 tab PO Q6H PRN PRN 09/08/18 [Hydrocodone-Acetamin 5-325 mg] Metolazone [Zaroxolyn] 1 tab PO DAILY 09/08/18 Naloxone HCl [Narcan] 4 mg NASAL PRN PRN 09/08/18 Omeprazole 20 mg PO DAILY 09/08/18 Sennosides [Senna] 1 tab PO BID 09/08/18 Spironolactone 25 mg PO DAILY 09/08/18 proCHLORPERazine tablet [Compazine 10 mg PO Q6H PRN PRN 09/08/18 tablet] Surgical History: tonsillectomy Psychiatric History: - - Dementia Lives: Spouse/ Significant Other Smoking Status: Current every day smoker Tobacco Use: Cigarettes Alcohol: None Drugs: None - *Family History Maternal History Items: - - Patient denies any market maternal or paternal family history including heart disease, diabetes or cancer. Paternal History Items: - - Patient denies any market maternal or paternal family history including heart disease, diabetes or cancer. Review of Systems Constitutional: Denies: Chills, Fever Eyes: Denies: Blurred vision, Double vision HEENT: Denies: Head Aches, Sinus Congestion, Sinus Drainage Cardiovascular: Reports: Edema. Denies: Chest Pain, Palpitations Respiratory: Reports: Cough. Denies: Sputum production Gastrointestinal: Denies: Abdominal Pain, Nausea, Vomiting Genitourinary: Denies: Dysuria Musculoskeletal: Denies: Joint Pain, Joint Tenderness Skin: Denies: Rash, Wounds Neurological: Reports: Confusion Psychiatric: Denies: Anxiety, Depression, Homicidal Ideations, Suicidal Ideations Hematologic/ Lymphatic: Reports: Hx of blood clot Objective: The patient's most recent lab work, culture data and imaging studies have all been personally reviewed. Blood and urine cultures are pending. - Physical Exam General: - - While the patient is arousable to verbal stimulation, on BiPap HEENT: Atraumatic, PERRLA, Normocephalic Oral: No Gingival or Mucosal Lesions/ Ulcerations Neck: Supple, No Nodes, Trachea Midline Lungs: - - Globally diminished air movement bilaterally. Cardiovascular: Normal S1, Normal S2, Irregular Rate, Murmur Abdomen: Bowel Sounds Present, Soft, Non Tender, Obese Extremities: No clubbing, No cyanosis, +1 Edema Skin: - - Chronic lower extremity venous stasis dermatitis Musculoskeletal: No Muscle Wasting Lymphatic: No Cervical, Supraclavicular, or Inguinal Adenopathy Neurological: Neuro grossly intact Psych/Mental Status: Flat Affect Vital Signs Temp Pulse Resp BP Pulse Ox 36.6 C 83 16 102/47 L 94 09/08/18 08:00 09/08/18 08:23 09/08/18 08:23 09/08/18 08:00 09/08/18 08:23 Oxygen Flow Rate (L/min) 6 Oxygen Delivery Method Bi-pap Weight: 250 lb 3.594 oz Body Mass Index (BMI) 30.4 Laboratory Results - last 24 hr 09/07/18 09/07/18 09/07/18 20:42 20:48 20:48 WBC 6.4 RBC 4.56 L Hgb 13.2 Hct 43.2 MCV 94.7 H MCH 28.9 MCHC 30.6 L RDW 16.5 H RDW Differential 57.6 H Plt Count 182 MPV 10.1 Immature Gran % (Auto) 0.200 Neut % (Auto) 67.7 Lymph % (Auto) 16.[address] [place] % (Auto) 10.4 H Eos % (Auto) 4.4 Baso % (Auto) 0.5 Absolute Neuts (auto) 4.4 Absolute Lymphs (auto) 1.08 Total Counted Not Reportable PT 23.4 H INR 2.1 APTT 37.8 H Specimen Type Sample Site pH Bicarbonate Actual POC Total CO2 Base Excess O2 Saturation O2 % ABG pCO2 ABG pO2 North Test EPAP Blood Gas Notified Whom Blood Gas Notified Time Sodium Potassium Chloride Carbon Dioxide Anion Gap BUN Creatinine Estim Creat Clear Calc Est GFR (MDRD) Af Amer Est GFR (MDRD) Non-Af BUN/Creatinine Ratio Glucose Lactic Acid Calcium Magnesium Total Bilirubin AST ALT Alkaline Phosphatase Troponin I B-Natriuretic Peptide Total Protein Albumin Globulin Albumin/Globulin Ratio Triglycerides Cholesterol LDL Cholesterol VLDL Cholesterol HDL Cholesterol TSH Urine Color Urine Clarity Urine pH Ur Specific [place] Urine Protein Urine Glucose (UA) Urine Ketones Urine Occult Blood Urine Nitrite Urine Bilirubin Urine Urobilinogen Ur Leukocyte Esterase Urine RBC Urine WBC Ur Squamous Epith Cells Urine Bacteria Urine Mucus POC Glucose 125 H 09/07/18 09/07/18 09/07/18 20:48 20:48 20:48 WBC RBC Hgb Hct MCV MCH MCHC RDW RDW Differential Plt Count MPV Immature Gran % (Auto) Neut % (Auto) Lymph % (Auto) [place] % (Auto) Eos % (Auto) Baso % (Auto) Absolute Neuts (auto) Absolute Lymphs (auto) Total Counted PT INR APTT Specimen Type Sample Site pH Bicarbonate Actual POC Total CO2 Base Excess O2 Saturation O2 % ABG pCO2 ABG pO2 North Test EPAP Blood Gas Notified Whom Blood Gas Notified Time Sodium 134 L Potassium 2.7 L* Chloride 84 L Carbon Dioxide 43.0 H Anion Gap 7 BUN 11 Creatinine 1.35 H Estim Creat Clear Calc 66.07 Est GFR (MDRD) Af Amer 68 Est GFR (MDRD) Non-Af 56 L BUN/Creatinine Ratio 8.1 L Glucose 111 H Lactic Acid 1.2 Calcium 8.9 Magnesium Total Bilirubin 1.10 H AST 18 ALT 14 L Alkaline Phosphatase 116 Troponin I 0.019 B-Natriuretic Peptide Total Protein 7.6 Albumin 3.3 Globulin 4.3 H Albumin/Globulin Ratio 0.8 L Triglycerides Cholesterol LDL Cholesterol VLDL Cholesterol HDL Cholesterol TSH Urine Color Yellow Urine Clarity Clear Urine pH 6.0 Ur Specific [place] 1.010 Urine Protein Negative Urine Glucose (UA) Normal Urine Ketones Negative Urine Occult Blood Negative Urine Nitrite Negative Urine Bilirubin Negative Urine Urobilinogen Normal Ur Leukocyte Esterase Negative Urine RBC 0 SEEN Urine WBC 0 SEEN Ur Squamous Epith Cells 0-5 SEEN Urine Bacteria 0 SEEN Urine Mucus 0 SEEN POC Glucose 09/07/18 09/08/18 09/08/18 20:48 03:54 06:45 WBC 6.1 RBC 4.31 L Hgb 12.8 L Hct 40.5 MCV 94.0 MCH 29.7 MCHC 31.6 L RDW 16.3 H RDW Differential 55.9 H Plt Count 160 MPV 9.2 Immature Gran % (Auto) 0.000 Neut % (Auto) 68.8 Lymph % (Auto) 13.[address] [place] % (Auto) 10.8 H Eos % (Auto) 6.2 H Baso % (Auto) 0.3 Absolute Neuts (auto) 4.2 Absolute Lymphs (auto) 0.85 Total Counted Not Reportable PT INR APTT Specimen Type Sample Site pH Bicarbonate Actual POC Total CO2 Base Excess O2 Saturation O2 % ABG pCO2 ABG pO2 North Test EPAP Blood Gas Notified Whom Blood Gas Notified Time Sodium Potassium Chloride Carbon Dioxide Anion Gap BUN Creatinine Estim Creat Clear Calc Est GFR (MDRD) Af Amer Est GFR (MDRD) Non-Af BUN/Creatinine Ratio Glucose Lactic Acid Calcium Magnesium 2.3 Total Bilirubin AST ALT Alkaline Phosphatase Troponin I 0.022 B-Natriuretic Peptide 343.9 H Total Protein Albumin Globulin Albumin/Globulin Ratio Triglycerides Cholesterol LDL Cholesterol VLDL Cholesterol HDL Cholesterol TSH 1.84 Urine Color Urine Clarity Urine pH Ur Specific [place] Urine Protein Urine Glucose (UA) Urine Ketones Urine Occult Blood Urine Nitrite Urine Bilirubin Urine Urobilinogen Ur Leukocyte Esterase Urine RBC Urine WBC Ur Squamous Epith Cells Urine Bacteria Urine Mucus POC Glucose 09/08/18 09/08/18 09/08/18 06:45 06:45 09:35 WBC RBC Hgb Hct MCV MCH MCHC RDW RDW Differential Plt Count MPV Immature Gran % (Auto) Neut % (Auto) Lymph % (Auto) [place] % (Auto) Eos % (Auto) Baso % (Auto) Absolute Neuts (auto) Absolute Lymphs (auto) Total Counted PT 25.1 H INR 2.3 APTT Specimen Type Sample Site pH Bicarbonate Actual POC Total CO2 Base Excess O2 Saturation O2 % ABG pCO2 ABG pO2 North Test EPAP Blood Gas Notified Whom Blood Gas Notified Time Sodium 136 Potassium 2.7 L* Chloride 82 L Carbon Dioxide > 45.0 H* Anion Gap TNP BUN 9 Creatinine 1.12 Estim Creat Clear Calc 81.81 Est GFR (MDRD) Af Amer 85 Est GFR (MDRD) Non-Af 70 BUN/Creatinine Ratio 8.0 L Glucose 95 Lactic Acid Calcium 8.9 Magnesium Total Bilirubin AST ALT Alkaline Phosphatase Troponin I 0.027 0.024 B-Natriuretic Peptide Total Protein Albumin Globulin Albumin/Globulin Ratio Triglycerides 85 Cholesterol 116 LDL Cholesterol 63 VLDL Cholesterol 17 HDL Cholesterol 36 L TSH Urine Color Urine Clarity Urine pH Ur Specific [place] Urine Protein Urine Glucose (UA) Urine Ketones Urine Occult Blood Urine Nitrite Urine Bilirubin Urine Urobilinogen Ur Leukocyte Esterase Urine RBC Urine WBC Ur Squamous Epith Cells Urine Bacteria Urine Mucus POC Glucose 09/08/18 11:29 WBC RBC Hgb Hct MCV MCH MCHC RDW RDW Differential Plt Count MPV Immature Gran % (Auto) Neut % (Auto) Lymph % (Auto) [place] % (Auto) Eos % (Auto) Baso % (Auto) Absolute Neuts (auto) Absolute Lymphs (auto) Total Counted PT INR APTT Specimen Type ART Sample Site R RADIAL pH 7.50 H Bicarbonate Actual 53.2 H POC Total CO2 > 50 Base Excess > 30 H O2 Saturation 95 O2 % 50 ABG pCO2 67.1 H* ABG pO2 75 North Test POS EPAP 6 Blood Gas Notified Whom ICU Blood Gas Notified Time 1129 Sodium Potassium Chloride Carbon Dioxide Anion Gap BUN Creatinine Estim Creat Clear Calc Est GFR (MDRD) Af Amer Est GFR (MDRD) Non-Af BUN/Creatinine Ratio Glucose Lactic Acid Calcium Magnesium Total Bilirubin AST ALT Alkaline Phosphatase Troponin I B-Natriuretic Peptide Total Protein Albumin Globulin Albumin/Globulin Ratio Triglycerides Cholesterol LDL Cholesterol VLDL Cholesterol HDL Cholesterol TSH Urine Color Urine Clarity Urine pH Ur Specific [place] Urine Protein Urine Glucose (UA) Urine Ketones Urine Occult Blood Urine Nitrite Urine Bilirubin Urine Urobilinogen Ur Leukocyte Esterase Urine RBC Urine WBC Ur Squamous Epith Cells Urine Bacteria Urine Mucus POC Glucose IMPRESSION: Metastatic non-small cell lung cancer clinically stable on OPDIVO -Acute/chronic congestive heart failure; respiratory failure with decompensation and metabolic encephalopathy -Overall prognosis poor 2/2 performance status, respiratory failure (hypertension/cor pulmonale), and heart failure (underlying cardiomyopathy/atri al fibrillation/valvular heart disease) -Metabolic encephalopathy secondary to above and possible oversedation RECOMMENDATIONS: -Need to establish CODE STATUS with family & patient's DPOA -I also recommend that we stop his immunotherapy treatment for metastatic lung cancer -Consider hospice/palliative care consultation. cc: Dr. Steven Brownlee, Dr. David Nagy, Dr. Paulo Geiger, Dr. Maryan Phillips, Dr. Janna Dobbins
[2018-09-08 17:49] LABS: M R Staph aureus DNA By PCR Negative (Negative)
[2018-09-08 17:50] LABS: Probe Check PASS; Specimen Processing Control PASS
--- NOTE | 2018-09-08 20:26 | PCM.PROGNOTE ---
Subjective: Patient was seen and examined today, he is currently on BiPAP, a blood gas was done earlier today which showed a pH of 7.5, P CO2 of 67.1, PO2 of 75. Patient's potassium was low this morning at 2.7, I briefly talked with pulmonary medicine and oncology about his care, oncology recommended palliative care or hospice. His blood pressure has been a problem today with low systolic readings, I talked with cardiology who saw the patient this morning and he advised stopping the patient's Zaroxolyn and reducing the patient's IV Lasix. I put these orders in for the patient. Patient is a DNR CC arrest at this time. - Physical Exam General: Alert, Cooperative, Well developed, Confused HEENT: Atraumatic, PERRLA, EOMI, Normocephalic Oral: Moist Mucosa Neck: Supple, No Nuchal Rigidity, Trachea Midline, Thyroid Normal Size and Texture Lungs: Wheezes - Scattered expiratory wheezes bilaterally Cardiovascular: No murmurs, PMI Normal, Irregular Rate, No rub noted Abdomen: Bowel Sounds Present, Soft, Non Tender, Non-Distended, No hernias noted Extremities: No edema, Capillary Refill Less than 3 Seconds Skin: No rashes, No breakdown Musculoskeletal: No Tenderness to Palpation of Joints or Extremities Neurological: Cranial nerves II-XII grossly intact, Neuro grossly intact, Sensory exam intact to light touch and pain, Coordination normal Psych/Mental Status: Flat Affect, - - Patient has confusion but appears to follow some commands appropriately Vital Signs Temp Pulse Resp BP Pulse Ox 97.1 F L 88 18 90/62 95 09/08/18 20:05 09/08/18 20:05 09/08/18 20:05 09/08/18 20:05 09/08/18 20:05 Oxygen Flow Rate (L/min) 6 Oxygen Delivery Method Nasal Cannula Weight: 113.5 kg Body Mass Index (BMI) 30.4 Intake and Output for Last 24 Hours 09/06/18 09/07/18 09/08/18 23:59 23:59 23:59 Intake Total 683 / 683 Output Total 1275 / 1275 Balance -592 / -592 Laboratory Tests Past 24 Hrs 09/07/18 09/07/18 09/07/18 20:48 20:48 20:48 WBC 6.4 RBC 4.56 L Hgb 13.2 Hct 43.2 MCV 94.7 H MCH 28.9 MCHC 30.6 L RDW 16.5 H RDW Differential 57.6 H Plt Count 182 MPV 10.1 Immature Gran % (Auto) 0.200 Neut % (Auto) 67.7 Lymph % (Auto) 16.8 L [place] % (Auto) 10.4 H Eos % (Auto) 4.4 Baso % (Auto) 0.5 Absolute Neuts (auto) 4.4 Absolute Lymphs (auto) 1.08 Total Counted Not Reportable PT 23.4 H INR 2.1 APTT 37.8 H Specimen Type Sample Site pH Bicarbonate Actual POC Total CO2 Base Excess O2 Saturation O2 % ABG pCO2 ABG pO2 North Test EPAP Blood Gas Notified Whom Blood Gas Notified Time Sodium 134 L Potassium 2.7 L* Chloride 84 L Carbon Dioxide 43.0 H Anion Gap 7 BUN 11 Creatinine 1.35 H Estim Creat Clear Calc 66.07 Est GFR (MDRD) Af Amer 68 Est GFR (MDRD) Non-Af 56 L BUN/Creatinine Ratio 8.1 L Glucose 111 H Lactic Acid Calcium 8.9 Magnesium Total Bilirubin 1.10 H AST 18 ALT 14 L Alkaline Phosphatase 116 Troponin I 0.019 B-Natriuretic Peptide Total Protein 7.6 Albumin 3.3 Globulin 4.3 H Albumin/Globulin Ratio 0.8 L Triglycerides Cholesterol LDL Cholesterol VLDL Cholesterol HDL Cholesterol TSH Urine Color Urine Clarity Urine pH Ur Specific [place] Urine Protein Urine Glucose (UA) Urine Ketones Urine Occult Blood Urine Nitrite Urine Bilirubin Urine Urobilinogen Ur Leukocyte Esterase Urine RBC Urine WBC Ur Squamous Epith Cells Urine Bacteria Urine Mucus MRSA (PCR) 09/07/18 09/07/18 09/07/18 20:48 20:48 20:48 WBC RBC Hgb Hct MCV MCH MCHC RDW RDW Differential Plt Count MPV Immature Gran % (Auto) Neut % (Auto) Lymph % (Auto) [place] % (Auto) Eos % (Auto) Baso % (Auto) Absolute Neuts (auto) Absolute Lymphs (auto) Total Counted PT INR APTT Specimen Type Sample Site pH Bicarbonate Actual POC Total CO2 Base Excess O2 Saturation O2 % ABG pCO2 ABG pO2 North Test EPAP Blood Gas Notified Whom Blood Gas Notified Time Sodium Potassium Chloride Carbon Dioxide Anion Gap BUN Creatinine Estim Creat Clear Calc Est GFR (MDRD) Af Amer Est GFR (MDRD) Non-Af BUN/Creatinine Ratio Glucose Lactic Acid 1.2 Calcium Magnesium Total Bilirubin AST ALT Alkaline Phosphatase Troponin I B-Natriuretic Peptide 343.9 H Total Protein Albumin Globulin Albumin/Globulin Ratio Triglycerides Cholesterol LDL Cholesterol VLDL Cholesterol HDL Cholesterol TSH Urine Color Yellow Urine Clarity Clear Urine pH 6.0 Ur Specific [place] 1.010 Urine Protein Negative Urine Glucose (UA) Normal Urine Ketones Negative Urine Occult Blood Negative Urine Nitrite Negative Urine Bilirubin Negative Urine Urobilinogen Normal Ur Leukocyte Esterase Negative Urine RBC 0 SEEN Urine WBC 0 SEEN Ur Squamous Epith Cells 0-5 SEEN Urine Bacteria 0 SEEN Urine Mucus 0 SEEN MRSA (PCR) 09/08/18 09/08/18 09/08/18 03:54 06:45 06:45 WBC 6.1 RBC 4.31 L Hgb 12.8 L Hct 40.5 MCV 94.0 MCH 29.7 MCHC 31.6 L RDW 16.3 H RDW Differential 55.9 H Plt Count 160 MPV 9.2 Immature Gran % (Auto) 0.000 Neut % (Auto) 68.8 Lymph % (Auto) 13.9 L [place] % (Auto) 10.8 H Eos % (Auto) 6.2 H Baso % (Auto) 0.3 Absolute Neuts (auto) 4.2 Absolute Lymphs (auto) 0.85 Total Counted Not Reportable PT 25.1 H INR 2.3 APTT Specimen Type Sample Site pH Bicarbonate Actual POC Total CO2 Base Excess O2 Saturation O2 % ABG pCO2 ABG pO2 North Test EPAP Blood Gas Notified Whom Blood Gas Notified Time Sodium Potassium Chloride Carbon Dioxide Anion Gap BUN Creatinine Estim Creat Clear Calc Est GFR (MDRD) Af Amer Est GFR (MDRD) Non-Af BUN/Creatinine Ratio Glucose Lactic Acid Calcium Magnesium 2.3 Total Bilirubin AST ALT Alkaline Phosphatase Troponin I 0.022 B-Natriuretic Peptide Total Protein Albumin Globulin Albumin/Globulin Ratio Triglycerides Cholesterol LDL Cholesterol VLDL Cholesterol HDL Cholesterol TSH 1.84 Urine Color Urine Clarity Urine pH Ur Specific [place] Urine Protein Urine Glucose (UA) Urine Ketones Urine Occult Blood Urine Nitrite Urine Bilirubin Urine Urobilinogen Ur Leukocyte Esterase Urine RBC Urine WBC Ur Squamous Epith Cells Urine Bacteria Urine Mucus MRSA (PCR) 09/08/18 09/08/18 09/08/18 06:45 09:35 11:29 WBC RBC Hgb Hct MCV MCH MCHC RDW RDW Differential Plt Count MPV Immature Gran % (Auto) Neut % (Auto) Lymph % (Auto) [place] % (Auto) Eos % (Auto) Baso % (Auto) Absolute Neuts (auto) Absolute Lymphs (auto) Total Counted PT INR APTT Specimen Type ART Sample Site R RADIAL pH 7.50 H Bicarbonate Actual 53.2 H POC Total CO2 > 50 Base Excess > 30 H O2 Saturation 95 O2 % 50 ABG pCO2 67.1 H* ABG pO2 75 North Test POS EPAP 6 Blood Gas Notified Whom ICU MD Blood Gas Notified Time 1129 Sodium 136 Potassium 2.7 L* Chloride 82 L Carbon Dioxide > 45.0 H* Anion Gap TNP BUN 9 Creatinine 1.12 Estim Creat Clear Calc 81.81 Est GFR (MDRD) Af Amer 85 Est GFR (MDRD) Non-Af 70 BUN/Creatinine Ratio 8.0 L Glucose 95 Lactic Acid Calcium 8.9 Magnesium Total Bilirubin AST ALT Alkaline Phosphatase Troponin I 0.027 0.024 B-Natriuretic Peptide Total Protein Albumin Globulin Albumin/Globulin Ratio Triglycerides 85 Cholesterol 116 LDL Cholesterol 63 VLDL Cholesterol 17 HDL Cholesterol 36 L TSH Urine Color Urine Clarity Urine pH Ur Specific [place] Urine Protein Urine Glucose (UA) Urine Ketones Urine Occult Blood Urine Nitrite Urine Bilirubin Urine Urobilinogen Ur Leukocyte Esterase Urine RBC Urine WBC Ur Squamous Epith Cells Urine Bacteria Urine Mucus MRSA (PCR) 09/08/18 16:15 WBC RBC Hgb Hct MCV MCH MCHC RDW RDW Differential Plt Count MPV Immature Gran % (Auto) Neut % (Auto) Lymph % (Auto) [place] % (Auto) Eos % (Auto) Baso % (Auto) Absolute Neuts (auto) Absolute Lymphs (auto) Total Counted PT INR APTT Specimen Type Sample Site pH Bicarbonate Actual POC Total CO2 Base Excess O2 Saturation O2 % ABG pCO2 ABG pO2 North Test EPAP Blood Gas Notified Whom Blood Gas Notified Time Sodium Potassium Chloride Carbon Dioxide Anion Gap BUN Creatinine Estim Creat Clear Calc Est GFR (MDRD) Af Amer Est GFR (MDRD) Non-Af BUN/Creatinine Ratio Glucose Lactic Acid Calcium Magnesium Total Bilirubin AST ALT Alkaline Phosphatase Troponin I B-Natriuretic Peptide Total Protein Albumin Globulin Albumin/Globulin Ratio Triglycerides Cholesterol LDL Cholesterol VLDL Cholesterol HDL Cholesterol TSH Urine Color Urine Clarity Urine pH Ur Specific [place] Urine Protein Urine Glucose (UA) Urine Ketones Urine Occult Blood Urine Nitrite Urine Bilirubin Urine Urobilinogen Ur Leukocyte Esterase Urine RBC Urine WBC Ur Squamous Epith Cells Urine Bacteria Urine Mucus MRSA (PCR) Negative POC Glucose 09/07/18 20:42 POC Glucose 125 H Medical Necessity - Tobacco Use Smoking Status: Current every day smoker Tobacco Use: Cigarettes Assessment/Plan All Active Problems (Last Reviewed 08/19/17 @ 08:37 by Kelley Villagomez, TIFF-C) Shortness of breath (Acute) Acute on chronic diastolic (congestive) heart failure (Acute) Acute and chronic respiratory failure with hypoxia (Acute) Systolic CHF, acute on chronic (Acute) #1 acute on chronic combined respiratory failure-pulmonary medicine is participating in his care, continue BiPAP #2 metabolic encephalopathy probably secondary to hypercarbia and possibly narcotics-continue to give supportive care, continue BiPAP #3 metastatic non-small cell lung cancer-oncology is recommended that his immunotherapy be stopped, they also recommended the family consider palliative/hospice care, I will talk with the patient's POA tomorrow about this, patient is a DNR CC arrest #4 hypokalemia-recheck electrolytes tomorrow, replace potassium #5 chronic atrial fibrillation #6 cardiomyopathy-probably secondary to a rate dependent etiology, echocardiogram was repeated today and it showed a normal EF of 50%, last echocardiogram showed a decreased ejection fraction of 35%. #7 pulmonary hypertension #8 obstructive sleep apnea #9 possible postobstructive pneumonia-patient is currently on antibiotics #10 diastolic congestive heart failure-again due to the patient's systolic hypotension, his diuretics were adjusted, cardiology is following the patient Code Visit Inpatient E&M: 82353 Subs Hosp L2
[2018-09-08 20:53] LABS: Potassium 2.7 mmol/L (3.5-5.1); Sodium Level 134 mmol/L (136-145)
[2018-09-08] MEDS: Atorvastatin Calcium 80 MG Tablet PO (22:23)
[2018-09-08] MEDS: Mirtazapine 30 MG Tablet PO (22:23)
[2018-09-09] VITALS (23 sets, daily range): BP systolic 92–116; BP diastolic 55–73; PULSE 79–106; RESP 12–24; TEMP 36.1–36.7; O2SAT 92–98
--- NOTE | 2018-09-09 05:07 | CPS ---
bipap mask kept leaking and alarming on such high pressures, pt was getting frustrated so the pressures were decreased to tolerable but effective pt was appreciative.
[2018-09-09] MEDS: Gabapentin 600 MG Tablet PO ×3 (05:19→22:34)
--- NOTE | 2018-09-09 05:55 | RAD_ITS ---
STUDY: X-RAY CHEST REASON FOR EXAM: Male, 62 years old. Shortness of breath/dyspnea. TECHNIQUE: Single AP portable view of the chest. COMPARISON: Comparison is made with prior study dated September 07, 2018. FINDINGS: EKG electrodes are seen. Since prior study, there has been mild improvement of the aeration at the right lung base. There is also evidence of improved aeration in the left hemithorax. Mild residual changes persist. There is no demonstrated pleural abnormality. Normal size heart. Continued prominence of the right hilum. Normal visualized pulmonary arteries. There is atherosclerotic tortuosity of the aortic arch and descending thoracic aorta. Normal visualized thoracic spine. Normal visualized ribs, clavicles, and shoulders. There is no demonstrated abnormality of the visualized soft tissue structures of the upper abdomen. RAD/Chest 1 View (Portable) IMPRESSION: Since prior study, there has been improved aeration of the lungs with residual infiltrate in the right infrahilar region and prominence of the right hilum. Electronically Signed: Hernan Lundberg, at 10:07 EDT , Service support ,
[2018-09-09] MEDS: Ipratropium/Albuterol Sulfate 3 ML AMPUL.NEB INHALATION ×3 (07:15→19:36)
[2018-09-09 07:29] LABS: Absolute Lymphocyte Count 0.89 X10^3/ul (0.83-4.51); Basophil# 0.01 X10^3/uL; Basophil% 0.1 % (0-1); Eosinophil# 0.36 X10^3/uL; Eosinophils% 5.1 % (0-5); Hematocrit 40.4 % (40-54); Hemoglobin 12.6 g/dl (13.0-16.5); Lymphocyte # 0.89 X10^3/ul (4.0); Lymphocyte % 12.6 % (19-41); Mean Corp Hgb Conc 31.2 g/gl (32-36); Mean Corpuscular Hgb 29.4 pg (27.0-32.0); Mean Corpuscular Volume 94.4 fL (80-94); Mean Platelet Vol. 10.1 fl (6.2-12.0); Monocyte% 11.4 % (0-10); Neutrophil # 4.97 X10^3/uL (2.7-7.7); Neutrophil % 70.7 % (47-70); Platelet Count 168 K/mm3 (150-450); RBC Distribution Width CV 16.4 % (11.6-14.6); RBC Distribution Width SD 56.1 fl (35.1-43.9); Red Blood Count 4.28 M/mm3 (4.6-6.2)
[2018-09-09 07:33] LABS: POSITIVE COUNT NO; POSITIVE DIFFERENTIAL NO; POSITIVE MORPHOLOGY NO
[2018-09-09 07:37] LABS: ALB/GLOB Ratio 0.8 RATIO (0.9-2.4); AST(SGOT) 16 U/L (15-37); Alanine Aminotransfer ALT/SGPT 12 U/L (16-61); Alkaline Phosphatase 107 U/L (45-117); Anion Gap 7 (5-15); BUN 11 mg/dL (7-18); BUN/Creat Ratio 11.7 RATIO (10-20); Chloride 88 mmol/L (98-107); Creatinine, Serum 0.94 mg/dL (0.70-1.30); EST Glomerular Filtration Rate 86 mL/min (>60); Est Glom Filt Rate - Afr Amer 104 mL/min (>60); Estimated Creatinine Clearance 97.47 ml/min; Glucose 84 mg/dL (74-106); Potassium 2.9 mmol/L (3.5-5.1); Sodium Level 138 mmol/L (136-145)
--- NOTE | 2018-09-09 07:43 | PCM.PROGNOTE ---
Subjective: The patient was seen and examined at the bedside this morning. Events from the last 24 hours have been reviewed. The patient is currently afebrile and hemodynamically stable. He was tolerant of BiPAP overnight after his pressure settings were adjusted. Chemistry profile from this morning was significant for a potassium of 2.9 and a bicarbonate of 43. The patient was evaluated by oncology yesterday who recommended that the patient's immunotherapy treatment for his metastatic lung cancer be discontinued. They additionally recommended a hospice/palliative care consultation. Upon walking into the patient's room this morning, he was noted to be sleeping soundly without a BiPAP in place. Upon awakening, the patient was alert and oriented to person place and time. He was able to recall his conversation with oncology yesterday. He does not seem overtly interested in pursuing palliative care/hospice evaluation. He is anxious to be discharged home. Objective: The patient's most recent lab work, culture data and imaging studies have all been personally reviewed. Strep and urine Legionella antigens were both negative. Respiratory viral panel is pending. Blood and urine cultures are pending. Surface echocardiogram revealed normal LV size with an ejection fraction of 50%. The RV was severely dilated with moderately severe global systolic dysfunction. There is evidence of biatrial enlargement along with a pulmonary artery systolic pressure which was estimated to be 51 mmHg. - Physical Exam General: Alert, Cooperative, No apparent distress HEENT: Atraumatic, PERRLA Oral: Dry Mucosa Neck: Supple, No Nodes, Trachea Midline Lungs: No rhonchi, No wheeze, No rales, Diminished Cardiovascular: Normal S1, Normal S2, Irregular Rate, Murmur Abdomen: Bowel Sounds Present, Soft, Non Tender, Obese Extremities: No cyanosis, Clubbing, Edema Skin: - - No significant change from previous Musculoskeletal: No Muscle Wasting Lymphatic: No Cervical, Supraclavicular, or Inguinal Adenopathy Neurological: Neuro grossly intact Psych/Mental Status: Normal Affect, Appropriate Vital Signs Temp Pulse Resp BP Pulse Ox 36.5 C L 82 24 H 94/60 95 09/09/18 03:18 09/09/18 07:34 09/09/18 07:34 09/09/18 03:18 09/09/18 07:34 Oxygen Flow Rate (L/min) 6 Oxygen Delivery Method Nasal Cannula Weight: 250 lb 14.177 oz Body Mass Index (BMI) 30.4 Intake and Output for Last 24 Hours 09/07/18 09/08/18 09/09/18 23:59 23:59 23:59 Intake Total 1043 / 1043 120 / 120 Output Total 1575 / 1575 300 / 300 Balance -532 / -532 -180 / -180 Microbiology Past 72 Hours 09/08/18 22:21 Legionella Antigen - Final Urine, Clean Catch 09/08/18 22:21 Streptococcus pneumoniae Antigen (M - Final Urine, Clean Catch Laboratory Tests Past 24 Hrs 09/07/18 09/08/18 09/08/18 20:48 06:45 09:35 WBC RBC Hgb Hct MCV MCH MCHC RDW RDW Differential Plt Count MPV Immature Gran % (Auto) Neut % (Auto) Lymph % (Auto) [place] % (Auto) Eos % (Auto) Baso % (Auto) Absolute Neuts (auto) Absolute Lymphs (auto) Total Counted Specimen Type Sample Site pH Bicarbonate Actual POC Total CO2 Base Excess O2 Saturation O2 % ABG pCO2 ABG pO2 North Test EPAP Blood Gas Notified Whom Blood Gas Notified Time Sodium 134 L 136 Potassium 2.7 L* 2.7 L* Chloride 82 L Carbon Dioxide > 45.0 H* Anion Gap TNP BUN 9 Creatinine 1.12 Estim Creat Clear Calc 81.81 Est GFR (MDRD) Af Amer 85 Est GFR (MDRD) Non-Af 70 BUN/Creatinine Ratio 8.0 L Glucose 95 Calcium 8.9 Total Bilirubin AST ALT Alkaline Phosphatase Troponin I 0.027 0.024 Total Protein Albumin Globulin Albumin/Globulin Ratio Triglycerides 85 Cholesterol 116 LDL Cholesterol 63 VLDL Cholesterol 17 HDL Cholesterol 36 L MRSA (PCR) 09/08/18 09/08/18 09/09/18 11:29 16:15 06:15 WBC 7.0 RBC 4.28 L Hgb 12.6 L Hct 40.4 MCV 94.4 H MCH 29.4 MCHC 31.2 L RDW 16.4 H RDW Differential 56.1 H Plt Count 168 MPV 10.1 Immature Gran % (Auto) 0.100 Neut % (Auto) 70.7 H Lymph % (Auto) 12.6 L [place] % (Auto) 11.4 H Eos % (Auto) 5.1 H Baso % (Auto) 0.1 Absolute Neuts (auto) 5.0 Absolute Lymphs (auto) 0.89 Total Counted Not Reportable Specimen Type ART Sample Site R RADIAL pH 7.50 H Bicarbonate Actual 53.2 H POC Total CO2 > 50 Base Excess > 30 H O2 Saturation 95 O2 % 50 ABG pCO2 67.1 H* ABG pO2 75 North Test POS EPAP 6 Blood Gas Notified Whom ICU MD Blood Gas Notified Time 1129 Sodium Potassium Chloride Carbon Dioxide Anion Gap BUN Creatinine Estim Creat Clear Calc Est GFR (MDRD) Af Amer Est GFR (MDRD) Non-Af BUN/Creatinine Ratio Glucose Calcium Total Bilirubin AST ALT Alkaline Phosphatase Troponin I Total Protein Albumin Globulin Albumin/Globulin Ratio Triglycerides Cholesterol LDL Cholesterol VLDL Cholesterol HDL Cholesterol MRSA (PCR) Negative 09/09/18 06:15 WBC RBC Hgb Hct MCV MCH MCHC RDW RDW Differential Plt Count MPV Immature Gran % (Auto) Neut % (Auto) Lymph % (Auto) [place] % (Auto) Eos % (Auto) Baso % (Auto) Absolute Neuts (auto) Absolute Lymphs (auto) Total Counted Specimen Type Sample Site pH Bicarbonate Actual POC Total CO2 Base Excess O2 Saturation O2 % ABG pCO2 ABG pO2 North Test EPAP Blood Gas Notified Whom Blood Gas Notified Time Sodium 138 Potassium 2.9 L Chloride 88 L Carbon Dioxide 43.0 H Anion Gap 7 BUN 11 Creatinine 0.94 Estim Creat Clear Calc 97.47 Est GFR (MDRD) Af Amer 104 Est GFR (MDRD) Non-Af 86 BUN/Creatinine Ratio 11.7 Glucose 84 Calcium 9.0 Total Bilirubin 1.30 H AST 16 ALT 12 L Alkaline Phosphatase 107 Troponin I Total Protein 7.0 Albumin 3.0 L Globulin 4.0 Albumin/Globulin Ratio 0.8 L Triglycerides Cholesterol LDL Cholesterol VLDL Cholesterol HDL Cholesterol MRSA (PCR) Clinical Impression(s) from Imaging Studies Chest X-Ray 09/07/18 21:30 IMPRESSION: 1. Right lower lobe pneumonia. Recurrent pneumonia in the same segmental distribution raises concern for possible underlying endobronchial lesion. Consider nonemergent CT of the chest after treatment and resolution of current symptoms. 2. Early pneumonic infiltrate on the left. Electronically Signed: Rosemarie Loo MD at 22:14 EDT Tel , Service support , Chest CTA 09/07/18 22:44 IMPRESSION: 1. No CTA demonstrated pulmonary embolism or arterial dissection. 2. There is infiltrative mediastinal and right-sided hilar renny mass with probable postobstructive atelectasis within the right lower lobe. There may also be neoplastic process involving the right lower lobe. 3. Multiple bilateral pulmonary nodules as described may represent metastases. 4. Cardiomegaly, sequelae of coronary artery vascular disease and mild pulmonary edema. Electronically Signed: Radha Perez MD at 1:09 EDT , Service support , Brain CT 09/08/18 01:17 IMPRESSION: Normal unenhanced CT scan of the brain. No acute findings in the brain. No metastatic disease. Electronically Signed: Mark Hernandez MD at 3:06 EDT Tel , Service support , Medical Necessity - Tobacco Use Smoking Status: Current every day smoker Tobacco Use: Cigarettes Assessment/Plan All Active Problems (Last Reviewed 08/19/17 @ 08:37 by Kelley Villagomez NP-C) Shortness of breath (Acute) Acute on chronic diastolic (congestive) heart failure (Acute) Acute and chronic respiratory failure with hypoxia (Acute) Systolic CHF, acute on chronic (Acute) RECOMMENDATIONS: 1. Continue BiPAP therapy empirically with naps and nightly. 2. Recommend treating the patient empirically with Levaquin for a total of 7 days. 3. Aggressive electrolyte repletion. 4. Encourage incentive spirometer use and mobilize patient as tolerated. IMPRESSIONS: 1. Acute on chronic combined respiratory failure This is likely multifactorial in etiology and related to a component of decompensated heart failure, underlying lung malignancy and possible postobstructive pneumonia. The patient responded favorably to the use of BiPAP therapy, but is noncompliant with its use on an outpatient basis. In addition, the patient presented to the hospital with renal insufficiency and is prescribed long-acting morphine sulfate as an outpatient. Per report by oncology, the patient is no longer a treatment for his underlying lung malignancy. He would therefore be best served by being evaluated by palliative care. However, the patient does not seem overtly interested in pursuing such an evaluation. At this time, the patient's respiratory status is at its baseline, with a 6 L/min oxygen requirement. It is highly unlikely that the patient will utilize BiPAP therapy upon discharge from the hospital. 2. Metabolic encephalopathy Resolved. Concern for underlying hypercarbia and buildup of morphine metabolites, given the patient's renal insufficiency on presentation. 3. Hypokalemia/metabolic alkalosis Agree with aggressive electrolyte repletion. Cautious use of diuretics, as not to provoke worsening of the patient's metabolic alkalosis. 4. Underlying cardiomyopathy/atrial fibrillation/valvular heart disease Will defer management to cardiology. 5. History of non-small cell lung cancer/self-reported COPD of unknown severity/hypertension/hyperlipidemia/ongoing tobacco dependence Complicates care, management, recovery and prognosis. Continue aerosol treatments as ordered. This note was generated with [employer] dictation software. It may contain incorrect words, spelling, and punctuation that were not noted in checking the note before signing. Code Visit Inpatient E&M: 45874 Subs Hosp L2
--- NOTE | 2018-09-09 07:47 | PN_ITS ---
Subjective: The patient was seen and examined at the bedside this morning. Events from the last 24 hours have been reviewed. The patient is currently afebrile and hemodynamically stable. He was tolerant of BiPAP overnight after his pressure settings were adjusted. Chemistry profile from this morning was significant for a potassium of 2.9 and a bicarbonate of 43. The patient was evaluated by oncology yesterday who recommended that the patient's immunotherapy treatment for his metastatic lung cancer be discontinued. They additionally recommended a hospice/palliative care consultation. Upon walking into the patient's room this morning, he was noted to be sleeping soundly without a BiPAP in place. Upon awakening, the patient was alert and oriented to person place and time. He was able to recall his conversation with oncology yesterday. He does not seem overtly interested in pursuing palliative care/hospice evaluation. He is anxious to be discharged home. Objective: The patient's most recent lab work, culture data and imaging studies have all been personally reviewed. Strep and urine Legionella antigens were both negative. Respiratory viral panel is pending. Blood and urine cultures are pending. Surface echocardiogram revealed normal LV size with an ejection fraction of 50%. The RV was severely dilated with moderately severe global systolic dysfunction. There is evidence of biatrial enlargement along with a pulmonary artery systolic pressure which was estimated to be 51 mmHg. - Physical Exam General: Alert, Cooperative, No apparent distress HEENT: Atraumatic, PERRLA Oral: Dry Mucosa Neck: Supple, No Nodes, Trachea Midline Lungs: No rhonchi, No wheeze, No rales, Diminished Cardiovascular: Normal S1, Normal S2, Irregular Rate, Murmur Abdomen: Bowel Sounds Present, Soft, Non Tender, Obese Extremities: No cyanosis, Clubbing, Edema Skin: - - No significant change from previous Musculoskeletal: No Muscle Wasting Lymphatic: No Cervical, Supraclavicular, or Inguinal Adenopathy Neurological: Neuro grossly intact Psych/Mental Status: Normal Affect, Appropriate Vital Signs Temp Pulse Resp BP Pulse Ox 36.5 C L 82 24 H 94/60 95 09/09/18 03:18 09/09/18 07:34 09/09/18 07:34 09/09/18 03:18 09/09/18 07:34 Oxygen Flow Rate (L/min) 6 Oxygen Delivery Method Nasal Cannula Weight: 250 lb 14.177 oz Body Mass Index (BMI) 30.4 Intake and Output for Last 24 Hours 09/07/18 09/08/18 09/09/18 23:59 23:59 23:59 Intake Total 1043 / 1043 120 / 120 Output Total 1575 / 1575 300 / 300 Balance -532 / -532 -180 / -180 Microbiology Past 72 Hours 09/08/18 22:21 Legionella Antigen - Final Urine, Clean Catch 09/08/18 22:21 Streptococcus pneumoniae Antigen (M - Final Urine, Clean Catch Laboratory Tests Past 24 Hrs 09/07/18 09/08/18 09/08/18 20:48 06:45 09:35 WBC RBC Hgb Hct MCV MCH MCHC RDW RDW Differential Plt Count MPV Immature Gran % (Auto) Neut % (Auto) Lymph % (Auto) [place] % (Auto) Eos % (Auto) Baso % (Auto) Absolute Neuts (auto) Absolute Lymphs (auto) Total Counted Specimen Type Sample Site pH Bicarbonate Actual POC Total CO2 Base Excess O2 Saturation O2 % ABG pCO2 ABG pO2 North Test EPAP Blood Gas Notified Whom Blood Gas Notified Time Sodium 134 L 136 Potassium 2.7 L* 2.7 L* Chloride 82 L Carbon Dioxide > 45.0 H* Anion Gap TNP BUN 9 Creatinine 1.12 Estim Creat Clear Calc 81.81 Est GFR (MDRD) Af Amer 85 Est GFR (MDRD) Non-Af 70 BUN/Creatinine Ratio 8.0 L Glucose 95 Calcium 8.9 Total Bilirubin AST ALT Alkaline Phosphatase Troponin I 0.027 0.024 Total Protein Albumin Globulin Albumin/Globulin Ratio Triglycerides 85 Cholesterol 116 LDL Cholesterol 63 VLDL Cholesterol 17 HDL Cholesterol 36 L MRSA (PCR) 09/08/18 09/08/18 09/09/18 11:29 16:15 06:15 WBC 7.0 RBC 4.28 L Hgb 12.6 L Hct 40.4 MCV 94.4 H MCH 29.4 MCHC 31.2 L RDW 16.4 H RDW Differential 56.1 H Plt Count 168 MPV 10.1 Immature Gran % (Auto) 0.100 Neut % (Auto) 70.7 H Lymph % (Auto) 12.6 L [place] % (Auto) 11.4 H Eos % (Auto) 5.1 H Baso % (Auto) 0.1 Absolute Neuts (auto) 5.0 Absolute Lymphs (auto) 0.89 Total Counted Not Reportable Specimen Type ART Sample Site R RADIAL pH 7.50 H Bicarbonate Actual 53.2 H POC Total CO2 > 50 Base Excess > 30 H O2 Saturation 95 O2 % 50 ABG pCO2 67.1 H* ABG pO2 75 North Test POS EPAP 6 Blood Gas Notified Whom ICU MD Blood Gas Notified Time 1129 Sodium Potassium Chloride Carbon Dioxide Anion Gap BUN Creatinine Estim Creat Clear Calc Est GFR (MDRD) Af Amer Est GFR (MDRD) Non-Af BUN/Creatinine Ratio Glucose Calcium Total Bilirubin AST ALT Alkaline Phosphatase Troponin I Total Protein Albumin Globulin Albumin/Globulin Ratio Triglycerides Cholesterol LDL Cholesterol VLDL Cholesterol HDL Cholesterol MRSA (PCR) Negative 09/09/18 06:15 WBC RBC Hgb Hct MCV MCH MCHC RDW RDW Differential Plt Count MPV Immature Gran % (Auto) Neut % (Auto) Lymph % (Auto) [place] % (Auto) Eos % (Auto) Baso % (Auto) Absolute Neuts (auto) Absolute Lymphs (auto) Total Counted Specimen Type Sample Site pH Bicarbonate Actual POC Total CO2 Base Excess O2 Saturation O2 % ABG pCO2 ABG pO2 North Test EPAP Blood Gas Notified Whom Blood Gas Notified Time Sodium 138 Potassium 2.9 L Chloride 88 L Carbon Dioxide 43.0 H Anion Gap 7 BUN 11 Creatinine 0.94 Estim Creat Clear Calc 97.47 Est GFR (MDRD) Af Amer 104 Est GFR (MDRD) Non-Af 86 BUN/Creatinine Ratio 11.7 Glucose 84 Calcium 9.0 Total Bilirubin 1.30 H AST 16 ALT 12 L Alkaline Phosphatase 107 Troponin I Total Protein 7.0 Albumin 3.0 L Globulin 4.0 Albumin/Globulin Ratio 0.8 L Triglycerides Cholesterol LDL Cholesterol VLDL Cholesterol HDL Cholesterol MRSA (PCR) Clinical Impression(s) from Imaging Studies Chest X-Ray 09/07/18 21:30 IMPRESSION: 1. Right lower lobe pneumonia. Recurrent pneumonia in the same segmental distribution raises concern for possible underlying endobronchial lesion. Consider nonemergent CT of the chest after treatment and resolution of current symptoms. 2. Early pneumonic infiltrate on the left. Electronically Signed: Rosemarie Loo MD at 22:14 EDT Tel , Service support , Chest CTA 09/07/18 22:44 IMPRESSION: 1. No CTA demonstrated pulmonary embolism or arterial dissection. 2. There is infiltrative mediastinal and right-sided hilar renny mass with probable postobstructive atelectasis within the right lower lobe. There may also be neoplastic process involving the right lower lobe. 3. Multiple bilateral pulmonary nodules as described may represent metastases. 4. Cardiomegaly, sequelae of coronary artery vascular disease and mild pulmonary edema. Electronically Signed: Radha Perez MD at 1:09 EDT , Service support , Brain CT 09/08/18 01:17 IMPRESSION: Normal unenhanced CT scan of the brain. No acute findings in the brain. No metastatic disease. Electronically Signed: Mark Hernandez MD at 3:06 EDT Tel , Service support , Medical Necessity - Tobacco Use Smoking Status: Current every day smoker Tobacco Use: Cigarettes Assessment/Plan All Active Problems (Last Reviewed 08/19/17 @ 08:37 by Kelley Villagomez NP-C) Shortness of breath (Acute) Acute on chronic diastolic (congestive) heart failure (Acute) Acute and chronic respiratory failure with hypoxia (Acute) Systolic CHF, acute on chronic (Acute) RECOMMENDATIONS: 1. Continue BiPAP therapy empirically with naps and nightly. 2. Recommend treating the patient empirically with Levaquin for a total of 7 days. 3. Aggressive electrolyte repletion. 4. Encourage incentive spirometer use and mobilize patient as tolerated. IMPRESSIONS: 1. Acute on chronic combined respiratory failure This is likely multifactorial in etiology and related to a component of decompensated heart failure, underlying lung malignancy and possible postobstructive pneumonia. The patient responded favorably to the use of BiPAP therapy, but is noncompliant with its use on an outpatient basis. In addition, the patient presented to the hospital with renal insufficiency and is prescribed long-acting morphine sulfate as an outpatient. Per report by oncology, the patient is no longer a treatment for his underlying lung malignancy. He would therefore be best served by being evaluated by palliative care. However, the patient does not seem overtly interested in pursuing such an evaluation. At this time, the patient's respiratory status is at its baseline, with a 6 L/min oxygen requirement. It is highly unlikely that the patient will utilize BiPAP therapy upon discharge from the hospital. 2. Metabolic encephalopathy Resolved. Concern for underlying hypercarbia and buildup of morphine metabolites, given the patient's renal insufficiency on presentation. 3. Hypokalemia/metabolic alkalosis Agree with aggressive electrolyte repletion. Cautious use of diuretics, as not to provoke worsening of the patient's metabolic alkalosis. 4. Underlying cardiomyopathy/atrial fibrillation/valvular heart disease Will defer management to cardiology. 5. History of non-small cell lung cancer/self-reported COPD of unknown severity/hypertension/hyperlipidemia/ongoing tobacco dependence Complicates care, management, recovery and prognosis. Continue aerosol treatments as ordered. This note was generated with [employer] dictation software. It may contain incorrect words, spelling, and punctuation that were not noted in checking the note before signing. Code Visit Inpatient E&M: 06855 Subs Hosp L2
[2018-09-09] MEDS: guaiFENesin 1,200 MG Tablet 1200 MG PO ×2 (09:30→22:34)
[2018-09-09] MEDS: Tamsulosin HCl 0.4 MG Capsule PO (09:30)
[2018-09-09] MEDS: Pantoprazole Sodium 20 MG Tablet PO (09:30)
[2018-09-09] MEDS: Finasteride 5 MG Tablet PO (09:30)
[2018-09-09] MEDS: Senna Tablet 1 TABLET PO ×2 (09:32→22:34)
--- NOTE | 2018-09-09 12:06 | CASEMGMT ---
This RN CM to room to finish CM assessment at this time and pt is sleeping without distress with oxygen in place. Pt states not awaken to knock door or verbal stimuli at this time. Promise BARRIOS aware and states she will be heading in soon to complete pt care and then this RN CM can follow for assessment. Roosevelt BARRIOS CM
--- NOTE | 2018-09-09 12:15 | CASEMGMT ---
SOPHIE MCLEOD assessment: Face to Face with patient for initial transition planning/care coordination assessment. SOPHIE MCLEOD introduced self and role at [facility], pt voices understanding and consents to assessment at this time. Pt is lying in bed in no distress at this time. Pt is A/Ox4 at this time and answers all questions appropriately at this time. Care providers, pharmacy, and demographics verified/updated at this time. PCP: [facility] Specialists: Pt states no current specialists. Preferred Pharmacy: [facility] Insurance: Merged with [facility] Prescription Benefit: Merged with [facility] Living Will/HPOA: Pt states does not have LW/HPOA and declines info at this time. Pt states 'my daughter is working on it.' LNOK: Jesenia Dorsey, Living Arrangements: Pt states lives with in 1 story home with a couple steps in and states no concerns at home at this time. Pt states is normally independent with ADL's. Transportation: Pt states family drives him and states no transportation concerns at this time. DME/HHC: Pt states has the following DME: cane, walker, w/c, grab bars, shower chair, cpap, and 6 liters home oxygen thru [facility]. Pt states no hx of HHC or SNF in the past. Pt states no concerns with going home at time of discharge. Pt states is disabled. Pt states does not smoke or drink ETOH. Pt states no further concerns/needs at this time. CM to follow for any further discharge planning/needs. Advised pt to ask for CM if any further questions/concerns/needs arise, voices understanding. Plan: [place] SOPHIE MCLEOD
[2018-09-09] MEDS: Spironolactone 25 MG Tablet PO (12:19)
[2018-09-09] MEDS: 0.9% NaCl Peripheral Flush Adult/Peds IV (12:20)
[2018-09-09] MEDS: Furosemide 40 MG/4 ML Vial IV (12:20)
[2018-09-09] MEDS: Cefepime HCl 2 GM in 0.9% NS 100 ML Minibag Q12 IV (12:20)
--- NOTE | 2018-09-09 14:50 | EKG12_ITS ---
Test Reason : RYTHM CHG Blood Pressure : / mmHG Vent. Rate : 109 BPM Atrial Rate : 105 BPM P-R Int : 000 ms QRS Dur : 176 ms QT Int : 358 ms P-R-T Axes : 000 056 268 degrees QTc Int : 482 ms Atrial fibrillation with rapid ventricular response with premature ventricular or aberrantly conducte d complexes Right bundle branch block Marked T-wave abnormality, consider inferolateral ischemia Abnormal ECG Confirmed by NAKUL GREER, BHAVESH ([id number]), sound editor EDWINA CHAN ([id number]) on 09/14/2018 1:24:06 PM Referred By: Maryan Phillips Confirmed By:BHAVESH MOTA MD
--- NOTE | 2018-09-09 14:58 | PCM.PN.CARD ---
Subjectve: Patient doing much better, sitting up in a chair. On chronic O2 therapy here in the hospital and at home., She shows atrial fibrillation with controlled ventricular response. Pulmonary exam still shows bilateral rhonchi right greater than left. His edema has improved but not completely resolved. Objective: Vital Signs Temp Pulse Resp BP Pulse Ox 97.9 F 98 18 110/55 L 94 09/09/18 12:31 09/09/18 12:31 09/09/18 12:31 09/09/18 12:31 09/09/18 12:31 Oxygen Flow Rate (L/min) 6 Oxygen Delivery Method Nasal Cannula Weight: 250 lb 14.177 oz Body Mass Index (BMI) 30.4 Intake and Output for Last 24 Hours 09/07/18 09/08/18 09/09/18 23:59 23:59 23:59 Intake Total 1043 / 1043 490 / 490 Output Total 1575 / 1575 700 / 700 Balance -532 / -532 -210 / -210 General: Awake, Alert, Oriented x 3 HEENT: PERRL, EOMI, Sclera Non Icteric Neck: Supple, Good ROM, No Lymph Node Enlargement Lungs: Clear to auscultation Cardiovascular: Irregular Rhythm, Normal S1, Normal S2, No Rubs, No Gallops Murmur Murmur: Grade 2/6, Holosystolic Vascular: No Carotid Bruits, Normal Femoral Pulses, Normal Radial Pulses, Normal Dorsalis Pedal Pulse, Normal Posterior Tibial Pulses Abdomen: Bowel Sounds Present, Soft, Non Tender, No HSM, No Organomegaly Extremities: No Cyanosis, No Clubbing, No edema Neurological: No Focal Motor or Sensory Deficit 09/07/18 20:48: Sodium 134 L, Potassium 2.7 L* 09/09/18 06:15: WBC 7.0, RBC 4.28 L, Hgb 12.6 L, Hct 40.4, MCV 94.4 H, MCH 29.4, MCHC 31.2 L, RDW 16.4 H, RDW Differential 56.1 H, Plt Count 168, MPV 10.1, Immature Gran % (Auto) 0.100, Neut % (Auto) 70.7 H, Lymph % (Auto) 12.6 L, [place] % (Auto) 11.4 H, Eos % (Auto) 5.1 H, Baso % (Auto) 0.1, Absolute Neuts (auto) 5.0, Total Counted Not Reportable 09/09/18 06:15: Sodium 138, Potassium 2.9 L, Chloride 88 L, Carbon Dioxide 43.0 H, Anion Gap 7, BUN 11, Creatinine 0.94, Est GFR (MDRD) Af Amer 104, Est GFR (MDRD) Non-Af 86, BUN/Creatinine Ratio 11.7, Glucose 84, Calcium 9.0, Total Bilirubin 1.30 H Rhythm: EKG: ECHO: Stress Test: Cardiac Cath: PCI: CT Surgery: Holter monitor: EPS: PPM: CXR: Chest CT Scan: Medical Necessity - Tobacco Use Smoking Status: Current every day smoker Tobacco Use: Cigarettes Assessment/Plan 1. Cardiomyopathy: The patient has evidence of moderate to severe LV dysfunction, possibly as a result of chronic atrial fibrillation with an EF around 30% by catheterization in June 2017. In addition there is some suspicion as to whether the patient has severe mitral stenosis to explain his severe pulmonary hypertension. Patient has engaged in dietary noncompliance but apparently has been compliant with his medical therapy. Unfortunately he continues to smoke. I recommended holding his beta-fito therapy until he has clinically improved to his dry weight. Repeat echocardiogram on this admission demonstrated normal LV function, moderate eccentric mitral regurgitation, at least moderate pulmonary hypertension with an RVSP of 50 mmHg which may be underestimated, and severe right ventricular enlargement. We are unable to interpret his mitral valve gradient. His right heart catheterization in June 2017 demonstrated a mean mitral gradient of approximately 14.5 mm, which be consistent with severe mitral stenosis. Either way, patient is not a candidate for mitral valve replacement given his current condition and lung cancer. I think her only option is for heart rate control to improve diastolic filling, anticoagulation for his atrial fibrillation and severe pulmonary hypertension, and IV diuretic therapy to assist with unloading his lungs. Now that the patient is approaching his dry weight, I would recommend discontinuation of IV Lasix, and switching him to Lasix 80 mg p.o. twice daily. Recommend continuing his spironolactone and his daily metolazone. Also recommend increasing his potassium replacement therapy to 40 mEq twice daily. Continue magnesium therapy. For some reason he is not on DEYANIRA inhibitors or ARBs. We will start Coreg 3.125 mg p.o. twice daily today as well for rate control therapy. I would not recommend repeat catheterization and is been just over a year since his last one, and he had minimal nonobstructive coronary disease. He denied any chest pain symptoms. 2. Atrial fibrillation: The patient states he has never had a DC cardioversion and has been on Coumadin therapy for some time. Recommend keeping him on Coumadin lifelong or anticoagulant equivalent. Recommend an INR between 2.5 and 3.0. 3. Mitral stenosis: There was some evidence by right heart catheterization the patient may have severe mitral stenosis which may explain his severe pulmonary hypertension and severe RV enlargement. Repeat echo is pending with specific attention to the mitral valve. 4. Thank you very much for the opportunity to participate in the cardiac care of your patient. Would recommend keeping the patient 1 more day to ensure that he is able to tolerate his p.o. diuretics and does not deteriorate from a congestive heart failure standpoint. Code Visit Inpatient E&M: 33227 Subs Hosp L2
[2018-09-09] MEDS: Furosemide 80 MG Tablet PO (17:31)
--- NOTE | 2018-09-09 20:35 | PN_ITS ---
Subjective: Patient was seen and examined today, he is alert and appropriate, he is currently on nasal cannula O2. I talked briefly with him and his today in his room. I also notified Dr. Dobbins that the patient was doing better. Patient will need to follow-up with Dr. Dobbins as an outpatient to see if immunotherapy will be restarted. - Physical Exam General: Alert, Oriented x3, Cooperative, No apparent distress, Well developed HEENT: Atraumatic, PERRLA, EOMI, Normocephalic Oral: Moist Mucosa Neck: Supple, Trachea Midline, Thyroid Normal Size and Texture Lungs: Clear to auscultation, Normal air movement, No rhonchi, No wheeze, No rales Cardiovascular: PMI Normal, Irregular Rate Abdomen: Bowel Sounds Present, Soft, Non Tender, Non-Distended Extremities: Capillary Refill Less than 3 Seconds Skin: No rashes, No breakdown Musculoskeletal: No Tenderness to Palpation of Joints or Extremities Neurological: Cranial nerves II-XII grossly intact, Neuro grossly intact, Sensory exam intact to light touch and pain, Coordination normal Psych/Mental Status: Normal Affect, Appropriate, Alert and oriented to time, place, person, mood and affect Vital Signs Temp Pulse Resp BP Pulse Ox 97.8 F 87 18 100/59 L 95 09/09/18 20:30 09/09/18 20:30 09/09/18 20:30 09/09/18 20:30 09/09/18 20:30 Oxygen Flow Rate (L/min) 6 Oxygen Delivery Method Nasal Cannula Weight: 113.8 kg Body Mass Index (BMI) 30.4 Intake and Output for Last 24 Hours 09/07/18 09/08/18 09/09/18 23:59 23:59 23:59 Intake Total 1043 / 1043 982 / 982 Output Total 1575 / 1575 700 / 700 Balance -532 / -532 282 / 282 Microbiology Past 72 Hours 09/07/18 20:48 Urine Culture - Preliminary Urine, Clean Catch Culture exhibits no growth. 09/08/18 13:00 Respiratory Panel (PCR) - Final Mucosa - Nose 09/08/18 22:21 Legionella Antigen - Final Urine, Clean Catch 09/08/18 22:21 Streptococcus pneumoniae Antigen (M - Final Urine, Clean Catch Laboratory Tests Past 24 Hrs 09/07/18 09/09/18 09/09/18 20:48 06:15 06:15 WBC 7.0 RBC 4.28 L Hgb 12.6 L Hct 40.4 MCV 94.4 H MCH 29.4 MCHC 31.2 L RDW 16.4 H RDW Differential 56.1 H Plt Count 168 MPV 10.1 Immature Gran % (Auto) 0.100 Neut % (Auto) 70.7 H Lymph % (Auto) 12.6 L [place] % (Auto) 11.4 H Eos % (Auto) 5.1 H Baso % (Auto) 0.1 Absolute Neuts (auto) 5.0 Absolute Lymphs (auto) 0.89 Total Counted Not Reportable Sodium 134 L 138 Potassium 2.7 L* 2.9 L Chloride 88 L Carbon Dioxide 43.0 H Anion Gap 7 BUN 11 Creatinine 0.94 Estim Creat Clear Calc 97.47 Est GFR (MDRD) Af Amer 104 Est GFR (MDRD) Non-Af 86 BUN/Creatinine Ratio 11.7 Glucose 84 Calcium 9.0 Total Bilirubin 1.30 H AST 16 ALT 12 L Alkaline Phosphatase 107 Total Protein 7.0 Albumin 3.0 L Globulin 4.0 Albumin/Globulin Ratio 0.8 L Medical Necessity - Tobacco Use Smoking Status: Current every day smoker Tobacco Use: Cigarettes Assessment/Plan All Active Problems (Last Reviewed 08/19/17 @ 08:37 by Kelley Villagomez NP-C) Shortness of breath (Acute) Acute on chronic diastolic (congestive) heart failure (Acute) Acute and chronic respiratory failure with hypoxia (Acute) Systolic CHF, acute on chronic (Acute) #1 acute on chronic combined respiratory failure-pulmonary medicine is participating in his care, patient is now on nasal cannula O2, he asked about the possibility of being discharged, I stated that it would be up to pulmonary medicine if he was stable enough in their opinion as well as the hospital's opinion whether he was stable enough to be discharged tomorrow. 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 I told the patient that it was important for him not to discontinue his BiPAP at home #3 metastatic non-small cell lung cancer #4 hypokalemia-recheck electrolytes tomorrow, replace potassium #5 chronic atrial fibrillation #6 cardiomyopathy-probably secondary to a rate dependent etiology, EF now 50% #7 pulmonary hypertension #8 obstructive sleep apnea #9 possible postobstructive pneumonia-patient is currently on antibiotics #10 diastolic congestive heart failure- his diuretics were adjusted, cardiology is following the patient Code Visit Inpatient E&M: 24000 Subs Hosp L2
[2018-09-09] MEDS: Carvedilol 3.125 MG TABLET PO (22:34)
[2018-09-09] MEDS: Mirtazapine 30 MG Tablet PO (22:34)
[2018-09-09] MEDS: Atorvastatin Calcium 80 MG Tablet PO (22:34)
[2018-09-10] VITALS (22 sets, daily range): BP systolic 82–105; BP diastolic 46–67; PULSE 72–157; RESP 12–28; TEMP 36.3–36.8; O2SAT 93–98
[2018-09-10] MEDS: Gabapentin 600 MG Tablet PO ×3 (05:58→21:05)
[2018-09-10] MEDS: levoFLOXacin 750 MG Tablet PO (05:58)
[2018-09-10 06:50] LABS: Anion Gap 4 (5-15); BUN 11 mg/dL (7-18); BUN/Creat Ratio 11.1 RATIO (10-20); Calcium,Total 8.5 mg/dL (8.5-10.1); Chloride 91 mmol/L (98-107); Creatinine, Serum 0.99 mg/dL (0.70-1.30); EST Glomerular Filtration Rate 81 mL/min (>60); Est Glom Filt Rate - Afr Amer 97 mL/min (>60); Estimated Creatinine Clearance 92.55 ml/min; Glucose 82 mg/dL (74-106); Potassium 3.2 mmol/L (3.5-5.1); Sodium Level 138 mmol/L (136-145)
[2018-09-10] MEDS: Ipratropium/Albuterol Sulfate 3 ML AMPUL.NEB INHALATION ×4 (06:53→18:46)
--- NOTE | 2018-09-10 08:35 | PCM.PN.BLA ---
Progress Note Oncology progress note: Patient is feeling much better. He denies shortness of breath no chest pain or cough. CT scan of the chest showed possible pneumonia with radiation changes versus progression of cancer in his lung. He will be going home on 7 days of Levaquin for treatment of pneumonia. Resume oxygen and BiPAP/CPAP at night IMPRESSION: Acute respiratory failure/heart failure-resolved Chronic CHF/atrial fibrillation, pulmonary hypertension, severe COPD-stable Metastatic non-small cell lung cancer-clinically stable on OPDIVO PLAN: -Discharge home today on antibiotic -Follow-up in my office in 2 weeks & [address] CT scan of the chest and compare to his previous CT scan -Possible repeat CT scan of the chest after his pneumonia resolved before his next cycle of immunotherapy -Advanced care planning; discussed living will, DPOA & POLST today & documentation on patient's medical records cc: Dr. Steven Brownlee, Dr. Janna Dobbins, Dr. David Nagy, Dr. Paulo Geiger
[2018-09-10] MEDS: Spironolactone 25 MG Tablet PO (09:21)
[2018-09-10] MEDS: Carvedilol 3.125 MG TABLET PO ×2 (09:21→21:06)
[2018-09-10] MEDS: Finasteride 5 MG Tablet PO (09:21)
[2018-09-10] MEDS: Senna Tablet 1 TABLET PO (09:21)
[2018-09-10] MEDS: guaiFENesin 1,200 MG Tablet 1200 MG PO ×2 (09:21→21:05)
[2018-09-10] MEDS: Pantoprazole Sodium 20 MG Tablet PO (09:21)
[2018-09-10] MEDS: Furosemide 80 MG Tablet PO ×2 (09:21→16:37)
[2018-09-10] MEDS: Tamsulosin HCl 0.4 MG Capsule PO (09:21)
--- NOTE | 2018-09-10 10:31 | PN.CARD_ITS ---
Subjectve: Patient looking and feeling much better. Telemetry showed atrial fibrillation with controlled ventricular response and left bundle branch block. Patient sitting in a chair, wishes to go home. No acute events. Lungs sound much better and have really no rhonchi. Objective: Vital Signs Temp Pulse Resp BP Pulse Ox 97.4 F L 88 28 H 99/67 96 09/10/18 08:03 09/10/18 08:03 09/10/18 08:03 09/10/18 08:03 09/10/18 08:03 Oxygen Flow Rate (L/min) 6 Oxygen Delivery Method Nasal Cannula Weight: 248 lb 7.375 oz Body Mass Index (BMI) 30.4 Intake and Output for Last 24 Hours 09/08/18 09/09/18 09/10/18 23:59 23:59 23:59 Intake Total 1043 / 1043 1342 / 1342 240 / 240 Output Total 1575 / 1575 1150 / 1150 Balance -532 / -532 192 / 192 240 / 240 General: Awake, Alert, Oriented x 3 HEENT: PERRL, EOMI, Sclera Non Icteric Neck: Supple, Good ROM, No Lymph Node Enlargement Lungs: Clear to auscultation Cardiovascular: Irregular Rhythm, Normal S2, No Rubs, No Gallops Murmur Murmur: Grade 2/6, Holosystolic Vascular: No Carotid Bruits, Normal Femoral Pulses, Normal Radial Pulses, Normal Dorsalis Pedal Pulse, Normal Posterior Tibial Pulses Abdomen: Bowel Sounds Present, Soft, Non Tender, No HSM, No Organomegaly Extremities: No Cyanosis, No Clubbing, No edema Neurological: No Focal Motor or Sensory Deficit 09/10/18 05:45: Sodium 138, Potassium 3.2 L, Chloride 91 L, Carbon Dioxide 43.0 H, Anion Gap 4 L, BUN 11, Creatinine 0.99, Est GFR (MDRD) Af Amer 97, Est GFR (MDRD) Non-Af 81, BUN/Creatinine Ratio 11.1, Glucose 82, Calcium 8.5 Rhythm: EKG: ECHO: Stress Test: Cardiac Cath: PCI: CT Surgery: Holter monitor: EPS: PPM: CXR: Chest CT Scan: Medical Necessity - Tobacco Use Smoking Status: Current every day smoker Tobacco Use: Cigarettes Assessment/Plan 1. Cardiomyopathy: The patient has evidence of moderate to severe LV dysfunction, possibly as a result of chronic atrial fibrillation with an EF around 30% by catheterization in June 2017. In addition there is some suspicion as to whether the patient has severe mitral stenosis to explain his severe pulmonary hypertension. Patient has engaged in dietary noncompliance but apparently has been compliant with his medical therapy. Unfortunately he continues to smoke. Now that the patient has achieved his dry weight, recommended he restart beta- fito but with Coreg 3.125 mg p.o. twice daily as this appears to be a better medication for severe LV dysfunction over Lopressor. Repeat echocardiogram on this admission demonstrated normal LV function, moderate eccentric mitral regurgitation, at least moderate pulmonary hypertension with an RVSP of 50 mmHg which may be underestimated, and severe right ventricular enlargement. We are unable to interpret his mitral valve gradient. His right heart catheterization in June 2017 demonstrated a mean mitral gradient of approximately 14.5 mm, which be consistent with severe mitral stenosis. Either way, patient is not a candidate for mitral valve replacement given his current condition and lung cancer. I think her only option is for heart rate control to improve diastolic filling, anticoagulation for his atrial fibri llation and severe pulmonary hypertension, and IV diuretic therapy to assist with unloading his lungs. Now that the patient is approaching his dry weight, I would recommend discontinuation of IV Lasix, and switching him to Lasix 80 mg p.o. twice daily. Recommend continuing his spironolactone and his daily metolazone. Also recommend increasing his potassium replacement therapy to 40 mEq twice daily. Continue magnesium therapy. For some reason he is not on DEYANIRA inhibitors or ARBs. We will start Coreg 3.125 mg p.o. twice daily today as well for rate control therapy. I would not recommend repeat catheterization and is been just over a year since his last one, and he had minimal nonobstructive coronary disease. He denied any chest pain symptoms. 2. Atrial fibrillation: The patient states he has never had a DC cardioversion and has been on Coumadin therapy for some time. Recommend keeping him on Coumadin lifelong or anticoagulant equivalent. Recommend an INR between 2.5 and 3.0. Would not recommend DC cardioversion given his severe RV enlargement and chronic atrial fibrillation. 3. Mitral stenosis: There was some evidence by right heart catheterization the patient may have severe mitral stenosis which may explain his severe pulmonary hypertension and severe RV enlargement. 4. Thank you very much for the opportunity to participate in the cardiac care of your patient. Patient may be discharged home. He will follow-up with Dr. Vidal or myself going forward. Code Visit Inpatient E&M: 74688 Subs Hosp L2
--- NOTE | 2018-09-10 17:28 | PCM.PN.HOSP ---
Subjective: Patient was seen and examined. He feels much improved. Did not sleep well last night. And is unable to be discharged today because he brought his oxygen tank to the emergency department but cannot be found. The oxygen tanks he has at home do not have the regulator. He denied any worsening respiratory distress, on 6 L of oxygen. Objective: Physical Exam General: Alert, Oriented x3, Cooperative, No apparent distress, Well developed, comfortable on 6L oxygen HEENT: Atraumatic, PERRLA, EOMI, Normocephalic Oral: Moist Mucosa Neck: Supple, Trachea Midline, Thyroid Normal Size and Texture Lungs: Clear to auscultation, Normal air movement, No rhonchi, No wheeze, No rales Cardiovascular: PMI Normal, Irregular Rate Abdomen: Bowel Sounds Present, Soft, Non Tender, Non-Distended Extremities: Capillary Refill Less than 3 Seconds Skin: No rashes, No breakdown Musculoskeletal: No Tenderness to Palpation of Joints or Extremities Neurological: Cranial nerves II-XII grossly intact, Neuro grossly intact, Sensory exam intact to light touch and pain, Coordination normal Psych/Mental Status: Normal Affect, Appropriate, Alert and oriented to time, place, person, mood and affect Vitals/I&O's: Vital Signs Temp Pulse Resp BP Pulse Ox 97.7 F L 102 H 22 H 102/66 94 09/10/18 15:45 09/10/18 15:45 09/10/18 15:45 09/10/18 15:45 09/10/18 15:45 Oxygen Flow Rate (L/min) 6 Oxygen Delivery Method Nasal Cannula Weight: 112.7 kg Body Mass Index (BMI) 30.4 Intake and Output for Last 24 Hours 09/08/18 09/09/18 09/10/18 23:59 23:59 23:59 Intake Total 1043 / 1043 1342 / 1342 720 / 720 Output Total 1575 / 1575 1150 / 1150 Balance -532 / -532 192 / 192 720 / 720 Microbiology Past 72 Hours 09/07/18 20:48 Blood Culture (Wb) - Anticubital Left Blood Culture - Preliminary No growth in 48 hours. 09/07/18 22:05 Blood Culture (Wb) - Anticubital Right Blood Culture - Preliminary No growth in 48 hours. 09/07/18 20:48 Urine, Clean Catch Urine Culture - Final Culture exhibits no growth. 09/08/18 13:00 Mucosa - Nose Respiratory Panel (PCR) - Final 09/08/18 22:21 Urine, Clean Catch Legionella Antigen - Final 09/08/18 22:21 Urine, Clean Catch Streptococcus pneumoniae Antigen (M - Final Laboratory Results 09/10/18 05:45: Sodium 138, Potassium 3.2 L, Chloride 91 L, Carbon Dioxide 43.0 H, Anion Gap 4 L, BUN 11, Creatinine 0.99, Estim Creat Clear Calc 92.55, Est GFR (MDRD) Af Amer 97, Est GFR (MDRD) Non-Af 81, BUN/Creatinine Ratio 11.1, Glucose 82, Calcium 8.5 Current Medications Acetaminophen (Tylenol) 650 mg PO Q6H PRN PRN PRN Reason: Non-cardiac pain (mod-severe) Al Hydroxide/Mg Hydroxide (Mylanta Ii) 30 ml PO Q6H PRN PRN PRN Reason: Gastric burning Albuterol Sulfate (Ventolin Aerosols) 2.5 mg INHALATION Q2H PRN PRN PRN Reason: dyspnea, wheezing' Albuterol/Ipratropium (Duoneb) 3 ml INHALATION Q4HWA.RT [facility] Last Admin: 09/10/18 14:53 Dose: 3 ml Atorvastatin Calcium (Lipitor) 80 mg PO QHS [facility] Last Admin: 09/09/18 22:34 Dose: 80 mg Bacitracin (Bacitracin Ointment) 1 applic TOPICAL BID [facility] Last Admin: 09/10/18 09:28 Dose: Not Given Carvedilol (Coreg) 3.125 mg PO BID [facility] Last Admin: 09/10/18 09:21 Dose: 3.125 mg Carvedilol (Coreg) 3.125 mg PO BID [facility] Epinephrine HCl () 0.3 mg IM PRN PRN PRN Reason: ALLERGIC RX Finasteride (Proscar) 5 mg PO DAILY [facility] Last Admin: 09/10/18 09:21 Dose: 5 mg Furosemide (Lasix) 80 mg PO BID@1000,1800 [facility] Last Admin: 09/10/18 16:37 Dose: 80 mg Gabapentin (Neurontin) 600 mg PO TID [facility] Last Admin: 09/10/18 14:44 Dose: 600 mg Guaifenesin (Mucinex) 1,200 mg PO BID [facility] Last Admin: 03/16/19 09:21 Dose: 1,200 mg Levofloxacin (Levaquin Tablet) 750 mg PO DAILY@0600 [facility] Last Admin: 09/10/18 05:58 Dose: 750 mg Magnesium Hydroxide (Milk Of Magnesia) 30 ml PO DAILY PRN PRN Reason: Constipation Mirtazapine (Remeron) 30 mg PO QHS PRN PRN Reason: ANXIETY Last Admin: 09/09/18 22:34 Dose: 30 mg Nitroglycerin (Nitrostat) 0.4 mg SUBLINGUAL Q5M PRN PRN Reason: Angina pain Ondansetron HCl (Zofran) 4 mg IV Q8H PRN PRN PRN Reason: NAUSEA/VOMITING Pantoprazole Sodium (Protonix) 20 mg PO DAILY [facility] Last Admin: 09/10/18 09:21 Dose: 20 mg Potassium Chloride (K-Dur) 40 meq PO BIDCM [facility] Last Admin: 09/10/18 16:36 Dose: 40 meq Potassium Chloride (K-Dur) 40 meq PO X1 ONE Stop: 09/10/18 17:27 Senna (Senokot) 1 tablet PO BID [facility] Last Admin: 09/10/18 09:21 Dose: 1 tablet Sodium Chloride () 5 - 15 ml IV UD PRN PRN Reason: SALINE FLUSH Last Admin: 09/09/18 12:20 Dose: 10 ml Spironolactone (Aldactone) 25 mg PO DAILY [facility] Last Admin: 09/10/18 09:21 Dose: 25 mg Tamsulosin HCl (Flomax) 0.4 mg PO DAILY [facility] Last Admin: 09/10/18 09:21 Dose: 0.4 mg Warfarin Sodium (Coumadin (Pbkc)) 6 mg PO DAILY@1700 [facility] Last Admin: 09/10/18 16:36 Dose: 6 mg Medical Necessity - Tobacco Use Smoking Status: Current every day smoker Tobacco Use: Cigarettes Assessment/Plan All Active Problems (Last Reviewed 08/19/17 @ 08:37 by IVANA Silva) Shortness of breath (Acute) Acute on chronic diastolic (congestive) heart failure (Acute) Acute and chronic respiratory failure with hypoxia (Acute) Systolic CHF, acute on chronic (Acute) 2-year-old male with past medical history of dementia, chronic hypoxic respiratory failure secondary COPD, history of lung CA follows with Dr. sorensen, status post chemotherapy radiation and on immunotherapy comes in with shortness of breath. 1. Acute on chronic combined respiratory failure, on 6 L of oxygen, patient is stable, Patient cannot be discharged today because he has no oxygen tank to be used at home Nursing and case management working on oxygen for discharge 2. Metabolic encephalopathy probably secondary to hypercarbia and possibly narcotics, resolved 3. Possible postobstructive pneumonia, on Levaquin, plan is for 7 days antibiotics 4. Hypokalemia, replaced, recheck in a.m. 5. Metastatic non-small cell lung cancer, follows with oncology in outpatient 6. Chronic atrial fibrillation, rate controlled, continue on carvedilol, 7. Cardiomyopathy, EF 50%, on spironolactone, Lasix, 8. OPAL/Pulmonary hypertension, on Bipap QHS 9. DVT PPx- On coumadin Code Visit Inpatient E&M: 21852 Subs Hosp L2
[2018-09-10 18:56] LABS: International Normalized Ratio 2.2; Prothrombin Time (Protime)PT. 24.6 SECONDS (11.7-14.9)
[2018-09-10] MEDS: Zolpidem Tartrate 5 MG Tablet PO (21:05)
[2018-09-10] MEDS: Atorvastatin Calcium 80 MG Tablet PO (21:06)
[2018-09-11] VITALS (9 sets, daily range): BP systolic 95–106; BP diastolic 45–68; PULSE 83–103; RESP 18–22; TEMP 36.4–36.8; O2SAT 94–96
[2018-09-11] MEDS: levoFLOXacin 750 MG Tablet PO (05:43)
[2018-09-11] MEDS: Gabapentin 600 MG Tablet PO (05:43)
[2018-09-11 07:22] LABS: Absolute Lymphocyte Count 1.09 X10^3/ul (0.83-4.51); Absolute Neutrophil Count 4.5 X10^3/uL (2.0-7.7); Basophil# 0.03 X10^3/uL; Basophil% 0.5 % (0-1); Eosinophil# 0.37 X10^3/uL; Eosinophils% 5.6 % (0-5); Hematocrit 40.9 % (40-54); Hemoglobin 12.8 g/dl (13.0-16.5); Lymphocyte # 1.09 X10^3/ul (4.0); Lymphocyte % 16.5 % (19-41); Mean Corp Hgb Conc 31.3 g/gl (32-36); Mean Corpuscular Hgb 29.9 pg (27.0-32.0); Mean Corpuscular Volume 95.6 fL (80-94); Monocyte# 0.67 X10^3/uL; Monocyte% 10.1 % (0-10); Neutrophil # 4.45 X10^3/uL (2.7-7.7); Neutrophil % 67.1 % (47-70); Platelet Count 178 K/mm3 (150-450); RBC Distribution Width CV 16.6 % (11.6-14.6); RBC Distribution Width SD 56.4 fl (35.1-43.9); Red Blood Count 4.28 M/mm3 (4.6-6.2); White Blood Count 6.6 K/mm3 (4.4-11.0)
[2018-09-11] MEDS: Ipratropium/Albuterol Sulfate 3 ML AMPUL.NEB INHALATION ×2 (07:24→11:45)
[2018-09-11 07:25] LABS: POSITIVE COUNT NO; POSITIVE DIFFERENTIAL NO; POSITIVE MORPHOLOGY NO
[2018-09-11 07:35] LABS: Anion Gap 7 (5-15); BUN 13 mg/dL (7-18); Calcium,Total 8.7 mg/dL (8.5-10.1); Chloride 97 mmol/L (98-107); Creatinine, Serum 0.93 mg/dL (0.70-1.30); EST Glomerular Filtration Rate 87 mL/min (>60); Est Glom Filt Rate - Afr Amer 106 mL/min (>60); Estimated Creatinine Clearance 98.52 ml/min; Glucose 79 mg/dL (74-106); Magnesium 2.1 mg/dL (1.6-2.6); Potassium 3.5 mmol/L (3.5-5.1); Sodium Level 139 mmol/L (136-145)
[2018-09-11 07:49] LABS: International Normalized Ratio 1.8; Prothrombin Time (Protime)PT. 21.2 SECONDS (11.7-14.9)
[2018-09-11] MEDS: Tamsulosin HCl 0.4 MG Capsule PO (09:30)
[2018-09-11] MEDS: Carvedilol 3.125 MG TABLET PO (09:30)
[2018-09-11] MEDS: Furosemide 80 MG Tablet PO (09:30)
[2018-09-11] MEDS: guaiFENesin 1,200 MG Tablet 1200 MG PO (09:31)
[2018-09-11] MEDS: Spironolactone 25 MG Tablet PO (09:31)
[2018-09-11] MEDS: Finasteride 5 MG Tablet PO (09:32)
[2018-09-11] MEDS: Pantoprazole Sodium 20 MG Tablet PO (09:32)
[2018-09-11] MEDS: Senna Tablet 1 TABLET PO (09:32)
--- NOTE | 2018-09-11 09:34 | PN.CARD_ITS ---
Subjectve: Patient doing much better today. Laying down flat in his bed. No 24-hour events. Telemetry showed A. fib with controlled ventricular rate. Patient apparently unable to be discharged home as he left his oxygen tank in the emergency room and it cannot be found, and the patient requires an oxygen regulator. Objective: Vital Signs Temp Pulse Resp BP Pulse Ox 97.5 F L 90 22 H 104/63 94 09/11/18 03:00 09/11/18 07:24 09/11/18 07:24 09/11/18 03:00 09/11/18 07:24 Oxygen Flow Rate (L/min) 6 Oxygen Delivery Method Nasal Cannula Weight: 251 lb 5.231 oz Body Mass Index (BMI) 30.4 Intake and Output for Last 24 Hours 09/09/18 09/10/18 09/11/18 23:59 23:59 23:59 Intake Total 1342 / 1342 960 / 960 120 / 120 Output Total 1150 / 1150 Balance 192 / 192 960 / 960 120 / 120 General: Awake, Alert, Oriented x 3 HEENT: PERRL, EOMI, Sclera Non Icteric Neck: Supple, Good ROM, No Lymph Node Enlargement Lungs: Clear to auscultation Cardiovascular: Irregular Rhythm, Normal S1, Normal S2, No Rubs, No Gallops Murmur Murmur: Grade 2/6, Holosystolic Vascular: No Carotid Bruits, Normal Femoral Pulses, Normal Radial Pulses, Normal Dorsalis Pedal Pulse, Normal Posterior Tibial Pulses Abdomen: Bowel Sounds Present, Soft, Non Tender, No HSM, No Organomegaly Extremities: No Cyanosis, No Clubbing, No edema Neurological: No Focal Motor or Sensory Deficit 09/10/18 18:13: PT 24.6 H, INR 2.2 09/11/18 06:00: WBC 6.6, RBC 4.28 L, Hgb 12.8 L, Hct 40.9, MCV 95.6 H, MCH 29.9, MCHC 31.3 L, RDW 16.6 H, RDW Differential 56.4 H, Plt Count 178, MPV 10.0, Immature Gran % (Auto) 0.200, Neut % (Auto) 67.1, Lymph % (Auto) 16.5 L, [place] % (Auto) 10.1 H, Eos % (Auto) 5.6 H, Baso % (Auto) 0.5, Absolute Neuts (auto) 4.5, Total Counted Not Reportable 09/11/18 06:00: Sodium 139, Potassium 3.5, Chloride 97 L, Carbon Dioxide 35.0 H, Anion Gap 7, BUN 13, Creatinine 0.93, Est GFR (MDRD) Af Amer 106, Est GFR (MDRD) Non-Af 87, BUN/Creatinine Ratio 14.0, Glucose 79, Calcium 8.7, Magnesium 2.1 09/11/18 06:00: PT 21.2 H, INR 1.8 Rhythm: EKG: ECHO: Stress Test: Cardiac Cath: PCI: CT Surgery: Holter monitor: EPS: PPM: CXR: Chest CT Scan: Medical Necessity - Tobacco Use Smoking Status: Current every day smoker Tobacco Use: Cigarettes Assessment/Plan 1. Cardiomyopathy: The patient has evidence of moderate to severe LV dysfunction, possibly as a result of chronic atrial fibrillation with an EF around 30% by catheterization in June 2017. In addition there is some suspicion as to whether the patient has severe mitral stenosis to explain his severe pulmonary hypertension. Patient has engaged in dietary noncompliance but apparently has been compliant with his medical therapy. Unfortunately he continues to smoke. Now that the patient has achieved his dry weight, recommended he restart beta- fito but with Coreg 3.125 mg p.o. twice daily as this appears to be a better medication for severe LV dysfunction over Lopressor. Repeat echocardiogram on this admission demonstrated normal LV function, moderate eccentric mitral regurgitation, at least moderate pulmonary hypertension with an RVSP of 50 mmHg which may be underestimated, and severe right ventricular enlargement. We are unable to interpret his mitral valve gradient. His right heart catheterization in June 2017 demonstrated a mean mitral gradient of approximately 14.5 mm, which be consistent with severe mitral stenosis. Either way, patient is not a candidate for mitral valve replacement given his current condition and lung cancer. I think his only option is for heart rate control to improve diastolic filling, anticoagulation for his atrial fibrillation and severe pulmonary hypertension, and IV diuretic therapy to assist with unloading his lungs. Now that the patient is approaching his dry weight, I would recommend discontinuation of IV Lasix, and switching him to Lasix 80 mg p.o. twice daily. Recommend continuing his spironolactone and his daily metolazone. Also recommend increasing his potassium replacement therapy to 40 mEq twice daily. His potassium is now 3.5. Continue magnesium therapy. For some reason he is not on DEYANIRA inhibitors or ARBs. We will start Coreg 3.125 mg p.o. twice daily today as well for rate control therapy. I would not recommend repeat catheterization and is been just over a year since his last one, and he had minimal nonobstructive coronary disease. He denied any chest pain symptoms. 2. Atrial fibrillation: The patient states he has never had a DC cardioversion and has been on Coumadin therapy for some time. Recommend keeping him on Coumadin lifelong or anticoagulant equivalent. Recommend an INR between 2.5 and 3.0. Would not recommend DC cardioversion given his severe RV enlargement and chronic atrial fibrillation. 3. Mitral stenosis: There was some evidence by right heart catheterization the patient may have severe mitral stenosis which may explain his severe pulmonary hypertension and severe RV enlargement. 4. Thank you very much for the opportunity to participate in the cardiac care of your patient. Patient may be discharged home. He will follow-up with Dr. Vidal or myself going forward. We will sign off. Code Visit Inpatient E&M: [id number] Subs Hosp L2
--- NOTE | 2018-09-11 12:05 | DCINST_ITS ---
- Discharge Diagnoses Reason(s) for Visit for Discharge Instructions: Shortness of breath You will use the following diet at home:: Cardiac Your food should be the consistency of: Regular Your liquids should be the consistency of: Regular/Thin Discharge Activity: Return to Normal Activity Additional Instructions: Continue to use your oxygen. Continue to remain active. Follow-up with Dr. Dobbins, Dr. Nagy and your primary within 2 weeks. Allergies/Adverse Reactions: Allergies bee venom protein (honey bee) Allergy (Verified 09/07/18 20:18) Anaphylaxis latex Allergy (Verified 09/07/18 20:18) Rash Medications to take at Discharge Finasteride [Proscar] 5 mg PO DAILY 08/01/13 Gabapentin [Neurontin] 600 mg PO TID 01/31/17 Mirtazapine [Remeron] 30 mg PO QHS PRN 01/31/17 Ondansetron [Zofran] 8 mg PO Q8H PRN PRN 01/31/17 Epinephrine [Epipen] 0.3 mg IM PRN PRN 07/07/17 Nitroglycerin [Nitrostat] 0.4 mg SL PRN PRN 07/07/17 Tamsulosin HCl [Flomax] 0.4 mg PO DAILY 07/07/17 Budesonide/Formoterol 80-4.5 [Symbicort 80-4.5 Mcg Inhaler] 2 puff INHALATION BID 07/09/17 Albuterol IH (ProAir) [Proair Hfa] 2 puff INHALATION 4X/DAY 07/28/17 Calcium Carbonate [Calcium] 500 mg PO DAILY 07/28/17 Guaifenesin [Mucinex] 1,200 mg PO BID 07/28/17 Potassium Chloride 20 meq PO TID 07/28/17 albuterol sulfate HFA 90 mcg/actuation aerosol inhaler 2 puff INHALATION Q4H PRN #18 g 08/18/17 ipratropium-albuterol 0.5 mg-3 mg(2.5 mg base)/3 mL nebulization soln 3 ml INHALATION Q4H PRN PRN #180 ml 08/18/17 Bacitracin 1 applicatio TP BID #1 tube 08/07/18 Hydrocodone/Acetaminophen [Hydrocodone-Acetamin 5-325 mg] 1 tab PO Q6H PRN PRN 09/08/18 Omeprazole 20 mg PO DAILY 09/08/18 Sennosides [Senna] 1 tab PO BID 09/08/18 Spironolactone 25 mg PO DAILY 09/08/18 proCHLORPERazine tablet [Compazine tablet] 10 mg PO Q6H PRN PRN 09/08/18 Acetaminophen [Tylenol Tablet] 650 mg PO Q6H PRN PRN tablet 09/11/18 Atorvastatin Calcium [Lipitor] 80 mg PO QHS #30 tablet 09/11/18 Carvedilol [Coreg (Beta Shelly)] 3.125 mg PO BID #60 tab 09/11/18 Furosemide [Lasix] 80 mg PO BID@1000,1800 #60 tablet 09/11/18 Warfarin [Coumadin] 6 mg PO DAILY@1700 tablet 09/11/18 levoFLOXacin tablet [Levaquin tablet] 750 mg PO DAILY@0600 #6 tablet 09/11/18 The following prescriptions were given: Atorvastatin Calcium [Lipitor] 80 mg PO QHS #30 tablet Furosemide [Lasix] 80 mg PO BID@1000,1800 #60 tablet levoFLOXacin tablet [Levaquin tablet] 750 mg PO DAILY@0600 #6 tablet Carvedilol [Coreg (Beta Shelly)] 3.125 mg PO BID #60 tab Primary Care Physician: Steven Brownlee MD [Primary Care Provider] - Please follow up with your Primary Care Physician in: within 1- 2 weeks Test Results: Test results from this visit will be discussed in further detail at your follow- up appointment, if applicable. Please Follow Up With: Janna Dobbins MD When: within 1-2 weeks Please Follow Up With: David Nagy MD When: within 2 weeks Proposed Discharge Date: 09/11/18
--- NOTE | 2018-09-11 12:05 | DS.PCM_ITS ---
Discharge Date and Diagnosis Date of Admission: 09/08/18 Date of Discharge: 09/11/18 - Primary Discharge Diagnosis 1. Acute on chronic combined respiratory failure 2. Acute metabolic encephalopathy 3. Suspected postobstructive pneumonia 4. Hypokalemia - Secondary Discharge Diagnosis Chronic Problems (Last Reviewed 08/19/17 @ 08:37 by IVANA Silva) Hyperlipidemia (Chronic) Hypertension (Chronic) Tobacco use disorder (Chronic) Chronic airway obstruction (Chronic) Obstructive sleep apnea (Chronic) Chronic pulmonary heart disease (Chronic) Atrial fibrillation (Chronic) Carcinoma, lung (Chronic) Right heart failure (Chronic) Pulmonary hypertension (Chronic) Hospital Course and Treatment Imaging Results: Clinical Impression(s) from Imaging Studies Chest X-Ray 09/07/18 21:30 IMPRESSION: 1. Right lower lobe pneumonia. Recurrent pneumonia in the same segmental distribution raises concern for possible underlying endobronchial lesion. Consider nonemergent CT of the chest after treatment and resolution of current symptoms. 2. Early pneumonic infiltrate on the left. Electronically Signed: Rosemarie Loo MD at 22:14 EDT Tel , Service support , Chest CTA 09/07/18 22:44 IMPRESSION: 1. No CTA demonstrated pulmonary embolism or arterial dissection. 2. There is infiltrative mediastinal and right-sided hilar renny mass with probable postobstructive atelectasis within the right lower lobe. There may also be neoplastic process involving the right lower lobe. 3. Multiple bilateral pulmonary nodules as described may represent metastases. 4. Cardiomegaly, sequelae of coronary artery vascular disease and mild pulmonary edema. Electronically Signed: Radha Perez MD at 1:09 EDT , Service support , Brain CT 09/08/18 01:17 IMPRESSION: Normal unenhanced CT scan of the brain. No acute findings in the brain. No metastatic disease. Electronically Signed: Mark Hernandez MD at 3:06 EDT Tel , Service support , Chest X-Ray 09/09/18 05:55 IMPRESSION: Since prior study, there has been improved aeration of the lungs with residual infiltrate in the right infrahilar region and prominence of the right hilum. Electronically Signed: Hernan Lundberg, at 10:07 EDT , Service support , Cardiology Oncology Operations: None Procedures: 2-D Echocardiogram Summary of Care Provided: 62-year-old male with past medical history of dementia, chronic hypoxic res piratory failure secondary to COPD, history of lung CA follows with Dr. Dobbins, status post chemotherapy radiation and on immunotherapy comes in with shortness of breath. He was reportedly confused. His family had reported transient facial droop. CT of the brain was negative for acute intracranial process. Patient's acute metabolic encephalopathy improved early on in his admission. It was felt to be secondary to underlining hypercapnia and buildup of morphine metabolites and ALISON. He was managed with IV Lasix on the telemetry floor for acute decompensated combined CHF. Cardiology, pulmonology, oncology were consulted Patient is supposed to be on CPAP at home. Pulmonology felt that with his underlying malignancy, acute decompensated CHF as well as possible postobstructive pneumonia, he should be transitioned to Bipap. IV Zosyn were added to his medications. Blood cultures were negative. Urine for streptococcal Legionella antigen was negative. Respiratory panel was also negative. He had hypokalemia of 2.7 on admission that was corrected. He also had acute kidney injury on admission. Creatinine was 1.35 that resolved by discharge to normal creatinine of 0.93. He was managed on IV Lasix with improvement. He was transitioned to oral Lasix with potassium supplementation and continue on his spironolactone and metolazone. Patient was felt not to be a candidate for mitral valve replacement- his 2D echo had shown EF of 30%, moderate pulmonary hypertension with RVSP of 50, severe right ventricular enlargement, and evidence of severe mitral stenosis from his right heart cath in June 2017. He was recommended to be on Coumadin with goal INR between 2.5-3.0. He was started on oral Levaquin and the plan was for 7 days total of Levaquin. Oncology plans to follow him up in the office in 2 weeks. Patient's called the next day expressing concern over Levaquin use. I reassured her that patient had Levaquin in the hospital with no complaints. She had not given him any since discharge. I recommended that she follows up with her primary and oncologist to closely monitor his Coumadin. Patient was asked to follow-up with his primary within a week and have BMP and INR repeated within a week.. Subjective: On the day of discharge, patient was seen and examined. His oxygen tank will be supplied by the [employer]. He denied any worsening SOB, chest pain, or palpitations. Objective: Physical Exam General: Alert, Oriented x3, Cooperative, No apparent distress, Well developed, comfortable on 6L oxygen HEENT: Atraumatic, PERRLA, EOMI, Normocephalic Oral: Moist Mucosa Neck: Supple, Trachea Midline, Thyroid Normal Size and Texture Lungs: Clear to auscultation, Normal air movement, No rhonchi, No wheeze, No rales Cardiovascular: PMI Normal, Irregular Rate Abdomen: Bowel Sounds Present, Soft, Non Tender, Non-Distended Extremities: Capillary Refill Less than 3 Seconds Skin: No rashes, No breakdown Musculoskeletal: No Tenderness to Palpation of Joints or Extremities Neurological: Cranial nerves II-XII grossly intact, Neuro grossly intact, Sensory exam intact to light touch and pain, Coordination normal Psych/Mental Status: Normal Affect, Appropriate, Alert and oriented to time, place, person, mood and affect - Physical Exam Vital Signs Temp Pulse Resp BP Pulse Ox 98.0 F 98 18 106/58 L 95 09/11/18 11:03 09/11/18 11:03 09/11/18 11:03 09/11/18 11:03 09/11/18 11:14 Oxygen Flow Rate (L/min) [ 6 AMBULATION with Oxygen] Oxygen Flow Rate (L/min) 6 Oxygen Delivery Method Nasal Cannula Weight: 114 kg Body Mass Index (BMI) 30.4 Orthostatic Vital Signs Start: 09/11/18 11:01 Freq: q24h Status: Active Protocol: Activity Type Activity Date Activity User E-Sign Co-Sign Detail Recorded Client Recorded Date Recorded By Document 09/11/18 11:01 MLB [id number] 09/11/18 11:03 MLB 09/11/18 11:01 Orthostatic Vitals Standing -Blood Pressure (90/60-120/80) 100/45 L -Extremity Use Right Arm -Pulse Rate (60-100) 97 Sitting -Blood Pressure (90/60-120/80) 106/58 L -Pulse Rate (60-100) 103 H Lying -Blood Pressure (90/60-120/80) 97/68 -Extremity Use Right Arm -Pulse Rate (60-100) 101 H Intake and Output for Last 24 Hours 09/09/18 09/10/18 09/11/18 23:59 23:59 23:59 Intake Total 1342 / 1342 960 / 960 120 / 120 Output Total 1150 / 1150 Balance 192 / 192 960 / 960 120 / 120 Microbiology Past 72 Hours 09/07/18 20:48 Blood Culture - Preliminary Blood Culture (Wb) - Anticubital Left No growth in 48 hours. 09/07/18 22:05 Blood Culture - Preliminary Blood Culture (Wb) - Anticubital Right No growth in 48 hours. 09/07/18 20:48 Urine Culture - Final Urine, Clean Catch Culture exhibits no growth. 09/08/18 13:00 Respiratory Panel (PCR) - Final Mucosa - Nose 09/08/18 22:21 Legionella Antigen - Final Urine, Clean Catch 09/08/18 22:21 Streptococcus pneumoniae Antigen (M - Final Urine, Clean Catch Laboratory Tests Past 24 Hrs 09/10/18 09/11/18 09/11/18 18:13 06:00 06:00 WBC 6.6 RBC 4.28 L Hgb 12.8 L Hct 40.9 MCV 95.6 H MCH 29.9 MCHC 31.3 L RDW 16.6 H RDW Differential 56.4 H Plt Count 178 MPV 10.0 Immature Gran % (Auto) 0.200 Neut % (Auto) 67.1 Lymph % (Auto) 16.5 L Hitchcock % (Auto) 10.1 H Eos % (Auto) 5.6 H Baso % (Auto) 0.5 Absolute Neuts (auto) 4.5 Absolute Lymphs (auto) 1.09 Total Counted Not Reportable PT 24.6 H INR 2.2 Sodium 139 Potassium 3.5 Chloride 97 L Carbon Dioxide 35.0 H Anion Gap 7 BUN 13 Creatinine 0.93 Estim Creat Clear Calc 98.52 Est GFR (MDRD) Af Amer 106 Est GFR (MDRD) Non-Af 87 BUN/Creatinine Ratio 14.0 Glucose 79 Calcium 8.7 Magnesium 2.1 09/11/18 06:00 WBC RBC Hgb Hct MCV MCH MCHC RDW RDW Differential Plt Count MPV Immature Gran % (Auto) Neut % (Auto) Lymph % (Auto) Hitchcock % (Auto) Eos % (Auto) Baso % (Auto) Absolute Neuts (auto) Absolute Lymphs (auto) Total Counted PT 21.2 H INR 1.8 Sodium Potassium Chloride Carbon Dioxide Anion Gap BUN Creatinine Estim Creat Clear Calc Est GFR (MDRD) Af Amer Est GFR (MDRD) Non-Af BUN/Creatinine Ratio Glucose Calcium Magnesium Discharge Diet: Low fat/ Low Cholesterol, 8 Cup Fluid Restriciton, 2000 mg Sodium Diet Discharge Activity: Return to Normal Activity Home Medications: Medications to take at Discharge Finasteride [Proscar] 5 mg PO DAILY 08/01/13 Gabapentin [Neurontin] 600 mg PO TID 01/31/17 Mirtazapine [Remeron] 30 mg PO QHS PRN 01/31/17 Ondansetron [Zofran] 8 mg PO Q8H PRN PRN 01/31/17 Epinephrine [Epipen] 0.3 mg IM PRN PRN 07/07/17 Nitroglycerin [Nitrostat] 0.4 mg SL PRN PRN 07/07/17 Tamsulosin HCl [Flomax] 0.4 mg PO DAILY 07/07/17 Budesonide/Formoterol 80-4.5 [Symbicort 80-4.5 Mcg Inhaler] 2 puff INHALATION BID 07/09/17 Albuterol IH (ProAir) [Proair Hfa] 2 puff INHALATION 4X/DAY 07/28/17 Calcium Carbonate [Calcium] 500 mg PO DAILY 07/28/17 Guaifenesin [Mucinex] 1,200 mg PO BID 07/28/17 Potassium Chloride 20 meq PO TID 07/28/17 albuterol sulfate HFA 90 mcg/actuation aerosol inhaler 2 puff INHALATION Q4H PRN #18 g 08/18/17 ipratropium-albuterol 0.5 mg-3 mg(2.5 mg base)/3 mL nebulization soln 3 ml INHALATION Q4H PRN PRN #180 ml 08/18/17 Bacitracin 1 applicatio TP BID #1 tube 08/07/18 Hydrocodone/Acetaminophen [Hydrocodone-Acetamin 5-325 mg] 1 tab PO Q6H PRN PRN 09/08/18 Omeprazole 20 mg PO DAILY 09/08/18 Sennosides [Senna] 1 tab PO BID 09/08/18 Spironolactone 25 mg PO DAILY 09/08/18 proCHLORPERazine tablet [Compazine tablet] 10 mg PO Q6H PRN PRN 09/08/18 Acetaminophen [Tylenol Tablet] 650 mg PO Q6H PRN PRN tablet 09/11/18 Atorvastatin Calcium [Lipitor] 80 mg PO QHS #30 tablet 09/11/18 Carvedilol [Coreg (Beta Shelly)] 3.125 mg PO BID #60 tab 09/11/18 Furosemide [Lasix] 80 mg PO BID@1000,1800 #60 tablet 09/11/18 Warfarin [Coumadin] 6 mg PO DAILY@1700 tablet 09/11/18 levoFLOXacin tablet [Levaquin tablet] 750 mg PO DAILY@0600 #6 tablet 09/11/18 Following Prescrptions Were Given to Patient: Atorvastatin Calcium [Lipitor] 80 mg PO QHS #30 tablet Furosemide [Lasix] 80 mg PO BID@1000,1800 #60 tablet levoFLOXacin tablet [Levaquin tablet] 750 mg PO DAILY@0600 #6 tablet Carvedilol [Coreg (Beta Shelly)] 3.125 mg PO BID #60 tab Primary Care Physician: Steven Brownlee MD [Primary Care Provider] - Please follow up with your Primary Care Physician in: within 1- 2 weeks Please Follow Up With: Janna Dobbins MD When: within 1-2 weeks Please Follow Up With: David Nagy MD When: within 2 weeks Disposition: Home Minutes spent on discharge:: 40 Patient Condition:: Stable Medical Necessity - Tobacco Use Smoking Status: Current every day smoker Tobacco Use: Cigarettes Meaningful Use Info Meaningful Use Diagnoses (Choose all that apply): CHF - CHF DEYANIRA/ARB ordered at discharge?: No Reason DEYANIRA/ARB not ordered?: Worsening renal disease Documented LVEF (%): 30 Code Visit Inpatient E&M: 26958 Disch Hosp
--- NOTE | 2018-09-13 13:03 | CASEMGMT ---
SOPHIE MCLEOD Discharge Follow-Up Phone Call. Ita: 12 Strata: 4 Discharge Date: 09-11-18 Adm Dx: CHF Exac. Call to pt to inquire about how he has been doing since being discharged from the hospital. He stated I've been doing pretty good. Asked pt if he has any questions about the discharge instructions or medications. He stated he did not and stated, I have it pretty much covered. Reinforced with pt importance of having INR checked w/in 3 days of discharge and to take antibiotics until gone. Pt states he is aware of both of these things and voices understanding. Pt states he has made an appt with Dr Brownlee and still needs to get an appt to see Dr Dobbins and Dr Nagy. Pt inquiring about getting a different kind of portable O2 tank. Advised pt to contact [facility] to discuss options and process for this. Pt voiced understanding. Pt inquiring about the oxygen tank/regulator that he brought into ER from home. He stated it was not sent to the room with him from ER and that it was never delivered to his room. He stated he filled out paperwork @ the hospital re: this and was wondering what was determined, stating, that thing cost $177 to replace it and I don't think I should be responsible to pay for it. Call placed to RENE Jasmine RN, CM, and she stated she will check with the supercharger mechanic, Celine, about this and follow-up on it. SOPHIE MCLEOD thanked pt for choosing [facility]. Marcos HAYWOOD RN, CM
--- NOTE | 2018-09-13 13:21 | CASEMGMT ---
Marcelle at [facility] notified that pt filed report for missing oxygen tank at [facility] previously. She states that pt only had one portable oxygen tank at home. She states that she will make a note of missing tank in pt file at this time. Per Celine, PCU scrap charger, ED and all floors were notified of missing tank over the weekend. This RN CM did mention it to resp therapist to see if she could make sure they were keeping an eye out for tank. SStaten RN CM
[2018-09-15 17:42] LABS: O2 Delivery Device Bi Pap
[2018-09-15 17:44] LABS: pH 7.51 (7.35-7.45)
== END 2018-09-11 15:27 | disposition home or self-care (01) | DRG 291 ==
LOC: ED 09-08 02:04 → PCU 09-08 02:10
PROVIDERS: Internal Medicine; Internal Medicine Critical Care Medicine; Admitting Provider Family Medicine; Emergency Provider Emergency Medicine; Family Provider Family Medicine; PCP Family Medicine; Referring Provider Family Medicine; Visit Provider Internal Medicine
DX: I50.43 Acute on chronic combined systolic (congestive) and diastolic (congestive) heart failure (principal); J96.22 Acute and chronic respiratory failure with hypercapnia; J96.21 Acute and chronic respiratory failure with hypoxia; G93.41 Metabolic encephalopathy; J18.9 Pneumonia, unspecified organism; C79.9 Secondary malignant neoplasm of unspecified site; N17.9 Acute kidney failure, unspecified; C34.91 Malignant neoplasm of unspecified part of right bronchus or lung; C78.00 Secondary malignant neoplasm of unspecified lung; I42.9 Cardiomyopathy, unspecified; I11.0 Hypertensive heart disease with heart failure; E87.6 Hypokalemia; E78.5 Hyperlipidemia, unspecified; Z66 Do not resuscitate; F17.210 Nicotine dependence, cigarettes, uncomplicated; I48.2 Chronic atrial fibrillation; I27.20 Pulmonary hypertension, unspecified; Z79.899 Other long term (current) drug therapy; Z92.21 Personal history of antineoplastic chemotherapy; Z79.01 Long term (current) use of anticoagulants; Z92.3 Personal history of irradiation; G47.33 Obstructive sleep apnea (adult) (pediatric); Z99.81 Dependence on supplemental oxygen
CPT/HCPCS: 36415; 36600; 70450; 71045; 71275; 80048; 80053; 80061; 81001; 82803; 82962; 83605; 83735; 83880; 84443; 84484; 85025; 85610; 85730; 87040; 87086; 87449; 87633; 87641; 92610; 93005; 93306; 94003; 94640; 94660; 97110; 97116; 97162; 97165; 97530; 97535; 99285; 99406; J7050; Q9967; A4216; J1940